=== PATIENT | male | born 1965 | race Caucasian/White ===

== ENCOUNTER 2016-04-07 19:24 | Emergency (ER) | payer OTHER ==
[~2016-04-07] VITALS: Ht 175.3 cm; Wt 140.0 kg
[~2016-04-07 19:24] MED LIST: AMLO5TAB2 PO; BENZ2TAB PO; DEPA500T3 PO; FIBE625T3 PO; GEMF600T PO; IBUP800T23 PO; LISI40TA PO; METF1000 PO; NAPR500 PO; NEUR600T PO; ROBA500T PO; SERO400T PO; ZOLO50TA PO
[2016-04-07 19:29] VITALS: BP 144/90; PULSE 98; RESP 17; TEMP 98.4; O2SAT 97
[2016-04-07] MEDS ORDERED: SODIUM CHLORIDE 0.9% FLUSH 5 ML FLUSH IVF PRN (20:30)
[2016-04-07] MEDS ORDERED: CALC1TAB69 PO (20:36)
--- NOTE | 2016-04-07 20:36 | PD ---
HPI Chief Complaint: Diabetic Time Seen by Provider: 20:23 Travel History International Travel<30 days: No Contact w/Intl Traveler<30days: No Traveled to known affect area: No History of Present Illness HPI The patient is a 50-year-old male with a history of [id number] diabetes who noted a high blood sugar today. He is not also noted polyuria/ polydipsia. He does have some nausea with diarrhea but denies any vomiting. He denies any fever. He has had a cough productive of brown sputum for the last 6 months. He does smoke one half pack a day and is trying to quit. He took his usual dose of metformin at 7 PM which is 1 g. He does feel dehydrated. PFSH Past Medical History Bipolar Disorder: Yes Anxiety: Yes Depression: Yes Cardiovascular Problems: Yes (HTN ) Diabetes: Yes (Type 2 ) Patient Takes Glucophage: Yes Diminished Hearing: No Hypertension: Yes Musculoskeletal: Yes (CHRONIC BACK PAIN) Psychiatric: Yes Tetanus Vaccination: > 5 Years Influenza Vaccination: No ?: Not Past Surgical History Body Medical Devices: PINS AND PLATES IN RIGHT ARM Eye Surgery: Yes (BLIND IN RIGHT EYE) Social History Alcohol Use: Yes (occ) Tobacco Use: Yes ( 1/2 PPD,pt is trying to quit) Substance Use: Yes (marijuana) Allergies-Medications (Allergen,Severity, Reaction): Coded Allergies: No Known Allergies (Verified , 04/07/16) Reported Meds & Prescriptions Reported Meds & Active Scripts Active Naprosyn (Naproxen) 500 Mg Tab 500 Mg PO Q12HR PRN Metformin (Metformin HCl) 1,000 Mg Tab 1,000 Mg PO BIDPC With meals Reported Calcium Polycarbophil 625 Mg Tab 625 Mg PO DAILY Gemfibrozil 600 Mg Tab 600 Mg PO BIDAC Take 30 minutes prior to breakfast and dinner. Benztropine (Benztropine Mesylate) 2 Mg Tab 2 Mg PO HS Amlodipine (Amlodipine Besylate) 5 Mg Tab 5 Mg PO DAILY Lisinopril 40 Mg Tab 40 Mg PO DAILY Zoloft (Sertraline HCl) 50 Mg Tab 50 Mg PO DAILY Depakote ER (Divalproex Sodium) 500 Mg Urvashi 1,000 Mg PO HS Neurontin (Gabapentin) 600 Mg Tab 600 Mg PO TID Seroquel (Quetiapine Fumarate) 400 Mg Tab 800 Mg PO HS Review of Systems Except as stated in HPI: all other systems reviewed are Neg Physical Exam Narrative GENERAL: The patient is alert, obese, oriented 3, moderately dehydrated appearing in no apparent distress. There is no ketotic smell to his breath. His vital signs show blood pressure 144/90 but are otherwise normal. SKIN: Warm and dry. HEAD: Atraumatic. Normocephalic. EYES: Pupils equal and round. No scleral icterus. No injection or drainage. ENT: No nasal bleeding or discharge. Mucous membranes pink and moist. NECK: Trachea midline. No JVD. CARDIOVASCULAR: Regular rate and rhythm. No murmur appreciated. RESPIRATORY: No accessory muscle use. Clear to auscultation. Breath sounds equal bilaterally. GASTROINTESTINAL: Abdomen soft, non-tender, nondistended. Hepatic and splenic margins not palpable. No guarding or rebound is present. MUSCULOSKELETAL: No obvious deformities. No clubbing. No cyanosis. No edema. NEUROLOGICAL: Awake and alert. No obvious cranial nerve deficits. Motor grossly within normal limits. Normal speech. PSYCHIATRIC: Appropriate mood and affect; insight and judgment normal. Data Data Last Documented VS Vital Signs Date Time Temp Pulse Resp B/P Pulse Ox O2 Delivery O2 Flow Rate FiO2 04/07/16 20:53 97 Room Air 04/07/16 19:29 98.4 98 17 144/90 Orders Complete Blood Count With Diff (04/07/16 20:23) Comprehensive Metabolic Panel (04/07/16 20:23) Magnesium (Mg) (04/07/16 20:23) Beta Hydroxybutyrate (Acetone) (04/07/16 20:23) Urinalysis - C+S If Indicated (04/07/16 20:23) Chest, Pa & Lat (04/07/16 20:23) Ecg Monitoring (04/07/16 20:23) Iv Access Insert/Monitor (04/07/16 20:23) Oximetry (04/07/16 20:23) NPO (04/07/16 20:23) Sodium Chlor 0.9% 1000 Ml Inj (Ns 1000 M (04/07/16 20:53) Sodium Chloride 0.9% Flush (Ns Flush) (04/07/16 20:30) Insulin Human Regular Inj (Novolin R Inj (04/07/16 20:45) Orphenadrine Inj (Norflex Inj) (04/07/16 22:00) Labs Laboratory Tests Test 04/07/16 04/07/16 20:30 20:50 White Blood Count 13.6 TH/MM3 Red Blood Count 4.92 MIL/MM3 Hemoglobin 13.3 GM/DL Hematocrit 39.1 % Mean Corpuscular Volume 79.6 FL Mean Corpuscular Hemoglobin 27.0 PG Mean Corpuscular Hemoglobin 33.9 % Concent Red Cell Distribution Width 12.8 % Platelet Count 365 TH/MM3 Mean Platelet Volume 9.3 FL Neutrophils (%) (Auto) 67.3 % Lymphocytes (%) (Auto) 23.7 % Monocytes (%) (Auto) 5.6 % Eosinophils (%) (Auto) 3.0 % Basophils (%) (Auto) 0.4 % Neutrophils # (Auto) 9.1 TH/MM3 Lymphocytes # (Auto) 3.2 TH/MM3 Monocytes # (Auto) 0.8 TH/MM3 Eosinophils # (Auto) 0.4 TH/MM3 Basophils # (Auto) 0.1 TH/MM3 CBC Comment DIFF FINAL Differential Comment Sodium Level 130 MEQ/L Potassium Level 4.4 MEQ/L Chloride Level 94 MEQ/L Carbon Dioxide Level 27.4 MEQ/L Anion Gap 9 MEQ/L Blood Urea Nitrogen 16 MG/DL Creatinine 1.00 MG/DL Estimat Glomerular Filtration 79 ML/MIN Rate Random Glucose 448 MG/DL Calcium Level 8.8 MG/DL Magnesium Level 1.8 MG/DL Total Bilirubin 0.2 MG/DL Aspartate Amino Transf 6 U/L (AST/SGOT) Alanine Aminotransferase 15 U/L (ALT/SGPT) Alkaline Phosphatase 101 U/L Total Protein 7.5 GM/DL Albumin 2.9 GM/DL B-Hydroxybutyrate 0.09 MMOL/L Urine Color STRAW Urine Turbidity CLEAR Urine pH 6.0 Urine Specific [place] GREATER THAN 1.035 Urine Protein NEG mg/dL Urine Glucose (UA) 1000 OR GREATER mg/dL Urine Ketones TRACE mg/dL Urine Occult Blood SMALL Urine Nitrite NEG Urine Bilirubin NEG Urine Leukocyte Esterase NEG Urine RBC 0-3 /hpf Urine WBC 0-2 /hpf Urine Squamous Epithelial 0-5 /hpf Cells Urine Bacteria NONE /hpf Microscopic Urinalysis Comment CULT NOT INDICATED MDM Medical Decision Making Medical Screen Exam Complete: Yes Emergency Medical Condition: Yes Medical Record Reviewed: Yes Interpretation(s) The blood sugar is 448. Insulin was given that 2041, 12 units. At 06/04/19 he Accu-Chek was 275. Differential Diagnosis Diabetes mellitus with poor control, hyperglycemic episode, electrolyte disorder , UTI Narrative Course The patient has had a good response to insulin. He does have some leg cramping and arm cramping and will be given Norflex. He needs to follow-up with his primary care physician. He is provided with his lab work that we did here in emergency department. Diagnosis Primary Impression: Hyperglycemia Additional Instructions: Follow-up as soon as possible with your primary care physician. 6 closely with her diet because if you lose weight you will reduce your requirement for diabetic medications. Med/Other Pt SpecificInfo: No Change to Meds Disposition: 01 DISCHARGE HOME Condition: Stable Tommie Coy MD Apr 07, 2016 20:35
[2016-04-07 20:43] LABS: AUTOMATED NEUTROPHIL # 9.1 TH/MM3 (1.8-7.7); BASOPHIL # 0.1 TH/MM3 (0-0.2); BASOPHIL % 0.4 % (0.0-2.0); EOSINOPHIL # 0.4 TH/MM3 (0-0.4); HEMATOCRIT 39.1 % (39.0-51.0); HEMO FLAGS DIFF FINAL; LYMPH % 23.7 % (9.0-44.0); LYMPHOCYTE # 3.2 TH/MM3 (1.0-4.8); MEAN CELL VOLUME 79.6 FL (80.0-100.0); MEAN CORPUSCULAR HGB CONC 33.9 % (32.0-36.0); MONO % 5.6 % (0.0-8.0); NEUT % 67.3 % (16.0-70.0); PLATELET COUNT 365 TH/MM3 (150-450); RED BLOOD COUNT 4.92 MIL/MM3 (4.50-5.90); RED CELL DISTRIBUTION WIDTH 12.8 % (11.6-17.2); WHITE BLOOD COUNT 13.6 TH/MM3 (4.0-11.0)
[2016-04-07] MEDS ORDERED: INSULIN HUMAN REGULAR 1,000 UNITS/10 ML VIAL IVP ONE (20:45)
[2016-04-07 20:50] LABS: CHLORIDE 94 MEQ/L (98-107); POTASSIUM 4.4 MEQ/L (3.5-5.1); SODIUM (NA) 130 MEQ/L (136-145)
[2016-04-07 20:53] VITALS: O2SAT 97
[2016-04-07 20:53] LABS: ANION GAP 9 MEQ/L (5-15); BICARBONATE 27.4 MEQ/L (21.0-32.0)
[2016-04-07 20:53] LABS: BLOOD, URINE SMALL (NEG); KETONE, URINE TRACE mg/dL (NEG); NITRITE,URINE NEG (NEG)
[2016-04-07] MEDS ORDERED: SODIUM CHLOR 0.9% 1000 ML INJ 1,000 ML IV ONE (20:53)
[2016-04-07 21:04] LABS: ALKALINE PHOSPHATASE 101 U/L (45-117); ALT (GPT) 15 U/L (12-78); AST (GOT) 6 U/L (15-37); BLOOD UREA NITROGEN 16 MG/DL (7-18); GLOMERULAR FILTRATION RATE 79 ML/MIN (>89); MAGNESIUM 1.8 MG/DL (1.5-2.5); TOTAL BILIRUBIN ADULT 0.2 MG/DL (0.2-1.0)
[2016-04-07 21:07] LABS: GLUCOSE,URINE 1000 OR GREATER mg/dL (NEG)
[2016-04-07 21:08] LABS: COMMENT (UR) CULT NOT INDICATED; CULTURE IF INDICATED CULT NOT INDICATED; RBC, URINE 0-3 /hpf (0-3); SQUAMOUS EPITHELIAL CELL URINE 0-5 /hpf (0-5); URINE COLOR STRAW (YELLW/STRAW); WBC, URINE 0-2 /hpf (0-5)
[2016-04-07 21:15] VITALS: BP 118/85; PULSE 91; RESP 19
[2016-04-07 21:21] LABS: BETA-HYDROXYBUTYRATE 0.09 MMOL/L (0.00-0.39)
--- NOTE | 2016-04-07 21:26 | RADHPO ---
EXAM DATE/TIME: 04/07/2016 21:00 [facility] COMPARISON: No previous studies available for comparison. INDICATIONS : Shortness of breath. MEDICAL HISTORY : Diabetes mellitus type II. SURGICAL HISTORY : None. ENCOUNTER: Initial ACUITY: 1 day PAIN SCORE: 0/10 LOCATION: Bilateral chest FINDINGS: The heart size is normal. There is some prominence of the left hilar region and some subtle increase d density in the left suprahilar area. The right lung appears clear. A significant effusion is not seen. CONCLUSION: Suspected left suprahilar area of consolidation and some prominence of the left hilum. Casey Cisneros MD on April 07, 2016 at 21:15 Board Certified Radiologist. This report was verified electronically.
[2016-04-07] MEDS ORDERED: ORPHENADRINE INJ 60 MG/2 ML AMP IM ONE (22:00)
[2016-04-07 22:20] VITALS: BP 144/86; PULSE 95; RESP 20; O2SAT 96
[2016-04-07] MEDS ORDERED: LIDOCAINE HCL 1% 50 ML VIAL IM ONE (22:30)
[2016-04-07] MEDS ORDERED: CEPH-460 PO (22:34)
[2016-04-07] MEDS ORDERED: ZITH500T PO (22:34)
[2016-04-07] MEDS ORDERED: AZITHROMYCIN 250 MG TAB PO ONE (22:45)
[2016-04-07 23:02] VITALS: BP 132/78
[2016-04-10] MEDS ORDERED: METF1000 PO (14:52)
[2016-04-10] MEDS ORDERED: LISI40TA PO (14:53)
[2016-04-17] MEDS ORDERED: GLIP5TAB8 PO (14:34)
[2016-04-23] MEDS ORDERED: GLIP5TAB8 PO (14:18)
[2016-04-24] MEDS ORDERED: GLIP10TA6 PO ×2 (11:24→11:25)
[2016-04-30] MEDS ORDERED: GEMF600T PO ×2 (10:30→10:31)
[2016-05-03] MEDS ORDERED: METF1000 PO (14:39)
[2016-05-03] MEDS ORDERED: NAPR500 PO (14:39)
[2016-05-03] MEDS ORDERED: LISI40TA PO (14:39)
[2016-05-08] MEDS ORDERED: AMLO5TAB2 PO ×2 (14:05→14:06)
[2016-05-21] MEDS ORDERED: NAPR500 PO (13:11)
[2016-05-30] MEDS ORDERED: GLIP10TA6 PO (17:06)
[2016-08-16] MEDS ORDERED: AMLO5TAB2 PO (08:08)
[2016-08-23] MEDS ORDERED: CYCL1TAB29 PO (15:47)
== END 2016-04-07 23:10 | disposition home or self-care (01) ==
LOC: PHED 19:24
DX: E11.65 Type 2 diabetes mellitus with hyperglycemia (principal); F41.8 Other specified anxiety disorders; I10 Essential (primary) hypertension; F17.210 Nicotine dependence, cigarettes, uncomplicated; H54.41 Blindness, right eye, normal vision left eye; Z79.4 Long term (current) use of insulin
CPT/HCPCS: 71020; 80053; 81001; 82010; 83735; 85025; 96361; 96372; 96374; 99285; J0696; J1815; J2360; J7030

== ENCOUNTER → 2016-04-13 | Outpatient (CLI) | payer OTHER ==
[~2016-04-13] MED LIST changes: +CALC1TAB69 PO; +CEPH-460 PO; +CYCL1TAB29 PO; +GLIP10TA6 PO; +GLIP5TAB8 PO; +QUET1TAB10 PO; +ZITH500T PO
[2016-04-13 10:38] LABS: AUTOMATED NEUTROPHIL # 7.9 TH/MM3 (1.8-7.7); BASOPHIL # 0.1 TH/MM3 (0-0.2); BASOPHIL % 0.8 % (0.0-2.0); EOSINOPHIL # 0.5 TH/MM3 (0-0.4); EOSINOPHIL % 3.6 % (0.0-4.0); HEMATOCRIT 41.8 % (39.0-51.0); HEMO FLAGS DIFF FINAL; LYMPH % 28.6 % (9.0-44.0); LYMPHOCYTE # 3.8 TH/MM3 (1.0-4.8); MEAN CELL VOLUME 78.7 FL (80.0-100.0); MEAN CORPUSCULAR HEMOGLOBIN 27.5 PG (27.0-34.0); MONO % 7.6 % (0.0-8.0); NEUT % 59.4 % (16.0-70.0); PLATELET COUNT 444 TH/MM3 (150-450); RED BLOOD COUNT 5.31 MIL/MM3 (4.50-5.90); RED CELL DISTRIBUTION WIDTH 14.4 % (11.6-17.2); WHITE BLOOD COUNT 13.4 TH/MM3 (4.0-11.0)
[2016-04-13 11:08] LABS: ANION GAP 7 MEQ/L (5-15); AST (GOT) 11 U/L (15-37); BICARBONATE 27.6 MEQ/L (21.0-32.0); BLOOD UREA NITROGEN 26 MG/DL (7-18); CHLORIDE 96 MEQ/L (98-107); GLOMERULAR FILTRATION RATE 84 ML/MIN (>89); GLUCOSE,FASTING 243 MG/DL (74-99); POTASSIUM 4.3 MEQ/L (3.5-5.1); SODIUM (NA) 131 MEQ/L (136-145)
[2016-04-13 11:11] LABS: ALKALINE PHOSPHATASE 87 U/L (45-117); ALT (GPT) 21 U/L (12-78); HDL CHOLESTEROL 28.4 MG/DL (40.0-60.0); LDL CHOLESTEROL 91 MG/DL (0-99); TOTAL BILIRUBIN ADULT 0.2 MG/DL (0.2-1.0)
[2016-04-13 13:36] LABS: HEMOGLOBIN A1a 1.2 %; HEMOGLOBIN A1b 3.2 %; HEMOGLOBIN Ao 75.6 %; HEMOGLOBIN LA1C 2.9 %; HEMOGLOBIN P3 5.1 %
== END ==
LOC: CLAB 10:06
PROVIDERS: ATTEND Family Medicine
DX: H54.41 Blindness, right eye, normal vision left eye (principal); S20.212A Contusion of left front wall of thorax, initial encounter; M79.672 Pain in left foot; E66.9 Obesity, unspecified; E78.5 Hyperlipidemia, unspecified; X58.XXXA Exposure to other specified factors, initial encounter
CPT/HCPCS: 36415; 80053; 80061; 83036; 85025

== ENCOUNTER 2016-07-14 01:44 | Emergency (ER) | payer OTHER ==
[~2016-07-14] VITALS: Ht 175.3 cm; Wt 139.3 kg
[~2016-07-14 01:44] MED LIST changes: -CEPH-460 PO; -CYCL1TAB29 PO; -FIBE625T3 PO; -GLIP5TAB8 PO; -IBUP800T23 PO; -QUET1TAB10 PO; -ROBA500T PO; -ZITH500T PO
[2016-07-14 01:53] VITALS: BP 125/83; PULSE 104; RESP 12; TEMP 100.3; O2SAT 97
[2016-07-14] MEDS ORDERED: DEPA500T3 PO (02:27)
[2016-07-14 03:00] VITALS: BP 147/82; PULSE 92; RESP 20; O2SAT 96
--- NOTE | 2016-07-14 03:10 | PD ---
HPI Chief Complaint: Syncope/Near-Syncope Time Seen by Provider: 02:57 Travel History International Travel<30 days: No Contact w/Intl Traveler<30days: No Traveled to known affect area: No History of Present Illness HPI The patient is a 50-year-old male that states he has nightly blackouts. He states this is not why he is here. The patient states he is an opiate abuser and has shoulder pain for 5 days and wants to know what it is so he can get a muscle relaxer and go somewhere for it. He denies any trauma. He states the black out spells occur because of the Seroquel. He does have a history of opiate as well as cocaine abuse as well as benzodiazepine abuse in the past. The patient states he has taken 10 mg Flexeril with his current medications and this has worked fine. PFSH Past Medical History Arthritis: Yes Bipolar Disorder: Yes Anxiety: Yes Depression: Yes Cardiovascular Problems: Yes (HTN ) Diabetes: Yes (TYPE 2) Diminished Hearing: No (BILATERAL HEARING AIDES) Hypertension: Yes Musculoskeletal: Yes (CHRONIC BACK PAIN) Psychiatric: Yes Influenza Vaccination: No Past Surgical History Body Medical Devices: PINS AND PLATES IN RIGHT ARM Eye Surgery: Yes (BLIND IN RIGHT EYE, CHILDHOOD TRAUMA) Social History Alcohol Use: Yes (SOCIALLY) Tobacco Use: Yes (1 03/19 PPD) Substance Use: Yes (MARIJUANA) Allergies-Medications (Allergen,Severity, Reaction): Coded Allergies: No Known Allergies (Verified , 07/14/16) Reported Meds & Prescriptions Reported Meds & Active Scripts Active Glipizide 10 Mg Tab 10 Mg PO BIDAC Take 30 minutes before a meal Naprosyn (Naproxen) 500 Mg Tab 500 Mg PO Q12HR PRN Amlodipine (Amlodipine Besylate) 5 Mg Tab 5 Mg PO DAILY Lisinopril 40 Mg Tab 40 Mg PO DAILY Metformin (Metformin HCl) 1,000 Mg Tab 1,000 Mg PO BIDPC With meals Gemfibrozil 600 Mg Tab 600 Mg PO BIDAC Take 30 minutes prior to breakfast and dinner. Reported Depakote ER (Divalproex Sodium) 500 Mg Ruvashi 600 Mg PO HS Zoloft (Sertraline HCl) 50 Mg Tab 50 Mg PO DAILY Neurontin (Gabapentin) 600 Mg Tab 600 Mg PO TID Seroquel (Quetiapine Fumarate) 400 Mg Tab 600 Mg PO HS Review of Systems Except as stated in HPI: all other systems reviewed are Neg Physical Exam Narrative GENERAL: Well-nourished, alert and oriented, slightly obese patient in moderate apparent distress with his left shoulder pain. His vital signs show heart rate of 104 and temperature 100.3 but otherwise normal. SKIN: Focused skin assessment warm/dry. Recent needle tracks are present in the right forearm. None of these are infected. A few are present in the left forearm. HEAD: Normocephalic. EYES: No scleral icterus. No injection or drainage. NECK: Supple, trachea midline. No JVD or lymphadenopathy. CARDIOVASCULAR: Regular rate and rhythm without murmurs, gallops, or rubs. RESPIRATORY: Breath sounds equal bilaterally. No accessory muscle use. GASTROINTESTINAL: Abdomen soft, non-tender, nondistended. MUSCULOSKELETAL: No cyanosis, or edema. BACK: Nontender without obvious deformity. No CVA tenderness. Data Data Last Documented VS Vital Signs Date Time Temp Pulse Resp B/P Pulse Ox O2 Delivery O2 Flow Rate FiO2 07/14/16 02:28 98 20 98 07/14/16 01:53 100.3 125/83 Orders Electrocardiogram (07/14/16 03:00) Ketorolac Inj (Toradol Inj) (07/14/16 03:15) Orphenadrine Inj (Norflex Inj) (07/14/16 03:15) Shoulder, Complete (>2vws) (07/14/16 ) [facility] Medical Decision Making Medical Screen Exam Complete: Yes Emergency Medical Condition: Yes Medical Record Reviewed: Yes Interpretation(s) The EKG shows sinus rhythm with a rate of 88 and is completely normal. The left shoulder shows no fracture or other acute bony abnormality. There is moderate osteoarthritis of the acromioclavicular joint. Also noted are chronic appearing cortical excretion sees seen on the proximal shaft of the left humerus. This could be old trauma, osteochondromas or chronic tug lesions. Differential Diagnosis Tendinitis left shoulder, rotator cuff tear, arthritis left shoulder Narrative Course The patient appears to have our she arthritis of the left shoulder. He should rest the left shoulder, take Motrin 800 mg 3 times daily and is given Flexeril 10 mg 3 times a day for 10 days. Diagnosis Primary Impression: Osteoarthritis of left shoulder Additional Instructions: As we discussed, take the Motrin regularly 3 times daily. Rest is important for this to calm down and this is why you're given a sling. Follow-up with a primary care physician. Med/Other Pt SpecificInfo: Prescription(s) given Scripts Cyclobenzaprine (Flexeril)10 Mg Tab10 Mg PO TID #30 TAB Ref 0 Prov:Tommie Coy MD 07/14/16 Ibuprofen 800 Mg Alg418 Mg PO TID #44 TAB Ref 0 Prov:Tommie Coy MD 07/14/16 Disposition: 01 DISCHARGE HOME Condition: Stable Tommie Coy MD Jul 14, 2016 03:10
[2016-07-14] MEDS ORDERED: KETOROLAC TROMETHAMINE 60 MG/2 ML (IM) VIAL IM ONE (03:15)
[2016-07-14] MEDS ORDERED: ORPHENADRINE INJ 60 MG/2 ML AMP IM ONE (03:15)
--- NOTE | 2016-07-14 03:38 | RADHPO ---
EXAM DATE/TIME: 07/14/2016 03:17 [facility] COMPARISON: No previous studies available for comparison. INDICATIONS : Left shoulder pain with bruising. MEDICAL HISTORY : None. SURGICAL HISTORY : None. ENCOUNTER: Initial ACUITY: 4 - 6 days PAIN SCORE: 6/10 LOCATION: Left upper extremity FINDINGS: Bones of the left shoulder are intact and normally aligned. There is moderate osteoarthritis of the a cromioclavicular joint. Radiographic appearance of the soft tissues within normal limits. Mild, chronic appearing cortical excrescences are seen of the proximal shaft of the left humerus, cou ld be related to old trauma versus osteochondromas or chronic tug lesions. I don't see any suspicious or aggressive features. CONCLUSION: No fracture or other acute bony abnormality. Moderate osteoarthritis of the acromioclavicular joint a nd chronic appearing excrescences of the left humerus. Please see above. Casey Adan MD on July 14, 2016 at 3:34 Board Certified Radiologist. This report was verified electronically.
[2016-07-14] MEDS ORDERED: IBUP800T23 PO (04:13)
[2016-07-14] MEDS ORDERED: CYCL1TAB29 PO (04:13)
[2016-07-14 04:29] VITALS: BP 120/73
--- NOTE | 2016-07-14 19:06 | EKG ---
Date Performed: 07/14/2016 Time Performed: 03:04:56 PTAGE: 50 years EKG: Sinus rhythm Normal ECG PREVIOUS TRACING : 02/27/2015 01.44 Compared to prior tracing no significant change DOCTOR: Matthew Hendrix Interpretating Date/Time 07/14/2016 19:05:14
[2016-08-16] MEDS ORDERED: AMLO5TAB2 PO (08:08)
[2016-08-23] MEDS ORDERED: CYCL1TAB29 PO (15:47)
== END 2016-07-14 04:35 | disposition home or self-care (01) ==
LOC: PHED 01:44
DX: M19.012 Primary osteoarthritis, left shoulder (principal)
CPT/HCPCS: 73030; 93005; 96372; 99284; J1885; J2360

== ENCOUNTER 2016-07-31 15:52 | Emergency (ER) | payer OTHER ==
[~2016-07-31] VITALS: Ht 175.3 cm; Wt 124.3 kg
[~2016-07-31 15:52] MED LIST changes: -BENZ2TAB PO; -CALC1TAB69 PO; +CYCL1TAB29 PO; +IBUP800T23 PO
[2016-07-31 15:58] VITALS: BP 154/110; PULSE 113; RESP 16; TEMP 98.7; O2SAT 99
[2016-07-31 16:08] VITALS: PULSE 102; RESP 18; O2SAT 98
--- NOTE | 2016-07-31 16:11 | PD ---
HPI Chief Complaint: Medication Refill Request Time Seen by Provider: 16:08 Travel History International Travel<30 days: No Contact w/Intl Traveler<30days: No Traveled to known affect area: No History of Present Illness HPI 50-year-old male presents to the emergency department requesting a refill of his psychiatric medications, gabapentin, Depakote, Zoloft, Seroquel. He states that he could not get an appointment with [facility] until the end of next month so he came to the emergency department. Patient is a patient of the community clinic here at [place]. He has not followed up with Dr. Larry at the [facility]. Reports chronic left shoulder pain for 3 months. No fevers or chills. He states he was a prior IV drug user, last use one month ago. Patient denies any injury. He was seen here recently for this requesting Flexeril for his shoulder. The patient denies any suicidal or homicidal ideations. Patient is drinking a coffee at this time. He has no other complaints. History Social History Alcohol Use: Yes (SOCIALLY) Tobacco Use: Yes (1 03/19 PPD) Allergies-Medications (Allergen,Severity, Reaction): Coded Allergies: No Known Allergies (Verified , 07/31/16) Reported Meds & Prescriptions Reported Meds & Active Scripts Active Flexeril (Cyclobenzaprine HCl) 10 Mg Tab 10 Mg PO TID Ibuprofen 800 Mg Tab 800 Mg PO TID Glipizide 10 Mg Tab 10 Mg PO BIDAC Take 30 minutes before a meal Naprosyn (Naproxen) 500 Mg Tab 500 Mg PO Q12HR PRN Amlodipine (Amlodipine Besylate) 5 Mg Tab 5 Mg PO DAILY Lisinopril 40 Mg Tab 40 Mg PO DAILY Metformin (Metformin HCl) 1,000 Mg Tab 1,000 Mg PO BIDPC With meals Gemfibrozil 600 Mg Tab 600 Mg PO BIDAC Take 30 minutes prior to breakfast and dinner. Reported Depakote ER (Divalproex Sodium) 500 Mg Urvashi 600 Mg PO HS Zoloft (Sertraline HCl) 50 Mg Tab 50 Mg PO DAILY Neurontin (Gabapentin) 600 Mg Tab 600 Mg PO TID Seroquel (Quetiapine Fumarate) 400 Mg Tab 600 Mg PO HS Review of Systems Except as stated in HPI: all other systems reviewed are Neg Physical Exam Narrative GENERAL: Well-nourished, well-developed obese male patient, afebrile. SKIN: Focused skin assessment warm/dry. No erythema or warmth over left shoulder. HEAD: Normocephalic. Atraumatic. EYES: No scleral icterus. No injection or drainage. NECK: Supple, trachea midline. No JVD or lymphadenopathy. CARDIOVASCULAR: Regular rate and rhythm without murmurs, gallops, or rubs. Left radial pulse 2+ RESPIRATORY: Breath sounds equal bilaterally. No accessory muscle use. Lungs sounds are clear to auscultation. GASTROINTESTINAL: Abdomen soft, non-tender, nondistended. MUSCULOSKELETAL: No cyanosis, or edema. No tenderness over left shoulder. He has full flexion without pain or stiffness. PSYCHIATRIC: No delusional thought processes. No hallucinations. Data Data Last Documented VS Vital Signs Date Time Temp Pulse Resp B/P Pulse Ox O2 Delivery O2 Flow Rate FiO2 07/31/16 16:08 102 18 98 Room Air 07/31/16 15:58 98.7 154/110 MDM Medical Screen Exam Complete: Yes Emergency Medical Condition: No Differential Diagnosis Medication refill, chronic shoulder pain Narrative Course 50-year-old male presents to the emergency department requesting refills of his psychiatric medications. He denies any medical complaints at this time. He does complain of chronic left shoulder pain. No evidence of infection or injury. The patient is slightly tachycardic on exam, heart rate 102. However, the patient is drinking a coffee and appears slightly anxious. I do believe that this is why his heart rate is slightly elevated. No emergent conditions identified on today's exam. A medical screening exam was performed: At the time of evaluation the presenting medical condition was determined not to be of an emergent nature. The patient was given the option of receiving additional care, but declined. Patient was given options for additional community resources from which to obtain care. The Patient Has Been advised to seek medical attention for their presenting complaint. The patient has been advised to return to the ER at any time if an emergent condition develops. Primary Impression: Encounter for medical screening examination Condition: Shaylee Rae July 31, 2016 16:11
[2016-08-16] MEDS ORDERED: AMLO5TAB2 PO (08:08)
[2016-08-23] MEDS ORDERED: CYCL1TAB29 PO (15:47)
== END 2016-07-31 16:16 | disposition left against medical advice (07) ==
LOC: PHEFT 15:52
DX: G89.29 Other chronic pain (principal); M25.512 Pain in left shoulder; F17.210 Nicotine dependence, cigarettes, uncomplicated; Z79.899 Other long term (current) drug therapy
CPT/HCPCS: 99281

== ENCOUNTER → 2016-08-21 | Outpatient (CLI) | payer OTHER ==
[~2016-08-21] MED LIST changes: +GLIP5TAB8 PO; +QUET1TAB10 PO
[2016-08-21 10:18] LABS: HDL CHOLESTEROL 25.2 MG/DL (40.0-60.0); LDL CHOLESTEROL 90 MG/DL (0-99)
[2016-08-21 17:04] LABS: HEMOGLOBIN A1a 1.2 %; HEMOGLOBIN A1b 2.2 %; HEMOGLOBIN Ao 83.7 %; HEMOGLOBIN LA1C 1.8 %; HEMOGLOBIN P3 3.8 %
== END ==
LOC: CLAB 09:26
PROVIDERS: ATTEND Family Medicine
DX: E11.9 Type 2 diabetes mellitus without complications (principal); E78.5 Hyperlipidemia, unspecified
CPT/HCPCS: 36415; 80061; 83036

== ENCOUNTER 2016-09-04 12:16 | Inpatient (IN) | payer OTHER ==
[2016-09-03 20:00] VITALS: BP_SYST 101; BP_SYST 82; BP_DIAS 51; BP_DIAS 58; PULSE 109; RESP 23; TEMP 98.1; O2SAT 95
[2016-09-04] VITALS (13 sets, daily range): BP systolic 79–101; BP diastolic 50–58; PULSE 109–140; RESP 16–23; TEMP 98.1–100.1; O2SAT 58–100
[~2016-09-04] VITALS: Ht 177.8 cm; Wt 140.5 kg
[~2016-09-04 12:16] MED LIST changes: +EPINEPHrine HCL (1:10,000) 1 MG/10 ML SYRINGE IV ONE; -GLIP5TAB8 PO; -IBUP800T23 PO; -QUET1TAB10 PO
[2016-09-04] MEDS ORDERED: PROPOFOL 1000 MG/100 ML INJ 100 ML ONE (12:55)
[2016-09-04] MEDS ORDERED: NOREPINEPHRINE 4 MG/4 ML AMP ONE (12:57)
[2016-09-04] MEDS ORDERED: LIDOCAINE 1%/EPINEPHrine 1:100,000 SOLN 20 ML VIAL ONE (12:57)
[2016-09-04] MEDS ORDERED: SODIUM CHLOR 0.9% 1000 ML INJ 1,000 ML IV SCH (13:12)
[2016-09-04] MEDS ORDERED: SODIUM CHLORIDE 0.9% FLUSH 5 ML FLUSH IV FLUSH PRN (13:15)
[2016-09-04] MEDS ORDERED: SODIUM CHLOR 0.9% 1000 ML INJ 1,000 ML IV ONE ×5 (13:15→22:30)
[2016-09-04] MEDS ORDERED: ETOMIDATE 20 MG/10 ML VIAL IV PUSH ONE (13:30)
[2016-09-04] MEDS ORDERED: TERBUTALINE INJ 1 MG/ML AMP SQ PRN ×2 (13:30→15:00)
[2016-09-04] MEDS ORDERED: KETAMINE HCL 500 MG/5 ML VIAL IV PUSH ONE (13:30)
[2016-09-04] MEDS ORDERED: SUCCINYLCHOLINE CHLORIDE 200 MG/10 ML VIAL IV PUSH ONE (13:30)
[2016-09-04 13:36] LABS: AUTOMATED NEUTROPHIL # 29.3 TH/MM3 (1.8-7.7); BASOPHIL # 0.1 TH/MM3 (0-0.2); BASOPHIL % 0.2 % (0.0-2.0); EOSINOPHIL # 0.2 TH/MM3 (0-0.4); EOSINOPHIL % 0.5 % (0.0-4.0); HEMATOCRIT 40.5 % (39.0-51.0); LYMPHOCYTE # 3.1 TH/MM3 (1.0-4.8); MEAN CELL VOLUME 81.4 FL (80.0-100.0); MEAN CORPUSCULAR HEMOGLOBIN 26.5 PG (27.0-34.0); MEAN CORPUSCULAR HGB CONC 32.5 % (32.0-36.0); MONO % 6.1 % (0.0-8.0); NEUT % 84.2 % (16.0-70.0); PLATELET COUNT 344 TH/MM3 (150-450); RED BLOOD COUNT 4.98 MIL/MM3 (4.50-5.90); RED CELL DISTRIBUTION WIDTH 14.3 % (11.6-17.2); WHITE BLOOD COUNT 34.8 TH/MM3 (4.0-11.0)
[2016-09-04 13:38] LABS: HEMO FLAGS AUTO DIFF
[2016-09-04 13:41] LABS: APTT (PATIENT) 30.3 SEC (24.3-30.1); INTERNATIONAL NORMALIZED RATIO 1.3 RATIO; PROTHROMBIN TIME - PATIENT 14.6 SEC (9.8-11.6)
--- NOTE | 2016-09-04 13:46 | RADRPT ---
EXAM DATE/TIME: 09/04/2016 13:15 [facility] COMPARISON: CHEST PA & LAT, April 07, 2016, 21:00. INDICATIONS : Evaluate ET tube placement. MEDICAL HISTORY : Diabetes mellitus type II. SURGICAL HISTORY : None. ENCOUNTER: Initial ACUITY: 1 day PAIN SCORE: 0/10 LOCATION: Bilateral chest FINDINGS: A single view of the chest demonstrates bibasilar and left upper lobe consolidation. Endotracheal tub e 4 cm above the ed. Heart likely normal in size. The aorta is obscured by overlying consolidatio n. Osseous structures are intact. CONCLUSION: 1. Multilobar consolidation likely pneumonia. 2. Adequate placement of endotracheal tube. Armen Power MD on September 04, 2016 at 13:42 Board Certified Radiologist. This report was verified electronically.
[2016-09-04] MEDS ORDERED: IOHEXOL 350 MG/ML 10 ML VIAL (for RAD DIAG) IV ONE (13:49)
--- NOTE | 2016-09-04 13:49 | PD ---
HPI Chief Complaint: Seizure Time Seen by Provider: 13:12 Travel History International Travel<30 days: No Contact w/Intl Traveler<30days: No Traveled to known affect area: No History of Present Illness HPI 50-year-old man, presents to the emergency department with seizure, altered mental status and hypoxia. Per EMS, patient has a history of seizures, hypertension, diabetes, chronic back pain, bipolar disorder, and was not feeling well today and then had a witnessed generalized seizure. They found patient altered, with an oxygen saturation the 70s. This improved somewhat a nonrebreather. He continued of altered mental status, abnormal breathing, and was brought emergently to the ED. Patient is unable to provide any additional history. History Past Medical History Narrative Medical Reported history of seizures although don't see previously documented Previous charts reflect bipolar disorder, hypertension, diabetes, chronic back pain, Tetanus Vaccination: Unknown Social History Alcohol Use: Yes (SOCIALLY) Tobacco Use: Yes (03/19 PPD) Allergies-Medications (Allergen,Severity, Reaction): Coded Allergies: No Known Allergies (Verified , 08/23/16) Reported Meds & Prescriptions Reported Meds & Active Scripts Active Flexeril (Cyclobenzaprine HCl) 10 Mg Tab 10 Mg PO TID Amlodipine (Amlodipine Besylate) 5 Mg Tab 5 Mg PO DAILY Glipizide 10 Mg Tab 10 Mg PO BIDAC Take 30 minutes before a meal Naprosyn (Naproxen) 500 Mg Tab 500 Mg PO Q12HR PRN Lisinopril 40 Mg Tab 40 Mg PO DAILY Metformin (Metformin HCl) 1,000 Mg Tab 1,000 Mg PO BIDPC With meals Gemfibrozil 600 Mg Tab 600 Mg PO BIDAC Take 30 minutes prior to breakfast and dinner. Reported Depakote ER (Divalproex Sodium) 500 Mg Urvashi 1,000 Mg PO HS Zoloft (Sertraline HCl) 50 Mg Tab 50 Mg PO DAILY Neurontin (Gabapentin) 600 Mg Tab 600 Mg PO TID Seroquel (Quetiapine Fumarate) 400 Mg Tab 600 Mg PO HS Review of Systems ROS Limitations: Clinical Condition Physical Exam Exam Limitations: Clinical Condition Narrative GENERAL: Ill-appearing 50-year-old man, obese, some evidence of upper airway obstruction with moderate respiratory distress, tachypnea, and what appears to be ineffectual breathing. SKIN: Clammy and cool throughout the extremities. HEAD: Atraumatic. Normocephalic. EYES: Right eye is colostomy over and opaque, left pupil is mid range. ENT: No nasal bleeding or discharge. Mucous membranes pink and moist. NECK: Trachea midline. No JVD. CARDIOVASCULAR: Patient appears to be in shock. His clammy and diaphoretic. He has strong femoral pulses but unable to palpate any peripheral pulses. Heart rate rapid, but regular. RESPIRATORY: Rapid, apparently ineffectual shallow breathing with some evidence of airway obstruction and sonorous breathing. GASTROINTESTINAL: Abdomen is obese. No apparent tenderness. No apparent distention. MUSCULOSKELETAL: No obvious deformities. No edema. NEUROLOGICAL: Patient is obtunded, responding purposefully to painful stimuli. PSYCHIATRIC: Appropriate mood and affect; insight and judgment normal. Data Data Last Documented VS Vital Signs Date Time Temp Pulse Resp B/P Pulse Ox O2 Delivery O2 Flow Rate FiO2 09/04/16 13:00 96 100 09/04/16 12:49 Ventilator 09/04/16 12:42 140 20 Orders Propofol 1000 Mg/100 Ml Inj (Diprivan 10 (09/04/16 12:55) Norepinephrine Inj (Levophed Inj) (09/04/16 12:57) Lidocai-Epi 1%-1:100,000 Inj (Xylocaine- (09/04/16 12:57) Electrocardiogram (09/04/16 13:12) Complete Blood Count With Diff (09/04/16 13:12) Comprehensive Metabolic Panel (09/04/16 13:12) Creatine Kinase (Cpk) (09/04/16 13:12) Prothrombin Time / Inr (Pt) (09/04/16 13:12) Act Partial Throm Time (Ptt) (09/04/16 13:12) Troponin I (09/04/16 13:12) Thyroid Stimulating Hormone (09/04/16 13:12) Urinalysis - C+S If Indicated (09/04/16 13:12) Lactic Acid Sepsis Protocol (09/04/16 13:12) Chest, Single Ap (09/04/16 13:12) Ct Brain W/O Iv Contrast(Rout) (09/04/16 13:12) Blood Glucose (09/04/16 13:12) Ecg Monitoring (09/04/16 13:12) Iv Access Insert/Monitor (09/04/16 13:12) Oximetry (09/04/16 13:12) Urinary Catheter Insert/Apply (09/04/16 13:12) Sodium Chloride 0.9% Flush (Ns Flush) (09/04/16 13:15) Sodium Chlor 0.9% 1000 Ml Inj (Ns 1000 M (09/04/16 13:12) Drug Screen, Random Urine (09/04/16 13:12) Alcohol (Ethanol) (09/04/16 13:12) Tylenol (Acetaminophen) (09/04/16 13:12) Salicylates (Aspirin) (09/04/16 13:12) Sodium Chlor 0.9% 1000 Ml Inj (Ns 1000 M (09/04/16 13:15) Cta Thor Abd Aorta W Iv C W3d (09/04/16 ) Norepinephrine-Dextrose Drip (Levophed-D (09/04/16 13:30) Terbutaline Inj (Brethine Inj) (09/04/16 13:30) Lactic Acid Sepsis Protocol (09/04/16 13:27) Etomidate Inj (Amidate Inj) (09/04/16 13:30) Ketamine Inj (Ketalar Inj) (09/04/16 13:30) Succinylcholine Inj (Quelicin Inj) (09/04/16 13:30) Sodium Chlor 0.9% 1000 Ml Inj (Ns 1000 M (09/04/16 13:30) Iohexol 350 Inj (Omnipaque 350 Inj) (09/04/16 13:49) Valproic Acid (Depakene) (09/04/16 13:49) Blood Culture (09/04/16 13:51) Metronidazole 500 Mg Inj (Flagyl 500 Mg (09/04/16 13:51) Piperacil-Tazo 4.5 Gm Premix (Zosyn 4.5 (09/04/16 13:51) Azithromycin Inj (Zithromax Inj) (09/04/16 13:51) CKMB (09/04/16 13:05) CKMB% (09/04/16 13:05) Sodium Chlor 0.9% 1000 Ml Inj (Ns 1000 M (09/04/16 14:30) Sodium Chlor 0.9% 1000 Ml Inj (Ns 1000 M (6/20/17 14:30) Arterial Blood Gas (Abg) (09/04/16 14:12) Admit Order (Ed Use Only) (09/04/16 ) Labs Laboratory Tests Test 09/04/16 09/04/16 13:05 14:12 White Blood Count 34.8 TH/MM3 Red Blood Count 4.98 MIL/MM3 Hemoglobin 13.2 GM/DL Hematocrit 40.5 % Mean Corpuscular Volume 81.4 FL Mean Corpuscular Hemoglobin 26.5 PG Mean Corpuscular Hemoglobin 32.5 % Concent Red Cell Distribution Width 14.3 % Platelet Count 344 TH/MM3 Mean Platelet Volume 9.5 FL Neutrophils (%) (Auto) 84.2 % Lymphocytes (%) (Auto) 9.0 % Monocytes (%) (Auto) 6.1 % Eosinophils (%) (Auto) 0.5 % Basophils (%) (Auto) 0.2 % Neutrophils # (Auto) 29.3 TH/MM3 Lymphocytes # (Auto) 3.1 TH/MM3 Monocytes # (Auto) 2.1 TH/MM3 Eosinophils # (Auto) 0.2 TH/MM3 Basophils # (Auto) 0.1 TH/MM3 CBC Comment AUTO DIFF Differential Total Cells 100 Counted Neutrophils % (Manual) 63 % Band Neutrophils % 16 % Lymphocytes % 15 % Monocytes % 5 % Basophils % 1 % Neutrophils # (Manual) 27.5 TH/MM3 Differential Comment FINAL DIFF MANUAL Platelet Estimate NORMAL Platelet Morphology Comment NORMAL Red Cell Morphology Comment NORMAL Prothrombin Time 14.6 SEC Prothromb Time International 1.3 RATIO Ratio Activated Partial 30.3 SEC Thromboplast Time Sodium Level 131 MEQ/L Potassium Level 4.1 MEQ/L Chloride Level 95 MEQ/L Carbon Dioxide Level 15.8 MEQ/L Anion Gap 20 MEQ/L Blood Urea Nitrogen 25 MG/DL Creatinine 2.17 MG/DL Estimat Glomerular Filtration 32 ML/MIN Rate Random Glucose 231 MG/DL Lactic Acid Level 11.3 mmol/L Calcium Level 9.6 MG/DL Total Bilirubin 0.8 MG/DL Aspartate Amino Transf 271 U/L (AST/SGOT) Alanine Aminotransferase 263 U/L (ALT/SGPT) Alkaline Phosphatase 324 U/L Total Creatine Kinase 427 U/L Creatine Kinase MB 2.9 NG/ML Creatine Kinase MB % 0.7 % Troponin I 0.05 NG/ML Total Protein 6.8 GM/DL Albumin 2.3 GM/DL Thyroid Stimulating Hormone 0.747 uIU/ML 3rd Gen Acetaminophen Level LESS THAN 2.0 MCG/ML Valproic Acid (Depakene) Level 5 MCG/ML Ethyl Alcohol Level LESS THAN 3 MG/DL Blood Gas Puncture Site ART LINE Blood Gas Patient Temperature 98.6 Blood Gas HCO3 13 mmol/L Blood Gas Base Excess -12.8 mmol/L Blood Gas Oxygen Saturation 97 % Arterial Blood pH 7.23 Arterial Blood Partial 33 mmHg Pressure CO2 Arterial Blood Partial 180 mmHG Pressure O2 Arterial Blood Oxygen Content 18.0 Vol % Arterial Blood 0.5 % Carboxyhemoglobin Arterial Blood Methemoglobin 0.7 % Blood Gas Hemoglobin 12.9 G/DL Oxygen Delivery Device VENTILATOR Blood Gas Ventilator Setting 500/18/+5/1.0 Blood Gas Inspired Oxygen 100 % [facility] Medical Decision Making Medical Screen Exam Complete: Yes Emergency Medical Condition: Yes Interpretation(s) LABS: CBC remarkable for white count 35,000 CMP Lactate Troponin TSH Alcohol Acetaminophen ABG: Chest x-ray: Multilobar consolidation, likely pneumonia. Differential Diagnosis Seizure, aspiration, pneumonia, infection, dissection, PE, arrhythmia, heart failure, ACS, other Narrative Course Medical decision making INITIAL: Is a 50-year-old man who presents in shock following a seizure with hypoxia. Patient required immediate emergency stabilization. Patient has a history of IV drug use, last used yesterday, opiates, and had very poor access. I placed an IO in the patient's leg. He was not tolerating his nonrebreather , was lethargic diaphoretic and needed intubation for airway protection. We perform delayed sequence intubation with 100 mg of ketamine followed by application of BiPAP for 5 minutes with improvement followed by succinylcholine and etomidate and intubation. Patient tolerated well. We gave him a couple 100 mics of epinephrine. We placed a central line in the right groin, and I attempted an arterial line in the right groin but was unsuccessful. We then placed an arterial line in the left radius. Labs were sent and patient was sent to CT for emergency imaging of his head for possible bleed, and also for evidence of dissection given his hemodynamic collapse. Critical Care Narrative Aggregate critical care time was 60 minutes. Time to perform other separately billable procedures was not included in the critical care time. My time did not include minutes spent treating any other patients simultaneously or on activities that did not directly contribute to the patient's treatment. The services I provided to this patient were to treat and/or prevent clinically significant deterioration that could result in: , disability, respiratory failure, hemodynamic labs, seizures, further neurologic impairment. I provided critical care services requiring my management, as noted below: Chart data review, documentation time, medication orders and management, vital sign assessments/reviewing monitor data, ordering and reviewing lab tests, ordering and interpreting/reviewing x-rays and diagnostic studies, care of the patient and discussion of the patient with the admitting physicians. Procedures Procedure Narrative IO: Unable to establish IV access. The left tibia was prepped with chlorhexidine. IO was placed by me. Patient tolerated well. Fluid easily. INTUBATION: The patient was put in optimal position for the procedure. Rapid sequence intubation was initiated by me using 20 milligrams of etomidate IV and 100 milligrams of succinylcholine IV. The patient was intubated with a 8.0 cuffed endotracheal tube. Tube placement was confirmed by visualization of the tube and balloon passing through the cords, capnometry and subsequent chest x- ray. Breath sounds were equal and well aerated bilaterally postintubation. No breath sounds over stomach. Patient tolerated procedure well. CENTRAL VENOUS LINE: The site was prepped with Betadine and sterilely draped. It was infiltrated with 1% lidocaine plain. The deep vein was cannulated using normal Seldinger technique. Ultrasound was utilized in real time. A triple lumen central line was placed in the right femoral site and secured with simple interrupted suture. The site was sterilely dressed. The patient tolerated the procedure well. ARTERIAL LINE: The left wrist was prepped with chlorhexidine. 20-gauge Angiocath was introduced under real-time ultrasound guidance into the left radial artery. Patient tolerated well. Good waveform. Sterile dressing was applied. Diagnosis Primary Impression: Acute respiratory failure with hypoxia Additional Impressions: Septic shock Metastatic cancer Eric Aguilar MD Sep 04, 2016 13:49
[2016-09-04] MEDS ORDERED: metroNIDAZOLE 500 MG INJ 100 ML IV STA (13:51)
[2016-09-04] MEDS ORDERED: PIPERACIL-TAZO 4.5 GM PREMIX 100 ML IV STA (13:51)
[2016-09-04] MEDS ORDERED: AZITHROMYCIN INJ 500 MG in SODIUM CHLOR 0.9% 250 ML INJ 250 ML IV STA (13:51)
[2016-09-04 13:53] LABS: ACETAMINOPHEN LESS THAN 2.0 MCG/ML (10.0-30.0)
[2016-09-04 13:54] LABS: ANION GAP 20 MEQ/L (5-15); AST (GOT) 271 U/L (15-37); BICARBONATE 15.8 MEQ/L (21.0-32.0); BLOOD UREA NITROGEN 25 MG/DL (7-18); CHLORIDE 95 MEQ/L (98-107); GLOMERULAR FILTRATION RATE 32 ML/MIN (>89); POTASSIUM 4.1 MEQ/L (3.5-5.1); SODIUM (NA) 131 MEQ/L (136-145)
[2016-09-04 14:03] LABS: ALKALINE PHOSPHATASE 324 U/L (45-117); ALT (GPT) 263 U/L (12-78); CREATINE KINASE 427 U/L (39-308); TOTAL BILIRUBIN ADULT 0.8 MG/DL (0.2-1.0)
[2016-09-04 14:14] LABS: BANDS 16 % (0-6); BASOPHILS 1 % (0-2); NEUTROPHIL # MANUAL DIFF 27.5 TH/MM3 (1.8-7.7); PLATELET ESTIMATE SMEAR NORMAL (NORMAL); PLATELET MORPHOLOGY NORMAL (NORMAL); POLYS (SEG NEUTROPHILS) 63 % (16-70); SCAN/DIFF FINAL DIFF MANUAL; WBC DIFF SAMPLE 100
[2016-09-04 14:16] LABS: CKMB 2.9 NG/ML (0.5-3.6)
[2016-09-04 14:26] LABS: BLOOD GAS BASE EXCESS -12.8 mmol/L (-2-2); BLOOD GAS CARBOXYHEMOGLOBIN 0.5 % (0-4); BLOOD GAS HCO3 13 mmol/L (22-26); BLOOD GAS METHEMOGLOBIN 0.7 % (0-2); BLOOD GAS O2 HGB SATURATION 97 % (90-100); BLOOD GAS PCO2 33 mmHg (38-42); BLOOD GAS PO2 180 mmHG (61-120); BLOOD GAS TOTAL HGB 12.9 G/DL (12.0-16.0); TEMP CORR TO 98.6
[2016-09-04 14:28] LABS: CRITICAL VALUE YES
[2016-09-04 14:29] LABS: DRAW SITE ART LINE; FIO2 100 %; OXYGEN DEVICE VENTILATOR; STAT YES
--- NOTE | 2016-09-04 14:38 | RADRPT ---
EXAM DATE/TIME: 09/04/2016 13:39 [facility] COMPARISON: CT BRAIN W/O CONTRAST, May 03, 2015, 0:16. INDICATIONS : Patient had possible seizure at home. RADIATION DOSE: 68.93 CTDIvol (mGy) MEDICAL HISTORY : Seizures. SURGICAL HISTORY : Non-responsive. ENCOUNTER: Initial ACUITY: 1 day PAIN SCALE: Non-responsive LOCATION: Cranial TECHNIQUE: Multiple contiguous axial images were obtained of the head. Using automated exposure control and adj ustment of the mA and/or kV according to patient size, radiation dose was kept as low as reasonably a chievable to obtain optimal diagnostic quality images. FINDINGS: Two acquisitions were obtained. Both are obscured to some degree by motion artifact. The ventricles and cortical sulci are within normal limits. There is a stable area of encephalomala annabel involving The right posterior frontal lobe. There is a new area of hyperdensity seen in the superior medial l eft parietal lobe measuring 2.3 cm. This hyperdense area may be area of hemorrhage versus I hyperdense mass. Signifi cant surrounding mass effect or edema is not seen. There is some increased density seen at the anterior interior aspect of the frontal lobe. There is a focal area measuring 1.3 cm. It is diffic ult to determine if this represents an actual lesion or streak artifact from the surrounding bony structures. No other possible focal lesions are seen. No areas of acute infarct are seen. There is mild areas of focal mucosal disease at the posterior left splenoid sinus. CONCLUSION: 2.3 cm hyperdense mass seen at the left parietal lobe. This is thought to likely represent a mass. Some degree of hemorrhage can not be excluded given the density. There is also a questionable second smaller area of hyperdensity seen in the anterior inferior midline frontal lobe region. It is recom mended both these areas be further evaluated with a MRI examination with contrast if there are no con traindications. Casey Cisneros MD on September 04, 2016 at 14:05 Board Certified Radiologist. This report was verified electronically.
[2016-09-04] MEDS ORDERED: MISCELLANEOUS NURSING INFORMATION XX SCH (15:00)
[2016-09-04] MEDS ORDERED: SODIUM BICARBONATE 8.4% SOLN 50 MEQ/50 ML VIAL IV PUSH ONE (15:00)
[2016-09-04] MEDS ORDERED: VANCOMYCIN INJ 1,000 MG in SODIUM CHLOR 0.9% 250 ML INJ 250 ML IV ONE ×2 (15:00→17:00)
[2016-09-04] MEDS ORDERED: DEXTROSE 50% IN WATER 50 ML VIAL(D50) IV PRN (15:00)
[2016-09-04] MEDS ORDERED: GLUCAGON 1 MG/ML VIAL OTHER PRN (15:00)
[2016-09-04] MEDS ORDERED: RESP: ALBUTEROL 2.5 MG/IPRATROPIUM 0.5 MG NEB (PRN) INH (15:00)
[2016-09-04] MEDS: SODIUM BICARBONATE 8.4% INJ 150 MEQ in WATER STERILE FOR INJ 850 ML IV SCH ×2 (15:00→20:53)
[2016-09-04] MEDS ORDERED: CHLORHEXIDINE GLUCONATE 2 % 1 PACK (2 CLOTHS) TOP PRN (15:00)
[2016-09-04] MEDS: levETIRAcetam INJ 500 MG in SODIUM CHLORIDE 0.9% INJ 100 ML IV SCH ×2 (15:00→20:52)
[2016-09-04] MEDS ORDERED: Vancomycin Consult Pharmacy 1 EA OTHER SCH (15:00)
[2016-09-04] MEDS: NOREPINEPHRINE-DEXTROSE DRIP 250 ML IV SCH ×2 (15:03→22:55)
[2016-09-04] MEDS: RESP: ALBUTEROL 2.5 MG/IPRATROPIUM 0.5 MG NEB (SCH) INH ×2 (15:16→20:30)
[2016-09-04 15:27] LABS: LACTIC ACID GHOST NOT REPORTABLE
--- NOTE | 2016-09-04 15:50 | ECHRPT ---
Indication: CONCLUSIONS Normal left ventricular size and wall thickness. The left ventricular systolic function is normal wi th an estimated ejection fraction in the range of 70-75%. Left ventricular diastolic function parameters a re normal. BP: / HR: Rhythm: MEASUREMENTS (Male / Female) Normal Values Technical Quality: 2D ECHO LV Diastolic Diameter PLAX 4.0 cm 4.2 - 5.9 / 3.9 - 5.3 cm LV Systolic Diameter PLAX 3.0 cm IVS Diastolic Thickness 1.0 cm 0.6 - 1.0 / 0.6 - 0.9 cm LVPW Diastolic Thickness 1.0 cm 0.6 - 1.0 / 0.6 - 0.9 cm LV Relative Wall Thickness 0.5 LVOT Diameter 2.1 cm M-MODE Aortic Root Diameter MM 3.0 cm LA Systolic Diameter MM 3.6 cm LA Ao Ratio MM 1.2 AV Cusp Separation MM 2.1 cm DOPPLER AV Peak Velocity 133.0 cm/s AV Peak Gradient 7.1 mmHg LVOT Peak Velocity 116.0 cm/s LVOT Peak Gradient 5.4 mmHg AV Area Cont Eq pk 3.0 cm Mitral E Point Velocity 72.6 cm/s Mitral A Point Velocity 79.5 cm/s Mitral E to A Ratio 0.9 TR Peak Velocity 273.0 cm/s TR Peak Gradient 29.8 mmHg PV Peak Velocity 117.0 cm/s PV Peak Gradient 5.5 mmHg FINDINGS LEFT VENTRICLE The left ventricular systolic function is hyperdynamic with an estimated ejection fraction in the ra nge of 70- 75%. Normal left ventricular size and wall thickness. Left ventricular diastolic function parameters are normal. There is mild to moderate tricuspid valve regurgitation. The estimated pulmonary arterial pressure is 40 mmHg. RIGHT VENTRICLE The right ventricular size is normal. The right ventricular systoilc function is normal. LEFT ATRIUM The left atrial size is normal. RIGHT ATRIUM The right atrium is not well visualized. ATRIAL SEPTUM Normal atrial septal thickness without atrial level shunting by limited color doppler interrogation. AORTA The aortic root and proximal ascending aorta are not well visualized. MITRAL VALVE The mitral valve is not well visualized. AORTIC VALVE The aortic valve is not well visualized. TRICUSPID VALVE Structurally normal tricuspid valve. There is mild to moderate tricuspid valve regurgitation. The estimated pulmonary arterial pressure is 40 mmHg. PULMONARY VALVE The pulmonary valve is not well visualized. VESSELS The inferior vena cava is normal in size. PERICARDIUM No pericardial effusion. Carl Street MD (Electronically Signed) Final Date:04 September 2016 15:50
--- NOTE | 2016-09-04 15:54 | RADRPT ---
EXAM DATE/TIME: 09/04/2016 13:44 [facility] COMPARISON: CT BRAIN W/O CONTRAST, September 04, 2016, 13:39. CT THORACIC SPINE W/O CONTRAST, May 03, 2015, 0:21 . INDICATIONS : Patient unresponsive post possible seizure at home. Questionable aortic disection. IV CONTRAST: 95 cc Omnipaque 350 (iohexol) IV RADIATION DOSE: 16.33 CTDIvol (mGy) MEDICAL HISTORY : Seizures. SURGICAL HISTORY : Non-responsive. ENCOUNTER: Initial ACUITY: 1 day PAIN SCALE: Non-responsive LOCATION: chest TECHNIQUE: Volumetric scanning was performed using a multi-row detector CT scanner. The data was post processed with a variety of visualization algorithms including full volume maximum intensity projection, multi -planar sliding thin slab reformation, curved planar reformation, and surface rendering techniques. Using automated exposure control and adjustment of the mA and/or kV according to patient size, radiat ion dose was kept as low as reasonably achievable to obtain optimal diagnostic quality images. FINDINGS: ANGIOGRAPHIC FINDINGS: Thoracic aorta is normal in caliber without evidence for dissection or aneurysm. There is 3 vessel ar ch anatomy. Proximal arch vessels are patent. The central pulmonary arteries are patent. There is mas s effect associated with the proximal left pulmonary artery branches. The central left pulmonary mazin ry branches are however patent. There is mild ectasia of the distal abdominal aorta measuring up to 2.8 cm in diameter. Bowel aorta i s otherwise normal in appearance without evidence for dissection. Single patent left renal artery. 2 right renal arteries which are patent. Celiac and SMA are patent. SE appears occluded at the origin but reconstitutes proximally. Iliac arteries are somewhat small in caliber but are otherwise patent. Visualized portions of the fem oral arteries are patent bilaterally. There is a right femoral vein central line which terminates in the right iliac vein. GENERAL FINDINGS: Patient is intubated with ETT in good position. Examination is markedly abnormal. There is a large le ft hilar mass with extensive mediastinal adenopathy and associated mass effect on left hilar structur es. There is post obstructive patchy airspace disease in the left lower lobe superior segment. There is also airspace consolidation in the lower lobes bilaterally and groundglass opacities diffusely in the upper lobes bilaterally. Examination of the abdominal viscera is limited by arterial phase technique. Heart, liver is grossly unremarkable with multiple hypodense masses scattered in both lobes of the liver. The liver is subseq uently enlarged. Spleen is unremarkable. Ill-defined 1.5 x 1.7 cm mass in the left adrenal gland. Rig ht adrenal gland is normal in appearance. Pancreas and gallbladder are normal in appearance. Bowel ap pears grossly unremarkable. Multiple subcentimeter retroperitoneal lymph nodes are notable for number . There is also mild portacaval adenopathy. There is an anterior mesenteric metastatic implant measur ing 2.6 x 3.6 cm. Examination the pelvis demonstrates a decompressed bladder. Prostate is of vessels are within normal limits. There are small bilateral fat containing inguinal hernias. No definite abnormal lytic or kunal tic bony lesions. Endplate sclerosis and Schmorl's node noted in the lumbar spine. CONCLUSION: 1. Abnormal examination demonstrating large left hilar mass with bulky mediastinal adenopathy and ass ociated post obstructive airspace disease in the superior segment of the left lower lobe. There is al so evidence for bulky metastatic disease to the liver and solitary mesenteric metastasis. 1.5 cm left adrenal mass also suspicious for metastasis. 2. Bilateral lower lobe airspace consolidation may reflect aspiration in this intubated patient. 3. Patchy groundglass opacities in the upper lobes bilaterally consistent light reflex edema and volu me loss. 4. No evidence for aortic dissection, significant aneurysm, or injury. Pepe Miramontes MD on September 04, 2016 at 14:48 Board Certified Radiologist. This report was verified electronically.
[2016-09-04] MEDS: AZITHROMYCIN INJ 500 MG in SODIUM CHLOR 0.9% 250 ML INJ 250 ML IV SCH (16:02)
--- NOTE | 2016-09-04 16:16 | MH ---
cc: COLIN MEADE M.D. DATE OF ADMISSION 09/04/2016 DATE OF 1965 HISTORY OF THE PRESENT ILLNESS The patient is a 50-year-old male with past medical history of hypertension, diabetes mellitus, seizure disorder, chronic back pain, bipolar disorder who presented to the ED with a witnessed generalized seizure. In addition the patient was altered and hypoxic with O2 saturation in the 70s. He initially somewhat improved on a non-rebreather but due to labored breathing or diaphoresis he was subsequently intubated in the ED and placed on full mechanical ventilation. According to the patient's family the patient has been having progressive worsening shortness of breath and he has not been feeling well lately. In addition he reported feeling nauseous and heartburn. On arrival to the ER he was tachycardiac, hypotensive and was subsequently placed on Levophed which is currently at 20 mics. The patient was given 3 liters of crystalloids in the ED. ABG post intubation showed pH of 7.23, CO2 33, pAO2 180, bicarb 13, saturation 97% on PRVC mode with a rate of 18, tidal volume 500, PEEP of 5, 1.0, FIO2 100%. His laboratory data significant for lactic acidemia with a lactic acid level of 11.3, acute kidney injury with a creatinine 2.17 and leukocytosis with bandemia. His WBC is 34.8 with bands of 16. A CT scan of the brain in the ER was obtained which showed a 2.3 cm hyperdense mass at the left parietal lobe and a questionable second small area of hyperdensity seen in the frontal lobe region. He also had a CTA of the aorta which showed significant hilar and mediastinal adenopathy and liver mets. In the ER he was given Zosyn, azithromycin and placed on Diprivan infusion for sedation. A right femoral central line and left radial A-line was placed by the ED physician. PAST MEDICAL HISTORY Significant for: 1. History of seizures. 2. Hypertension. 3. Diabetes. 4. Chronic back pain. 5. Bipolar disorder. PAST SURGICAL HISTORY Previous surgery on the upper extremity as a teenager. SOCIAL HISTORY The patient is an active smoker where he smokes at least a pack a day for 35 years. Occasional drinker. ALLERGIES NO KNOWN DRUG ALLERGIES. FAMILY HISTORY Noncontributory. MEDICATIONS Reported medications: 1. Depakote. 2. Zoloft. 3. Neurontin. 4. Seroquel. REVIEW OF SYSTEMS As per HPI. Rest of the systems limited as the patient is intubated. PHYSICAL EXAMINATION GENERAL: A 50-year-old male intubated for respiratory failure. VITAL SIGNS: Afebrile with a pulse of 118. Currently blood pressure 83/56 on A-line. Saturation 98% vent setting PRVC rate of 18, tidal volume 500, PEEP of 5. ____ 1.0, FIO2 100. HEENT: Atraumatic, normocephalic. Pupils equal, round, reactive to light and accommodation. Extraocular muscles intact. Conjunctiva pink. Nonicteric sclerae. Oral mucosa within normal. NECK: Supple. No JVD, adenopathy or thyromegaly. Trachea midline. Orally intubated. CARDIOVASCULAR: Tachycardiac. Normal S1-S2. No murmurs, rubs or gallops noted. LUNGS: Pulmonary exam bilateral equal air entry. No wheezing. ABDOMEN: Soft, obese, nontender. No distension. Positive bowel sounds. EXTREMITIES: No clubbing, cyanosis or edema. NEUROLOGIC: Intubated and sedated with Diprivan. LABORATORY DATA Sodium of 131, potassium 4.1, chloride 95, CO2 15, BUN 25, creatinine 2.17, glucose 231. Lactic acid 11.3. AST 271, ALT 263, alk phos 324. Total CK 427. TSH 0.74. WBC 34.8, hemoglobin 13.2, hematocrit 40, platelet count 344. INR 1.3. PT 14.6, PTT 30. Valproic acid level 5. Alcohol level less than 3. Urinalysis pending. IMAGING Chest x-ray showed multilobar consolidation likely pneumonia. ET tube above the ed. A CT scan of the brain showed two brain masses in the left parietal lobe and frontal lobe region. CT of aorta, the preliminary reading showed mediastinal / hilar adenopathy, liver mets. IMPRESSION 1. Acute hypoxemic respiratory failure requiring intubation. 2. Septic shock. 3. Likely post obstructive pneumonia. 4. Leukocytosis with bandemia. 5. Status post seizure. 6. Lactic acidemia likely secondary to seizure and septic shock. 7. Acute kidney injury and hyponatremia. 8. Anion gap metabolic acidosis. 9. Elevated liver enzymes. 10. Brain masses rule out mets. 11. Mediastinal / hilar adenopathy need to rule out bronchogenic carcinoma. 12. Liver mets. 13. History of hypertension. 14. Hyperglycemia with underlying history of diabetes mellitus. 15. Obesity. 16. Chronic back pain. 17. History of bipolar disorder. RECOMMENDATIONS 1. Continue with Diprivan infusion for sedation and vent synchrony. Monitor neuro status closely and daily sedation vacation when appropriate. 2. We will place on Keppra 500 mg IV q. 12 and will consult neurology service. 3. We will obtain an EEG study. In addition the patient will likely need an MRI of the brain with contrast once his renal function recovers. We will consult neurology service. 4. Continue vent support and maintain sats above 92%. 5. Bronchodilators in the form of DuoNeb q.6h and we will initiate ICU vent bundle. 6. Continue with Levophed. We will add Abhijeet-Synephrine if needed. Monitor heart rate and blood pressure closely and maintain MAP greater 65 mmHg. Serial lactic acid monitoring. He was given 3 liters of crystalloid in the ED. We will give an additional 1-2 liters bolus of normal saline and place on a bicarb drip. 7. We will obtain 2-D echo to evaluate LV function. 8. Place on stress dose steroids hydrocortisone at 50 mg IV q.6h. 9. Monitor renal function Is and Os and avoid nephrotoxins. Continue with fluid resuscitation and place on bicarb drip as stated above. 10. We will consult pulmonary service as the patient will likely need a bronchoscopy. Case discussed with Dr. Botello. Plan for bronchoscopy once the patient is stable. 11. Keep n.p.o. for now and place on Protonix 40 mg IV daily. 12. Monitor LFTs. Might need a CT-guided biopsy of liver mass to rule out malignancy if the bronchoscopy is nondiagnostic. 13. Continue with broad-spectrum antibiotics. He was given Zosyn and azithromycin in the ED. Will continue with those antibiotics in addition we will add vancomycin. I will consult infectious disease service. We will obtain blood cultures x2 sets, sputum culture with gram stain and we will check strep pneumonia and Legionella urinary antigen. 14. Monitor CBC. Will consult medical oncology for likely stage IV malignancy, unknown primary at this time, likely related to the lung. 15. Place on medium scale sliding scale insulin with Accu-Chek for glycemic control. 16. GI prophylaxis with Protonix 40 mg daily and DVT prophylaxis with SCDs. Will hold off on chemical anticoagulation prophylaxis given likely brain mets and the patient will likely need a biopsy to rule out malignancy. 17. Lines. Right femoral central line and left radial line placed in the ED. 18. The case discussed with the patient's family at the bedside and I updated them on his condition. The patient is critical. Critical care time 40 minutes excluding procedures. MD KVNG Lloyd/MANNY /3:27 PM /3:49 PM
[2016-09-04] MEDS ORDERED: QUET1TAB10 PO (16:38)
[2016-09-04] MEDS ORDERED: GLIP5TAB8 PO (16:38)
[2016-09-04] MEDS ORDERED: VANCOMYCIN INJ 2,000 MG in SODIUM CHLORID 0.9% 500 ML INJ 500 ML IV ONE ×2 (17:00→18:00)
[2016-09-04] MEDS: INSULIN NovoLIN REGULAR SUPPLEMENTAL SCALE SQ SCH ×2 (18:00→20:00)
[2016-09-04] MEDS: HYDROCORTISONE SOD SUCCINATE 100 MG VIAL IV PUSH SCH ×2 (18:25→20:52)
[2016-09-04] MEDS: fentaNYL DRIP 250 ML IV SCH (18:27)
[2016-09-04] MEDS: PANTOPRAZOLE SODIUM 40 MG VIAL IV SCH (19:11)
[2016-09-04] MEDS ORDERED: ENOXAPARIN SODIUM 40 MG/0.4 ML SYRINGE SQ SCH (20:00)
[2016-09-04 20:06] LABS: BLOOD GAS BASE EXCESS -6.1 mmol/L (-2-2); BLOOD GAS CARBOXYHEMOGLOBIN 1.1 % (0-4); BLOOD GAS HCO3 19 mmol/L (22-26); BLOOD GAS METHEMOGLOBIN 1.2 % (0-2); BLOOD GAS O2 HGB SATURATION 94 % (90-100); BLOOD GAS OXYGEN CONTENT 17.6 Vol % (12.0-20.0); BLOOD GAS PCO2 34 mmHg (38-42); BLOOD GAS PO2 96 mmHg (61-120); BLOOD GAS TOTAL HGB 13.2 G/DL (12.0-16.0); CRITICAL VALUE NO; OXYGEN DEVICE VENTILATOR; TEMP CORR TO 98.6
--- NOTE | 2016-09-04 20:06 | MB ---
cc: FARIDA HOWARD MD, ALAA M.D. DATE OF CONSULTATION: 09/04/2016 REASON FOR CONSULTATION: Septic shock, pneumonia. REQUESTING PHYSICIAN Dr. Vanegas HISTORY OF PRESENT ILLNESS This is a 50-year-old white male who was brought to emergency department after having seizures. He has altered mental status. The patient was intubated and is currently on the ventilator. He is on the ventilator on 50% FIO2 and is unresponsive. The patient had a heart rate of 120 in the emergency department and his lactic acid is greater than 11, and his white count is 34.8 with left shift and he has acute renal failure. IMAGING STUDIES Include CT of the abdomen showed normal examination demonstrates enlarged left hilar mass and bulky mediastinal adenopathy associated with post obstructive airspace disease in the left lower lobe and also bulky metastatic disease to the liver and solitary mesenteric metastases, and also left adrenal mass and is also noted to have multilobar consolidation, and CT scan of the head shows a hyperdense mass in the left parietal lobe likely representing metastatic disease also. The patient is afebrile. He is on Levophed because his blood pressure is extremely low. He has large amount of loose watery stools. The other information cannot be obtained at this time. The patient is intubated. Information is available in the medical record from what was reported in the emergency department. PAST MEDICAL HISTORY: 1. Seizure disorder. 2. Hypertension. 3. Diabetes mellitus. 4. Bipolar disorder. 5. Chronic back pain. ALLERGIES NO KNOWN DRUG ALLERGIES. MEDICATIONS 1. Vancomycin. 2. Piperacillin/tazobactam 3. Azithromycin. 4. Levetiracetam. 5. Protonix. 6. Insulin sliding scale. 7. Levophed 8. Solu-Cortef. SOCIAL HISTORY: Unable to obtain. REVIEW OF SYSTEMS: Unable to obtain. FAMILY HISTORY Unable to obtain. PHYSICAL EXAMINATION: The patient is a moderately obese male who is on the ventilator and is unresponsive. VITAL SIGNS: Temperature 98.1, blood pressure 92/54, respirations 16, heart rate 120. HEENT: Unable to fully assess, and the patient cannot cooperate. The patient is intubated. He is on 60% FIO2. NECK: Supple. No adenopathy. LUNGS: Decreased breath sounds at the bases. HEART: Regular S1-S2. ABDOMEN: Obese, soft. RECTAL: Not performed. EXTREMITIES: No clubbing, cyanosis or edema. SKIN: No rash. NEUROLOGIC: Unable to assess. The patient is sedated. PSYCH: Unable to assess. LABORATORY DATA: WBC 34.8, platelet count 344, 84% neutrophils, 16% bands. Creatinine 2.17, BUN 25, estimated GFR 32, AST 271, ALT 263, alk phos 324. Sodium 131. IMPRESSION 1. Septic shock, unclear etiology. 2. Multilobar pneumonia, possibly secondary to aspiration. 3. 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 4. Respiratory failure. 5. Altered mental status. 6. Seizure, probably secondary to metastatic disease. RECOMMENDATIONS: 1. Continue vancomycin. 2. Continue Piperacillin/tazobactam 3. Continue azithromycin. 4. Monitor blood cultures. 5. Obtain sputum culture. 6. Monitor urinary Legionella and pneumococcal antigen. Given the significant metastatic disease in this patient, his outlook is very poor. The patient is also to be evaluated by pulmonology and neurology as well. Thank you for this consultation. I will monitor the patient's progress along with you and will make further recommendations on followup. Farida Howard MD FD/MOHINDER /6:14 PM /7:33 PM
[2016-09-04 20:07] LABS: DRAW SITE ART LINE; FIO2 60 %; STAT NO; VENT SETTINGS PRVC/AC
[2016-09-04 20:44] LABS: BICARBONATE 20.2 MEQ/L (21.0-32.0)
--- NOTE | 2016-09-04 20:51 | MB ---
cc: BO BOTELLO DATE OF CONSULTATION 09/04/2016 REASON FOR CONSULTATION Lung masses and respiratory failure. HISTORY OF THE PRESENT ILLNESS This is a 50-year-old obese male with a history of hypertension and diabetes and seizures, as well as bipolar disorder. He was seen in the emergency room with generalized seizure. The patient apparently was recently hypoxic, hypotensive, had labored breathing and was in a non-rebreather mask. The patient had been intubated for acute respiratory failure and placed on ventilator support and has been sedated. Initial evaluation demonstrated that he is tachycardiac, hypotensive and had to be started on IV saline and subsequently has been on a bicarb drip. The patient's blood gases demonstrated a pH of 7.2, pCO2 of 33, paO2 of 180 and a bicarb of 13. Lactate level was 11.3. The patient had a CTA of the chest which showed hilar and mediastinal adenopathy as well as liver mets, with possibly a lung primary. He has been started on IV Zosyn and IV Zithromax and vancomycin. He is presently on sedation with propofol. CT scan of the head also has been done. PAST HISTORY Include: 1. Hypertension. 2. Diabetes mellitus. 3. Chronic back pain. 4. Bipolar disorder. PAST SURGICAL HISTORY Includes: Surgery on his upper arm. ALLERGIES None. SOCIAL HISTORY Habits, the patient apparently does have a smoking history for over 35 years, a pack per day. Alcohol use unknown/ FAMILY HISTORY Noncontributory REVIEW OF SYSTEMS The patient is on ventilator support. MEDICATIONS Med list also included: 1. Seroquel. 2. Zoloft. 3. Depakote. PHYSICAL EXAMINATION GENERAL: This obese, middle-aged man who is sedated, intubated. VITAL SIGNS: Blood pressure 88/50. Heart rate was 122, respiratory rate 18-22. Temperature 98.7. HEENT: Head normocephalic. Pupils are sluggishly reactive. Throat clear. Nasal mucosa injected. NECK: Supple with no venous distension. No thyromegaly. CHEST: Equal movements with coarse wheezes throughout both lung parker. Occasional crackles at the right base. HEART: The heart sounds are regular S1-S2. No murmur. ABDOMEN: Obese, protuberant without masses. No organomegaly. EXTREMITIES: No edema. Cool extremities with diminished pulses. Reflexes are not elicited. He is sedated. SKIN: Dry and cool. IMPRESSION 1. Septic shock. 2. Acute hypoxemic respiratory failure. 3. COPD. 4. 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 5. Possible brain mets with seizures. 6. History of bipolar disorder. 7. Diabetes mellitus. 8. Hypertension. 9. Hyponatremia. PLAN The patient has been started on antibiotic coverage which we will continue. He will be kept sedated on ventilator support. FIO2 will be gradually reduced to 40%. Pressors have been started and bicarb drip as well. Once his hemodynamics are stabilized, we will consider further workup of the mediastinal masses including a bronchoscopy. Will be add nebulized DuoNeb solution every six hours. CBC, electrolytes and chest x-ray to be done in the a.m. Cultures from blood, trachea and urine are also pending. I will review and discuss the case with you Dr. Vanegas. Thank you for this consultation. oB Botello MD JVD/MANNY /6:25 PM /8:41 PM
[2016-09-04] MEDS: PIPERACIL-TAZO 4.5 GM PREMIX 100 ML IV SCH (20:52)
[2016-09-04 20:56] LABS: LACTIC ACID GHOST NOT REPORTABLE
--- NOTE | 2016-09-04 20:58 | MB ---
cc: RENETTA FRAZIER MD DATE OF CONSULTATION: 09/04/2016 DATE OF : 1965 REASON FOR CONSULTATION: Extensive liver masses concerning for metastatic disease associated with mediastinal lymphadenopathy and brain lesions concerning for metastases. Oncology service was asked to see the patient for what is suspected to be widely metastatic malignancy in a critically ill patient. CHIEF COMPLAINT Could not obtain. This the patient is intubated, sedated. He is on a ventilator. The entirety of the history is obtained from the electronic medical record. HISTORY OF PRESENT ILLNESS Mr. Juares is a 50-year-old man who had a witnessed seizure and was brought into the emergency department. He was intubated for hypoxic respiratory failure shortly after presentation. He does have a history of seizure disorder and had been on Depakote as an outpatient based on the outpatient medications. It is not known if he was adherent to the schedule. After presentation, the patient was stabilized from a respiratory standpoint through intubation. He underwent CT aorta angiogram to evaluate the source of his respiratory failure. The patient was found to have a large left hilar mass with bulky mediastinal lymphadenopathy and associated post obstructive pneumonia. Additionally he was noted to have extensive evidence of metastatic disease to the liver as well as mesenteric metastases. Left side adrenal mass was also noted. Imaging studies of the brain consisting of CT scan of the head earlier today revealed metastatic disease to the brain as evidenced by a 2.3 cm mass in the left parietal lobe. The oncology service has been asked to see him for further workup and management. PAST MEDICAL HISTORY: 1. Hypertension 2. Diabetes 3. Bipolar disorder. 4. Seizure disorder. 5. Obesity. 6. Hypertension. PAST SURGICAL HISTORY Not known. FAMILY HISTORY Not known. SOCIAL HISTORY Not known. ALLERGIES Not known. OUTPATIENT MEDICATIONS 1. Lisinopril 40 mcg once daily. 2. Gemfibrozil 600 mg twice daily. 3. Depakote 000 mg at nighttime 4. Sertraline once daily. 5. Naprosyn 500 mg twice daily as needed 6. Glipizide 7. Metformin 1000 mg before meals. 8. Seroquel 9. Gabapentin 600 milligrams p.o. t.i.d. 10. Amlodipine 5 milligrams p.o. daily. REVIEW OF SYSTEMS Could not obtain. PHYSICAL EXAMINATION: Vital signs: Temperature 98.1 degrees Fahrenheit, heart rate 115 beats per minute, blood pressure 82/50, O2 sats are 100% on 100% FIO2 via ventilator. GENERAL PHYSICAL APPEARANCE: Mr. Juares is a young/middle aged male, he is intubated, nonresponsive. HEENT: Head atraumatic, normocephalic, conjunctive are non-pale. The right eye has opacification of the cornea. Left eye, pupil is constricted, nonreactive. Oral exam: ET tube in place. NECK: No obvious cervical, supraclavicular lymphadenopathy. RESPIRATORY: Ventilator assisted. No added breath sounds, decreased bibasilar breath sounds. CARDIOVASCULAR: Tachycardiac. Regular, S1-S2, no obvious murmurs, rubs, or gallops. ABDOMEN: Distended, protuberant, soft. No palpable organ enlargement. He has a right-sided inguinal femoral vein triple lumen catheter. LOWER EXTREMITIES: Trace pretibial edema. On the left leg he has an interosseous access device in his left schwartz. Also to note he has defecated all over himself, stool is brown and runny. LABORATORY FINDINGS Blood work dated 09/04/2016: WBC count 35,000, hemoglobin 13.2 gm/dl, hematocrit 40.5%, platelet count 344, absolute neutrophil count is 29.3. Chemistries: Sodium 131, potassium 4.1, chloride 95, bicarbonate 15.8, BUN 25, creatinine 2.17, EGFR 32, random glucose 231, lactic acid 11.3. Calcium is 9.6, total bilirubin 0.8, AST 271, ALT 263, alkaline phosphatase 324, albumin 2.3. Toxicology: Tylenol level less than 2, valproic acid less than 5, ethanol less than 3. CT scan of the head dated 09/04/2016: 2.3 cm hypodense mass within the left parietal lobe. This is likely thought to represent metastatic malignancy. CT thorax and abdomen: 09/04/2016. Abnormal examination demonstrating large left hilar mass with bulky mediastinal adenopathy and associated post obstructive air space disease in the superior segment of the left lower lobe. There is also evidence of bulky metastatic disease in the liver and a solitary mesenteric metastases. Bilateral lower lobe air space consolidation. Patchy ground glass opacities in the upper lobes bilaterally. ASSESSMENT Mr. Juares is a critically ill 50-year-old man with a history of seizure disorders, hyperlipidemia, hypertension and what is reported as bipolar disorder. He presented to the hospital after a witnessed seizure. He was intubated for hypoxic respiratory failure shortly after presentation. He was noted to be septic. His lactic acid was greater than 11. He is in renal failure and has elevated liver enzymes as well. Imaging studies of the head, chest and abdomen indicated a 2.3 metastatic lesion within the brain, the thorax revealed a large left hilar mass associated with bulky mediastinal lymphadenopathy and his liver seemed to be almost entirely replaced by metastatic disease. The patient is on multiple pressors for hypotension and is being aggressively resuscitated at this time with multiagent antibiotics as well as IV fluids. The oncology service has been asked to see him for further workup and management of what appears to be diffusely metastatic malignancy associated with multiorgan failure and sepsis. RECOMMENDATIONS From an oncologic standpoint, unfortunately I am able to offer very little to this man at this point. I am not able to even recommend taking him down for a biopsy of a lesion to establish a diagnosis. He is critically-ill and I suspect he may not live beyond the next 48 hours. I would defer any and all oncology workup until such time that he is extubated, off pressors and stabilized clinically. Given the extensive bulky disease in his liver, brain mets, and thoracic disease, I would estimate his likelihood of meaningful recovery to be very limited. I would strongly suggest considering palliative measures at this time given this man's multiorgan failure and critical illness. Unfortunately I am not optimistic he will be able to tolerate systemic therapy. MD ELSA Larsen/MOHINDER /6:17 PM /8:32 PM
[2016-09-04 21:02] LABS: POTASSIUM 3.7 MEQ/L (3.5-5.1)
[2016-09-04] MEDS ORDERED: RESP: ALBUTEROL 2.5 MG/IPRATROPIUM 0.5 MG NEB (SCH) NEB (22:00)
--- NOTE | 2016-09-04 22:33 | PD.PROCEDR ---
Procedure Note Procedure DX: Hypoxemic Respiratory Failure (J96.01) OP: Orotracheal Intubation (70490) Procedure: Patient removed his own endotracheal tube and became immediately hypoxemic. I was in the ICU and bag mask ventilation was started immediately. Patient sats decreased to 55 - 63% range for less than 5 minutes and quickly returned to 98% with ventilation. Versed 10 mg and rocuronium 100 mg ivp. Intubated orally with 8.0 tube. Position confirmed with CO2 detection, breath sounds, sats 100% maintained. CXR ordered, will review. Matias Diamond MD Sep 04, 2016 22:33
[2016-09-04] MEDS: PHENYLEPHRINE INJ 40 MG in DEXTROSE 5% IN WATE 500 ML INJ 496 ML IV SCH ×4 (22:34→23:40)
[2016-09-04] MEDS: PROPOFOL 1000 MG/100 ML IV SCH ×2 (22:35→23:15)
--- NOTE | 2016-09-04 22:55 | RADRPT ---
EXAM DATE/TIME: 09/04/2016 22:27 [facility] COMPARISON: No previous studies available for comparison. INDICATIONS : Post reposition ET tube. MEDICAL HISTORY : Seizures SURGICAL HISTORY : None. ENCOUNTER: Subsequent ACUITY: 1 day PAIN SCORE: Non-responsive. LOCATION: Bilateral chest FINDINGS: Patchy, left perihilar and bilateral basilar predominant air space opacities are again noted without significant change. Heart size stable, within normal limits. No pleural effusion or pneumothorax seen . Endotracheal tube tip is approximately 3.5 cm above the ed. Nasogastric tube is coiled in the sto [facility] [place]. CONCLUSION: Endotracheal tube and nasogastric tube positions as above. Bilateral airspace opacities not significa ntly changed. Casey Adan MD on September 04, 2016 at 22:52 Board Certified Radiologist. This report was verified electronically.
[2016-09-05] VITALS (44 sets, daily range): BP systolic 78–136; BP diastolic 40–77; PULSE 85–122; RESP 14–22; TEMP 99.8–100.5; O2SAT 96–100
[2016-09-05] MEDS: fentaNYL DRIP 250 ML IV SCH ×3 (01:01→20:08)
[2016-09-05] MEDS: PHENYLEPHRINE INJ 40 MG in DEXTROSE 5% IN WATE 500 ML INJ 496 ML IV SCH ×14 (03:24→23:02)
[2016-09-05] MEDS: PIPERACIL-TAZO 4.5 GM PREMIX 100 ML IV SCH ×4 (03:24→20:08)
[2016-09-05] MEDS: PROPOFOL 1000 MG/100 ML IV SCH ×7 (03:24→23:02)
[2016-09-05] MEDS: HYDROCORTISONE SOD SUCCINATE 100 MG VIAL IV PUSH SCH ×4 (03:24→20:09)
[2016-09-05] MEDS: RESP: ALBUTEROL 2.5 MG/IPRATROPIUM 0.5 MG NEB (SCH) INH ×3 (03:33→21:10)
[2016-09-05] MEDS: INSULIN NovoLIN REGULAR SUPPLEMENTAL SCALE SQ SCH ×6 (04:00→20:00)
[2016-09-05] MEDS: CHLORHEXIDINE GLUCONATE 2 % 1 PACK (2 CLOTHS) TOP SCH (04:00)
[2016-09-05 05:11] LABS: BLOOD GAS BASE EXCESS -4.6 mmol/L (-2-2); BLOOD GAS CARBOXYHEMOGLOBIN 0.9 % (0-4); BLOOD GAS HCO3 22 mmol/L (22-26); BLOOD GAS METHEMOGLOBIN 1.3 % (0-2); BLOOD GAS O2 HGB SATURATION 96 % (90-100); BLOOD GAS OXYGEN CONTENT 17.1 Vol % (12.0-20.0); BLOOD GAS PCO2 52 mmHg (38-42); BLOOD GAS PO2 124 mmHg (61-120); BLOOD GAS TOTAL HGB 12.5 G/DL (12.0-16.0); CRITICAL VALUE YES; OXYGEN DEVICE VENTILATOR; TEMP CORR TO 98.6
[2016-09-05 05:12] LABS: DRAW SITE ART LINE; FIO2 50 %; STAT NO; VENT SETTINGS PRVC/AC
[2016-09-05] MEDS: SODIUM BICARBONATE 8.4% INJ 150 MEQ in WATER STERILE FOR INJ 850 ML IV SCH ×2 (05:29→13:07)
[2016-09-05 05:38] LABS: BACTERIA, URINE OCC /hpf; BLOOD, URINE MOD (NEG); COMMENT (UR) CATH-CULTURE IND; CULTURE IF INDICATED CATH CULTURE IND; GLUCOSE,URINE 300 mg/dL (NEG); KETONE, URINE NEG (NEG); MUCUS URINE FEW /lpf (OCC); NITRITE,URINE NEG (NEG); PH, URINE 5.5 (5.0-8.5); RENAL EPITHELIAL CELLS 2 /hpf; URINE COLOR YELLOW (YELLW/STRAW)
[2016-09-05 05:39] LABS: AUTOMATED NEUTROPHIL # 26.2 TH/MM3 (1.8-7.7); BASOPHIL # 0.2 TH/MM3 (0-0.2); BASOPHIL % 0.5 % (0.0-2.0); EOSINOPHIL # 0.2 TH/MM3 (0-0.4); EOSINOPHIL % 0.7 % (0.0-4.0); HEMATOCRIT 37.8 % (39.0-51.0); HEMO FLAGS AUTO DIFF; LYMPH % 5.6 % (9.0-44.0); LYMPHOCYTE # 1.7 TH/MM3 (1.0-4.8); MEAN CELL VOLUME 80.1 FL (80.0-100.0); MEAN CORPUSCULAR HEMOGLOBIN 26.8 PG (27.0-34.0); MEAN CORPUSCULAR HGB CONC 33.5 % (32.0-36.0); MONO % 7.6 % (0.0-8.0); NEUT % 85.6 % (16.0-70.0); PLATELET COUNT 334 TH/MM3 (150-450); RED BLOOD COUNT 4.72 MIL/MM3 (4.50-5.90); RED CELL DISTRIBUTION WIDTH 14.6 % (11.6-17.2); WHITE BLOOD COUNT 30.6 TH/MM3 (4.0-11.0)
[2016-09-05 05:55] LABS: BICARBONATE 23.2 MEQ/L (21.0-32.0); CALCIUM-PROTEIN CORRECTED 7.9 MG/DL (8.5-10.1); TOTAL BILIRUBIN ADULT 0.6 MG/DL (0.2-1.0)
[2016-09-05 05:59] LABS: POTASSIUM 2.9 MEQ/L (3.5-5.1)
--- NOTE | 2016-09-05 06:42 | MB ---
cc: CAROLINA MORGAN M.D. DATE OF CONSULTATION 09/04/2016 REASON FOR CONSULTATION This is a 50-year-old man with a history of seizures today. He subsequently had hypoxemia and was admitted with apparent septic shock, intubated and when I see him, he is on the ventilator. A number of studies have been done and in summary a CT scan of the aorta showed extensive lesions in the abdominal especially liver concerning for metastatic disease, there is healer mass. The CT brain was reviewed and there is a left parietal increased density mass with questionably smaller mass in the frontal region. There is an area of encephalomalacia on the right middle cerebral artery distribution. The patient has a history of depression on Depakote, Zoloft, Neurontin, Seroquel. He has a chronic smoker. On exam, there is extensive corneal opacification on the right apparently due to his injury at a young age. He has a reactive pupil on the left. He is on the ventilator and sedated, but with stimulation, he started opening the eye and actually gripped on request and started flexing the legs/knees also on request. Reflexes diminished, plantar responses equivocal. No gross focal motor findings or lateralizing features. ASSESSMENT Seizure today. He has been on Depakote and unclear if this is for seizures for depression as he is also on antidepressant medications. Apparent metastatic disease involving abdomen with adenopathy and healer mass. Left parietal mass, possibly metastatic deposit as well. His condition also includes septic shock and admitted with a white count of 34.8. I briefly spoke to his history at that time and she describes that he has been ill, sick for the past week or so. There is some kidney dysfunction and abnormal liver enzymes. Valproic acid level was five. We will obtain an MRI brain without contrast whenever the patient is more stable medically. As discussed with nursing staff, request will be placed in orders, but we need to wait for the patient's stability for him to go down to the MRI unit. He was given Keppra and continued the Keppra, possibly increase the dose to 1000 mg twice a day. I will follow the neurological course. Thank you for asking us to assist in his care. MD GEORGI Ojeda/DOMINIQUE /9:45 PM /6:35 AM
--- NOTE | 2016-09-05 07:06 | MG ---
cc: JEFFREY HENRIQUEZ MD Lab No: [id number] Date: 09/04/2016 Age: 50 Sex: M Race: __ DATE OF 1965 INDICATIONS This is a 50-year-old intubated on Diprivan noted to be somewhat diaphoretic apparently following per electronics maintenance technician. DESCRIPTION Sweat sway artifact. 2-3 Hz delta activity with spindles, 10-40 microvolts and theta intrusion. A posterior rhythm incremented up to 5-6 Hz. Good EEG variability reactivity. Single lead EKG showing sinus rhythm, sinus tachycardia. INTERPRETATION Mild to moderate encephalopathy, spindle activity suggestive of pharmacological effect. Clinical correlation. Jeffrey Henriquez MD MG/DJL /6:41 AM /7:02 AM
[2016-09-05] MEDS: CHLORHEXIDINE 0.12% (ORAL KIT) 15 ML CUP MT SCH ×2 (08:34→20:10)
[2016-09-05] MEDS: PANTOPRAZOLE SODIUM 40 MG VIAL IV SCH (08:34)
[2016-09-05] MEDS: levETIRAcetam INJ 500 MG in SODIUM CHLORIDE 0.9% INJ 100 ML IV SCH ×2 (08:34→20:09)
[2016-09-05] MEDS: NOREPINEPHRINE-DEXTROSE DRIP 250 ML IV SCH ×6 (08:36→23:02)
[2016-09-05] MEDS: AZITHROMYCIN INJ 500 MG in SODIUM CHLOR 0.9% 250 ML INJ 250 ML IV SCH ×4 (08:38→15:26)
--- NOTE | 2016-09-05 08:39 | HHI.CCPN ---
Subjective Remarks/Hospital Course The patient is a 50-year-old male with past medical history of hypertension, diabetes mellitus, seizure disorder, chronic back pain, bipolar disorder who presented to the ED with a witnessed generalized seizure. In addition the patient was altered and hypoxic with O2 saturation in the 70s. He initially somewhat improved on a non-rebreather but due to labored breathing or diaphoresis he was subsequently intubated in the ED and placed on full mechanical ventilation. According to the patient's family the patient has been having progressive worsening shortness of breath and he has not been feeling well lately. In addition he reported feeling nauseous and heartburn. On arrival to the ER he was tachycardiac, hypotensive and was subsequently placed on Levophed which is currently at 20 mics. The patient was given 3 liters of crystalloids in the ED. ABG post intubation showed pH of 7.23, CO2 33, pAO2 180 , bicarb 13, saturation 97% on PRVC mode with a rate of 18, tidal volume 500, PEEP of 5, IT: 1.0, FIO2 100%. His laboratory data significant for lactic acidemia with a lactic acid level of 11.3, acute kidney injury with a creatinine 2.17 and leukocytosis with bandemia. His WBC is 34.8 with bands of 16. A CT scan of the brain in the ER was obtained which showed a 2.3 cm hyperdense mass at the left parietal lobe and a questionable second small area of hyperdensity seen in the frontal lobe region. He also had a CTA of the aorta which showed significant hilar and mediastinal adenopathy and liver mets. In the ER he was given Zosyn, azithromycin and placed on Diprivan infusion for sedation. A right femoral central line and left radial A-line was placed by the ED physician. 09/05 Patient was self extubated and was reintubated last night . Sedated with Diprivan , Fentanyl and intubated. On Levophed and now Neosyn. Renal function is worsening with Cr: 2.34 from 2.14 Objective Vital Signs Date Time Temp Pulse Resp B/P Pulse Ox O2 Delivery O2 Flow Rate FiO2 09/05/16 07:29 98 45 09/05/16 06:00 90 09/05/16 04:00 99.8 16 96/57 80/51 09/04/16 16:33 Ventilator Intake and Output 09/04/16 09/04/16 09/05/16 08:00 16:00 00:00 Intake Total 2484 ml Output Total 2225 ml Balance 259 ml Result Diagram: 09/05/16 0513 09/05/16 0513 Other Results Laboratory Tests Test 09/04/16 09/04/16 09/04/16 09/04/16 13:05 14:12 15:00 18:00 Prothrombin Time 14.6 SEC Prothromb Time International 1.3 RATIO Ratio Activated Partial 30.3 SEC Thromboplast Time Sodium Level 131 MEQ/L Potassium Level 4.1 MEQ/L Chloride Level 95 MEQ/L Carbon Dioxide Level 15.8 MEQ/L Anion Gap 20 MEQ/L Blood Urea Nitrogen 25 MG/DL Creatinine 2.17 MG/DL Estimat Glomerular Filtration 32 ML/MIN Rate Random Glucose 231 MG/DL Lactic Acid Level 11.3 mmol/L 5.9 mmol/L Calcium Level 9.6 MG/DL Total Bilirubin 0.8 MG/DL Aspartate Amino Transf 271 U/L (AST/SGOT) Alanine Aminotransferase 263 U/L (ALT/SGPT) Alkaline Phosphatase 324 U/L Total Creatine Kinase 427 U/L Creatine Kinase MB 2.9 NG/ML Creatine Kinase MB % 0.7 % Troponin I 0.05 NG/ML Total Protein 6.8 GM/DL Albumin 2.3 GM/DL Thyroid Stimulating Hormone 0.747 uIU/ML 3rd Gen Acetaminophen Level LESS THAN 2.0 MCG/ML Valproic Acid (Depakene) Level 5 MCG/ML Ethyl Alcohol Level LESS THAN 3 MG/DL White Blood Count 34.8 TH/MM3 Red Blood Count 4.98 MIL/MM3 Hemoglobin 13.2 GM/DL Hematocrit 40.5 % Mean Corpuscular Volume 81.4 FL Mean Corpuscular Hemoglobin 26.5 PG Mean Corpuscular Hemoglobin 32.5 % Concent Red Cell Distribution Width 14.3 % Platelet Count 344 TH/MM3 Mean Platelet Volume 9.5 FL Neutrophils (%) (Auto) 84.2 % Lymphocytes (%) (Auto) 9.0 % Monocytes (%) (Auto) 6.1 % Eosinophils (%) (Auto) 0.5 % Basophils (%) (Auto) 0.2 % Neutrophils # (Auto) 29.3 TH/MM3 Lymphocytes # (Auto) 3.1 TH/MM3 Monocytes # (Auto) 2.1 TH/MM3 Eosinophils # (Auto) 0.2 TH/MM3 Basophils # (Auto) 0.1 TH/MM3 CBC Comment AUTO DIFF Differential Total Cells 100 Counted Neutrophils % (Manual) 63 % Band Neutrophils % 16 % Lymphocytes % 15 % Monocytes % 5 % Basophils % 1 % Neutrophils # (Manual) 27.5 TH/MM3 Differential Comment FINAL DIFF MANUAL Platelet Estimate NORMAL Platelet Morphology Comment NORMAL Red Cell Morphology Comment NORMAL Blood Gas Puncture Site ART LINE Blood Gas Patient Temperature 98.6 Blood Gas HCO3 13 mmol/L Blood Gas Base Excess -12.8 mmol/L Blood Gas Oxygen Saturation 97 % Arterial Blood pH 7.23 Arterial Blood Partial 33 mmHg Pressure CO2 Arterial Blood Partial 180 mmHG Pressure O2 Arterial Blood Oxygen Content 18.0 Vol % Arterial Blood 0.5 % Carboxyhemoglobin Arterial Blood Methemoglobin 0.7 % Blood Gas Hemoglobin 12.9 G/DL Oxygen Delivery Device VENTILATOR Blood Gas Ventilator Setting 500/18/+5/1.0 Blood Gas Inspired Oxygen 100 % Salicylates Level 2.4 MG/DL Nasal Screen MRSA (PCR) MRSA NOT DETECTED Test 09/04/16 09/04/16 09/04/16 09/05/16 19:40 19:57 21:46 05:00 Sodium Level 137 MEQ/L Potassium Level 3.7 MEQ/L Chloride Level 102 MEQ/L Carbon Dioxide Level 20.2 MEQ/L Anion Gap 15 MEQ/L Blood Urea Nitrogen 31 MG/DL Creatinine 2.17 MG/DL Estimat Glomerular Filtration 32 ML/MIN Rate Random Glucose 146 MG/DL Calcium Level 8.2 MG/DL Blood Gas Puncture Site ART LINE ART LINE Blood Gas Patient Temperature 98.6 98.6 Blood Gas HCO3 19 mmol/L 22 mmol/L Blood Gas Base Excess -6.1 mmol/L -4.6 mmol/L Blood Gas Oxygen Saturation 94 % 96 % Arterial Blood pH 7.35 7.24 Arterial Blood Partial 34 mmHg 52 mmHg Pressure CO2 Arterial Blood Partial 96 mmHg 124 mmHg Pressure O2 Arterial Blood Oxygen Content 17.6 Vol % 17.1 Vol % Arterial Blood 1.1 % 0.9 % Carboxyhemoglobin Arterial Blood Methemoglobin 1.2 % 1.3 % Blood Gas Hemoglobin 13.2 G/DL 12.5 G/DL Oxygen Delivery Device VENTILATOR VENTILATOR Blood Gas Ventilator Setting PRVC/AC PRVC/AC Blood Gas Inspired Oxygen 60 % 50 % Lactic Acid Level 5.7 mmol/L Test 09/05/16 09/05/16 09/05/16 05:13 05:30 06:45 White Blood Count 30.6 TH/MM3 Red Blood Count 4.72 MIL/MM3 Hemoglobin 12.7 GM/DL Hematocrit 37.8 % Mean Corpuscular Volume 80.1 FL Mean Corpuscular Hemoglobin 26.8 PG Mean Corpuscular Hemoglobin 33.5 % Concent Red Cell Distribution Width 14.6 % Platelet Count 334 TH/MM3 Mean Platelet Volume 8.9 FL Neutrophils (%) (Auto) 85.6 % Lymphocytes (%) (Auto) 5.6 % Monocytes (%) (Auto) 7.6 % Eosinophils (%) (Auto) 0.7 % Basophils (%) (Auto) 0.5 % Neutrophils # (Auto) 26.2 TH/MM3 Lymphocytes # (Auto) 1.7 TH/MM3 Monocytes # (Auto) 2.3 TH/MM3 Eosinophils # (Auto) 0.2 TH/MM3 Basophils # (Auto) 0.2 TH/MM3 CBC Comment AUTO DIFF Sodium Level 137 MEQ/L Potassium Level 2.9 MEQ/L Chloride Level 97 MEQ/L Carbon Dioxide Level 23.2 MEQ/L Anion Gap 17 MEQ/L Blood Urea Nitrogen 34 MG/DL Creatinine 2.34 MG/DL Estimat Glomerular Filtration 30 ML/MIN Rate Random Glucose 181 MG/DL Calcium Level 7.4 MG/DL Protein Corrected Calcium 7.9 MG/DL Total Bilirubin 0.6 MG/DL Aspartate Amino Transf 453 U/L (AST/SGOT) Alanine Aminotransferase 327 U/L (ALT/SGPT) Alkaline Phosphatase 282 U/L Total Protein 6.2 GM/DL Albumin 2.0 GM/DL Random Vancomycin Level 18.5 COMMENT Urine Color YELLOW Urine Turbidity HAZY Urine pH 5.5 Urine Specific [place] 1.013 Urine Protein 30 mg/dL Urine Glucose (UA) 300 mg/dL Urine Ketones NEG mg/dL Urine Occult Blood MOD Urine Nitrite NEG Urine Bilirubin NEG Urine Urobilinogen LESS THAN 2.0 MG/DL Urine Leukocyte Esterase TRACE Urine WBC 11 /hpf Urine WBC Clumps FEW Urine Renal Epithelial Cells 2 /hpf Urine Amorphous Sediment RARE Urine Bacteria OCC /hpf Urine Mucus FEW /lpf Microscopic Urinalysis Comment CATH-CULTURE IND Lactic Acid Level 4.7 mmol/L Imaging Last Impressions Head CT 09/04/16 1312 Signed Impressions: Service Date/Time: Sunday, September 04, 2016 13:39 - CONCLUSION: 2.3 cm hyperdense mass seen at the left parietal lobe. This is thought to likely represent a mass. Some degree of hemorrhage can not be excluded given the density. There is also a questionable second smaller area of hyperdensity seen in the anterior inferior midline frontal lobe region. It is recommended both these areas be further evaluated with a MRI examination with contrast if there are no contraindications. Casey Cisneros MD Chest X-Ray 09/04/16 1312 Signed Impressions: Service Date/Time: Sunday, September 04, 2016 13:15 - CONCLUSION: 1. Multilobar consolidation likely pneumonia. 2. Adequate placement of endotracheal tube. Armen Power MD Aorta CTA 09/04/16 0000 Signed Impressions: Service Date/Time: Sunday, September 04, 2016 13:44 - CONCLUSION: 1. Abnormal examination demonstrating large left hilar mass with bulky mediastinal adenopathy and associated post obstructive airspace disease in the superior segment of the left lower lobe. There is also evidence for bulky metastatic disease to the liver and solitary mesenteric metastasis. 1.5 cm left adrenal mass also suspicious for metastasis. 2. Bilateral lower lobe airspace consolidation may reflect aspiration in this intubated patient. 3. Patchy groundglass opacities in the upper lobes bilaterally consistent light reflex edema and volume loss. 4. No evidence for aortic dissection, significant aneurysm, or injury. Pepe Miramontes MD Objective Remarks GENERAL: Patient is 50 yo critically ill sedated and intubated, SKIN: Warm and dry. HEAD: Normocephalic. EYES: No scleral icterus. No injection or drainage. NECK: Supple, trachea midline. No JVD or lymphadenopathy. Orally intubated CARDIOVASCULAR: Regular rate and rhythm without murmurs, gallops, or rubs. RESPIRATORY: Breath sounds equal bilaterally. No accessory muscle use. GASTROINTESTINAL: Abdomen soft, non-tender, nondistended. MUSCULOSKELETAL: No cyanosis, or edema. Neuro: Sedated, intubated A/P Assessment and Plan 1. VDRF 2. Septic shock. 3. Likely post obstructive pneumonia. 4. Leukocytosis with bandemia. 5. Status post seizure. 6. Lactic acidemia likely secondary to seizure and septic shock. 7. Acute kidney injury and hyponatremia. 8. Anion gap metabolic acidosis. 9. Elevated liver enzymes. 10. Brain masses rule out mets. 11. Mediastinal / hilar adenopathy need to rule out bronchogenic carcinoma. 12. Liver mets. 13. History of hypertension. 14. Hyperglycemia with underlying history of diabetes mellitus. 15. Obesity. 16. Chronic back pain. 17. History of bipolar disorder. Plan Neuro: On Diprivan and Fentanyl infusion for sedation and vent synchrony. Monitor neuro status closely and daily sedation vacation when appropriate. On Keppra 500 mg IV q. 12 , Neuro is following- Dr. Swift EEG showed mild- mod encephalopathy. Will need MRI brain when stable. Pulm: Continue vent support and maintain sats above 92%. Bronchodilators, ICU vent bundle. Patient is unstable for SBT Pulm is consulted will likely need bronch when stable. Check ABG CV: Continue with pressors ( on Levophed, Abhijeet-Synephrine) Monitor HR and BP and maintain MAP>65 mmHg. Lactic acid trending down 4.7 from 11.3 on arrival. on stress dose steroids hydrocortisone 50 mg IV q.6h. Echo showed EF 70-75% : Monitor renal function Is and Os and avoid nephrotoxins. Renal function is worse today with Cr: 2.34 from 2.14 Consult nephrology, check US kidneys. Continue with SW+3amps bicarb @150ml/hr GI: on Protonix 40 mg IV daily. Start tube feeds- Nepro with goal rate 40ml/hr Monitor LFTs. Check US liver. ID: Continue with abx(Zosyn , Vanco and azithromycin ) Follow up on blood and urine cxs. Check sputum cx, strep pneumonia and Legionella urinary AG Heme: Monitor CBC. Oncology is consulted- likely stage IV lung ca Endo: On medium scale SSI with Accu-Chek for glycemic control. TSH: 0.74 GI prophylaxis with Protonix 40 mg daily and DVT prophylaxis with SCDs. Will hold off on chemical anticoagulation prophylaxis given likely brain mets Lines. Right femoral central line and left radial line placed in the ED. Patient 's prognosis is guarded given multiorgan failure Palliative care consulted to asses with goals of care CCT 30 mins Elisha Vanegas MD Sep 05, 2016 08:39
[2016-09-05 08:49] LABS: BANDS 9 % (0-6); MYELOCYTES 1 % (0-0); NEUTROPHIL # MANUAL DIFF 27.2 TH/MM3 (1.8-7.7); PLATELET ESTIMATE SMEAR NORMAL (NORMAL); PLATELET MORPHOLOGY ENLARGED (NORMAL); POLYS (SEG NEUTROPHILS) 79 % (16-70); WBC DIFF SAMPLE 100
[2016-09-05 08:50] LABS: SCAN/DIFF FINAL DIFF MANUAL
[2016-09-05] MEDS ORDERED: POTASSIUM CHLOR 40 MEQ PREMIX 100 ML IV ONE (09:20)
[2016-09-05] MEDS ORDERED: CALCIUM GLUCONATE INJ 1 GM in SODIUM CHLORIDE 0.9% INJ 100 ML IV ONE (10:00)
--- NOTE | 2016-09-05 10:15 | PD.CONS ---
Consult Service Palliative Care . Consult Requested By Dr. Ackerman . Primary Care Physician Unknown . Reason for Consultation a. To assist with evaluation and management of symptoms including: pain, encephalopathy, dyspnea. b. To assist medical decision maker(s) with: better understanding of current medical conditions; weighing benefits/burdens of medical treatment options; making medical treatment decisions. . HPI History of Present Illness Mr. Juares is a 50 year old male with past medical history of hypertension, diabetes, bipolar disorder, seizure disorder and elevated BMI. Patient presented to [facility] emergency room on 09/04/16 with seizure. altered mental status and hypoxia. Notes indicate he was not feeling well with increased shortness of breath, nausea and heartburn. He suffered a witnesses seizure. Oxygen saturation was in the 70's, improved slightly with NRB mask. Upon arrival to the ER patient was tachycardic, hypotensive requiring Levophed. Patient continued to have labored respirations, diaphoresis and altered mental status patient was intubated and placed on mechanical ventilation. Additional findings include: * WBC 34.8, hemoglobin 13.2, hematocrit 40.5, platelet 344, neutrophil 84.2% * sodium 131, potassium 4.1, chloride 95, carbon dioxide 15.8, BUN 25, creatinine 2.17, GFR 32, glucose 231 * lactic acid 11.3 * total bilirubin 0.8, AST 271, ALT to 63, alkaline phosphatase 324 * total creatine kinase 427, CK MB 2.9, troponin 0.05 * total protein 6.8, albumin 2.3 * TSH 0.747 * PT 14.6, INR 1.3, APTT 30.3 * urinalysis positive for leukocyte esterase, WBC, bacteria and mucus, culture indicated, results pending. * Alcohol level less than 3 * acetaminophen level less than 2.0, salicylates 2.4 * nasal screen negative MRSA * chest x-ray multilobar consolidation likely pneumonia. * aorta CTA abnormal examination demonstrating large left hilar mass with bulky mediastinal adenopathy and associated post obstructive airspace disease in the superior segment of the left lower lobe, bulky metastatic disease to liver and solitary mesenteric metastasis, 1.5 cm left adrenal mass suspicious for metastasis, bilateral lower lobe airspace consolidation may reflect aspiration, patchy ground glass opacity in the upper lobe's bilaterally consistent with edema and volume loss, no evidence of aortic dissection, significant aneurysm or injury. * CT head 2.3 cm hyperdense mass in the left parietal lobe, some degree of hemorrhage cannot be excluded questionable 2nd smaller area of hyperdense the in the anterior inferior midline frontal lobe region. * Echocardiogram- ejection fraction 70 75%, normal left ventricular size and wall thickness, left ventricular diastolic function parameters normal. * EEG mild to moderate encephalopathy, spindle activity suggestive of pharmacological effect. Patient is admitted to ICU with respiratory failure requiring intubation, septic shock, pneumonia, leukocytosis, lactic acidemia likely secondary to seizure and septic shock, acute kidney injury, hyponatremia. Infectious disease , medical oncology, pulmonology and neurology were consulted. Infectious disease, Dr. Ochoa indicate septic shock unclear etiology, pneumonia possibly secondary to aspiration with recommendations to continue antibiotics, monitor cultures; indicates were prognosis given significant metastatic disease. Pulmonology, Dr. Botello was consulted with recommendation to continue current medical care. Neurology, Dr. Swift was consulted with recommendation to obtain MRI brain when medically stable and increased Keppra dosing. Medical oncology, Dr. Ackerman was consulted for evaluation of suspected widely metastatic malignancy. Notes indicate oncology able to offer very little from an oncologic standpoint, does not even recommend taking him down for biopsy of lesion to establish diagnosis given he is critically ill and not likely to live beyond the next 48 hours. He defers any oncologic workup until the patient is extubated and off pressor support. Dr. Ackerman recommends consideration of palliative measures and this man with multiorgan failure and critical illness, not optimistic that he will be able to tolerate systemic treatment. Patient self extubated and was reintubated overnight. Currently sedated with Diprivan and Fentanyl. No Levophed and Neosynephrine. Renal function is worsening with creatinine from 2.14 to 2.34. Palliative care was consulted to assist with further clarification of treatment goals. . Function/Cognitive Trajectory Ongoing decline over the past month or so. Disabled for about 5 years. Decreased appetite, early satiety, weight loss 48 pounds. Decreased activity. Increased sleep. . Review of Systems ROS Limitations: Intubated (on vent), Altered Mental Status Constitutional: COMPLAINS OF: Fatigue, Weight loss (48 pounds), Change in appetite, Pain, Generalized weakness Eyes: COMPLAINS OF: Blurred vision (increased recently), Vision loss (blind right eye) Respiratory: COMPLAINS OF: Cough, Sputum production, Shortness of breath Cardiovascular: COMPLAINS OF: Dyspnea on Exertion, Lower Extremity Edema Gastrointestinal: COMPLAINS OF: Abdominal pain, Nausea, Vomiting, Anorexia, Dyspepsia or heartburn Musculoskeletal: COMPLAINS OF: Joint pain, Stiffness Hematologic/Lymphatics: COMPLAINS OF: Bruising Neurologic: COMPLAINS OF: Headache, Seizures Psychiatric: COMPLAINS OF: Anxiety Past Family Social History Coded Allergies: No Known Allergies (Verified , 08/23/16) Past Medical History Hypertension Diabetes Type II Bipolar disorder Seizure disorder - family reports no history of seizure prior to this incident. Chronic back pain - for 30 years old injury High triglycerides Arthritis Legally blind right eye since age 5 Elevated BMI Tobacco use Past Surgical History Matias in right upper extremity surgery as a teenager Right eye surgery . Reported Medications Reported Meds & Active Scripts Active Flexeril (Cyclobenzaprine HCl) 10 Mg Tab 10 Mg PO TID Amlodipine (Amlodipine Besylate) 5 Mg Tab 5 Mg PO DAILY Glipizide 10 Mg Tab 10 Mg PO BIDAC Take 30 minutes before a meal Naprosyn (Naproxen) 500 Mg Tab 500 Mg PO Q12HR PRN Lisinopril 40 Mg Tab 40 Mg PO DAILY Metformin (Metformin HCl) 1,000 Mg Tab 1,000 Mg PO BIDPC With meals Gemfibrozil 600 Mg Tab 600 Mg PO BIDAC Take 30 minutes prior to breakfast and dinner. Reported Depakote ER (Divalproex Sodium) 500 Mg Urvashi 1,000 Mg PO HS Zoloft (Sertraline HCl) 50 Mg Tab 50 Mg PO DAILY Neurontin (Gabapentin) 600 Mg Tab 600 Mg PO TID Seroquel (Quetiapine Fumarate) 400 Mg Tab 600 Mg PO HS . Current Medications Medications (Trade) Dose Ordered Sig/Mayo Route Start Time Stop Time Status Last Admin IV Flush 2 ml 2 ml UNSCH PRN IV FLUSH 09/04/16 13:15 (Levophed-Dextrose Drip) 250 ml @ 0 mls/hr TITRATE IV 09/04/16 13:30 09/05/16 08:36 (Protonix Inj) 40 mg DAILY IV 09/04/16 15:00 09/05/16 08:34 Miscellaneous Information 1 Q361D XX 09/04/16 15:00 (Chlorhexidine 2% Cloth) 3 pack Taper DAILY@04 TOP 09/05/16 04:00 09/01/17 03:59 09/05/16 04:00 Chlorhexidine Gluconate 3 pack 3 pack UNSCH PRN TOP 09/04/16 15:00 (Keppra Inj/NS Inj) 105 ml @ 420 mls/hr Q12HR IV 09/04/16 15:00 09/05/16 08:34 Hydrocortisone Sodium Succinate 50 mg 50 mg Q6H IV PUSH 09/04/16 16:00 09/05/16 08:34 (Neosynephrine Inj/D5W 500 ml Inj) 500 ml @ 0 mls/hr TITRATE IV 09/04/16 16:00 09/05/16 08:36 Terbutaline Sulfate 1 mg 1 mg UNSCH PRN SQ 09/04/16 15:00 (Sodium Bicarbonate 8.4% Inj/Sterile Water For Inj) 1,000 ml @ 150 mls/hr Q6H40M IV 09/04/16 15:00 09/05/16 05:29 (D50w (Vial) Inj) 50 ml UNSCH PRN IV 09/04/16 15:00 (Glucagon Inj) 1 mg UNSCH PRN OTHER 09/04/16 15:00 Insulin Human Regular 1 1 Q4H SQ 09/04/16 16:00 09/05/16 08:00 Pharmacy Profile Note 0 ml @ 0 mls/hr UNSCH OTHER 09/04/16 15:00 Piperacillin Sod/ Tazobactam Sod 100 ml @ 200 mls/hr Q6H IV 09/04/16 21:00 09/05/16 08:33 Azithromycin 500 mg/Sodium Chloride 250 ml @ 250 mls/hr Q24H IV 09/05/16 15:00 09/04/16 16:02 Fentanyl Citrate 250 ml @ 0 mls/hr TITRATE IV 09/04/16 17:00 09/05/16 08:33 (Diprivan 1000 Mg/100ml Inj) 100 ml @ 0 mls/hr TITRATE IV 09/04/16 22:15 09/05/16 08:33 Chlorhexidine Gluconate 15 ml 15 ml BID@08,20 MT 09/05/16 08:00 09/05/16 08:34 Vancomycin HCl 2000 mg/Sodium Chloride 520 ml @ 250 mls/hr ONCE ONCE IV 09/05/16 12:00 09/05/16 14:04 Potassium Chloride 100 ml @ 25 mls/hr BOLUS ONCE IV 09/05/16 09:20 09/05/16 13:19 (Calcium Gluconate Inj/NS Inj) 110 ml @ 110 mls/hr ONCE ONCE IV 09/05/16 10:00 09/05/16 10:59 . Family History Family history of heart disease and diabetes on the maternal side. Mother with DM. Father in MVA when patient was a teenager. . Substance Use Tobacco: 1 - 1.5 PPD for over 35 years. Alcohol: Social alcohol use. Prescription med abuse: None. Illicits: None. . Psychosocial History Legally . Lives with his mother. Spiritual/Cultural Factors Declines spiritual support. . Living Will: Never completed Health Care Surrogate: Never completed Durable Power of Full Stack Java Developer: Never completed Health Care Surrogate(s): Patient is currently incapacitated, will not likely regained capacity. According to [place] statutes, health care proxy decision-making would fall to the patient's spouse (even if they are legally ). . Documented care wishes: None. Today's verbally stated goals: Patient is currently incapacitated, will not likely regained capacity. . Family/friends goals: Goals remain aggressive at this time, considering Code status. . Ethical and Legal Issues Patient is currently incapacitated, will not likely regained capacity. According to [place] statutes, health care proxy decision-making would fall to the patient's spouse (even if they are legally ). . Physical Exam Vital Signs Date Time Temp Pulse Resp B/P Pulse Ox O2 Delivery O2 Flow Rate FiO2 09/05/16 07:29 98 45 09/05/16 06:00 90 09/05/16 05:10 97 45 09/05/16 04:11 97 50 09/05/16 04:00 99.8 99 16 96/57 98 80/51 09/05/16 04:00 99 09/05/16 04:00 50 09/05/16 02:00 113 09/05/16 00:00 122 09/05/16 00:00 60 09/05/16 00:00 100.5 122 16 93/54 97 96/59 09/04/16 23:39 96 60 09/04/16 22:30 60 09/04/16 22:15 99 60 09/04/16 22:10 58 21 09/04/16 22:00 126 09/04/16 22:00 60 09/04/16 20:25 96 60 09/04/16 20:00 60 09/04/16 20:00 109 09/04/16 20:00 98.1 109 23 101/58 95 82/51 09/04/16 18:00 120 09/04/16 18:00 60 09/04/16 18:00 100.1 114 23 92/51 92 Arterial Line 09/04/16 16:33 115 16 79/55 99 Ventilator 09/04/16 16:22 100 100 09/04/16 15:22 98.1 115 16 82/50 99 Ventilator 09/04/16 15:17 99 100 09/04/16 13:00 96 100 09/04/16 13:00 100 100 09/04/16 13:00 100 100 09/04/16 12:49 Ventilator 09/04/16 12:42 140 20 09/04/16 09/05/16 19:00 07:00 Intake Total 6984 ml Output Total 3675 ml Balance 3309 ml Intake IV Total 6984 ml Output Urine Total 3675 ml Exam CONSTITUTIONAL/GENERAL: This is an adequately nourished patient, sedated on mech vent. TUBES/LINES/DRAINS: ETT, OG, PIV x 2, left wrist a-line, bilateral soft wrist restraints, Roland, podus boots, SCDs. SKIN: No jaundice, rashes, or lesions. Ecchymoses on upper extremities. No wounds seen anteriorly. Diaphoretic. HEAD: Atraumatic. Normocephalic. EYES: Right eye blind. ENT: Unable to assess hearing. Nose without bleeding or purulent drainage. Difficult to visualize throat due to tubes. NECK: Trachea midline. Supple, nontender. CARDIOVASCULAR: RRR. RESPIRATORY/CHEST: Symmetric, unlabored respirations on vent. Diminished breath sounds. GASTROINTESTINAL: Abdomen protuberant. Bowel sounds hypoactive. GENITOURINARY: Without palpable bladder distension. Roland catheter in place. MUSCULOSKELETAL: Extremities cold to touch. LYMPHATICS: No palpable cervical or supraclavicular adenopathy. NEUROLOGICAL: Sedated. PSYCHIATRIC: Sedated. . Diagnostic Tests Laboratory Laboratory Tests Test 09/04/16 09/04/16 09/04/16 09/04/16 13:05 14:12 15:00 18:00 Prothrombin Time 14.6 SEC (9.8-11.6) Prothromb Time International 1.3 RATIO Ratio Activated Partial 30.3 SEC Thromboplast Time (24.3-30.1) Sodium Level 131 MEQ/L (136-145) Potassium Level 4.1 MEQ/L (3.5-5.1) Chloride Level 95 MEQ/L (98-107) Carbon Dioxide Level 15.8 MEQ/L (21.0-32.0) Anion Gap 20 MEQ/L (5-15) Blood Urea Nitrogen 25 MG/DL (7-18) Creatinine 2.17 MG/DL (0.60-1.30) Estimat Glomerular Filtration 32 ML/MIN (>89) Rate Random Glucose 231 MG/DL (74-106) Lactic Acid Level 11.3 mmol/L 5.9 mmol/L (0.4-2.0) (0.4-2.0) Calcium Level 9.6 MG/DL (8.5-10.1) Total Bilirubin 0.8 MG/DL (0.2-1.0) Aspartate Amino Transf 271 U/L (15-37) (AST/SGOT) Alanine Aminotransferase 263 U/L (12-78) (ALT/SGPT) Alkaline Phosphatase 324 U/L (45-117) Total Creatine Kinase 427 U/L (39-308) Creatine Kinase MB 2.9 NG/ML (0.5-3.6) Creatine Kinase MB % 0.7 % (0.0-4.0) Troponin I 0.05 NG/ML (0.02-0.05) Total Protein 6.8 GM/DL (6.4-8.2) Albumin 2.3 GM/DL (3.4-5.0) Thyroid Stimulating Hormone 0.747 uIU/ML 3rd Gen (0.358-3.740) Acetaminophen Level LESS THAN 2.0 MCG/ML (10.0-30.0) Valproic Acid (Depakene) Level 5 MCG/ML (50-100) Ethyl Alcohol Level LESS THAN 3 MG/DL (0-5) White Blood Count 34.8 TH/MM3 (4.0-11.0) Red Blood Count 4.98 MIL/MM3 (4.50-5.90) Hemoglobin 13.2 GM/DL (13.0-17.0) Hematocrit 40.5 % (39.0-51.0) Mean Corpuscular Volume 81.4 FL (80.0-100.0) Mean Corpuscular Hemoglobin 26.5 PG (27.0-34.0) Mean Corpuscular Hemoglobin 32.5 % Concent (32.0-36.0) Red Cell Distribution Width 14.3 % (11.6-17.2) Platelet Count 344 TH/MM3 (150-450) Mean Platelet Volume 9.5 FL (7.0-11.0) Neutrophils (%) (Auto) 84.2 % (16.0-70.0) Lymphocytes (%) (Auto) 9.0 % (9.0-44.0) Monocytes (%) (Auto) 6.1 % (0.0-8.0) Eosinophils (%) (Auto) 0.5 % (0.0-4.0) Basophils (%) (Auto) 0.2 % (0.0-2.0) Neutrophils # (Auto) 29.3 TH/MM3 (1.8-7.7) Lymphocytes # (Auto) 3.1 TH/MM3 (1.0-4.8) Monocytes # (Auto) 2.1 TH/MM3 (0-0.9) Eosinophils # (Auto) 0.2 TH/MM3 (0-0.4) Basophils # (Auto) 0.1 TH/MM3 (0-0.2) CBC Comment AUTO DIFF Differential Total Cells 100 Counted Neutrophils % (Manual) 63 % (16-70) Band Neutrophils % 16 % (0-6) Lymphocytes % 15 % (9-44) Monocytes % 5 % (0-8) Basophils % 1 % (0-2) Neutrophils # (Manual) 27.5 TH/MM3 (1.8-7.7) Differential Comment FINAL DIFF MANUAL Platelet Estimate NORMAL (NORMAL) Platelet Morphology Comment NORMAL (NORMAL) Red Cell Morphology Comment NORMAL (NORMAL) Blood Gas Puncture Site ART LINE Blood Gas Patient Temperature 98.6 Blood Gas HCO3 13 mmol/L (22-26) Blood Gas Base Excess -12.8 mmol/L (-2-2) Blood Gas Oxygen Saturation 97 % (90-100) Arterial Blood pH 7.23 (7.380-7.420) Arterial Blood Partial 33 mmHg (38-42) Pressure CO2 Arterial Blood Partial 180 mmHG Pressure O2 (61-120) Arterial Blood Oxygen Content 18.0 Vol % (12.0-20.0) Arterial Blood 0.5 % (0-4) Carboxyhemoglobin Arterial Blood Methemoglobin 0.7 % (0-2) Blood Gas Hemoglobin 12.9 G/DL (12.0-16.0) Oxygen Delivery Device VENTILATOR Blood Gas Ventilator Setting 500/18/+5/1.0 Blood Gas Inspired Oxygen 100 % Salicylates Level 2.4 MG/DL (2.8-20.0) Nasal Screen MRSA (PCR) MRSA NOT DETECTED (NOT DETECT) Test 09/04/16 09/04/16 09/04/16 09/05/16 19:40 19:57 21:46 05:00 Sodium Level 137 MEQ/L (136-145) Potassium Level 3.7 MEQ/L (3.5-5.1) Chloride Level 102 MEQ/L (98-107) Carbon Dioxide Level 20.2 MEQ/L (21.0-32.0) Anion Gap 15 MEQ/L (5-15) Blood Urea Nitrogen 31 MG/DL (7-18) Creatinine 2.17 MG/DL (0.60-1.30) Estimat Glomerular Filtration 32 ML/MIN (>89) Rate Random Glucose 146 MG/DL (74-106) Calcium Level 8.2 MG/DL (8.5-10.1) Blood Gas Puncture Site ART LINE ART LINE Blood Gas Patient Temperature 98.6 98.6 Blood Gas HCO3 19 mmol/L 22 mmol/L (22-26) (22-26) Blood Gas Base Excess -6.1 mmol/L -4.6 mmol/L (-2-2) (-2-2) Blood Gas Oxygen Saturation 94 % (90-100) 96 % (90-100) Arterial Blood pH 7.35 7.24 (7.380-7.420) (7.380-7.420) Arterial Blood Partial 34 mmHg (38-42) 52 mmHg (38-42) Pressure CO2 Arterial Blood Partial 96 mmHg 124 mmHg Pressure O2 (61-120) (61-120) Arterial Blood Oxygen Content 17.6 Vol % 17.1 Vol % (12.0-20.0) (12.0-20.0) Arterial Blood 1.1 % (0-4) 0.9 % (0-4) Carboxyhemoglobin Arterial Blood Methemoglobin 1.2 % (0-2) 1.3 % (0-2) Blood Gas Hemoglobin 13.2 G/DL 12.5 G/DL (12.0-16.0) (12.0-16.0) Oxygen Delivery Device VENTILATOR VENTILATOR Blood Gas Ventilator Setting PRVC/AC PRVC/AC Blood Gas Inspired Oxygen 60 % 50 % Lactic Acid Level 5.7 mmol/L (0.4-2.0) Test 09/05/16 09/05/16 09/05/16 05:13 05:30 06:45 White Blood Count 30.6 TH/MM3 (4.0-11.0) Red Blood Count 4.72 MIL/MM3 (4.50-5.90) Hemoglobin 12.7 GM/DL (13.0-17.0) Hematocrit 37.8 % (39.0-51.0) Mean Corpuscular Volume 80.1 FL (80.0-100.0) Mean Corpuscular Hemoglobin 26.8 PG (27.0-34.0) Mean Corpuscular Hemoglobin 33.5 % Concent (32.0-36.0) Red Cell Distribution Width 14.6 % (11.6-17.2) Platelet Count 334 TH/MM3 (150-450) Mean Platelet Volume 8.9 FL (7.0-11.0) Neutrophils (%) (Auto) 85.6 % (16.0-70.0) Lymphocytes (%) (Auto) 5.6 % (9.0-44.0) Monocytes (%) (Auto) 7.6 % (0.0-8.0) Eosinophils (%) (Auto) 0.7 % (0.0-4.0) Basophils (%) (Auto) 0.5 % (0.0-2.0) Neutrophils # (Auto) 26.2 TH/MM3 (1.8-7.7) Lymphocytes # (Auto) 1.7 TH/MM3 (1.0-4.8) Monocytes # (Auto) 2.3 TH/MM3 (0-0.9) Eosinophils # (Auto) 0.2 TH/MM3 (0-0.4) Basophils # (Auto) 0.2 TH/MM3 (0-0.2) CBC Comment AUTO DIFF Differential Total Cells 100 Counted Neutrophils % (Manual) 79 % (16-70) Band Neutrophils % 9 % (0-6) Lymphocytes % 8 % (9-44) Monocytes % 3 % (0-8) Neutrophils # (Manual) 27.2 TH/MM3 (1.8-7.7) Myelocytes 1 % (0-0) Differential Comment FINAL DIFF MANUAL Platelet Estimate NORMAL (NORMAL) Platelet Morphology Comment ENLARGED (NORMAL) Sodium Level 137 MEQ/L (136-145) Potassium Level 2.9 MEQ/L (3.5-5.1) Chloride Level 97 MEQ/L (98-107) Carbon Dioxide Level 23.2 MEQ/L (21.0-32.0) Anion Gap 17 MEQ/L (5-15) Blood Urea Nitrogen 34 MG/DL (7-18) Creatinine 2.34 MG/DL (0.60-1.30) Estimat Glomerular Filtration 30 ML/MIN (>89) Rate Random Glucose 181 MG/DL (74-106) Calcium Level 7.4 MG/DL (8.5-10.1) Protein Corrected Calcium 7.9 MG/DL (8.5-10.1) Total Bilirubin 0.6 MG/DL (0.2-1.0) Aspartate Amino Transf 453 U/L (15-37) (AST/SGOT) Alanine Aminotransferase 327 U/L (12-78) (ALT/SGPT) Alkaline Phosphatase 282 U/L (45-117) Total Protein 6.2 GM/DL (6.4-8.2) Albumin 2.0 GM/DL (3.4-5.0) Random Vancomycin Level 18.5 COMMENT Urine Color YELLOW (YELLW/STRAW) Urine Turbidity HAZY (CLEAR) Urine pH 5.5 (5.0-8.5) Urine Specific Fenton 1.013 (1.002-1.035) Urine Protein 30 mg/dL (NEG-TRACE) Urine Glucose (UA) 300 mg/dL (NEG) Urine Ketones NEG mg/dL (NEG) Urine Occult Blood MOD (NEG) Urine Nitrite NEG (NEG) Urine Bilirubin NEG (NEG) Urine Urobilinogen LESS THAN 2.0 MG/DL (LESS THAN 2.0) Urine Leukocyte Esterase TRACE (NEG) Urine WBC 11 /hpf (0-5) Urine WBC Clumps FEW (NONE) Urine Renal Epithelial Cells 2 /hpf (NONE) Urine Amorphous Sediment RARE Urine Bacteria OCC /hpf (NONE) Urine Mucus FEW /lpf (OCC) Microscopic Urinalysis Comment CATH-CULTURE IND Lactic Acid Level 4.7 mmol/L (0.4-2.0) Result Diagram: 09/05/1613 09/05/1613 Microbiology Microbiology Date/Time Procedure Status Source Growth 09/04/16 15:00 Aerobic Blood Culture Received Blood Line Pending 09/04/16 15:00 Anaerobic Blood Culture Received Blood Line Pending 09/04/16 15:15 Aerobic Blood Culture Received Blood Line Pending 09/04/16 15:15 Anaerobic Blood Culture Received Blood Line Pending 09/05/16 05:30 Urine Culture Received Urine Catheterized Urine Pending . Imaging Last Impressions Head CT 09/04/16 1312 Signed Impressions: Service Date/Time: Sunday, September 04, 2016 13:39 - CONCLUSION: 2.3 cm hyperdense mass seen at the left parietal lobe. This is thought to likely represent a mass. Some degree of hemorrhage can not be excluded given the density. There is also a questionable second smaller area of hyperdensity seen in the anterior inferior midline frontal lobe region. It is recommended both these areas be further evaluated with a MRI examination with contrast if there are no contraindications. Casey Cisneros MD Chest X-Ray 09/04/16 1312 Signed Impressions: Service Date/Time: Sunday, September 04, 2016 13:15 - CONCLUSION: 1. Multilobar consolidation likely pneumonia. 2. Adequate placement of endotracheal tube. Armen Power MD Aorta CTA 09/04/16 0000 Signed Impressions: Service Date/Time: Sunday, September 04, 2016 13:44 - CONCLUSION: 1. Abnormal examination demonstrating large left hilar mass with bulky mediastinal adenopathy and associated post obstructive airspace disease in the superior segment of the left lower lobe. There is also evidence for bulky metastatic disease to the liver and solitary mesenteric metastasis. 1.5 cm left adrenal mass also suspicious for metastasis. 2. Bilateral lower lobe airspace consolidation may reflect aspiration in this intubated patient. 3. Patchy groundglass opacities in the upper lobes bilaterally consistent light reflex edema and volume loss. 4. No evidence for aortic dissection, significant aneurysm, or injury. Pepe Miramontes MD . Procedures * 09/05/16 - self extubated and reintubated. * 09/04/16 - Intubated. . Patient/Family Conference Present at Family Conference: Met with and mother in waiting room. Family Conference Time (mins): 70 Family Conference Location: Other Issues Discussed: * Palliative care role, purpose, approach * Additional medical, psychosocial, and spiritual history * Patients general health, functional status, and cognitive changes in the months leading up to the current hospitalization * Patient/family understanding of the current medical problems * Patient/family understanding of prognosis * Patients goals of care as best understood from advance directives and/or conversations and/or values * Current medical treatment options and benefits/burdens of those options * Likely scenarios comparing ongoing aggressive care with a transition to comfort measures only * Questions answered to the best of my ability * Palliative care contact information provided In summary, family seems to have a good understanding of critical illness, possible cancer and multiorgan failure. Family understands we are treating sepsis, awaiting additional test results. They understand patient is not currently stable enough for MRI brain or biopsy. Reviewed overall poor prognosis and all consultants recommendations. Family appreciates palliative care meeting and information provided. [facility] will provide update again . . Assessment and Plan Disease Oriented Problem List: (1) Septic shock (2) Leukocytosis (3) Lactic acidosis (4) Acute respiratory failure with hypoxia (5) Seizure (6) Metastatic cancer (7) Bipolar disorder (8) Chronic back pain (9) Pneumonia (10) Tobacco abuse Symptom Scale: (1) Seizure (2) Shortness of breath (3) Pain (4) Chronic back pain Pertinent Non-Medical Issues Psychosocial: Spiritual: Legal:Patient is currently incapacitated, will not likely regained capacity. According to [place] statutes, health care proxy decision-making would fall to the patient's spouse (even if they are legally ). Ethical issues impacting care: no known concerns at this time. . Important Contacts * Stephanie Juares, spouse: [phone] * Joselito Branham, mother: [phone] or [phone] . Prognosis Mr. Juares is an unfortunate 50-year-old male admitted with seizure, respiratory failure requiring mechanical ventilation and multiorgan failure, found to have what appears to be widespread metastatic disease to liver, lymph nodes and brain. Overall prognosis appears poor for meaningful recovery. Hospice appropriate if goals are comfort oriented. . Code Status: Full Code Plan * Patient is currently incapacitated, will not likely regained capacity. According to [place] statutes, health care proxy decision-making would fall to the patient's spouse (even if they are legally ). * FULL CODE * Palliative care met with and mother. In summary, family seems to have a good understanding of critical illness, possible cancer and multiorgan failure. Family understands we are treating sepsis, awaiting additional test results. They understand patient is not currently stable enough for MRI brain or biopsy. Reviewed overall poor prognosis and all consultants recommendations. Family appreciates palliative care meeting and information provided. [facility] will provide update again 09/06/16. They are considering CODE STATUS. * SYMPTOMS: Pain: secondary to likely malignancy with metastatic disease, intubation, seizure. Currently on fentanyl drip. Dyspnea: on mechanical ventilation, currently sedated with propofol and fentanyl. No new medication recommendations at this time. * Palliative care number provided. * Palliative care will continue to follow throughout hospital course to assist with symptom management and clarification of goals as needed. . Thank you for the opportunity to participate in the care of Mr. Juares. Attestation To help prompt me to consider important information that might be impacting today's encounter and assessment, information from prior notes written by myself or my colleagues may have been "brought forward" into today's note. My signature on this note, however, is an attestation that I personally performed the exam, history, and/or decision-making noted today, and, unless otherwise indicated, the interactions with patient, family, and staff as well as the review of records all occurred today. I also attest that the listed assessment and stated plan reflect my best clinical judgment today based on the combination of historical information, prior notes, and today's exam/ interactions. When time spent is documented, it refers only to time spent today by the signer, or if indicated, combined time spent today by collaborating physician/nurse practitioner. ZEINAB GO Sep 05, 2016 10:15
[2016-09-05 11:07] LABS: BLOOD GAS BASE EXCESS -3.7 mmol/L (-2-2); BLOOD GAS CARBOXYHEMOGLOBIN 0.9 % (0-4); BLOOD GAS HCO3 22 mmol/L (22-26); BLOOD GAS METHEMOGLOBIN 1.4 % (0-2); BLOOD GAS O2 HGB SATURATION 96 % (90-100); BLOOD GAS OXYGEN CONTENT 18.4 Vol % (12.0-20.0); BLOOD GAS PCO2 46 mmHg (38-42); BLOOD GAS PO2 143 mmHg (61-120); BLOOD GAS TOTAL HGB 13.4 G/DL (12.0-16.0); TEMP CORR TO 98.6
[2016-09-05 11:08] LABS: CRITICAL VALUE NO; OXYGEN DEVICE VENT
[2016-09-05 11:09] LABS: DRAW SITE ART LINE; FIO2 45 %; STAT NO; ULNAR PULSE PRESENT; VENT SETTINGS AC/20/550/+10
--- NOTE | 2016-09-05 11:54 | HHI.IDPN ---
Note Infectious Disease Note Patient remains on vent. On 35mcg of Levophed. Also on neosynephrine. BP labile with decrease of Levophed. Low grade fever. Sedated. Unresponsive. Patient's brother notes he has been a heavy smoker and has had cough years. Patient was brought to emergency department after having seizures. He has altered mental status. The patient was intubated and is currently on the ventilator. He is on the ventilator on 50% FIO2 and is unresponsive. PAST MEDICAL HISTORY: 1. Seizure disorder. 2. Hypertension. 3. Diabetes mellitus. 4. Bipolar disorder. 5. Chronic back pain. ALLERGIES NO KNOWN DRUG ALLERGIES. MEDICATIONS 1. Vancomycin. 2. Piperacillin/tazobactam 3. Azithromycin. OBJECTIVE: Vital Signs Date Time Temp Pulse Resp B/P Pulse Ox O2 Delivery O2 Flow Rate FiO2 09/05/16 10:12 98 45 09/05/16 07:29 98 45 09/05/16 06:00 90 09/05/16 05:10 97 45 09/05/16 04:11 97 50 09/05/16 04:00 99.8 99 16 96/57 98 80/51 09/05/16 04:00 99 09/05/16 04:00 50 09/05/16 02:00 113 09/05/16 00:00 122 09/05/16 00:00 60 09/05/16 00:00 100.5 122 16 93/54 97 96/59 09/04/16 23:39 96 60 09/04/16 22:30 60 09/04/16 22:15 99 60 09/04/16 22:10 58 21 09/04/16 22:00 126 09/04/16 22:00 60 09/04/16 20:25 96 60 09/04/16 20:00 60 09/04/16 20:00 109 09/04/16 20:00 98.1 109 23 101/58 95 82/51 09/04/16 18:00 120 09/04/16 18:00 60 09/04/16 18:00 100.1 114 23 92/51 92 Arterial Line 09/04/16 16:33 115 16 79/55 99 Ventilator 09/04/16 16:22 100 100 09/04/16 15:22 98.1 115 16 82/50 99 Ventilator 09/04/16 15:17 99 100 09/04/16 13:00 96 100 09/04/16 13:00 100 100 09/04/16 13:00 100 100 09/04/16 12:49 Ventilator 09/04/16 12:42 140 20 09/04/16 09/04/16 09/05/16 15:00 23:00 07:00 Intake Total 2484 ml 4500 ml Output Total 2225 ml 1450 ml Balance 259 ml 3050 ml Intake IV Total 2484 ml 4500 ml Output Urine Total 2225 ml 1450 ml Laboratory Tests Test 09/04/16 09/05/16 13:05 05:13 White Blood Count 34.8 TH/MM3 30.6 TH/MM3 Red Blood Count 4.98 MIL/MM3 4.72 MIL/MM3 Hemoglobin 13.2 GM/DL 12.7 GM/DL Hematocrit 40.5 % 37.8 % Mean Corpuscular Volume 81.4 FL 80.1 FL Mean Corpuscular Hemoglobin 26.5 PG 26.8 PG Mean Corpuscular Hemoglobin 32.5 % 33.5 % Concent Red Cell Distribution Width 14.3 % 14.6 % Platelet Count 344 TH/MM3 334 TH/MM3 Mean Platelet Volume 9.5 FL 8.9 FL Neutrophils (%) (Auto) 84.2 % 85.6 % Lymphocytes (%) (Auto) 9.0 % 5.6 % Monocytes (%) (Auto) 6.1 % 7.6 % Eosinophils (%) (Auto) 0.5 % 0.7 % Basophils (%) (Auto) 0.2 % 0.5 % Neutrophils # (Auto) 29.3 TH/MM3 26.2 TH/MM3 Lymphocytes # (Auto) 3.1 TH/MM3 1.7 TH/MM3 Monocytes # (Auto) 2.1 TH/MM3 2.3 TH/MM3 Eosinophils # (Auto) 0.2 TH/MM3 0.2 TH/MM3 Basophils # (Auto) 0.1 TH/MM3 0.2 TH/MM3 CBC Comment AUTO DIFF AUTO DIFF Differential Total Cells 100 100 Counted Neutrophils % (Manual) 63 % 79 % Band Neutrophils % 16 % 9 % Lymphocytes % 15 % 8 % Monocytes % 5 % 3 % Basophils % 1 % Neutrophils # (Manual) 27.5 TH/MM3 27.2 TH/MM3 Differential Comment FINAL DIFF FINAL DIFF MANUAL MANUAL Platelet Estimate NORMAL NORMAL Platelet Morphology Comment NORMAL ENLARGED Red Cell Morphology Comment NORMAL Myelocytes 1 % Laboratory Tests Test 09/04/16 09/04/16 09/04/16 09/04/16 13:05 18:00 19:40 21:46 Sodium Level 131 MEQ/L 137 MEQ/L Potassium Level 4.1 MEQ/L 3.7 MEQ/L Chloride Level 95 MEQ/L 102 MEQ/L Carbon Dioxide Level 15.8 MEQ/L 20.2 MEQ/L Anion Gap 20 MEQ/L 15 MEQ/L Blood Urea Nitrogen 25 MG/DL 31 MG/DL Creatinine 2.17 MG/DL 2.17 MG/DL Estimat Glomerular Filtration 32 ML/MIN 32 ML/MIN Rate Random Glucose 231 MG/DL 146 MG/DL Lactic Acid Level 11.3 mmol/L 5.9 mmol/L 5.7 mmol/L Calcium Level 9.6 MG/DL 8.2 MG/DL Total Bilirubin 0.8 MG/DL Aspartate Amino Transf 271 U/L (AST/SGOT) Alanine Aminotransferase 263 U/L (ALT/SGPT) Alkaline Phosphatase 324 U/L Total Creatine Kinase 427 U/L Creatine Kinase MB 2.9 NG/ML Creatine Kinase MB % 0.7 % Troponin I 0.05 NG/ML Total Protein 6.8 GM/DL Albumin 2.3 GM/DL Thyroid Stimulating Hormone 0.747 uIU/ML 3rd Gen Test 09/05/16 09/05/16 05:13 06:45 Sodium Level 137 MEQ/L Potassium Level 2.9 MEQ/L Chloride Level 97 MEQ/L Carbon Dioxide Level 23.2 MEQ/L Anion Gap 17 MEQ/L Blood Urea Nitrogen 34 MG/DL Creatinine 2.34 MG/DL Estimat Glomerular Filtration 30 ML/MIN Rate Random Glucose 181 MG/DL Calcium Level 7.4 MG/DL Protein Corrected Calcium 7.9 MG/DL Total Bilirubin 0.6 MG/DL Aspartate Amino Transf 453 U/L (AST/SGOT) Alanine Aminotransferase 327 U/L (ALT/SGPT) Alkaline Phosphatase 282 U/L Total Protein 6.2 GM/DL Albumin 2.0 GM/DL Lactic Acid Level 4.7 mmol/L Microbiology Date/Time Procedure Status Source Growth 09/04/16 15:00 Aerobic Blood Culture - Preliminary Resulted Blood Line NO GROWTH IN 1 DAY 09/04/16 15:00 Anaerobic Blood Culture - Preliminary Resulted Blood Line NO GROWTH IN 1 DAY 09/04/16 15:15 Aerobic Blood Culture - Preliminary Resulted Blood Line NO GROWTH IN 1 DAY 09/04/16 15:15 Anaerobic Blood Culture - Preliminary Resulted Blood Line NO GROWTH IN 1 DAY 09/05/16 05:30 Urine Culture Received Urine Catheterized Urine Pending IMAGING: Head CT 09/04/16 1312 Signed Impressions: Service Date/Time: Sunday, September 04, 2016 13:39 - CONCLUSION: 2.3 cm hyperdense mass seen at the left parietal lobe. This is thought to likely represent a mass. Some degree of hemorrhage can not be excluded given the density. There is also a questionable second smaller area of hyperdensity seen in the anterior inferior midline frontal lobe region. It is recommended both these areas be further evaluated with a MRI examination with contrast if there are no contraindications. Casey Cisneros MD Chest X-Ray 09/04/16 1312 Signed Impressions: Service Date/Time: Sunday, September 04, 2016 13:15 - CONCLUSION: 1. Multilobar consolidation likely pneumonia. 2. Adequate placement of endotracheal tube. Armen Power MD Aorta CTA 09/04/16 0000 Signed Impressions: Service Date/Time: Sunday, September 04, 2016 13:44 - CONCLUSION: 1. Abnormal examination demonstrating large left hilar mass with bulky mediastinal adenopathy and associated post obstructive airspace disease in the superior segment of the left lower lobe. There is also evidence for bulky metastatic disease to the liver and solitary mesenteric metastasis. 1.5 cm left adrenal mass also suspicious for metastasis. 2. Bilateral lower lobe airspace consolidation may reflect aspiration in this intubated patient. 3. Patchy groundglass opacities in the upper lobes bilaterally consistent light reflex edema and volume loss. 4. No evidence for aortic dissection, significant aneurysm, or injury. Pepe Miramontes MD PHYSICAL EXAMINATION: GENERAL: On the ventilator and is unresponsive. HEENT: Intubated. NECK: Supple. No adenopathy. LUNGS: Decreased breath sounds at the bases. HEART: Regular S1-S2. No murmur. ABDOMEN: Obese, soft. EXTREMITIES: No clubbing, cyanosis or edema. SKIN: No rash. NEUROLOGIC: Unable to assess. PSYCH: Unable to assess. IMPRESSION 1. Septic shock, unclear etiology. 2. Multilobar pneumonia, possibly secondary to aspiration. Probable source. 3. 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 4. Acute Respiratory failure. 5. Altered mental status secondary to sepsis. 6. Seizure RECOMMENDATIONS: 1. Continue vancomycin. 2. Continue Piperacillin/tazobactam 3. Continue azithromycin. 4. Monitor blood cultures. 5. Monitor urine culture. 6. Follow clinical status. Zeke Ochoa MD Sep 05, 2016 11:54
[2016-09-05] MEDS ORDERED: VANCOMYCIN INJ 2,000 MG in SODIUM CHLORID 0.9% 500 ML INJ 500 ML IV ONE (12:00)
--- NOTE | 2016-09-05 12:46 | HHI.PR ---
Subjective Remarks He is Critical sedated and on multiple pressors. Poor output. Objective Vital Signs Date Time Temp Pulse Resp B/P Pulse Ox O2 Delivery O2 Flow Rate FiO2 09/05/16 10:12 98 45 09/05/16 07:29 98 45 09/05/16 06:00 90 09/05/16 05:10 97 45 09/05/16 04:11 97 50 09/05/16 04:00 99.8 99 16 96/57 98 80/51 09/05/16 04:00 99 09/05/16 04:00 50 09/05/16 02:00 113 09/05/16 00:00 122 09/05/16 00:00 60 09/05/16 00:00 100.5 122 16 93/54 97 96/59 09/04/16 23:39 96 60 09/04/16 22:30 60 09/04/16 22:15 99 60 09/04/16 22:10 58 21 09/04/16 22:00 126 09/04/16 22:00 60 09/04/16 20:25 96 60 09/04/16 20:00 60 09/04/16 20:00 109 09/04/16 20:00 98.1 109 23 101/58 95 82/51 09/04/16 18:00 120 09/04/16 18:00 60 09/04/16 18:00 100.1 114 23 92/51 92 Arterial Line 09/04/16 16:33 115 16 79/55 99 Ventilator 09/04/16 16:22 100 100 09/04/16 15:22 98.1 115 16 82/50 99 Ventilator 09/04/16 15:17 99 100 09/04/16 13:00 96 100 09/04/16 13:00 100 100 09/04/16 13:00 100 100 09/04/16 12:49 Ventilator I/O 09/04/16 09/04/16 09/04/16 09/05/16 09/05/16 09/05/16 07:00 15:00 23:00 07:00 15:00 23:00 Intake Total 2484 ml 4500 ml Output Total 2225 ml 1450 ml Balance 259 ml 3050 ml Intake IV Total 2484 ml 4500 ml Output Urine Total 2225 ml 1450 ml Result Diagram: 09/05/16 0513 09/05/16 0513 Objective Remarks GENERAL: This obese, middle-aged man who is sedated, intubated. HEENT: Head normocephalic. Pupils are sluggishly reactive. Throat clear. Nasal mucosa injected. NECK: Supple with no venous distension. No thyromegaly. CHEST: Equal movements with coarse wheezes throughout both lung parker. Occasional crackles at the right base. HEART: The heart sounds are regular S1-S2. No murmur. ABDOMEN: Obese, protuberant without masses. No organomegaly. EXTREMITIES: No edema. Cool extremities with diminished pulses. Reflexes are not elicited. He is sedated. SKIN: Dry and cool. Assessment and Plan Assessment and Plan IMPRESSION 1. Septic shock. 2. Acute hypoxemic respiratory failure. 3. COPD. 4. 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 5. Possible brain mets with seizures. 6. History of bipolar disorder. 7. Diabetes mellitus. 8. Hypertension. 9. Hyponatremia. Plan : 1. Wean FIO2 and PEEP at 10 CM 2. Wean Pressors. 3. Cont antibiotics. 4. Continue nebs qid. 5. CXR BMP ,CBC in am 6. Continue sedation Jamey Botello MD Sep 05, 2016 12:46
--- NOTE | 2016-09-05 13:17 | RADRPT ---
EXAM DATE/TIME: 09/05/2016 09:21 [facility] COMPARISON: CTA THORACIC ABDOMINAL AORTA W 3D RECON, September 04, 2016, 13:44. INDICATIONS : Acute renal failure. Elevated liver function. MEDICAL HISTORY : Hypertension. Diabetic. Bipolar. Seizure disorder. SURGICAL HISTORY : Upper extremity surgery as a teenager. ENCOUNTER: Initial ACUITY: 2 days PAIN SCORE: Nonresponsive. LOCATION: Bilateral upper quadrant MEASUREMENTS: LIVER: 24.7 cm length COMMON DUCT: 4 mm RIGHT KIDNEY: 12.0 x 5.6 x 5.9 cm LEFT KIDNEY: 12.8 x 4.8 x 6.9 cm SPLEEN: 8.9 cm length AORTA: 2.0cm maximal FINDINGS: LIVER: The liver is extremely heterogeneous. The heterogeneity may be from underlying somewhat hypoechoic ma sses. The liver is enlarged. COMMON DUCT: No intraluminal mass or stone visualized. GALLBLADDER: Contains no stones, demonstrates no wall thickening . There is minimal fluid seen around the gallblad loy. PANCREAS: The pancreas is obscured by overlying bowel gas. RIGHT KIDNEY: No hydronephrosis, stone or mass. LEFT KIDNEY: No hydronephrosis or mass. There is a 9 mm echogenic focus in the mid collecting system likely relate d to a nonobstructing stone. SPLEEN: No focal lesion. AORTA: The retroperitoneal structures are obscured by bowel gas. IVC: The retroperitoneal structures are obscured by bowel gas. CONCLUSION: Enlarged heterogeneous liver. The heterogeneity is thought to be secondary to somewhat ill-defined ec hogenic masses throughout the liver. Metastatic disease needs to be suspected. Casey Cisneros MD on September 05, 2016 at 13:02 Board Certified Radiologist. This report was verified electronically.
[2016-09-05] MEDS ORDERED: SODIUM CHLOR 0.9% 1000 ML INJ 1,000 ML IV ONE (15:00)
[2016-09-05] MEDS ORDERED: POTASSIUM CHLOR 20 MEQ PREMIX 100 ML IV STA (16:00)
--- NOTE | 2016-09-05 16:03 | PD.CONS ---
HPI Consult Requested By Reason for Consult Acute renal sufficiency. 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 Presentation creatinine level is elevated to 2.17 with a bicarbonate of 15.8 and an anion gap of 20. Patient also had a CTA of the aorta performed on September 04, 2016 utilizing iodine contrast. Patient currently however maintaining good urine output at time of consultation. Serum creatinine level was 0.9 back in March,. Review of Systems ROS Limitations: Intubated, Unresponsive Past Family Social History Allergies: Coded Allergies: No Known Allergies (Verified , 08/23/16) Past Medical History Bipolar disorder Hypertension Seizure disorder Radiological evidence of left hilar mass with probable metastatic lesions involving brain and liver this admission. Past Surgical History Noncontributory to current complaint. Reported Medications Reported Meds & Active Scripts Active Flexeril (Cyclobenzaprine HCl) 10 Mg Tab 10 Mg PO TID Amlodipine (Amlodipine Besylate) 5 Mg Tab 5 Mg PO DAILY Naprosyn (Naproxen) 500 Mg Tab 500 Mg PO Q12HR PRN Lisinopril 40 Mg Tab 40 Mg PO DAILY Metformin (Metformin HCl) 1,000 Mg Tab 1,000 Mg PO BIDPC With meals Gemfibrozil 600 Mg Tab 600 Mg PO BIDAC Take 30 minutes prior to breakfast and dinner. Reported Glipizide 5 Mg Tab 5 Mg PO BID Take 30 minutes before a meal Quetiapine (Quetiapine Fumarate) 300 Mg Tab 600 Mg PO HS Depakote ER (Divalproex Sodium) 500 Mg Urvashi 1,000 Mg PO HS Zoloft (Sertraline HCl) 50 Mg Tab 50 Mg PO DAILY Neurontin (Gabapentin) 600 Mg Tab 600 Mg PO TID Active Ordered Medications Current Medications Propofol (Diprivan 1000 Mg/100ml Inj) 100 ml @ As Directed STK-MED ONCE .ROUTE ; Start 09/04/16 at 12:55; Stop 09/04/16 at 12:56; Status DC Norepinephrine Bitartrate (Levophed Inj) 4 mg STK-MED ONCE .ROUTE ; Start at 12:57; Stop 09/04/16 at 12:58; Status DC Lidocaine/ Epinephrine (Xylocaine-Epi 1%-1:100,000 Inj) 20 ml STK-MED ONCE .ROUTE ; Start 09/04/16 at 12:57; Stop 09/04/16 at 12:58; Status DC IV Flush 2 ml 2 ml UNSCH PRN IV FLUSH FLUSH AFTER USING IV ACCESS; Start at 13:15 Sodium Chloride 1,000 ml @ 1,000 mls/hr Q1H IV Last administered on 09/04/16 13:12; Start 09/04/16 at 13:12; Stop 09/04/16 at 14:11; Status DC Sodium Chloride 1,000 ml @ 2,000 mls/hr Q30M ONCE IV Last administered on 09/04 13:00; Start 09/04/16 at 13:15; Stop 09/04/16 at 13:44; Status DC Norepinephrine Bitartrate (Levophed-Dextrose Drip) 250 ml @ 0 mls/hr TITRATE IV Last administered on 09/05/16 13:06; Start 09/04/16 at 13:30 Terbutaline Sulfate (Brethine Inj) 1 mg UNSCH PRN SQ For Extravasation; Start 09/04/16 at 13:30; Stop 09/04/16 at 15:09; Status DC Etomidate (Amidate Inj) 20 mg ONCE ONCE IV PUSH Last administered on 12:47; Start 09/04/16 at 13:30; Stop 09/04/16 at 13:31; Status DC Ketamine HCl (Ketalar Inj) 100 mg ONCE ONCE IV PUSH Last administered on 14:00; Start 09/04/16 at 13:30; Stop 09/04/16 at 13:31; Status DC Succinylcholine Chloride 150 mg 150 mg ONCE ONCE IV PUSH Last administered on 09/04/16 12:47; Start 09/04/16 at 13:30; Stop 09/04/16 at 13:31; Status DC Sodium Chloride (NS 1000 ml Inj) 1,000 ml @ 2,000 mls/hr Q30M ONCE IV Last administered on 09/04/16 14:00; Start 09/04/16 at 13:30; Stop 09/04/16 at 13:59 ; Status DC Iohexol 99 ml 99 ml STK-MED ONCE IV Last administered on 09/04/16 13:49; Start 09/04/16 at 13:49; Stop 09/04/16 at 13:50; Status DC Metronidazole 100 ml @ 100 mls/hr ONCE STAT IV Last administered on 13:51; Start 09/04/16 at 13:51; Stop 09/04/16 at 14:50; Status DC Piperacillin Sod/ Tazobactam Sod 100 ml @ 200 mls/hr ONCE STAT IV Last administered on 09/04/16 15:09; Start 09/04/16 at 13:51; Stop 09/04/16 at 14:20 ; Status DC Azithromycin 500 mg/Sodium Chloride 250 ml @ 250 mls/hr ONCE STAT IV Last administered on 09/04/16 13:51; Start 09/04/16 at 13:51; Stop 09/04/16 at 14:50 ; Status DC Sodium Chloride 1,000 ml @ 2,000 mls/hr Q30M ONCE IV Last administered on 09/04 14:30; Start 09/04/16 at 14:30; Stop 09/04/16 at 14:59; Status DC Sodium Chloride (NS 1000 ml Inj) 1,000 ml @ 2,000 mls/hr Q30M ONCE IV ; Start 09/04/16 at 14:30; Stop 09/04/16 at 14:59; Status DC Pantoprazole Sodium (Protonix Inj) 40 mg DAILY IV Last administered on 08:34; Start 09/04/16 at 15:00 Albuterol/ Ipratropium (Duoneb Neb) 1 ampule Q6HR NEB INH Last administered on 09/05/16 15:46; Start 09/04/16 at 16:00 Albuterol/ Ipratropium (Duoneb Neb) 1 ampule Q2HR NEB PRN INH WHEEZING; Start 09/04/16 at 15:00 Miscellaneous Information 1 Q361D XX ; Start 09/04/16 at 15:00 Chlorhexidine Gluconate (Chlorhexidine 2% Cloth) 3 pack Taper DAILY@04 TOP Last administered on 09/05/16 04:00; Start 09/05/16 at 04:00; Stop 09/01/17 at 03:59 Chlorhexidine Gluconate 3 pack 3 pack UNSCH PRN TOP HYGIENIC CARE; Start at 15:00 Levetriacetam/ Sodium Chloride (Keppra Inj/NS Inj) 105 ml @ 420 mls/hr Q12HR IV Last administered on 09/05/16 08:34; Start 09/04/16 at 15:00 Hydrocortisone Sodium Succinate 50 mg 50 mg Q6H IV PUSH Last administered on 15:26; Start 09/04/16 at 16:00 Phenylephrine HCl/ Dextrose (Neosynephrine Inj/D5W 500 ml Inj) 500 ml @ 0 mls/ hr TITRATE IV Last administered on 09/05/16 15:22; Start 09/04/16 at 16:00 Terbutaline Sulfate (Brethine Inj) 1 mg UNSCH PRN SQ For Extravasation; Start 09/04/16 at 15:00 Sodium Bicarbonate 100 meq 100 meq ONCE ONCE IV PUSH Last administered on 09/04 15:00; Start 09/04/16 at 15:00; Stop 09/04/16 at 15:10; Status DC Sodium Bicarbonate/ Sterile Water (Sodium Bicarbonate 8.4% Inj/Sterile Water For Inj) 1,000 ml @ 150 mls/hr Q6H40M IV Last administered on 09/05/16 13:07 ; Start 09/04/16 at 15:00; Stop 09/05/16 at 15:54; Status DC Dextrose (D50w (Vial) Inj) 50 ml UNSCH PRN IV HYPOGLYCEMIA-SEE COMMENTS; Start 09/04/16 at 15:00 Glucagon (Glucagon Inj) 1 mg UNSCH PRN OTHER HYPOGLYCEMIA-SEE COMMENTS; Start 09/04/16 at 15:00 Insulin Human Regular 1 1 Q4H SQ Last administered on 09/05/16 12:00; Start at 16:00 Pharmacy Profile Note 0 ml @ 0 mls/hr UNSCH OTHER ; Start 09/04/16 at 15:00 Vancomycin HCl 1000 mg/Sodium Chloride 250 ml @ 250 mls/hr ONCE ONCE IV ; Start 09/04/16 at 15:00; Stop 09/04/16 at 15:59; Status Cancel Piperacillin Sod/ Tazobactam Sod 100 ml @ 200 mls/hr Q6H IV Last administered on 09/05/16 15:26; Start 09/04/16 at 21:00 Azithromycin 500 mg/Sodium Chloride 250 ml @ 250 mls/hr Q24H IV Last administered on 09/05/16 15:26; Start 09/05/16 at 15:00 Vancomycin HCl 2000 mg/Sodium Chloride 520 ml @ 250 mls/hr ONCE ONCE IV ; Start 09/04/16 at 17:00; Stop 09/04/16 at 17:00; Status DC Vancomycin HCl 1000 mg/Sodium Chloride 250 ml @ 250 mls/hr ONCE ONCE IV ; Start 09/04/16 at 17:00; Stop 09/04/16 at 17:59; Status UNV Fentanyl Citrate (fentaNYL DRIP) 250 ml @ 0 mls/hr TITRATE IV Last administered on 09/05/16 08:33; Start 09/04/16 at 17:00 Fentanyl Citrate 100 mcg 100 mcg STK-MED ONCE .ROUTE ; Start 09/04/16 at 16:48; Stop 09/04/16 at 16:49; Status DC Vancomycin HCl/ Sodium Chloride (Vancomycin Inj/ NS 500 ml Inj) 520 ml @ 250 mls/hr ONCE ONCE IV Last administered on 09/04/16 18:26; Start 09/04/16 at 18 :00; Stop 09/04/16 at 20:04; Status DC Albuterol/ Ipratropium (Duoneb Neb) 1 ampule Q6HR NEB NEB ; Start 09/04/16 at 22:00; Stop 09/04/16 at 22:00; Status DC Enoxaparin Sodium 40 mg 40 mg Q24H SQ Last administered on 09/04/16 20:52; Start 09/04/16 at 20:00; Stop 09/05/16 at 09:11; Status DC Propofol 100 ml @ 0 mls/hr TITRATE IV Last administered on 09/05/16 13:06; Start 09/04/16 at 22:15 Sodium Chloride (NS 1000 ml Inj) 1,000 ml @ 999 mls/hr BOLUS ONCE IV Last administered on 09/04/16 23:40; Start 09/04/16 at 22:30; Stop 09/04/16 at 23:30 ; Status DC Chlorhexidine Gluconate 15 ml 15 ml BID@08,20 MT Last administered on 08:34; Start 09/05/16 at 08:00 Vancomycin HCl 2000 mg/Sodium Chloride 520 ml @ 250 mls/hr ONCE ONCE IV Last administered on 09/05/16 13:10; Start 09/05/16 at 12:00; Stop 09/05/16 at 14:04 ; Status DC Potassium Chloride 100 ml @ 25 mls/hr BOLUS ONCE IV Last administered on 09/05 09:32; Start 09/05/16 at 09:20; Stop 09/05/16 at 13:19; Status DC Calcium Gluconate 1 gm/Sodium Chloride 110 ml @ 110 mls/hr ONCE ONCE IV Last administered on 09/05/16 10:00; Start 09/05/16 at 10:00; Stop 09/05/16 at 10:59 ; Status DC Sodium Chloride 1,000 ml @ 999 mls/hr BOLUS ONCE IV Last administered on 09/05 15:00; Start 09/05/16 at 15:00; Stop 09/05/16 at 16:00; Status DC Sodium Bicarbonate 75 meq/Sodium Chloride 1,075 ml @ 150 mls/hr Q7H10M IV ; Start 09/05/16 at 16:00 Potassium Chloride 100 ml @ 50 mls/hr BOLUS STAT IV ; Start 09/05/16 at 16:00 ; Stop 09/05/16 at 17:59 Potassium Chloride (KCl 20 Meq Premix Inj) 100 ml @ 50 mls/hr BOLUS ONCE IV ; Start 09/05/16 at 20:00; Stop 09/05/16 at 21:59; Status UNV Family History Unobtainable from patient. Social History Significant history of tobacco use preadmission. Physical Exam Vital Signs Vital Signs Date Time Temp Pulse Resp B/P Pulse Ox O2 Delivery O2 Flow Rate FiO2 09/05/16 15:46 100 45 09/05/16 15:30 87 19 112/58 100 116/56 09/05/16 15:15 86 18 103/57 99 101/50 09/05/16 15:00 88 19 112/57 100 113/55 09/05/16 14:45 89 18 114/61 100 118/57 09/05/16 14:30 90 15 119/65 99 136/71 09/05/16 14:15 86 19 118/64 99 128/66 09/05/16 14:00 86 18 125/67 99 132/68 09/05/16 13:45 86 19 129/68 99 09/05/16 13:30 86 19 118/65 99 09/05/16 13:15 85 20 116/63 99 09/05/16 13:00 86 16 113/62 99 09/05/16 12:45 86 17 119/65 99 09/05/16 12:23 89 19 125/58 99 09/05/16 12:00 100.5 87 20 126/74 99 119/68 09/05/16 12:00 45 09/05/16 11:00 88 20 126/72 99 122/72 09/05/16 10:12 98 45 09/05/16 10:00 90 20 114/58 98 114/69 09/05/16 09:00 90 19 118/65 99 111/64 09/05/16 08:00 45 09/05/16 08:00 99.9 92 20 126/63 99 113/67 09/05/16 07:29 98 45 09/05/16 06:00 90 09/05/16 05:10 97 45 09/05/16 04:11 97 50 09/05/16 04:00 99.8 99 16 96/57 98 80/51 09/05/16 04:00 99 09/05/16 04:00 50 09/05/16 02:00 113 09/05/16 00:00 122 09/05/16 00:00 60 09/05/16 00:00 100.5 122 16 93/54 97 96/59 09/04/16 23:39 96 60 09/04/16 22:30 60 09/04/16 22:15 99 60 09/04/16 22:10 58 21 09/04/16 22:00 126 09/04/16 22:00 60 09/04/16 20:25 96 60 09/04/16 20:00 60 09/04/16 20:00 109 09/04/16 20:00 98.1 109 23 101/58 95 82/51 09/04/16 18:00 120 09/04/16 18:00 60 09/04/16 18:00 100.1 114 23 92/51 92 Arterial Line 09/04/16 16:33 115 16 79/55 99 Ventilator 09/04/16 16:22 100 100 Physical Exam GENERAL: Middle-aged male, intubated on a ventilator. SKIN: Warm and dry. HEAD: Normocephalic. EYES: No scleral icterus. No injection or drainage. NECK: Supple, trachea midline. No JVD. CARDIOVASCULAR: Regular rate and rhythm without murmurs, gallops, or rubs. RESPIRATORY: Breath sounds equal bilaterally. No accessory muscle use. GASTROINTESTINAL: Abdomen soft, non-tender, nondistended. MUSCULOSKELETAL: No cyanosis, or edema. BACK: Nontender without obvious deformity. No CVA tenderness. Laboratory Laboratory Tests Test 09/04/16 09/04/16 09/04/16 09/04/16 18:00 19:40 19:57 21:46 Nasal Screen MRSA (PCR) MRSA NOT DETECTED Lactic Acid Level 5.9 5.7 Sodium Level 137 Potassium Level 3.7 Chloride Level 102 Carbon Dioxide Level 20.2 Anion Gap 15 Blood Urea Nitrogen 31 Creatinine 2.17 Estimat Glomerular Filtration 32 Rate Random Glucose 146 Calcium Level 8.2 Blood Gas Puncture Site ART LINE Blood Gas Patient Temperature 98.6 Blood Gas HCO3 19 Blood Gas Base Excess -6.1 Blood Gas Oxygen Saturation 94 Arterial Blood pH 7.35 Arterial Blood Partial 34 Pressure CO2 Arterial Blood Partial 96 Pressure O2 Arterial Blood Oxygen Content 17.6 Arterial Blood 1.1 Carboxyhemoglobin Arterial Blood Methemoglobin 1.2 Blood Gas Hemoglobin 13.2 Oxygen Delivery Device VENTILATOR Blood Gas Ventilator Setting PRVC/AC Blood Gas Inspired Oxygen 60 Test 09/05/16 09/05/16 09/05/16 09/05/16 05:00 05:13 05:30 06:45 Blood Gas Puncture Site ART LINE Blood Gas Patient Temperature 98.6 Blood Gas HCO3 22 Blood Gas Base Excess -4.6 Blood Gas Oxygen Saturation 96 Arterial Blood pH 7.24 Arterial Blood Partial 52 Pressure CO2 Arterial Blood Partial 124 Pressure O2 Arterial Blood Oxygen Content 17.1 Arterial Blood 0.9 Carboxyhemoglobin Arterial Blood Methemoglobin 1.3 Blood Gas Hemoglobin 12.5 Oxygen Delivery Device VENTILATOR Blood Gas Ventilator Setting PRVC/AC Blood Gas Inspired Oxygen 50 White Blood Count 30.6 Red Blood Count 4.72 Hemoglobin 12.7 Hematocrit 37.8 Mean Corpuscular Volume 80.1 Mean Corpuscular Hemoglobin 26.8 Mean Corpuscular Hemoglobin 33.5 Concent Red Cell Distribution Width 14.6 Platelet Count 334 Mean Platelet Volume 8.9 Neutrophils (%) (Auto) 85.6 Lymphocytes (%) (Auto) 5.6 Monocytes (%) (Auto) 7.6 Eosinophils (%) (Auto) 0.7 Basophils (%) (Auto) 0.5 Neutrophils # (Auto) 26.2 Lymphocytes # (Auto) 1.7 Monocytes # (Auto) 2.3 Eosinophils # (Auto) 0.2 Basophils # (Auto) 0.2 CBC Comment AUTO DIFF Differential Total Cells 100 Counted Neutrophils % (Manual) 79 Band Neutrophils % 9 Lymphocytes % 8 Monocytes % 3 Neutrophils # (Manual) 27.2 Myelocytes 1 Differential Comment FINAL DIFF MANUAL Platelet Estimate NORMAL Platelet Morphology Comment ENLARGED Sodium Level 137 Potassium Level 2.9 Chloride Level 97 Carbon Dioxide Level 23.2 Anion Gap 17 Blood Urea Nitrogen 34 Creatinine 2.34 Estimat Glomerular Filtration 30 Rate Random Glucose 181 Calcium Level 7.4 Protein Corrected Calcium 7.9 Total Bilirubin 0.6 Aspartate Amino Transf 453 (AST/SGOT) Alanine Aminotransferase 327 (ALT/SGPT) Alkaline Phosphatase 282 Total Protein 6.2 Albumin 2.0 Random Vancomycin Level 18.5 Urine Color YELLOW Urine Turbidity HAZY Urine pH 5.5 Urine Specific [place] 1.013 Urine Protein 30 Urine Glucose (UA) 300 Urine Ketones NEG Urine Occult Blood MOD Urine Nitrite NEG Urine Bilirubin NEG Urine Urobilinogen LESS THAN 2.0 Urine Leukocyte Esterase TRACE Urine WBC 11 Urine WBC Clumps FEW Urine Renal Epithelial Cells 2 Urine Amorphous Sediment RARE Urine Bacteria OCC Urine Mucus FEW Microscopic Urinalysis Comment CATH-CULTURE IND Lactic Acid Level 4.7 Test 09/05/16 09/05/16 09/05/16 10:45 13:55 15:00 Blood Gas Puncture Site ART LINE Blood Gas Patient Temperature 98.6 Blood Gas HCO3 22 Blood Gas Base Excess -3.7 Blood Gas Oxygen Saturation 96 Arterial Blood pH 7.30 Arterial Blood Partial 46 Pressure CO2 Arterial Blood Partial 143 Pressure O2 Arterial Blood Oxygen Content 18.4 Arterial Blood 0.9 Carboxyhemoglobin Arterial Blood Methemoglobin 1.4 Blood Gas Hemoglobin 13.4 Oxygen Delivery Device VENT Blood Gas Ventilator Setting AC/20/550/+10 Blood Gas Inspired Oxygen 45 Lactic Acid Level 7.2 Potassium Level 2.7 Date/Time Procedure Status Source Growth 09/05/16 13:30 Legionella Antigen Received Urine Catheterized Urine Pending 09/05/16 13:30 Streptococcus pneumoniae Antigen (M Received Urine Catheterized Urine Pending 09/05/16 13:30 Gram Stain Received Sputum Endotracheal Pending 09/05/16 13:30 Sputum Culture Received Sputum Endotracheal Pending 09/05/16 05:30 Urine Culture Received Urine Catheterized Urine Pending 09/04/16 15:15 Aerobic Blood Culture - Preliminary Resulted Blood Line NO GROWTH IN 1 DAY 09/04/16 15:15 Anaerobic Blood Culture - Preliminary Resulted Blood Line NO GROWTH IN 1 DAY Result Diagram: 09/05/16 0513 09/05/16 1500 Imaging Last 48 hours Impressions Abdomen Ultrasound 09/05/16 0000 Signed Impressions: Service Date/Time: Monday, September 05, 2016 09:21 - CONCLUSION: Enlarged heterogeneous liver. The heterogeneity is thought to be secondary to somewhat ill-defined echogenic masses throughout the liver. Metastatic disease needs to be suspected. Casey Cisneros MD Head CT 09/04/16 1312 Signed Impressions: Service Date/Time: Sunday, September 04, 2016 13:39 - CONCLUSION: 2.3 cm hyperdense mass seen at the left parietal lobe. This is thought to likely represent a mass. Some degree of hemorrhage can not be excluded given the density. There is also a questionable second smaller area of hyperdensity seen in the anterior inferior midline frontal lobe region. It is recommended both these areas be further evaluated with a MRI examination with contrast if there are no contraindications. Casey Cisneros MD Chest X-Ray 09/04/16 1312 Signed Impressions: Service Date/Time: Sunday, September 04, 2016 13:15 - CONCLUSION: 1. Multilobar consolidation likely pneumonia. 2. Adequate placement of endotracheal tube. Armen Power MD Chest X-Ray 09/04/16 0000 Signed Impressions: Service Date/Time: Sunday, September 04, 2016 22:27 - CONCLUSION: Endotracheal tube and nasogastric tube positions as above. Bilateral airspace opacities not significantly changed. Casey Adan MD Aorta CTA 09/04/16 0000 Signed Impressions: Service Date/Time: Sunday, September 04, 2016 13:44 - CONCLUSION: 1. Abnormal examination demonstrating large left hilar mass with bulky mediastinal adenopathy and associated post obstructive airspace disease in the superior segment of the left lower lobe. There is also evidence for bulky metastatic disease to the liver and solitary mesenteric metastasis. 1.5 cm left adrenal mass also suspicious for metastasis. 2. Bilateral lower lobe airspace consolidation may reflect aspiration in this intubated patient. 3. Patchy groundglass opacities in the upper lobes bilaterally consistent light reflex edema and volume loss. 4. No evidence for aortic dissection, significant aneurysm, or injury. Pepe Miramontes MD Assessment and Plan Problem List: (1) Acute kidney insufficiency Plan: Most likely secondary to septic shock with relative decrease in the intra -arterial volume and impaired renal perfusion. Hopefully the patient has not developed an establish ATN. In addition the patient did receive iodine contrast agent and this could have resulted in contrast nephrotoxicity also. Recommend continuance of aggressive IV hydration with monitoring of volume status. Urine output appears to be adequate at this time. Medications should be adjusted for the patient's estimated GFR if clinically indicated. Avoid agents with significant potential for nephrotoxicity possible including NSAIDs for analgesia, iodine contrast agents. Gadolinium is contraindicated if the GFR is below 30. (2) Hypokalemia Plan: Potassium supplementation as ordered. Acid base status is improving. Will reduce bicarbonate in the IV at this time as alkalosis if it develops could result in worsening of hypokalemia. (3) Metabolic acidosis Plan: Improving. Secondary to sepsis, renal sufficiency and lactic acidosis. (4) Septic shock Plan: Management per infectious disease and critical care Sang Barrow MD Sep 05, 2016 16:03
[2016-09-05] MEDS: SODIUM BICARBONATE 8.4% INJ 75 MEQ in SODIUM CHLOR 0.45% 1000 ML INJ 1,000 ML IV SCH ×2 (17:31→23:02)
[2016-09-05] MEDS ORDERED: POTASSIUM CHLORIDE INJ 30 MEQ in SODIUM CHLORIDE 0.9% INJ 100 ML IV-CENTRAL SCH (17:45)
[2016-09-05] MEDS ORDERED: POTASSIUM CHLOR 20 MEQ PREMIX 100 ML IV ONE (20:00)
[2016-09-06] VITALS (23 sets, daily range): BP systolic 95–134; BP diastolic 56–72; PULSE 96–108; RESP 20–23; TEMP 99.2–102.7; O2SAT 97–100
[2016-09-06] MEDS ORDERED: POTASSIUM CHLOR 40 MEQ PREMIX 100 ML IV ONE ×2 (00:45→06:45)
[2016-09-06] MEDS: PROPOFOL 1000 MG/100 ML IV SCH ×6 (00:56→21:31)
[2016-09-06 01:19] LABS: AMPHETAMINE, URINE NEG (NEG); BARBITURATES, URINE NEG (NEG); COCAINE, URINE NEG (NEG)
[2016-09-06] MEDS: CHLORHEXIDINE GLUCONATE 2 % 1 PACK (2 CLOTHS) TOP SCH (03:03)
[2016-09-06] MEDS: PHENYLEPHRINE INJ 40 MG in DEXTROSE 5% IN WATE 500 ML INJ 496 ML IV SCH ×2 (03:03)
[2016-09-06] MEDS: PIPERACIL-TAZO 4.5 GM PREMIX 100 ML IV SCH ×4 (03:03→21:33)
[2016-09-06] MEDS: HYDROCORTISONE SOD SUCCINATE 100 MG VIAL IV PUSH SCH ×4 (03:03→21:33)
[2016-09-06] MEDS: NOREPINEPHRINE-DEXTROSE DRIP 250 ML IV SCH ×3 (03:03→21:31)
[2016-09-06] MEDS: RESP: ALBUTEROL 2.5 MG/IPRATROPIUM 0.5 MG NEB (SCH) INH ×4 (03:46→21:03)
[2016-09-06 04:36] LABS: AUTOMATED NEUTROPHIL # 23.6 TH/MM3 (1.8-7.7); BASOPHIL # 0.1 TH/MM3 (0-0.2); BASOPHIL % 0.4 % (0.0-2.0); EOSINOPHIL # 0.2 TH/MM3 (0-0.4); EOSINOPHIL % 0.8 % (0.0-4.0); HEMATOCRIT 35.3 % (39.0-51.0); LYMPH % 5.7 % (9.0-44.0); LYMPHOCYTE # 1.6 TH/MM3 (1.0-4.8); MEAN CELL VOLUME 79.2 FL (80.0-100.0); MEAN CORPUSCULAR HEMOGLOBIN 26.9 PG (27.0-34.0); MEAN CORPUSCULAR HGB CONC 33.9 % (32.0-36.0); MONO % 8.1 % (0.0-8.0); PLATELET COUNT 276 TH/MM3 (150-450); RED BLOOD COUNT 4.46 MIL/MM3 (4.50-5.90); RED CELL DISTRIBUTION WIDTH 14.3 % (11.6-17.2); WHITE BLOOD COUNT 27.8 TH/MM3 (4.0-11.0)
[2016-09-06 04:44] LABS: HEMO FLAGS AUTO DIFF
[2016-09-06] MEDS: ACETAMINOPHEN 325 MG TAB PO PRN (04:58)
[2016-09-06] MEDS: INSULIN NovoLIN REGULAR SUPPLEMENTAL SCALE SQ SCH ×6 (05:01→20:00)
[2016-09-06 05:03] LABS: ALKALINE PHOSPHATASE 278 U/L (45-117); ALT (GPT) 440 U/L (12-78); ANION GAP 13 MEQ/L (5-15); AST (GOT) 655 U/L (15-37); BLOOD UREA NITROGEN 24 MG/DL (7-18); CHLORIDE 100 MEQ/L (98-107); GLOMERULAR FILTRATION RATE 40 ML/MIN (>89); SODIUM (NA) 140 MEQ/L (136-145); TOTAL BILIRUBIN ADULT 0.6 MG/DL (0.2-1.0)
[2016-09-06 05:05] LABS: POTASSIUM 2.5 MEQ/L (3.5-5.1)
[2016-09-06] MEDS: SODIUM BICARBONATE 8.4% INJ 75 MEQ in SODIUM CHLOR 0.45% 1000 ML INJ 1,000 ML IV SCH (06:17)
[2016-09-06 07:14] LABS: BANDS 10 % (0-6); EOSINOPHILS 1 % (0-4); NEUTROPHIL # MANUAL DIFF 24.7 TH/MM3 (1.8-7.7); PLATELET ESTIMATE SMEAR NORMAL (NORMAL); PLATELET MORPHOLOGY CLUMPED (NORMAL); POLYS (SEG NEUTROPHILS) 79 % (16-70); SCAN/DIFF FINAL DIFF MANUAL; WBC DIFF SAMPLE 100
[2016-09-06] MEDS ORDERED: POTASSIUM CHLORIDE 25 MEQ EFFERVESCENT TAB PO PRN (08:30)
[2016-09-06] MEDS ORDERED: POTASSIUM PHOSPHATE MONOBASIC 500 MG TAB PO/TUBE PRN (08:30)
[2016-09-06] MEDS ORDERED: POTASSIUM CHLOR 40 MEQ PREMIX 100 ML IV PRN (08:30)
[2016-09-06] MEDS ORDERED: MAGNESIUM SULFATE INJ 2 GM in SODIUM CHLORIDE 0.9% INJ 96 ML IV PRN (08:30)
[2016-09-06] MEDS ORDERED: SODIUM PHOSPHATE INJ 30 MMOL in SODIUM CHLOR 0.9% 250 ML INJ 240 ML IV PRN (08:30)
[2016-09-06] MEDS ORDERED: MAGNESIUM OXIDE 400 MG TAB PO PRN (08:30)
[2016-09-06] MEDS ORDERED: POTASSIUM PHOSPHATE INJ 30 MMOL in SODIUM CHLOR 0.9% 250 ML INJ 250 ML IV PRN (08:30)
[2016-09-06] MEDS ORDERED: MAGNESIUM SULFATE INJ 4 GM in SODIUM CHLORIDE 0.9% INJ 92 ML IV PRN (08:30)
[2016-09-06] MEDS ORDERED: POTASSIUM CHLOR 20 MEQ PREMIX 100 ML IV PRN ×2 (08:30)
--- NOTE | 2016-09-06 08:34 | HHI.CCPN ---
Subjective Remarks/Hospital Course The patient is a 50-year-old male with past medical history of hypertension, diabetes mellitus, seizure disorder, chronic back pain, bipolar disorder who presented to the ED with a witnessed generalized seizure. In addition the patient was altered and hypoxic with O2 saturation in the 70s. He initially somewhat improved on a non-rebreather but due to labored breathing or diaphoresis he was subsequently intubated in the ED and placed on full mechanical ventilation. According to the patient's family the patient has been having progressive worsening shortness of breath and he has not been feeling well lately. In addition he reported feeling nauseous and heartburn. On arrival to the ER he was tachycardiac, hypotensive and was subsequently placed on Levophed which is currently at 20 mics. The patient was given 3 liters of crystalloids in the ED. ABG post intubation showed pH of 7.23, CO2 33, pAO2 180 , bicarb 13, saturation 97% on PRVC mode with a rate of 18, tidal volume 500, PEEP of 5, IT: 1.0, FIO2 100%. His laboratory data significant for lactic acidemia with a lactic acid level of 11.3, acute kidney injury with a creatinine 2.17 and leukocytosis with bandemia. His WBC is 34.8 with bands of 16. A CT scan of the brain in the ER was obtained which showed a 2.3 cm hyperdense mass at the left parietal lobe and a questionable second small area of hyperdensity seen in the frontal lobe region. He also had a CTA of the aorta which showed significant hilar and mediastinal adenopathy and liver mets. In the ER he was given Zosyn, azithromycin and placed on Diprivan infusion for sedation. A right femoral central line and left radial A-line was placed by the ED physician. 09/05 Patient was self extubated and was reintubated last night . Sedated with Diprivan , Fentanyl and intubated. On Levophed and now Neosyn. Renal function is worsening with Cr: 2.34 from 2.14 09/06 Patient remains sedated with Diprivan and Fentanyl and intubated. On Levophed 13 mics and Neosyn 160 mics. Spiked fever with T:102.1 Renal function is improving with Cr:1.81 from 2.34. Objective Vital Signs Date Time Temp Pulse Resp B/P Pulse Ox O2 Delivery O2 Flow Rate FiO2 09/06/16 07:43 99 40 09/06/16 06:00 101 09/06/16 04:00 102.1 20 128/71 134/64 09/04/16 16:33 Ventilator Intake and Output 09/05/16 09/05/16 09/06/16 08:00 16:00 00:00 Intake Total 4500 ml 5750 ml 9195 ml Output Total 1450 ml 2900 ml 5000 ml Balance 3050 ml 2850 ml 4195 ml Result Diagram: 09/06/16 0420 09/06/16 0420 Other Results Laboratory Tests Test 09/05/16 09/05/16 09/05/16 09/05/16 10:34 10:45 13:55 15:00 Hepatitis A IgM Antibody NEGATIVE Hepatitis B Surface Antigen NEGATIVE Hepatitis B Core IgM Antibody NEGATIVE Hepatitis C Antibody REACTIVE Blood Gas Puncture Site ART LINE Blood Gas Patient Temperature 98.6 Blood Gas HCO3 22 mmol/L Blood Gas Base Excess -3.7 mmol/L Blood Gas Oxygen Saturation 96 % Arterial Blood pH 7.30 Arterial Blood Partial 46 mmHg Pressure CO2 Arterial Blood Partial 143 mmHg Pressure O2 Arterial Blood Oxygen Content 18.4 Vol % Arterial Blood 0.9 % Carboxyhemoglobin Arterial Blood Methemoglobin 1.4 % Blood Gas Hemoglobin 13.4 G/DL Oxygen Delivery Device VENT Blood Gas Ventilator Setting AC/20/550/+10 Blood Gas Inspired Oxygen 45 % Lactic Acid Level 7.2 mmol/L Potassium Level 2.7 MEQ/L Test 09/06/16 09/06/16 00:00 04:20 Potassium Level 2.7 MEQ/L 2.5 MEQ/L Lactic Acid Level 5.9 mmol/L White Blood Count 27.8 TH/MM3 Red Blood Count 4.46 MIL/MM3 Hemoglobin 12.0 GM/DL Hematocrit 35.3 % Mean Corpuscular Volume 79.2 FL Mean Corpuscular Hemoglobin 26.9 PG Mean Corpuscular Hemoglobin 33.9 % Concent Red Cell Distribution Width 14.3 % Platelet Count 276 TH/MM3 Mean Platelet Volume 8.6 FL Neutrophils (%) (Auto) 85.0 % Lymphocytes (%) (Auto) 5.7 % Monocytes (%) (Auto) 8.1 % Eosinophils (%) (Auto) 0.8 % Basophils (%) (Auto) 0.4 % Neutrophils # (Auto) 23.6 TH/MM3 Lymphocytes # (Auto) 1.6 TH/MM3 Monocytes # (Auto) 2.2 TH/MM3 Eosinophils # (Auto) 0.2 TH/MM3 Basophils # (Auto) 0.1 TH/MM3 CBC Comment AUTO DIFF Differential Total Cells 100 Counted Neutrophils % (Manual) 79 % Band Neutrophils % 10 % Lymphocytes % 5 % Monocytes % 5 % Eosinophils % 1 % Neutrophils # (Manual) 24.7 TH/MM3 Differential Comment FINAL DIFF MANUAL Platelet Estimate NORMAL Platelet Morphology Comment CLUMPED Red Cell Morphology Comment NORMAL Sodium Level 140 MEQ/L Chloride Level 100 MEQ/L Carbon Dioxide Level 27.0 MEQ/L Anion Gap 13 MEQ/L Blood Urea Nitrogen 24 MG/DL Creatinine 1.81 MG/DL Estimat Glomerular Filtration 40 ML/MIN Rate Random Glucose 172 MG/DL Calcium Level 7.9 MG/DL Total Bilirubin 0.6 MG/DL Aspartate Amino Transf 655 U/L (AST/SGOT) Alanine Aminotransferase 440 U/L (ALT/SGPT) Alkaline Phosphatase 278 U/L Total Protein 6.1 GM/DL Albumin 1.9 GM/DL Imaging Last Impressions Abdomen Ultrasound 09/05/16 0000 Signed Impressions: Service Date/Time: Monday, September 05, 2016 09:21 - CONCLUSION: Enlarged heterogeneous liver. The heterogeneity is thought to be secondary to somewhat ill-defined echogenic masses throughout the liver. Metastatic disease needs to be suspected. Casey Cisneros MD Head CT [id number]/04/161311 Signed Impressions: Service Date/Time: Sunday, September 04, 2016 13:39 - CONCLUSION: 2.3 cm hyperdense mass seen at the left parietal lobe. This is thought to likely represent a mass. Some degree of hemorrhage can not be excluded given the density. There is also a questionable second smaller area of hyperdensity seen in the anterior inferior midline frontal lobe region. It is recommended both these areas be further evaluated with a MRI examination with contrast if there are no contraindications. Casey Cisneros MD Chest X-Ray 09/04/161311 Signed Impressions: Service Date/Time: Sunday, September 04, 2016 13:15 - CONCLUSION: 1. Multilobar consolidation likely pneumonia. 2. Adequate placement of endotracheal tube. Armen Power MD Aorta CTA 09/04/16 0000 Signed Impressions: Service Date/Time: Sunday, September 04, 2016 13:44 - CONCLUSION: 1. Abnormal examination demonstrating large left hilar mass with bulky mediastinal adenopathy and associated post obstructive airspace disease in the superior segment of the left lower lobe. There is also evidence for bulky metastatic disease to the liver and solitary mesenteric metastasis. 1.5 cm left adrenal mass also suspicious for metastasis. 2. Bilateral lower lobe airspace consolidation may reflect aspiration in this intubated patient. 3. Patchy groundglass opacities in the upper lobes bilaterally consistent light reflex edema and volume loss. 4. No evidence for aortic dissection, significant aneurysm, or injury. Pepe Miramontes MD Objective Remarks GENERAL: Patient is 50 yo critically ill sedated and intubated, SKIN: Warm and dry. HEAD: Normocephalic. EYES: No scleral icterus. No injection or drainage. NECK: Supple, trachea midline. No JVD or lymphadenopathy. Orally intubated CARDIOVASCULAR: Regular rate and rhythm without murmurs, gallops, or rubs. RESPIRATORY: Breath sounds equal bilaterally. No accessory muscle use. GASTROINTESTINAL: Abdomen soft, non-tender, nondistended. MUSCULOSKELETAL: No cyanosis, or edema. Neuro: Sedated, intubated A/P Assessment and Plan 1. VDRF 2. Septic shock. 3. Likely post obstructive pneumonia. 4. Leukocytosis with bandemia. 5. Status post seizure. 6. Lactic acidemia likely secondary to seizure and septic shock. 7. Acute kidney injury and hyponatremia. 8. Anion gap metabolic acidosis. 9. Elevated liver enzymes. 10. Brain masses rule out mets. 11. Mediastinal / hilar adenopathy need to rule out bronchogenic carcinoma. 12. Liver mets. 13. History of hypertension. 14. Hyperglycemia with underlying history of diabetes mellitus. 15. Obesity. 16. Chronic back pain. 17. History of bipolar disorder. Plan Neuro: On Diprivan and Fentanyl infusion for sedation and vent synchrony. Monitor neuro status closely and daily sedation vacation when appropriate. On Keppra 500 mg IV q. 12 , Neuro is following- Dr. Swift EEG showed mild- mod encephalopathy. Will need MRI brain when stable. Pulm: Continue vent support and maintain sats above 92%. Bronchodilators, ICU vent bundle. Pulm is following will likely need bronch when stable. Check ABG CV: Continue with pressors (Levophed, Abhijeet-Synephrine) Monitor HR and BP and maintain MAP>65 mmHg. Lactic acid trending down. on stress dose steroids hydrocortisone 50 mg IV q.6h. Echo showed EF 70-75% : Monitor renal function Is and Os and avoid nephrotoxins. For K replacement Renal function is improving with Cr: 1.81 from Cr: 2.34, US kidneys: No hydronephrosis, non-obstructing stone on left. On 12NS+75meq bicarb @150ml/hr, Renal is following- Dr. Barrow GI: on Protonix 40 mg IV daily. Start tube feeds- change tube feeds to Glucerna 1.5 with goal rate 45ml/hr Monitor LFTs. US liver: Enlarged heterogeneous liver. The heterogeneity is thought to be secondary to somewhat ill-defined echogenic masses throughout the liver. Metastatic disease is suspected. ID: Continue with abx(Zosyn , Vanco and azithromycin ) ID is following. Follow up on sputum and urine cxs 09/05 strep pneumonia and Legionella urinary AG negative on BC 09/04: NGTD Heme: Monitor CBC. Oncology is following Endo: On medium scale SSI with Accu-Chek for glycemic control. TSH: 0.74 GI prophylaxis with Protonix 40 mg daily and DVT prophylaxis with SCDs. Not on chemical anticoagulation prophylaxis given likely brain mets Lines. Right femoral central line and left radial line placed in the ED. Patient 's prognosis is guarded given multiorgan failure Palliative care is following. Discussed with patient's Stephanie Juares last night and she made patient no code DNR. CCT 30 mins Elisha Vanegas MD Sep 06, 2016 08:34
[2016-09-06 09:04] LABS: BLOOD GAS BASE EXCESS -0.6 mmol/L (-2-2); BLOOD GAS CARBOXYHEMOGLOBIN 1.2 % (0-4); BLOOD GAS HCO3 24 mmol/L (22-26); BLOOD GAS METHEMOGLOBIN 1.4 % (0-2); BLOOD GAS O2 HGB SATURATION 96 % (90-100); BLOOD GAS OXYGEN CONTENT 16.5 Vol % (12.0-20.0); BLOOD GAS PCO2 40 mmHg (38-42); BLOOD GAS PO2 131 mmHg (61-120); BLOOD GAS TOTAL HGB 12.1 G/DL (12.0-16.0); TEMP CORR TO 98.6
[2016-09-06 09:05] LABS: CRITICAL VALUE NO; FIO2 40 %; OXYGEN DEVICE VENTILATOR; VENT SETTINGS AC/RR20/VT550/PEEP10
[2016-09-06 09:06] LABS: DRAW SITE ART LINE; STAT NO; ULNAR PULSE PRESENT
--- NOTE | 2016-09-06 09:24 | RADRPT ---
EXAM DATE/TIME: 09/06/2016 08:28 [facility] COMPARISON: CHEST SINGLE AP, September 04, 2016, 22:27. INDICATIONS : Shortness of breath. MEDICAL HISTORY : Hypertension. Diabetes mellitus type II. Arthritis. SURGICAL HISTORY : None. ENCOUNTER: Subsequent ACUITY: 2 days PAIN SCORE: Non-responsive. LOCATION: Bilateral chest FINDINGS: Portable AP view of the chest demonstrates a normal-sized cardiac silhouette. Endotracheal tube and n asogastric tube remain present. There is mild airspace consolidation in the lower lung zones bilatera lly. However, it has improved. No effusion or pneumothorax is visualized. Bones demonstrate no acute finding. CONCLUSION: Mild airspace consolidation in the lower lung zones bilaterally but overall significantly improved co mpared to the study from 2 days ago. Casey Phelps MD on September 06, 2016 at 9:21 Board Certified Radiologist. This report was verified electronically.
[2016-09-06 09:33] LABS: MAGNESIUM 2.3 MG/DL (1.5-2.5)
[2016-09-06] MEDS: PANTOPRAZOLE SODIUM 40 MG VIAL IV SCH (09:45)
[2016-09-06] MEDS: levETIRAcetam INJ 500 MG in SODIUM CHLORIDE 0.9% INJ 100 ML IV SCH ×2 (10:50→21:35)
[2016-09-06] MEDS: CHLORHEXIDINE 0.12% (ORAL KIT) 15 ML CUP MT SCH ×2 (10:50→21:34)
[2016-09-06] MEDS: POTASSIUM CHLOR 40 MEQ PREMIX 100 ML IV PRN ×2 (11:48→14:25)
[2016-09-06] MEDS: SODIUM CHLOR 0.9% 1000 ML INJ 1,000 ML IV SCH ×2 (11:52→21:34)
--- NOTE | 2016-09-06 13:09 | HHI.IDPN ---
Note Infectious Disease Note Patient remains on vent. On 13mcg of Levophed. Also on neosynephrine. BP labile with decrease of Levophed. Temp of 102. Sedated. Unresponsive. Patient was brought to emergency department after having seizures. He has altered mental status. The patient was intubated and is currently on the ventilator. He is on the ventilator on 50% FIO2 and is unresponsive. PAST MEDICAL HISTORY: 1. Seizure disorder. 2. Hypertension. 3. Diabetes mellitus. 4. Bipolar disorder. 5. Chronic back pain. ALLERGIES NO KNOWN DRUG ALLERGIES. MEDICATIONS 1. Vancomycin. 2. Piperacillin/tazobactam 3. Azithromycin. OBJECTIVE: Vital Signs Date Time Temp Pulse Resp B/P Pulse Ox O2 Delivery O2 Flow Rate FiO2 09/06/16 12:47 40 09/06/16 12:46 108 09/06/16 12:45 99.2 107 20 95/61 97 95/56 09/06/16 11:15 BiPAP/CPAP 40 09/06/16 11:15 99 40 09/06/16 10:00 107 09/06/16 08:49 97 09/06/16 08:42 40 09/06/16 08:40 101.2 104 20 110/65 100 116/63 09/06/16 07:43 99 40 09/06/16 06:00 101 09/06/16 04:00 96 09/06/16 04:00 45 09/06/16 04:00 102.1 96 20 128/71 99 134/64 09/06/16 03:46 100 40 09/06/16 02:00 98 09/06/16 01:19 99 40 09/06/16 01:09 100 45 09/06/16 00:00 99 09/06/16 00:00 45 09/06/16 00:00 102.7 99 20 115/63 99 123/60 09/05/16 23:14 99 40 09/05/16 22:34 100 40 09/05/16 22:00 93 09/05/16 20:00 92 09/05/16 20:00 45 09/05/16 20:00 100.1 85 20 112/64 100 114/57 09/05/16 19:44 100 45 09/05/16 18:45 87 18 107/58 100 108/55 09/05/16 18:30 87 19 115/64 100 123/61 09/05/16 18:15 94 14 114/65 96 112/58 09/05/16 18:00 88 19 119/65 100 129/64 09/05/16 18:00 45 09/05/16 17:45 94 20 78/47 99 78/40 09/05/16 17:30 91 20 112/59 100 117/59 09/05/16 17:15 93 22 109/60 100 114/56 09/05/16 17:00 93 20 111/60 100 117/57 09/05/16 16:45 94 17 112/60 100 125/59 09/05/16 16:30 91 19 94/54 98 128/77 09/05/16 16:15 88 20 118/60 100 130/59 09/05/16 16:00 100.5 86 20 118/59 100 128/57 09/05/16 16:00 45 09/05/16 15:46 100 45 09/05/16 15:30 87 19 112/58 100 116/56 09/05/16 15:15 86 18 103/57 99 101/50 09/05/16 15:00 88 19 112/57 100 113/55 09/05/16 14:45 89 18 114/61 100 118/57 09/05/16 14:30 90 15 119/65 99 136/71 09/05/16 14:15 86 19 118/64 99 128/66 09/05/16 14:00 86 18 125/67 99 132/68 09/05/16 14:00 45 09/05/16 13:45 86 19 129/68 99 09/05/16 13:30 86 19 118/65 99 09/05/16 13:15 85 20 116/63 99 09/05/16 09/05/16 09/06/16 15:00 23:00 07:00 Intake Total 5750 ml 9195 ml 3768 ml Output Total 2900 ml 5000 ml 2250 ml Balance 2850 ml 4195 ml 1518 ml Intake IV Total 5750 ml 9052 ml 3507 ml Tube Feeding 143 ml 261 ml Output Urine Total 2900 ml 5000 ml 2250 ml # Bowel Movements 3 2 Laboratory Tests Test 09/04/16 09/05/16 09/06/16 13:05 05:13 04:20 White Blood Count 34.8 TH/MM3 30.6 TH/MM3 27.8 TH/MM3 Red Blood Count 4.98 MIL/MM3 4.72 MIL/MM3 4.46 MIL/MM3 Hemoglobin 13.2 GM/DL 12.7 GM/DL 12.0 GM/DL Hematocrit 40.5 % 37.8 % 35.3 % Mean Corpuscular Volume 81.4 FL 80.1 FL 79.2 FL Mean Corpuscular Hemoglobin 26.5 PG 26.8 PG 26.9 PG Mean Corpuscular Hemoglobin 32.5 % 33.5 % 33.9 % Concent Red Cell Distribution Width 14.3 % 14.6 % 14.3 % Platelet Count 344 TH/MM3 334 TH/MM3 276 TH/MM3 Mean Platelet Volume 9.5 FL 8.9 FL 8.6 FL Neutrophils (%) (Auto) 84.2 % 85.6 % 85.0 % Lymphocytes (%) (Auto) 9.0 % 5.6 % 5.7 % Monocytes (%) (Auto) 6.1 % 7.6 % 8.1 % Eosinophils (%) (Auto) 0.5 % 0.7 % 0.8 % Basophils (%) (Auto) 0.2 % 0.5 % 0.4 % Neutrophils # (Auto) 29.3 TH/MM3 26.2 TH/MM3 23.6 TH/MM3 Lymphocytes # (Auto) 3.1 TH/MM3 1.7 TH/MM3 1.6 TH/MM3 Monocytes # (Auto) 2.1 TH/MM3 2.3 TH/MM3 2.2 TH/MM3 Eosinophils # (Auto) 0.2 TH/MM3 0.2 TH/MM3 0.2 TH/MM3 Basophils # (Auto) 0.1 TH/MM3 0.2 TH/MM3 0.1 TH/MM3 CBC Comment AUTO DIFF AUTO DIFF AUTO DIFF Differential Total Cells 100 100 100 Counted Neutrophils % (Manual) 63 % 79 % 79 % Band Neutrophils % 16 % 9 % 10 % Lymphocytes % 15 % 8 % 5 % Monocytes % 5 % 3 % 5 % Basophils % 1 % Neutrophils # (Manual) 27.5 TH/MM3 27.2 TH/MM3 24.7 TH/MM3 Differential Comment FINAL DIFF FINAL DIFF FINAL DIFF MANUAL MANUAL MANUAL Platelet Estimate NORMAL NORMAL NORMAL Platelet Morphology Comment NORMAL ENLARGED CLUMPED Red Cell Morphology Comment NORMAL NORMAL Myelocytes 1 % Eosinophils % 1 % Laboratory Tests Test 09/04/16 09/04/16 09/04/16 09/04/16 13:05 18:00 19:40 21:46 Sodium Level 131 MEQ/L 137 MEQ/L Potassium Level 4.1 MEQ/L 3.7 MEQ/L Chloride Level 95 MEQ/L 102 MEQ/L Carbon Dioxide Level 15.8 MEQ/L 20.2 MEQ/L Anion Gap 20 MEQ/L 15 MEQ/L Blood Urea Nitrogen 25 MG/DL 31 MG/DL Creatinine 2.17 MG/DL 2.17 MG/DL Estimat Glomerular Filtration 32 ML/MIN 32 ML/MIN Rate Random Glucose 231 MG/DL 146 MG/DL Lactic Acid Level 11.3 mmol/L 5.9 mmol/L 5.7 mmol/L Calcium Level 9.6 MG/DL 8.2 MG/DL Total Bilirubin 0.8 MG/DL Aspartate Amino Transf 271 U/L (AST/SGOT) Alanine Aminotransferase 263 U/L (ALT/SGPT) Alkaline Phosphatase 324 U/L Total Creatine Kinase 427 U/L Creatine Kinase MB 2.9 NG/ML Creatine Kinase MB % 0.7 % Troponin I 0.05 NG/ML Total Protein 6.8 GM/DL Albumin 2.3 GM/DL Thyroid Stimulating Hormone 0.747 uIU/ML 3rd Gen Test 09/05/16 09/05/16 09/05/16 09/05/16 05:13 06:45 13:55 15:00 Sodium Level 137 MEQ/L Potassium Level 2.9 MEQ/L 2.7 MEQ/L Chloride Level 97 MEQ/L Carbon Dioxide Level 23.2 MEQ/L Anion Gap 17 MEQ/L Blood Urea Nitrogen 34 MG/DL Creatinine 2.34 MG/DL Estimat Glomerular Filtration 30 ML/MIN Rate Random Glucose 181 MG/DL Calcium Level 7.4 MG/DL Protein Corrected Calcium 7.9 MG/DL Total Bilirubin 0.6 MG/DL Aspartate Amino Transf 453 U/L (AST/SGOT) Alanine Aminotransferase 327 U/L (ALT/SGPT) Alkaline Phosphatase 282 U/L Total Protein 6.2 GM/DL Albumin 2.0 GM/DL Lactic Acid Level 4.7 mmol/L 7.2 mmol/L Test 09/06/16 09/06/16 09/06/16 00:00 04:20 10:12 Potassium Level 2.7 MEQ/L 2.5 MEQ/L 2.5 MEQ/L Lactic Acid Level 5.9 mmol/L 6.3 mmol/L Sodium Level 140 MEQ/L Chloride Level 100 MEQ/L Carbon Dioxide Level 27.0 MEQ/L Anion Gap 13 MEQ/L Blood Urea Nitrogen 24 MG/DL Creatinine 1.81 MG/DL Estimat Glomerular Filtration 40 ML/MIN Rate Random Glucose 172 MG/DL Calcium Level 7.9 MG/DL Phosphorus Level 2.2 MG/DL Magnesium Level 2.3 MG/DL Total Bilirubin 0.6 MG/DL Aspartate Amino Transf 655 U/L (AST/SGOT) Alanine Aminotransferase 440 U/L (ALT/SGPT) Alkaline Phosphatase 278 U/L Total Protein 6.1 GM/DL Albumin 1.9 GM/DL Microbiology Date/Time Procedure Status Source Growth 09/04/16 15:00 Aerobic Blood Culture - Preliminary Resulted Blood Line NO GROWTH IN 2 DAYS 09/04/16 15:00 Anaerobic Blood Culture - Preliminary Resulted Blood Line NO GROWTH IN 2 DAYS 09/04/16 15:15 Aerobic Blood Culture - Preliminary Resulted Blood Line NO GROWTH IN 2 DAYS 09/04/16 15:15 Anaerobic Blood Culture - Preliminary Resulted Blood Line NO GROWTH IN 2 DAYS 09/05/16 05:30 Urine Culture - Preliminary Resulted Urine Catheterized Urine NO GROWTH IN 24 HOURS. 09/05/16 13:30 Gram Stain - Final Resulted Sputum Endotracheal 09/05/16 13:30 Sputum Culture - Preliminary Resulted Gram Positive Cocci 09/05/16 13:30 Legionella Antigen - Final Complete Urine Catheterized Urine PRESUMPTIVE NEGATIVE FOR LEGIONELLA P... 09/05/16 13:30 Streptococcus pneumoniae Antigen (M - Final Complete Urine Catheterized Urine PRESUMPTIVE NEGATIVE FOR STREPTOCOCCU... 09/06/16 11:41 Aerobic Blood Culture Received Blood Peripheral Pending 09/06/16 11:41 Anaerobic Blood Culture Received Blood Peripheral Pending 09/06/16 11:50 Aerobic Blood Culture Received Blood Peripheral Pending 09/06/16 11:50 Anaerobic Blood Culture Received Blood Peripheral Pending IMAGING: Chest X-Ray 09/06/16 0000 Signed Impressions: Service Date/Time: August 08:28 - CONCLUSION: Mild airspace consolidation in the lower lung zones bilaterally but overall significantly improved compared to the study from 2 days ago. Casey Phelps MD Abdomen Ultrasound 09/05/16 0000 Signed Impressions: Service Date/Time: Monday, September 05, 2016 09:21 - CONCLUSION: Enlarged heterogeneous liver. The heterogeneity is thought to be secondary to somewhat ill-defined echogenic masses throughout the liver. Metastatic disease needs to be suspected. Casey Cisneros MD Head CT 09/04/162 Signed Impressions: Service Date/Time: Sunday, September 04, 2016 13:39 - CONCLUSION: 2.3 cm hyperdense mass seen at the left parietal lobe. This is thought to likely represent a mass. Some degree of hemorrhage can not be excluded given the density. There is also a questionable second smaller area of hyperdensity seen in the anterior inferior midline frontal lobe region. It is recommended both these areas be further evaluated with a MRI examination with contrast if there are no contraindications. Casey Cisneros MD Chest X-Ray 09/04/161311 Signed Impressions: Service Date/Time: Sunday, September 04, 2016 13:15 - CONCLUSION: 1. Multilobar consolidation likely pneumonia. 2. Adequate placement of endotracheal tube. Armen Power MD Head CT 09/04/161311 Signed Impressions: Service Date/Time: Sunday, September 04, 2016 13:39 - CONCLUSION: 2.3 cm hyperdense mass seen at the left parietal lobe. This is thought to likely represent a mass. Some degree of hemorrhage can not be excluded given the density. There is also a questionable second smaller area of hyperdensity seen in the anterior inferior midline frontal lobe region. It is recommended both these areas be further evaluated with a MRI examination with contrast if there are no contraindications. Casey Cisneros MD Chest X-Ray 09/04/161311 Signed Impressions: Service Date/Time: Sunday, September 04, 2016 13:15 - CONCLUSION: 1. Multilobar consolidation likely pneumonia. 2. Adequate placement of endotracheal tube. Armen Power MD Aorta CTA 09/04/16 0000 Signed Impressions: Service Date/Time: Sunday, September 04, 2016 13:44 - CONCLUSION: 1. Abnormal examination demonstrating large left hilar mass with bulky mediastinal adenopathy and associated post obstructive airspace disease in the superior segment of the left lower lobe. There is also evidence for bulky metastatic disease to the liver and solitary mesenteric metastasis. 1.5 cm left adrenal mass also suspicious for metastasis. 2. Bilateral lower lobe airspace consolidation may reflect aspiration in this intubated patient. 3. Patchy groundglass opacities in the upper lobes bilaterally consistent light reflex edema and volume loss. 4. No evidence for aortic dissection, significant aneurysm, or injury. Pepe Miramontes MD PHYSICAL EXAMINATION: GENERAL: Unresponsive. HEENT: Intubated. NECK: Supple. No adenopathy. LUNGS: Bilateral rhonchi. HEART: Regular S1-S2. No murmur. No rubs, No gallops. ABDOMEN: Obese, soft. EXTREMITIES: No clubbing, cyanosis or edema. SKIN: No rash. NEUROLOGIC: Unable to assess. PSYCH: Unable to assess. IMPRESSION 1. Septic shock, unclear etiology. 2. Multilobar pneumonia, possibly secondary to aspiration. Probable source. Sputum culture has gram positive cocci. CXR improved. 3. 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 4. Acute Respiratory failure. 5. Altered mental status secondary to sepsis. 6. Seizure. 7. Leukocytosis - WBC still elevated. Still very critically ill. RECOMMENDATIONS: 1. Continue vancomycin. 2. Continue Piperacillin/tazobactam 3. Continue azithromycin. 4. Monitor blood cultures. 5. Monitor sputum culture. 6. Follow clinical status. Zeke Ochoa MD Sep 06, 2016 13:09
--- NOTE | 2016-09-06 14:02 | HHI.HCPN ---
Reason for visit a. To assist with evaluation and management of symptoms including: pain, encephalopathy, dyspnea. b. To assist medical decision maker(s) with: better understanding of current medical conditions; weighing benefits/burdens of medical treatment options; making medical treatment decisions. . Subjective/Interval History Patient seen and examined in ICU. No family at bedside. Discussed with nursing staff. It appears since my conversation with the patient's family on that the family has elected alternate code status: intubation only. Patient remains remains sedated in ICU on mechanical ventilation. Nurse indicates when sedation was lessened today the patient began thrashing in the bed and required sedation to be restarted. Febrile, Tmax 102.1. Tachycardic. Remains on Levophed. WBC 27.8, hemoglobin 12, hematocrit 35.3, platelet count 276. Continues to require potassium bolus, potassium 2.5. Creatinine slightly improved 1.81. Lactic acid 6.3. AST increased to 655, ALT 440, alkaline phosphatase 278. Sputum culture preliminarily gram-positive cocci, repeat blood culture pending. Chest x-ray mild airspace consolidation left lower lung zones bilaterally overalls improved. . Family/friend interactions Patrica Cox LCSW spoke with patient's , family does not have any questions and follow up from our lengthy family meeting on 09/05/16. Family requests follow-up meeting on 09/07/16 for medical update. . Advance Directives Living Will: Never completed Health Care Surrogate: Never completed Durable Power of Global Logistics Manager: Never completed Advance Directive Specifics Health Care Surrogate(s): Patient is currently incapacitated, will not likely regained capacity. According to [place] statutes, health care proxy decision-making would fall to the patient's spouse (even if they are legally ). . Documented care wishes: None. Significant change in goals: Alternate Code: Intubation Only. Continue aggressive care short of alternate code for now. . Objective Vital Signs Date Time Temp Pulse Resp B/P Pulse Ox O2 Delivery O2 Flow Rate FiO2 09/06/16 12:47 40 09/06/16 12:46 108 09/06/16 12:45 99.2 107 20 95/61 97 95/56 09/06/16 11:15 BiPAP/CPAP 40 09/06/16 11:15 99 40 09/06/16 10:00 107 09/06/16 08:49 97 09/06/16 08:42 40 09/06/16 08:40 101.2 104 20 110/65 100 116/63 09/06/16 07:43 99 40 09/06/16 06:00 101 09/06/16 04:00 96 09/06/16 04:00 45 09/06/16 04:00 102.1 96 20 128/71 99 134/64 09/06/16 03:46 100 40 09/06/16 02:00 98 09/06/16 01:19 99 40 09/06/16 01:09 100 45 09/06/16 00:00 99 09/06/16 00:00 45 09/06/16 00:00 102.7 99 20 115/63 99 123/60 09/05/16 23:14 99 40 09/05/16 22:34 100 40 09/05/16 22:00 93 09/05/16 20:00 92 09/05/16 20:00 45 09/05/16 20:00 100.1 85 20 112/64 100 114/57 09/05/16 19:44 100 45 09/05/16 18:45 87 18 107/58 100 108/55 09/05/16 18:30 87 19 115/64 100 123/61 09/05/16 18:15 94 14 114/65 96 112/58 09/05/16 18:00 88 19 119/65 100 129/64 09/05/16 18:00 45 09/05/16 17:45 94 20 78/47 99 78/40 09/05/16 17:30 91 20 112/59 100 117/59 09/05/16 17:15 93 22 109/60 100 114/56 09/05/16 17:00 93 20 111/60 100 117/57 09/05/16 16:45 94 17 112/60 100 125/59 09/05/16 16:30 91 19 94/54 98 128/77 09/05/16 16:15 88 20 118/60 100 130/59 09/05/16 16:00 100.5 86 20 118/59 100 128/57 09/05/16 16:00 45 09/05/16 15:46 100 45 09/05/16 15:30 87 19 112/58 100 116/56 09/05/16 15:15 86 18 103/57 99 101/50 09/05/16 15:00 88 19 112/57 100 113/55 09/05/16 14:45 89 18 114/61 100 118/57 09/05/16 14:30 90 15 119/65 99 136/71 09/05/16 14:15 86 19 118/64 99 128/66 09/05/16 14:00 86 18 125/67 99 132/68 09/05/16 14:00 45 Intake & Output 09/06/16 09/06/16 07:00 19:00 Intake Total 7213 ml Output Total 4350 ml 2500 ml Balance 2863 ml -2500 ml Intake IV Total 6809 ml Tube Feeding 404 ml Output Urine Total 4350 ml 2500 ml # Bowel Movements 2 Physical Exam CONSTITUTIONAL/GENERAL: This is an adequately nourished patient, [facility]. TUBES/LINES/DRAINS: ETT, OG, PIV x 2, left wrist a-line, bilateral soft wrist restraints, Roland, podus boots, SCDs. SKIN: No jaundice, rashes, or lesions. Ecchymoses on upper extremities. No wounds seen anteriorly. Diaphoretic. EYES: Right eye blind. ENT: Unable to assess hearing. Nose without bleeding or purulent drainage. Difficult to visualize throat due to tubes. CARDIOVASCULAR: RRR. RESPIRATORY/CHEST: Symmetric, unlabored respirations on vent. Diminished breath sounds. GASTROINTESTINAL: Abdomen protuberant. Bowel sounds hypoactive. GENITOURINARY: Without palpable bladder distension. Roland catheter in place. MUSCULOSKELETAL: Extremities cold to touch. NEUROLOGICAL: Sedated. PSYCHIATRIC: Sedated. . Diagnostic Tests Laboratory Laboratory Tests Test 09/04/16 09/04/16 09/04/16 09/04/16 05:30 13:05 14:12 15:00 Urine Opiates Screen NEG (NEG) Urine Barbiturates Screen NEG (NEG) Urine Amphetamines Screen NEG (NEG) Urine Benzodiazepines Screen POS (NEG) Urine Cocaine Screen NEG (NEG) Urine Cannabinoids Screen NEG (NEG) Prothrombin Time 14.6 SEC (9.8-11.6) Prothromb Time International 1.3 RATIO Ratio Activated Partial 30.3 SEC Thromboplast Time (24.3-30.1) Sodium Level 131 MEQ/L (136-145) Potassium Level 4.1 MEQ/L (3.5-5.1) Chloride Level 95 MEQ/L (98-107) Carbon Dioxide Level 15.8 MEQ/L (21.0-32.0) Anion Gap 20 MEQ/L (5-15) Blood Urea Nitrogen 25 MG/DL (7-18) Creatinine 2.17 MG/DL (0.60-1.30) Estimat Glomerular Filtration 32 ML/MIN (>89) Rate Random Glucose 231 MG/DL (74-106) Lactic Acid Level 11.3 mmol/L (0.4-2.0) Calcium Level 9.6 MG/DL (8.5-10.1) Total Bilirubin 0.8 MG/DL (0.2-1.0) Aspartate Amino Transf 271 U/L (15-37) (AST/SGOT) Alanine Aminotransferase 263 U/L (12-78) (ALT/SGPT) Alkaline Phosphatase 324 U/L (45-117) Total Creatine Kinase 427 U/L (39-308) Creatine Kinase MB 2.9 NG/ML (0.5-3.6) Creatine Kinase MB % 0.7 % (0.0-4.0) Troponin I 0.05 NG/ML (0.02-0.05) Total Protein 6.8 GM/DL (6.4-8.2) Albumin 2.3 GM/DL (3.4-5.0) Thyroid Stimulating Hormone 0.747 uIU/ML 3rd Gen (0.358-3.740) Acetaminophen Level LESS THAN 2.0 MCG/ML (10.0-30.0) Valproic Acid (Depakene) Level 5 MCG/ML (50-100) Ethyl Alcohol Level LESS THAN 3 MG/DL (0-5) White Blood Count 34.8 TH/MM3 (4.0-11.0) Red Blood Count 4.98 MIL/MM3 (4.50-5.90) Hemoglobin 13.2 GM/DL (13.0-17.0) Hematocrit 40.5 % (39.0-51.0) Mean Corpuscular Volume 81.4 FL (80.0-100.0) Mean Corpuscular Hemoglobin 26.5 PG (27.0-34.0) Mean Corpuscular Hemoglobin 32.5 % Concent (32.0-36.0) Red Cell Distribution Width 14.3 % (11.6-17.2) Platelet Count 344 TH/MM3 (150-450) Mean Platelet Volume 9.5 FL (7.0-11.0) Neutrophils (%) (Auto) 84.2 % (16.0-70.0) Lymphocytes (%) (Auto) 9.0 % (9.0-44.0) Monocytes (%) (Auto) 6.1 % (0.0-8.0) Eosinophils (%) (Auto) 0.5 % (0.0-4.0) Basophils (%) (Auto) 0.2 % (0.0-2.0) Neutrophils # (Auto) 29.3 TH/MM3 (1.8-7.7) Lymphocytes # (Auto) 3.1 TH/MM3 (1.0-4.8) Monocytes # (Auto) 2.1 TH/MM3 (0-0.9) Eosinophils # (Auto) 0.2 TH/MM3 (0-0.4) Basophils # (Auto) 0.1 TH/MM3 (0-0.2) CBC Comment AUTO DIFF Differential Total Cells 100 Counted Neutrophils % (Manual) 63 % (16-70) Band Neutrophils % 16 % (0-6) Lymphocytes % 15 % (9-44) Monocytes % 5 % (0-8) Basophils % 1 % (0-2) Neutrophils # (Manual) 27.5 TH/MM3 (1.8-7.7) Differential Comment FINAL DIFF MANUAL Platelet Estimate NORMAL (NORMAL) Platelet Morphology Comment NORMAL (NORMAL) Red Cell Morphology Comment NORMAL (NORMAL) Blood Gas Puncture Site ART LINE Blood Gas Patient Temperature 98.6 Blood Gas HCO3 13 mmol/L (22-26) Blood Gas Base Excess -12.8 mmol/L (-2-2) Blood Gas Oxygen Saturation 97 % (90-100) Arterial Blood pH 7.23 (7.380-7.420) Arterial Blood Partial 33 mmHg (38-42) Pressure CO2 Arterial Blood Partial 180 mmHG Pressure O2 (61-120) Arterial Blood Oxygen Content 18.0 Vol % (12.0-20.0) Arterial Blood 0.5 % (0-4) Carboxyhemoglobin Arterial Blood Methemoglobin 0.7 % (0-2) Blood Gas Hemoglobin 12.9 G/DL (12.0-16.0) Oxygen Delivery Device VENTILATOR Blood Gas Ventilator Setting 500/18/+5/1.0 Blood Gas Inspired Oxygen 100 % Salicylates Level 2.4 MG/DL (2.8-20.0) Test 09/04/16 09/04/16 09/04/16 09/04/16 18:00 19:40 19:57 21:46 Nasal Screen MRSA (PCR) MRSA NOT DETECTED (NOT DETECT) Lactic Acid Level 5.9 mmol/L 5.7 mmol/L (0.4-2.0) (0.4-2.0) Sodium Level 137 MEQ/L (136-145) Potassium Level 3.7 MEQ/L (3.5-5.1) Chloride Level 102 MEQ/L (98-107) Carbon Dioxide Level 20.2 MEQ/L (21.0-32.0) Anion Gap 15 MEQ/L (5-15) Blood Urea Nitrogen 31 MG/DL (7-18) Creatinine 2.17 MG/DL (0.60-1.30) Estimat Glomerular Filtration 32 ML/MIN (>89) Rate Random Glucose 146 MG/DL (74-106) Calcium Level 8.2 MG/DL (8.5-10.1) Blood Gas Puncture Site ART LINE Blood Gas Patient Temperature 98.6 Blood Gas HCO3 19 mmol/L (22-26) Blood Gas Base Excess -6.1 mmol/L (-2-2) Blood Gas Oxygen Saturation 94 % (90-100) Arterial Blood pH 7.35 (7.380-7.420) Arterial Blood Partial 34 mmHg (38-42) Pressure CO2 Arterial Blood Partial 96 mmHg Pressure O2 (61-120) Arterial Blood Oxygen Content 17.6 Vol % (12.0-20.0) Arterial Blood 1.1 % (0-4) Carboxyhemoglobin Arterial Blood Methemoglobin 1.2 % (0-2) Blood Gas Hemoglobin 13.2 G/DL (12.0-16.0) Oxygen Delivery Device VENTILATOR Blood Gas Ventilator Setting PRVC/AC Blood Gas Inspired Oxygen 60 % Test 09/05/16 09/05/16 09/05/16 09/05/16 05:00 05:13 05:30 06:45 Blood Gas Puncture Site ART LINE Blood Gas Patient Temperature 98.6 Blood Gas HCO3 22 mmol/L (22-26) Blood Gas Base Excess -4.6 mmol/L (-2-2) Blood Gas Oxygen Saturation 96 % (90-100) Arterial Blood pH 7.24 (7.380-7.420) Arterial Blood Partial 52 mmHg (38-42) Pressure CO2 Arterial Blood Partial 124 mmHg Pressure O2 (61-120) Arterial Blood Oxygen Content 17.1 Vol % (12.0-20.0) Arterial Blood 0.9 % (0-4) Carboxyhemoglobin Arterial Blood Methemoglobin 1.3 % (0-2) Blood Gas Hemoglobin 12.5 G/DL (12.0-16.0) Oxygen Delivery Device VENTILATOR Blood Gas Ventilator Setting PRVC/AC Blood Gas Inspired Oxygen 50 % White Blood Count 30.6 TH/MM3 (4.0-11.0) Red Blood Count 4.72 MIL/MM3 (4.50-5.90) Hemoglobin 12.7 GM/DL (13.0-17.0) Hematocrit 37.8 % (39.0-51.0) Mean Corpuscular Volume 80.1 FL (80.0-100.0) Mean Corpuscular Hemoglobin 26.8 PG (27.0-34.0) Mean Corpuscular Hemoglobin 33.5 % Concent (32.0-36.0) Red Cell Distribution Width 14.6 % (11.6-17.2) Platelet Count 334 TH/MM3 (150-450) Mean Platelet Volume 8.9 FL (7.0-11.0) Neutrophils (%) (Auto) 85.6 % (16.0-70.0) Lymphocytes (%) (Auto) 5.6 % (9.0-44.0) Monocytes (%) (Auto) 7.6 % (0.0-8.0) Eosinophils (%) (Auto) 0.7 % (0.0-4.0) Basophils (%) (Auto) 0.5 % (0.0-2.0) Neutrophils # (Auto) 26.2 TH/MM3 (1.8-7.7) Lymphocytes # (Auto) 1.7 TH/MM3 (1.0-4.8) Monocytes # (Auto) 2.3 TH/MM3 (0-0.9) Eosinophils # (Auto) 0.2 TH/MM3 (0-0.4) Basophils # (Auto) 0.2 TH/MM3 (0-0.2) CBC Comment AUTO DIFF Differential Total Cells 100 Counted Neutrophils % (Manual) 79 % (16-70) Band Neutrophils % 9 % (0-6) Lymphocytes % 8 % (9-44) Monocytes % 3 % (0-8) Neutrophils # (Manual) 27.2 TH/MM3 (1.8-7.7) Myelocytes 1 % (0-0) Differential Comment FINAL DIFF MANUAL Platelet Estimate NORMAL (NORMAL) Platelet Morphology Comment ENLARGED (NORMAL) Sodium Level 137 MEQ/L (136-145) Potassium Level 2.9 MEQ/L (3.5-5.1) Chloride Level 97 MEQ/L (98-107) Carbon Dioxide Level 23.2 MEQ/L (21.0-32.0) Anion Gap 17 MEQ/L (5-15) Blood Urea Nitrogen 34 MG/DL (7-18) Creatinine 2.34 MG/DL (0.60-1.30) Estimat Glomerular Filtration 30 ML/MIN (>89) Rate Random Glucose 181 MG/DL (74-106) Calcium Level 7.4 MG/DL (8.5-10.1) Protein Corrected Calcium 7.9 MG/DL (8.5-10.1) Total Bilirubin 0.6 MG/DL (0.2-1.0) Aspartate Amino Transf 453 U/L (15-37) (AST/SGOT) Alanine Aminotransferase 327 U/L (12-78) (ALT/SGPT) Alkaline Phosphatase 282 U/L (45-117) Total Protein 6.2 GM/DL (6.4-8.2) Albumin 2.0 GM/DL (3.4-5.0) Random Vancomycin Level 18.5 COMMENT Urine Color YELLOW (YELLW/STRAW) Urine Turbidity HAZY (CLEAR) Urine pH 5.5 (5.0-8.5) Urine Specific [place] 1.013 (1.002-1.035) Urine Protein 30 mg/dL (NEG-TRACE) Urine Glucose (UA) 300 mg/dL (NEG) Urine Ketones NEG mg/dL (NEG) Urine Occult Blood MOD (NEG) Urine Nitrite NEG (NEG) Urine Bilirubin NEG (NEG) Urine Urobilinogen LESS THAN 2.0 MG/DL (LESS THAN 2.0) Urine Leukocyte Esterase TRACE (NEG) Urine WBC 11 /hpf (0-5) Urine WBC Clumps FEW (NONE) Urine Renal Epithelial Cells 2 /hpf (NONE) Urine Amorphous Sediment RARE Urine Bacteria OCC /hpf (NONE) Urine Mucus FEW /lpf (OCC) Microscopic Urinalysis Comment CATH-CULTURE IND Lactic Acid Level 4.7 mmol/L (0.4-2.0) Test 09/05/16 09/05/16 09/05/16 09/05/16 10:34 10:45 13:55 15:00 Hepatitis A IgM Antibody NEGATIVE (NEGATIVE) Hepatitis B Surface Antigen NEGATIVE (NEGATIVE) Hepatitis B Core IgM Antibody NEGATIVE (NEGATIVE) Hepatitis C Antibody REACTIVE (NEGATIVE) Blood Gas Puncture Site ART LINE Blood Gas Patient Temperature 98.6 Blood Gas HCO3 22 mmol/L (22-26) Blood Gas Base Excess -3.7 mmol/L (-2-2) Blood Gas Oxygen Saturation 96 % (90-100) Arterial Blood pH 7.30 (7.380-7.420) Arterial Blood Partial 46 mmHg (38-42) Pressure CO2 Arterial Blood Partial 143 mmHg Pressure O2 (61-120) Arterial Blood Oxygen Content 18.4 Vol % (12.0-20.0) Arterial Blood 0.9 % (0-4) Carboxyhemoglobin Arterial Blood Methemoglobin 1.4 % (0-2) Blood Gas Hemoglobin 13.4 G/DL (12.0-16.0) Oxygen Delivery Device VENT Blood Gas Ventilator Setting AC/20/550/+10 Blood Gas Inspired Oxygen 45 % Lactic Acid Level 7.2 mmol/L (0.4-2.0) Potassium Level 2.7 MEQ/L (3.5-5.1) Test 09/06/16 09/06/16 09/06/16 09/06/16 00:00 04:20 08:51 10:12 Potassium Level 2.7 MEQ/L 2.5 MEQ/L 2.5 MEQ/L (3.5-5.1) (3.5-5.1) (3.5-5.1) Lactic Acid Level 5.9 mmol/L 6.3 mmol/L (0.4-2.0) (0.4-2.0) White Blood Count 27.8 TH/MM3 (4.0-11.0) Red Blood Count 4.46 MIL/MM3 (4.50-5.90) Hemoglobin 12.0 GM/DL (13.0-17.0) Hematocrit 35.3 % (39.0-51.0) Mean Corpuscular Volume 79.2 FL (80.0-100.0) Mean Corpuscular Hemoglobin 26.9 PG (27.0-34.0) Mean Corpuscular Hemoglobin 33.9 % Concent (32.0-36.0) Red Cell Distribution Width 14.3 % (11.6-17.2) Platelet Count 276 TH/MM3 (150-450) Mean Platelet Volume 8.6 FL (7.0-11.0) Neutrophils (%) (Auto) 85.0 % (16.0-70.0) Lymphocytes (%) (Auto) 5.7 % (9.0-44.0) Monocytes (%) (Auto) 8.1 % (0.0-8.0) Eosinophils (%) (Auto) 0.8 % (0.0-4.0) Basophils (%) (Auto) 0.4 % (0.0-2.0) Neutrophils # (Auto) 23.6 TH/MM3 (1.8-7.7) Lymphocytes # (Auto) 1.6 TH/MM3 (1.0-4.8) Monocytes # (Auto) 2.2 TH/MM3 (0-0.9) Eosinophils # (Auto) 0.2 TH/MM3 (0-0.4) Basophils # (Auto) 0.1 TH/MM3 (0-0.2) CBC Comment AUTO DIFF Differential Total Cells 100 Counted Neutrophils % (Manual) 79 % (16-70) Band Neutrophils % 10 % (0-6) Lymphocytes % 5 % (9-44) Monocytes % 5 % (0-8) Eosinophils % 1 % (0-4) Neutrophils # (Manual) 24.7 TH/MM3 (1.8-7.7) Differential Comment FINAL DIFF MANUAL Platelet Estimate NORMAL (NORMAL) Platelet Morphology Comment CLUMPED (NORMAL) Red Cell Morphology Comment NORMAL (NORMAL) Sodium Level 140 MEQ/L (136-145) Chloride Level 100 MEQ/L (98-107) Carbon Dioxide Level 27.0 MEQ/L (21.0-32.0) Anion Gap 13 MEQ/L (5-15) Blood Urea Nitrogen 24 MG/DL (7-18) Creatinine 1.81 MG/DL (0.60-1.30) Estimat Glomerular Filtration 40 ML/MIN (>89) Rate Random Glucose 172 MG/DL (74-106) Calcium Level 7.9 MG/DL (8.5-10.1) Phosphorus Level 2.2 MG/DL (2.5-4.9) Magnesium Level 2.3 MG/DL (1.5-2.5) Total Bilirubin 0.6 MG/DL (0.2-1.0) Aspartate Amino Transf 655 U/L (15-37) (AST/SGOT) Alanine Aminotransferase 440 U/L (12-78) (ALT/SGPT) Alkaline Phosphatase 278 U/L (45-117) Total Protein 6.1 GM/DL (6.4-8.2) Albumin 1.9 GM/DL (3.4-5.0) Blood Gas Puncture Site ART LINE Blood Gas Patient Temperature 98.6 Blood Gas HCO3 24 mmol/L (22-26) Blood Gas Base Excess -0.6 mmol/L (-2-2) Blood Gas Oxygen Saturation 96 % (90-100) Arterial Blood pH 7.39 (7.380-7.420) Arterial Blood Partial 40 mmHg (38-42) Pressure CO2 Arterial Blood Partial 131 mmHg Pressure O2 (61-120) Arterial Blood Oxygen Content 16.5 Vol % (12.0-20.0) Arterial Blood 1.2 % (0-4) Carboxyhemoglobin Arterial Blood Methemoglobin 1.4 % (0-2) Blood Gas Hemoglobin 12.1 G/DL (12.0-16.0) Oxygen Delivery Device VENTILATOR Blood Gas Ventilator Setting AC/RR20/VT550/PEEP10 Blood Gas Inspired Oxygen 40 % Result Diagram: 09/06/16 0420 09/06/16 1012 Microbiology Microbiology Date/Time Procedure Status Source Growth 09/04/16 15:00 Aerobic Blood Culture - Preliminary Resulted Blood Line NO GROWTH IN 2 DAYS 09/04/16 15:00 Anaerobic Blood Culture - Preliminary Resulted Blood Line NO GROWTH IN 2 DAYS 09/04/16 15:15 Aerobic Blood Culture - Preliminary Resulted Blood Line NO GROWTH IN 2 DAYS 09/04/16 15:15 Anaerobic Blood Culture - Preliminary Resulted Blood Line NO GROWTH IN 2 DAYS 09/05/16 05:30 Urine Culture - Preliminary Resulted Urine Catheterized Urine NO GROWTH IN 24 HOURS. 09/05/16 13:30 Gram Stain - Final Resulted Sputum Endotracheal 09/05/16 13:30 Sputum Culture - Preliminary Resulted Gram Positive Cocci 09/05/16 13:30 Legionella Antigen - Final Complete Urine Catheterized Urine PRESUMPTIVE NEGATIVE FOR LEGIONELLA P... 09/05/16 13:30 Streptococcus pneumoniae Antigen (M - Final Complete Urine Catheterized Urine PRESUMPTIVE NEGATIVE FOR STREPTOCOCCU... 09/06/16 11:41 Aerobic Blood Culture Received Blood Peripheral Pending 09/06/16 11:41 Anaerobic Blood Culture Received Blood Peripheral Pending 09/06/16 11:50 Aerobic Blood Culture Received Blood Peripheral Pending 09/06/16 11:50 Anaerobic Blood Culture Received Blood Peripheral Pending Imaging Last Impressions Chest X-Ray 09/06/16 0000 Signed Impressions: Service Date/Time: August 08:28 - CONCLUSION: Mild airspace consolidation in the lower lung zones bilaterally but overall significantly improved compared to the study from 2 days ago. Casey Phelps MD Abdomen Ultrasound 09/05/16 0000 Signed Impressions: Service Date/Time: Monday, September 05, 2016 09:21 - CONCLUSION: Enlarged heterogeneous liver. The heterogeneity is thought to be secondary to somewhat ill-defined echogenic masses throughout the liver. Metastatic disease needs to be suspected. Casey Cisneros MD Head CT 09/04/16 1312 Signed Impressions: Service Date/Time: Sunday, September 04, 2016 13:39 - CONCLUSION: 2.3 cm hyperdense mass seen at the left parietal lobe. This is thought to likely represent a mass. Some degree of hemorrhage can not be excluded given the density. There is also a questionable second smaller area of hyperdensity seen in the anterior inferior midline frontal lobe region. It is recommended both these areas be further evaluated with a MRI examination with contrast if there are no contraindications. Casey Cisneros MD Aorta CTA 09/04/16 0000 Signed Impressions: Service Date/Time: Sunday, September 04, 2016 13:44 - CONCLUSION: 1. Abnormal examination demonstrating large left hilar mass with bulky mediastinal adenopathy and associated post obstructive airspace disease in the superior segment of the left lower lobe. There is also evidence for bulky metastatic disease to the liver and solitary mesenteric metastasis. 1.5 cm left adrenal mass also suspicious for metastasis. 2. Bilateral lower lobe airspace consolidation may reflect aspiration in this intubated patient. 3. Patchy groundglass opacities in the upper lobes bilaterally consistent light reflex edema and volume loss. 4. No evidence for aortic dissection, significant aneurysm, or injury. Pepe Miramontes MD . Procedures * 09/05/16 - self extubated and reintubated. * 09/04/16 - Intubated. . Assessment and Plan Disease Oriented Problem List: (1) Septic shock (2) Leukocytosis (3) Lactic acidosis (4) Acute respiratory failure with hypoxia (5) Seizure (6) Metastatic cancer (7) Bipolar disorder (8) Chronic back pain (9) Pneumonia (10) Tobacco abuse Symptom Scale: (1) Seizure 0-10 Scale: Unable to quantify (2) Shortness of breath 0-10 Scale: Unable to quantify Comment: on mech vent. (3) Pain 0-10 Scale: Unable to quantify (4) Chronic back pain 0-10 Scale: Unable to quantify Pertinent Non-Medical Issues Psychosocial: Spiritual: Legal:Patient is currently incapacitated, will not likely regained capacity. According to [place] statutes, health care proxy decision-making would fall to the patient's spouse (even if they are legally ). Ethical issues impacting care: no known concerns at this time. . Important Contacts * Stephanie Juares, spouse: [phone] * Joselito Branham, mother: [phone] or [phone] . Prognosis Mr. Juares is an unfortunate 50-year-old male admitted with seizure, respiratory failure requiring mechanical ventilation and multiorgan failure, found to have what appears to be widespread metastatic disease to liver, lymph nodes and brain. Overall prognosis appears poor for meaningful recovery. Hospice appropriate if goals are comfort oriented. . Code Status: Alternative Code (Intubation Only) Plan * Patient is currently incapacitated, will not likely regained capacity. According to [place] statutes, health care proxy decision-making would fall to the patient's spouse (even if they are legally ). * CODE status: Intubation only * Patrica Cox LCSW spoke with patient's , family does not have any questions and follow up from our lengthy family meeting on 09/05/16. Family requests follow-up meeting on 09/07/16 for medical update. * SYMPTOMS: Pain: secondary to likely malignancy with metastatic disease, intubation, seizure. Currently on fentanyl drip. Dyspnea: on mechanical ventilation, currently sedated with propofol and fentanyl. No new medication recommendations at this time. * Palliative care will continue to follow throughout hospital course to assist with symptom management and clarification of goals as needed. . Attestation To help prompt me to consider important information that might be impacting today's encounter and assessment, information from prior notes written by myself or my colleagues may have been "brought forward" into today's note. My signature on this note, however, is an attestation that I personally performed the exam, history, and/or decision-making noted today, and, unless otherwise indicated, the interactions with patient, family, and staff as well as the review of records all occurred today. I also attest that the listed assessment and stated plan reflect my best clinical judgment today based on the combination of historical information, prior notes, and today's exam/ interactions. When time spent is documented, it refers only to time spent today by the signer, or if indicated, combined time spent today by collaborating physician/nurse practitioner. ZEINAB GO Sep 06, 2016 14:01
[2016-09-06] MEDS: POTASSIUM PHOSPHATE MONOBASIC 500 MG TAB PO PRN (15:33)
--- NOTE | 2016-09-06 17:54 | HHI.NPPN ---
Subjective History of Present Illness This patient is a 50-year-old male with a history of hypertension, diabetes mellitus, seizure disorder, bipolar disorder and apparently tobacco use now presenting with septic shock and an apparent postobstructive pneumonia with radiological evidence of probable metastatic disease involving liver, brain with evidence of a left hilar mass. Presentation creatinine level is elevated to 2.17 with a bicarbonate of 15.8 and an anion gap of 20. Patient also had a CTA of the aorta performed on September 04, 2016 utilizing iodine contrast. Patient currently maintaining good urine output at time of consultation. Serum creatinine level was 0.9 back in March,. Interval History Patient still intubated. Urine output appears to be quite good and suggestive of polyuria overnight. Review of Systems General General Remarks Unable to obtain because of patient's condition. Objective Data Data 09/05/16 09/06/16 19:00 07:00 Intake Total 32462 ml 7213 ml Output Total 5800 ml 4350 ml Balance 5700 ml 2863 [place] 96182 ml 6809 ml Tube Feeding 404 ml Output Urine Total 5800 ml 4350 ml # Bowel Movements 3 2 Vital Signs Date Time Temp Pulse Resp B/P Pulse Ox O2 Delivery O2 Flow Rate FiO2 09/06/16 16:14 98 40 09/06/16 16:02 40 09/06/16 16:00 108 09/06/16 16:00 99.2 108 23 102/67 97 97/60 09/06/16 14:09 97 40 09/06/16 14:00 102 09/06/16 12:47 40 09/06/16 12:46 108 09/06/16 12:45 99.2 107 20 95/61 97 95/56 09/06/16 11:15 BiPAP/CPAP 40 09/06/16 11:15 99 40 09/06/16 10:00 107 09/06/16 08:49 97 09/06/16 08:42 40 09/06/16 08:40 101.2 104 20 110/65 100 116/63 09/06/16 07:43 99 40 09/06/16 06:00 101 09/06/16 04:00 96 09/06/16 04:00 45 09/06/16 04:00 102.1 96 20 128/71 99 134/64 09/06/16 03:46 100 40 09/06/16 02:00 98 09/06/16 01:19 99 40 09/06/16 01:09 100 45 09/06/16 00:00 99 09/06/16 00:00 45 09/06/16 00:00 102.7 99 20 115/63 99 123/60 09/05/16 23:14 99 40 09/05/16 22:34 100 40 09/05/16 22:00 93 09/05/16 20:00 92 09/05/16 20:00 45 09/05/16 20:00 100.1 85 20 112/64 100 114/57 09/05/16 19:44 100 45 09/05/16 18:45 87 18 107/58 100 108/55 09/05/16 18:30 87 19 115/64 100 123/61 09/05/16 18:15 94 14 114/65 96 112/58 09/05/16 18:00 88 19 119/65 100 129/64 09/05/16 18:00 45 -: 09/06/16 0420 09/06/16 1012 Microbiology 09/06/16 Aerobic Blood Culture, Received Pending 09/06/16 Anaerobic Blood Culture, Received Pending 09/06/16 Aerobic Blood Culture, Received Pending 09/06/16 Anaerobic Blood Culture, Received Pending Physical Exam General Appearance: No Acute Distress, Comfortable Eyes Eye Exam: Sclera White Pulmonary Resp Exam: No Distress, Rhonchi Cardiology CV Exam: Regular, Normal Sinus Rhythm Gastrointestinal/Abdomen GI Exam: Soft, Non-Tender Integumentary Skin Exam: Clear, Warm, Dry Neurologic Neuro Exam: Sedated Assessment/Plan Problem List: (1) Acute kidney insufficiency Plan: Most likely secondary to septic shock with relative decrease in the intra -arterial volume and impaired renal perfusion. 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 Continue IV hydration. Recommend continuance of aggressive IV hydration with monitoring of volume status. Urine output appears to be adequate at this time. Medications should be adjusted for the patient's estimated GFR if clinically indicated. Avoid agents with significant potential for nephrotoxicity possible including NSAIDs for analgesia, iodine contrast agents. Gadolinium is contraindicated if the GFR is below 30. (2) Hypokalemia Plan: Multifactorial in origin. Contributory factors include probable pre-existing potassium deficit on presentation which was masked by his metabolic acidosis. Correction of acidosis subsequently resulted in intracellular shift of potassium. Also suspect increased potassium losses secondary to his polyuria. These potassium losses should improve as polyuria subsequently subsides. Recommend continued potassium repletion. Agree with discontinuance of IV bicarbonate at this time in view of improved acid-base status also. (3) Metabolic acidosis Plan: Improving. Secondary to sepsis, renal sufficiency and lactic acidosis. (4) Septic shock Plan: Management per infectious disease and critical care Sang Barrow MD Sep 06, 2016 17:54
--- NOTE | 2016-09-06 18:53 | HHI.PR ---
Subjective Remarks Remains sedated and on pressors. Better today. No fever. On 40 % FIo2 Objective Vital Signs Date Time Temp Pulse Resp B/P Pulse Ox O2 Delivery O2 Flow Rate FiO2 09/06/16 18:00 101 09/06/16 16:14 98 40 09/06/16 16:02 40 09/06/16 16:00 108 09/06/16 16:00 99.2 108 23 102/67 97 97/60 09/06/16 14:09 97 40 09/06/16 14:00 102 09/06/16 12:47 40 09/06/16 12:46 108 09/06/16 12:45 99.2 107 20 95/61 97 95/56 09/06/16 11:15 BiPAP/CPAP 40 09/06/16 11:15 99 40 09/06/16 10:00 107 09/06/16 08:49 97 09/06/16 08:42 40 09/06/16 08:40 101.2 104 20 110/65 100 116/63 09/06/16 07:43 99 40 09/06/16 06:00 101 09/06/16 04:00 96 09/06/16 04:00 45 09/06/16 04:00 102.1 96 20 128/71 99 134/64 09/06/16 03:46 100 40 09/06/16 02:00 98 09/06/16 01:19 99 40 09/06/16 01:09 100 45 09/06/16 00:00 99 09/06/16 00:00 45 09/06/16 00:00 102.7 99 20 115/63 99 123/60 09/05/16 23:14 99 40 09/05/16 22:34 100 40 09/05/16 22:00 93 09/05/16 20:00 92 09/05/16 20:00 45 09/05/16 20:00 100.1 85 20 112/64 100 114/57 09/05/16 19:44 100 45 I/O 09/05/16 09/05/16 09/05/16 09/06/16 09/06/16 09/06/16 07:00 15:00 23:00 07:00 15:00 23:00 Intake Total 4500 ml 5750 ml 9195 ml 3768 ml 2811 ml Output Total 1450 ml 2900 ml 5000 ml 2250 ml 3580 ml Balance 3050 ml 2850 ml 4195 ml 1518 ml -769 ml Intake IV Total 4500 ml 5750 ml 9052 ml 3507 ml 2495 ml Tube Feeding 143 ml 261 ml 316 ml Output Urine Total 1450 ml 2900 ml 5000 ml 2250 ml 3400 ml Stool Total 180 ml # Bowel Movements 3 2 1 Result Diagram: 09/06/16 0420 09/06/16 1800 Objective Remarks GENERAL: This obese, middle-aged man who is sedated, intubated. HEENT: Head normocephalic. Pupils are sluggishly reactive. Throat clear. Nasal mucosa injected. NECK: Supple with no venous distension. No thyromegaly. CHEST: Equal movements with occ wheezes throughout both lung parker. Occasional crackles at the left base. HEART: The heart sounds are regular S1-S2. No murmur. ABDOMEN: Obese, protuberant without masses. No organomegaly. EXTREMITIES: No edema. Cool extremities with diminished pulses. Reflexes are not elicited. He is sedated. SKIN: Dry and cool. Assessment and Plan Assessment and Plan IMPRESSION 1. Septic shock. 2. Acute hypoxemic respiratory failure. 3. COPD. 4. 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 5. Possible brain mets with seizures. 6. History of bipolar disorder. 7. Diabetes mellitus. 8. Hypertension. 9. Hyponatremia. Plan : 1. Wean FIO2 and PEEP at 10 CM 2. Wean Pressors. 3. Cont antibiotics. 4. Continue nebs qid. 5. BMP ,CBC in am 6. Reduce sedation 7. Bronchoscopy when clinically stable Jamey Botello MD Sep 06, 2016 18:53
[2016-09-06] MEDS ORDERED: ALTEPLASE RECOMBINANT 2 MG VIAL INTRACATH SCH (22:45)
[2016-09-07] VITALS (25 sets, daily range): BP systolic 95–136; BP diastolic 60–96; PULSE 115–143; RESP 19–32; TEMP 98.9–103; O2SAT 94–99
[2016-09-07] MEDS: PROPOFOL 1000 MG/100 ML IV SCH ×8 (00:36→23:09)
[2016-09-07] MEDS: SODIUM CHLOR 0.9% 1000 ML INJ 1,000 ML IV SCH (03:45)
[2016-09-07] MEDS: RESP: ALBUTEROL 2.5 MG/IPRATROPIUM 0.5 MG NEB (SCH) INH ×4 (03:53→22:00)
[2016-09-07] MEDS: INSULIN NovoLIN REGULAR SUPPLEMENTAL SCALE SQ SCH ×5 (04:00→20:35)
[2016-09-07] MEDS: CHLORHEXIDINE GLUCONATE 2 % 1 PACK (2 CLOTHS) TOP SCH (04:00)
[2016-09-07] MEDS: PIPERACIL-TAZO 4.5 GM PREMIX 100 ML IV SCH ×4 (05:44→20:30)
[2016-09-07] MEDS: HYDROCORTISONE SOD SUCCINATE 100 MG VIAL IV PUSH SCH ×2 (05:45→17:35)
[2016-09-07 06:58] LABS: AUTOMATED NEUTROPHIL # 19.6 TH/MM3 (1.8-7.7); BASOPHIL # 0.1 TH/MM3 (0-0.2); BASOPHIL % 0.3 % (0.0-2.0); EOSINOPHIL # 0.3 TH/MM3 (0-0.4); EOSINOPHIL % 1.1 % (0.0-4.0); HEMATOCRIT 35.1 % (39.0-51.0); HEMO FLAGS DIFF FINAL; LYMPH % 10.9 % (9.0-44.0); LYMPHOCYTE # 2.7 TH/MM3 (1.0-4.8); MEAN CELL VOLUME 79.6 FL (80.0-100.0); MEAN CORPUSCULAR HEMOGLOBIN 27.1 PG (27.0-34.0); MEAN CORPUSCULAR HGB CONC 34.1 % (32.0-36.0); MONO % 7.7 % (0.0-8.0); PLATELET COUNT 241 TH/MM3 (150-450); RED BLOOD COUNT 4.41 MIL/MM3 (4.50-5.90); RED CELL DISTRIBUTION WIDTH 14.4 % (11.6-17.2); WHITE BLOOD COUNT 24.5 TH/MM3 (4.0-11.0)
[2016-09-07 07:20] LABS: ALKALINE PHOSPHATASE 308 U/L (45-117); ALT (GPT) 394 U/L (12-78); ANION GAP 10 MEQ/L (5-15); AST (GOT) 478 U/L (15-37); BICARBONATE 28.5 MEQ/L (21.0-32.0); BLOOD UREA NITROGEN 21 MG/DL (7-18); CHLORIDE 112 MEQ/L (98-107); GLOMERULAR FILTRATION RATE 70 ML/MIN (>89); MAGNESIUM 2.6 MG/DL (1.5-2.5); SODIUM (NA) 150 MEQ/L (136-145); TOTAL BILIRUBIN ADULT 0.7 MG/DL (0.2-1.0)
[2016-09-07 07:22] LABS: POTASSIUM 2.9 MEQ/L (3.5-5.1)
[2016-09-07] MEDS: CHLORHEXIDINE 0.12% (ORAL KIT) 15 ML CUP MT SCH ×2 (07:24→20:31)
[2016-09-07] MEDS: levETIRAcetam INJ 500 MG in SODIUM CHLORIDE 0.9% INJ 100 ML IV SCH ×2 (07:25→20:31)
[2016-09-07] MEDS: PANTOPRAZOLE SODIUM 40 MG VIAL IV SCH (07:25)
[2016-09-07] MEDS: POTASSIUM CHLOR 40 MEQ PREMIX 100 ML IV PRN ×2 (07:26→09:36)
[2016-09-07] MEDS: POTASSIUM PHOSPHATE MONOBASIC 500 MG TAB PO PRN ×3 (07:29→14:43)
--- NOTE | 2016-09-07 08:48 | HHI.PR ---
Review/Management Daily Summary 09/07 sedated/diprivan on keppra, no seizures reported discussed with RN multiorgan failure, presumed widespread metastatic disease no code status will follow peripherally, please call prn Subjective Subjective Comments No acute neuro events reported Active Medications Current Medications Medications (Trade) Dose Ordered Sig/Mayo Route Start Time Stop Time Status Last Admin IV Flush 2 ml 2 ml UNSCH PRN IV FLUSH 09/04/16 13:15 (Levophed-Dextrose Drip) 250 ml @ 0 mls/hr TITRATE IV 09/04/16 13:30 09/06/16 21:31 (Protonix Inj) 40 mg DAILY IV 09/04/16 15:00 09/07/16 07:25 Miscellaneous Information 1 Q361D XX 09/04/16 15:00 (Chlorhexidine 2% Cloth) 3 pack Taper DAILY@04 TOP 09/05/16 04:00 09/01/17 03:59 09/07/16 04:00 Chlorhexidine Gluconate 3 pack 3 pack UNSCH PRN TOP 09/04/16 15:00 (Keppra Inj/NS Inj) 105 ml @ 420 mls/hr Q12HR IV 09/04/16 15:00 09/07/16 07:25 Hydrocortisone Sodium Succinate 50 mg 50 mg Q6H IV PUSH 09/04/16 16:00 09/07/16 05:45 (Neosynephrine Inj/D5W 500 ml Inj) 500 ml @ 0 mls/hr TITRATE IV 09/04/16 16:00 09/05/16 19:00 (Brethine Inj) 1 mg UNSCH PRN SQ 09/04/16 15:00 (D50w (Vial) Inj) 50 ml UNSCH PRN IV 09/04/16 15:00 (Glucagon Inj) 1 mg UNSCH PRN OTHER 09/04/16 15:00 Insulin Human Regular 1 1 Q4H SQ 09/04/16 16:00 09/07/16 00:00 Pharmacy Profile Note 0 ml @ 0 mls/hr UNSCH OTHER 09/04/16 15:00 Piperacillin Sod/ Tazobactam Sod 100 ml @ 200 mls/hr Q6H IV 09/04/16 21:00 09/07/16 07:25 Azithromycin 500 mg/Sodium Chloride 250 ml @ 250 mls/hr Q24H IV 09/05/16 15:00 09/05/16 15:26 Fentanyl Citrate 250 ml @ 0 mls/hr TITRATE IV 09/04/16 17:00 09/05/16 20:08 (Diprivan 1000 Mg/100ml Inj) 100 ml @ 0 mls/hr TITRATE IV 09/04/16 22:15 09/07/16 07:24 (Peridex 0.12% Liq) 15 ml BID@08,20 MT 09/05/16 08:00 09/07/16 07:24 Acetaminophen 650 mg 650 mg Q6H PRN PO 09/06/16 04:30 09/06/16 04:58 Potassium Chloride 100 ml @ 50 mls/hr Q2H PRN IV 09/06/16 08:30 09/07/16 07:26 (KCl 20 Meq Premix Inj) 100 ml @ 50 mls/hr Q2H PRN IV 09/06/16 08:30 Potassium Bicarb/ Potassium Chloride 50 meq 50 meq UNSCH PRN PO 09/06/16 08:30 Potassium Chloride 100 ml @ 25 mls/hr UNSCH PRN IV 09/06/16 08:30 Potassium Chloride 100 ml @ 50 mls/hr Q2H PRN IV 09/06/16 08:30 (Magnesium Sulfate Inj/NS Inj) 100 ml @ 50 mls/hr UNSCH PRN IV 09/06/16 08:30 Magnesium Oxide 800 mg 800 mg UNSCH PRN PO 09/06/16 08:30 (Magnesium Sulfate Inj/NS Inj) 100 ml @ 50 mls/hr UNSCH PRN IV 09/06/16 08:30 Potassium Phosphate 2000 mg 2,000 mg Q4H PRN PO 09/06/16 08:30 09/07/16 07:29 (Sodium Phosphate Inj/NS 250 ml Inj) 250 ml @ 42 mls/hr UNSCH PRN IV 09/06/16 08:30 Potassium Phosphate 2000 mg 2,000 mg UNSCH PRN PO/TUBE 09/06/16 08:30 Potassium Phosphate 30 mmol/ Sodium Chloride 260 ml @ 42 mls/hr UNSCH PRN IV 09/06/16 08:30 (NS 1000 ml Inj) 1,000 ml @ 125 mls/hr Q8H IV 09/06/16 11:45 6/23/17 03:45 Allergies Allergies Coded Allergies No Known Allergies (Verified08/23/16) Exam I&O / VS 09/06/16 09/06/16 09/07/16 15:00 23:00 07:00 Intake Total 2811 ml 1539 ml 1714 ml Output Total 3580 ml 2050 ml 1450 ml Balance -769 ml -511 ml 264 ml Intake IV Total 2495 ml 967 ml 1405 ml Tube Feeding 316 ml 572 ml 309 ml Output Urine Total 3400 ml 1750 ml 1150 ml Stool Total 180 ml 300 ml 300 ml # Bowel Movements 1 Vital Signs Date Time Temp Pulse Resp B/P Pulse Ox O2 Delivery O2 Flow Rate FiO2 09/07/16 08:16 94 Nasal Cannula 3.50 09/07/16 08:00 130 09/07/16 07:41 97 35 09/07/16 06:00 132 09/07/16 04:10 99 40 09/07/16 04:00 35 09/07/16 04:00 99.8 121 22 105/65 99 102/71 09/07/16 04:00 121 09/07/16 02:00 118 09/07/16 01:09 99 40 09/07/16 00:00 40 09/07/16 00:00 98.9 115 19 108/63 99 96/69 09/07/16 00:00 115 09/06/16 23:05 98 40 09/06/16 22:00 105 09/06/16 20:57 100 40 09/06/16 20:00 40 09/06/16 20:00 97 09/06/16 20:00 99.9 97 21 118/72 99 112/67 09/06/16 18:00 101 09/06/16 16:14 98 40 09/06/16 16:02 40 09/06/16 16:00 108 09/06/16 16:00 99.2 108 23 102/67 97 97/60 09/06/16 14:09 97 40 09/06/16 14:00 102 09/06/16 12:47 40 09/06/16 12:46 108 09/06/16 12:45 99.2 107 20 95/61 97 95/56 09/06/16 11:15 BiPAP/CPAP 40 09/06/16 11:15 99 40 09/06/16 10:00 107 09/06/16 08:49 97 Objective Micro and Labs Laboratory Tests Test 09/06/16 09/06/16 09/06/16 09/07/16 08:51 10:12 18:00 05:45 Blood Gas Puncture Site ART LINE Blood Gas Patient Temperature 98.6 Blood Gas HCO3 24 Blood Gas Base Excess -0.6 Blood Gas Oxygen Saturation 96 Arterial Blood pH 7.39 Arterial Blood Partial 40 Pressure CO2 Arterial Blood Partial 131 Pressure O2 Arterial Blood Oxygen Content 16.5 Arterial Blood 1.2 Carboxyhemoglobin Arterial Blood Methemoglobin 1.4 Blood Gas Hemoglobin 12.1 Oxygen Delivery Device VENTILATOR Blood Gas Ventilator Setting AC/RR20/VT550/PEEP10 Blood Gas Inspired Oxygen 40 Potassium Level 2.5 3.0 2.9 Lactic Acid Level 6.3 White Blood Count 24.5 Red Blood Count 4.41 Hemoglobin 11.9 Hematocrit 35.1 Mean Corpuscular Volume 79.6 Mean Corpuscular Hemoglobin 27.1 Mean Corpuscular Hemoglobin 34.1 Concent Red Cell Distribution Width 14.4 Platelet Count 241 Mean Platelet Volume 9.0 Neutrophils (%) (Auto) 80.0 Lymphocytes (%) (Auto) 10.9 Monocytes (%) (Auto) 7.7 Eosinophils (%) (Auto) 1.1 Basophils (%) (Auto) 0.3 Neutrophils # (Auto) 19.6 Lymphocytes # (Auto) 2.7 Monocytes # (Auto) 1.9 Eosinophils # (Auto) 0.3 Basophils # (Auto) 0.1 CBC Comment DIFF FINAL Differential Comment Sodium Level 150 Chloride Level 112 Carbon Dioxide Level 28.5 Anion Gap 10 Blood Urea Nitrogen 21 Creatinine 1.11 Estimat Glomerular Filtration 70 Rate Random Glucose 123 Calcium Level 8.1 Phosphorus Level 0.8 Magnesium Level 2.6 Total Bilirubin 0.7 Aspartate Amino Transf 478 (AST/SGOT) Alanine Aminotransferase 394 (ALT/SGPT) Alkaline Phosphatase 308 Total Protein 5.9 Albumin 1.8 Random Vancomycin Level 6.1 Date/Time Procedure Status Source Growth 09/06/16 11:50 Aerobic Blood Culture Received Blood Peripheral Pending 09/06/16 11:50 Anaerobic Blood Culture Received Blood Peripheral Pending 09/05/16 13:30 Legionella Antigen - Final Complete Urine Catheterized Urine PRESUMPTIVE NEGATIVE FOR LEGIONELLA P... 09/05/16 13:30 Streptococcus pneumoniae Antigen (M - Final Complete Urine Catheterized Urine PRESUMPTIVE NEGATIVE FOR STREPTOCOCCU... 09/05/16 13:30 Gram Stain - Final Resulted Sputum Endotracheal 09/05/16 13:30 Sputum Culture - Preliminary Resulted Gram Positive Cocci 09/05/16 05:30 Urine Culture - Final Complete Urine Catheterized Urine NO GROWTH IN 48 HOURS. 09/04/16 15:15 Aerobic Blood Culture - Preliminary Resulted Blood Line NO GROWTH IN 2 DAYS 09/04/16 15:15 Anaerobic Blood Culture - Preliminary Resulted Blood Line NO GROWTH IN 2 DAYS Kiana Swift MD Sep 07, 2016 08:48
--- NOTE | 2016-09-07 09:18 | HHI.CCPN ---
Subjective Remarks/Hospital Course The patient is a 50-year-old male with past medical history of hypertension, diabetes mellitus, seizure disorder, chronic back pain, bipolar disorder who presented to the ED with a witnessed generalized seizure. In addition the patient was altered and hypoxic with O2 saturation in the 70s. He initially somewhat improved on a non-rebreather but due to labored breathing or diaphoresis he was subsequently intubated in the ED and placed on full mechanical ventilation. According to the patient's family the patient has been having progressive worsening shortness of breath and he has not been feeling well lately. In addition he reported feeling nauseous and heartburn. On arrival to the ER he was tachycardiac, hypotensive and was subsequently placed on Levophed which is currently at 20 mics. The patient was given 3 liters of crystalloids in the ED. ABG post intubation showed pH of 7.23, CO2 33, pAO2 180 , bicarb 13, saturation 97% on PRVC mode with a rate of 18, tidal volume 500, PEEP of 5, IT: 1.0, FIO2 100%. His laboratory data significant for lactic acidemia with a lactic acid level of 11.3, acute kidney injury with a creatinine 2.17 and leukocytosis with bandemia. His WBC is 34.8 with bands of 16. A CT scan of the brain in the ER was obtained which showed a 2.3 cm hyperdense mass at the left parietal lobe and a questionable second small area of hyperdensity seen in the frontal lobe region. He also had a CTA of the aorta which showed significant hilar and mediastinal adenopathy and liver mets. In the ER he was given Zosyn, azithromycin and placed on Diprivan infusion for sedation. A right femoral central line and left radial A-line was placed by the ED physician. 09/05 Patient was self extubated and was reintubated last night . Sedated with Diprivan , Fentanyl and intubated. On Levophed and now Neosyn. Renal function is worsening with Cr: 2.34 from 2.14 09/06 Patient remains sedated with Diprivan and Fentanyl and intubated. On Levophed 13 mics and Neosyn 160 mics. Spiked fever with T:102.1 Renal function is improving with Cr:1.81 from 2.34. 09/07 No events overnight. Remains sedated with Diprivan and intubated. Off all pressors renal function is improving with Cr: 1.11 from 1.81 T:99.8 Objective Vital Signs Date Time Temp Pulse Resp B/P Pulse Ox O2 Delivery O2 Flow Rate FiO2 09/07/16 08:16 94 Nasal Cannula 3.50 09/07/16 08:00 99.7 130 24 113/64 95/60 09/07/16 08:00 35 Intake and Output 09/06/16 09/06/16 09/07/16 08:00 16:00 00:00 Intake Total 3768 ml 2811 ml 1539 ml Output Total 2250 ml 3580 ml 2050 ml Balance 1518 ml -769 ml -511 ml Result Diagram: 09/07/16 0545 09/07/16 0545 Other Results Laboratory Tests Test 09/06/16 09/06/16 09/07/16 10:12 18:00 05:45 Potassium Level 2.5 MEQ/L 3.0 MEQ/L 2.9 MEQ/L Lactic Acid Level 6.3 mmol/L White Blood Count 24.5 TH/MM3 Red Blood Count 4.41 MIL/MM3 Hemoglobin 11.9 GM/DL Hematocrit 35.1 % Mean Corpuscular Volume 79.6 FL Mean Corpuscular Hemoglobin 27.1 PG Mean Corpuscular Hemoglobin 34.1 % Concent Red Cell Distribution Width 14.4 % Platelet Count 241 TH/MM3 Mean Platelet Volume 9.0 FL Neutrophils (%) (Auto) 80.0 % Lymphocytes (%) (Auto) 10.9 % Monocytes (%) (Auto) 7.7 % Eosinophils (%) (Auto) 1.1 % Basophils (%) (Auto) 0.3 % Neutrophils # (Auto) 19.6 TH/MM3 Lymphocytes # (Auto) 2.7 TH/MM3 Monocytes # (Auto) 1.9 TH/MM3 Eosinophils # (Auto) 0.3 TH/MM3 Basophils # (Auto) 0.1 TH/MM3 CBC Comment DIFF FINAL Differential Comment Sodium Level 150 MEQ/L Chloride Level 112 MEQ/L Carbon Dioxide Level 28.5 MEQ/L Anion Gap 10 MEQ/L Blood Urea Nitrogen 21 MG/DL Creatinine 1.11 MG/DL Estimat Glomerular Filtration 70 ML/MIN Rate Random Glucose 123 MG/DL Calcium Level 8.1 MG/DL Phosphorus Level 0.8 MG/DL Magnesium Level 2.6 MG/DL Total Bilirubin 0.7 MG/DL Aspartate Amino Transf 478 U/L (AST/SGOT) Alanine Aminotransferase 394 U/L (ALT/SGPT) Alkaline Phosphatase 308 U/L Total Protein 5.9 GM/DL Albumin 1.8 GM/DL Random Vancomycin Level 6.1 COMMENT Imaging Last Impressions Chest X-Ray 09/06/16 0000 Signed Impressions: Service Date/Time: August 08:28 - CONCLUSION: Mild airspace consolidation in the lower lung zones bilaterally but overall significantly improved compared to the study from 2 days ago. Casey Phelps MD Abdomen Ultrasound 09/05/16 0000 Signed Impressions: Service Date/Time: Monday, September 05, 2016 09:21 - CONCLUSION: Enlarged heterogeneous liver. The heterogeneity is thought to be secondary to somewhat ill-defined echogenic masses throughout the liver. Metastatic disease needs to be suspected. Casey Cisneros MD Head CT 09/04/16 1312 Signed Impressions: Service Date/Time: Sunday, September 04, 2016 13:39 - CONCLUSION: 2.3 cm hyperdense mass seen at the left parietal lobe. This is thought to likely represent a mass. Some degree of hemorrhage can not be excluded given the density. There is also a questionable second smaller area of hyperdensity seen in the anterior inferior midline frontal lobe region. It is recommended both these areas be further evaluated with a MRI examination with contrast if there are no contraindications. Casey Cisneros MD Aorta CTA 09/04/16 0000 Signed Impressions: Service Date/Time: Sunday, September 04, 2016 13:44 - CONCLUSION: 1. Abnormal examination demonstrating large left hilar mass with bulky mediastinal adenopathy and associated post obstructive airspace disease in the superior segment of the left lower lobe. There is also evidence for bulky metastatic disease to the liver and solitary mesenteric metastasis. 1.5 cm left adrenal mass also suspicious for metastasis. 2. Bilateral lower lobe airspace consolidation may reflect aspiration in this intubated patient. 3. Patchy groundglass opacities in the upper lobes bilaterally consistent light reflex edema and volume loss. 4. No evidence for aortic dissection, significant aneurysm, or injury. Pepe Miramontes MD Objective Remarks GENERAL: Patient is 50 yo remains sedated and intubated, SKIN: Warm and dry. HEAD: Normocephalic. EYES: No scleral icterus. No injection or drainage. NECK: Supple, trachea midline. No JVD or lymphadenopathy. Orally intubated CARDIOVASCULAR:Tachycardic without murmurs, gallops, or rubs. RESPIRATORY: Breath sounds equal bilaterally. No accessory muscle use. GASTROINTESTINAL: Abdomen soft, non-tender, nondistended. MUSCULOSKELETAL: No cyanosis, or edema. Neuro: Sedated, intubated A/P Assessment and Plan 1. VDRF 2. s/p Septic shock. 3. Likely post obstructive pneumonia. 4. Leukocytosis with bandemia. 5. Status post seizure. 6. Lactic acidemia likely secondary to seizure and septic shock. 7. Acute kidney injury and hyponatremia. 8. Anion gap metabolic acidosis. 9. Elevated liver enzymes. 10. Brain masses rule out mets. 11. Mediastinal / hilar adenopathy need to rule out bronchogenic carcinoma. 12. Liver mets. 13. History of hypertension. 14. Hyperglycemia with underlying history of diabetes mellitus. 15. Obesity. 16. Chronic back pain. 17. History of bipolar disorder. Plan Neuro: On Diprivan infusion for sedation and vent synchrony. Monitor neuro status closely and daily sedation vacation On Keppra 500 mg IV q. 12 , Neuro is following- Dr. Swift EEG showed mild- mod encephalopathy. Will need MRI brain when stable. Pulm: Continue vent support and maintain sats above 92%. Bronchodilators, ICU vent bundle. Pulm is following Dr. Botello, will likely need bronch CV: Off pressors, place on Lopressor 12.5mg BID for rate control. Monitor HR and BP and maintain MAP>65 mmHg. Lactic acid trending down. Decrease hydrocortisone 50 mg IV q.12. Echo showed EF 70-75% : Monitor renal function Is and Os and avoid nephrotoxins. For K, Phos replacement today Renal function is improving with Cr:1.11 today from 1.81 US kidneys: No hydronephrosis, non-obstructing stone on left. Renal is following- Dr. Barrow, change IVF D5W@75ml.hr, place on Free water 250ml Q8, monitor sodium level. GI: on Protonix 40 mg IV daily. On Glucerna 1.5 @45ml/hr Monitor LFTs(trending down) US liver: Enlarged heterogeneous liver. The heterogeneity is thought to be secondary to somewhat ill-defined echogenic masses throughout the liver. Metastatic disease is suspected. ID: Continue with abx(Zosyn , Vanco and azithromycin ) ID is following. Sputum cx: 09/05: GPC strep pneumonia and Legionella urinary AG negative on BC 09/04: NGTD Heme: Monitor CBC. Oncology is following Endo: On medium scale SSI with Accu-Chek for glycemic control. TSH: 0.74 GI prophylaxis with Protonix 40 mg daily and DVT prophylaxis with SCDs. Not on chemical anticoagulation prophylaxis given likely brain mets Lines. Right femoral central line and left radial line placed in the ED. Palliative care is following. CCT 30 mins Elisha Vanegas MD Sep 07, 2016 09:18
[2016-09-07] MEDS: DEXTROSE 5% IN WATE 1000ML INJ 1,000 ML IV SCH (09:35)
--- NOTE | 2016-09-07 09:47 | HHI.NPPN ---
Subjective History of Present Illness This patient is a 50-year-old male with a history of hypertension, diabetes mellitus, seizure disorder, bipolar disorder and apparently tobacco use now presenting with septic shock and an apparent postobstructive pneumonia with radiological evidence of probable metastatic disease involving liver, brain with evidence of a left hilar mass. Presentation creatinine level is elevated to 2.17 with a bicarbonate of 15.8 and an anion gap of 20. Patient also had a CTA of the aorta performed on September 04, 2016 utilizing iodine contrast. Patient currently maintaining good urine output at time of consultation. Serum creatinine level was 0.9 back in March,. Interval History Remains intubated Off pressors UOP very good (Suellen Landry) Review of Systems General General Remarks Unable to obtain because of patient's condition. (Suellen Landry) Objective Data Data 09/06/16 09/07/16 19:00 07:00 Intake Total 2811 ml 3253 ml Output Total 3580 ml 3500 ml Balance -769 ml -247 ml Intake IV Total 2495 ml 2372 ml Tube Feeding 316 ml 881 ml Output Urine Total 3400 ml 2900 ml Stool Total 180 ml 600 ml # Bowel Movements 1 Vital Signs Date Time Temp Pulse Resp B/P Pulse Ox O2 Delivery O2 Flow Rate FiO2 09/07/16 08:16 94 Nasal Cannula 3.50 09/07/16 08:00 99.7 130 24 113/64 97 95/60 09/07/16 08:00 35 09/07/16 08:00 130 09/07/16 07:41 97 35 09/07/16 06:00 132 09/07/16 04:10 99 40 09/07/16 04:00 35 09/07/16 04:00 99.8 121 22 105/65 99 102/71 09/07/16 04:00 121 09/07/16 02:00 118 09/07/16 01:09 99 40 09/07/16 00:00 40 09/07/16 00:00 98.9 115 19 108/63 99 96/69 09/07/16 00:00 115 09/06/16 23:05 98 40 09/06/16 22:00 105 09/06/16 20:57 100 40 09/06/16 20:00 40 09/06/16 20:00 97 09/06/16 20:00 99.9 97 21 118/72 99 112/67 09/06/16 18:00 101 09/06/16 16:14 98 40 09/06/16 16:02 40 09/06/16 16:00 108 09/06/16 16:00 99.2 108 23 102/67 97 97/60 09/06/16 14:09 97 40 09/06/16 14:00 102 09/06/16 12:47 40 09/06/16 12:46 108 09/06/16 12:45 99.2 107 20 95/61 97 95/56 09/06/16 11:15 BiPAP/CPAP 40 09/06/16 11:15 99 40 09/06/16 10:00 107 (Suellen Landry) -: 09/07/16 0545 09/07/16 0545 Microbiology 09/06/16 Aerobic Blood Culture, Received Pending 09/06/16 Anaerobic Blood Culture, Received Pending 09/06/16 Aerobic Blood Culture, Received Pending 09/06/16 Anaerobic Blood Culture, Received Pending Medication Review Current Medications Medications (Trade) Dose Ordered Sig/Mayo Route Start Time Stop Time Status Last Admin IV Flush 2 ml 2 ml UNSCH PRN IV FLUSH 09/04/16 13:15 (Levophed-Dextrose Drip) 250 ml @ 0 mls/hr TITRATE IV 09/04/16 13:30 09/06/16 21:31 (Protonix Inj) 40 mg DAILY IV 09/04/16 15:00 09/07/16 07:25 Miscellaneous Information 1 Q361D XX 09/04/16 15:00 (Chlorhexidine 2% Cloth) 3 pack Taper DAILY@04 TOP 09/05/16 04:00 09/01/17 03:59 09/07/16 04:00 Chlorhexidine Gluconate 3 pack 3 pack UNSCH PRN TOP 09/04/16 15:00 Levetriacetam 500 mg/Sodium Chloride 105 ml @ 420 mls/hr Q12HR IV 09/04/16 15:00 09/07/16 07:25 (Neosynephrine Inj/D5W 500 ml Inj) 500 ml @ 0 mls/hr TITRATE IV 09/04/16 16:00 09/05/16 19:00 (Brethine Inj) 1 mg UNSCH PRN SQ 09/04/16 15:00 (D50w (Vial) Inj) 50 ml UNSCH PRN IV 09/04/16 15:00 (Glucagon Inj) 1 mg UNSCH PRN OTHER 09/04/16 15:00 Insulin Human Regular 1 1 Q4H SQ 09/04/16 16:00 09/07/16 00:00 Pharmacy Profile Note 0 ml @ 0 mls/hr UNSCH OTHER 09/04/16 15:00 Piperacillin Sod/ Tazobactam Sod 100 ml @ 200 mls/hr Q6H IV 09/04/16 21:00 09/07/16 07:25 Azithromycin 500 mg/Sodium Chloride 250 ml @ 250 mls/hr Q24H IV 09/05/16 15:00 09/05/16 15:26 Fentanyl Citrate 250 ml @ 0 mls/hr TITRATE IV 09/04/16 17:00 09/05/16 20:08 (Diprivan 1000 Mg/100ml Inj) 100 ml @ 0 mls/hr TITRATE IV 09/04/16 22:15 09/07/16 07:24 (Peridex 0.12% Liq) 15 ml BID@08,20 MT 09/05/16 08:00 09/07/16 07:24 Acetaminophen 650 mg 650 mg Q6H PRN PO 09/06/16 04:30 09/06/16 04:58 Potassium Chloride 100 ml @ 50 mls/hr Q2H PRN IV 09/06/16 08:30 09/07/16 09:36 (KCl 20 Meq Premix Inj) 100 ml @ 50 mls/hr Q2H PRN IV 09/06/16 08:30 Potassium Bicarb/ Potassium Chloride 50 meq 50 meq UNSCH PRN PO 09/06/16 08:30 Potassium Chloride 100 ml @ 25 mls/hr UNSCH PRN IV 09/06/16 08:30 Potassium Chloride 100 ml @ 50 mls/hr Q2H PRN IV 09/06/16 08:30 (Magnesium Sulfate Inj/NS Inj) 100 ml @ 50 mls/hr UNSCH PRN IV 09/06/16 08:30 Magnesium Oxide 800 mg 800 mg UNSCH PRN PO 09/06/16 08:30 (Magnesium Sulfate Inj/NS Inj) 100 ml @ 50 mls/hr UNSCH PRN IV 09/06/16 08:30 Potassium Phosphate 2000 mg 2,000 mg Q4H PRN PO 09/06/16 08:30 09/07/16 07:29 (Sodium Phosphate Inj/NS 250 ml Inj) 250 ml @ 42 mls/hr UNSCH PRN IV 09/06/16 08:30 Potassium Phosphate 2000 mg 2,000 mg UNSCH PRN PO/TUBE 09/06/16 08:30 (Potassium Phosphate Inj/NS 250 ml Inj) 260 ml @ 42 mls/hr UNSCH PRN IV 09/06/16 08:30 (Free Water) 250 ml Q8HR G-TUBE 09/07/16 14:00 Metoprolol Tartrate 12.5 mg 12.5 mg Q12HR PO 09/07/16 10:00 (D5W 1000 ml Inj) 1,000 ml @ 75 mls/hr [id number] IV 09/07/16 09:15 09/07/16 09:35 (SoluCORTEF INJ) 50 mg Q12H IV PUSH 09/07/16 18:00 (Suellen Landry) Physical Exam General Appearance: No Acute Distress, Comfortable (Suellen Landry) Eyes Eye Exam: Sclera White (Suellen Landry) Pulmonary Resp Exam: Clear Bilaterally, Breath Sounds Equal, No Distress (Suellen Landry) Cardiology CV Exam: Regular, Tachycardia (Suellen Landry) Gastrointestinal/Abdomen GI Exam: Soft, Non-Tender (Suellen Landry) Integumentary Skin Exam: Clear, Warm, Dry (Suellen Landry) Extremeties Extremities Exam: No Edema (Suellen Landry) Neurologic Neuro Exam: Sedated (Suellen Landry) Assessment/Plan Problem List: (1) Acute kidney insufficiency Plan: Most likely secondary to septic shock with relative decrease in the intra -arterial volume and impaired renal perfusion. 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 IV hydration changed to D5 given his hypernatremia. Continue IV hydration and monitor renal functions. Medications should be adjusted for the patient's estimated GFR if clinically indicated. Avoid agents with significant potential for nephrotoxicity possible including NSAIDs for analgesia, iodine contrast agents. Gadolinium is contraindicated if the GFR is below 30. (2) Hypokalemia Plan: Multifactorial in origin. Contributory factors include probable pre-existing potassium deficit on presentation which was masked by his metabolic acidosis. Correction of acidosis subsequently resulted in intracellular shift of potassium. Also suspect increased potassium losses secondary to his polyuria. These potassium losses should improve as polyuria subsequently subsides. Recommend continued potassium repletion. (3) Metabolic acidosis Plan: Resolved (4) Septic shock Plan: Management per infectious disease and critical care (Suellen Landry) Plan The exam, history, and the medical decision-making described in the above note were completed with the assistance of the [facility]. I reviewed and agree with the findings presented. (Sang Barrow MD) Suellen Landry Sep 07, 2016 09:47 Sang Barrow MD Sep 07, 2016 17:53
[2016-09-07] MEDS: METOPROLOL TARTRATE 25 MG TAB PO SCH ×2 (09:52→20:31)
[2016-09-07] MEDS ORDERED: HYDROCORTISONE SOD SUCCINATE 100 MG VIAL IV PUSH SCH (10:00)
--- NOTE | 2016-09-07 12:02 | HHI.HCPN ---
Reason for visit a. To assist with evaluation and management of symptoms including: pain, encephalopathy, dyspnea. b. To assist medical decision maker(s) with: better understanding of current medical conditions; weighing benefits/burdens of medical treatment options; making medical treatment decisions. . Subjective/Interval History Patient seen and examined in ICU. No family at bedside. Discussed with nursing staff. Patient remains remains sedated in ICU on mechanical ventilation. Patient off pressors. Tmax 99.9. Tachycardic, BP 95/60. Febrile, Tmax 102.1. Tachycardic. Remains on Levophed. WBC 24.5, hemoglobin 11.9, hematocrit 35.1, platelet count 241. Potassium 2.9. Creatinine decreased to 1.11. Lactic acid 3.0. AST 394, ALT 440, alkaline phosphatase 308. Sputum culture rare growth normal respiratory fredrick. Blood culture no growth 1 day. No new imaging. . Family/friend interactions Awaiting arrival of family to provide medical update. . Advance Directives Living Will: Never completed Health Care Surrogate: Never completed Durable Power of Shingle Grader: Never completed Advance Directive Specifics Health Care Surrogate(s): Patient is currently incapacitated, will not likely regained capacity. According to [place] statutes, health care proxy decision-making would fall to the patient's spouse (even if they are legally ). . Documented care wishes: None. Significant change in goals: Intubation Only, goals remain aggressive at this time short of code status. . Objective Vital Signs Date Time Temp Pulse Resp B/P Pulse Ox O2 Delivery O2 Flow Rate FiO2 09/07/16 11:04 97 35 09/07/16 10:00 133 09/07/16 08:16 94 Nasal Cannula 3.50 09/07/16 08:00 99.7 130 24 113/64 97 95/60 09/07/16 08:00 35 09/07/16 08:00 130 09/07/16 07:41 97 35 09/07/16 06:00 132 09/07/16 04:10 99 40 09/07/16 04:00 35 09/07/16 04:00 99.8 121 22 105/65 99 102/71 09/07/16 04:00 121 09/07/16 02:00 118 09/07/16 01:09 99 40 09/07/16 00:00 40 09/07/16 00:00 98.9 115 19 108/63 99 96/69 09/07/16 00:00 115 09/06/16 23:05 98 40 09/06/16 22:00 105 09/06/16 20:57 100 40 09/06/16 20:00 40 09/06/16 20:00 97 09/06/16 20:00 99.9 97 21 118/72 99 112/67 09/06/16 18:00 101 09/06/16 16:14 98 40 09/06/16 16:02 40 09/06/16 16:00 108 09/06/16 16:00 99.2 108 23 102/67 97 97/60 09/06/16 14:09 97 40 09/06/16 14:00 102 09/06/16 12:47 40 09/06/16 12:46 108 09/06/16 12:45 99.2 107 20 95/61 97 95/56 Intake & Output 09/07/16 09/07/16 07:00 19:00 Intake Total 3253 ml Output Total 3500 ml Balance -247 ml Intake IV Total 2372 ml Tube Feeding 881 ml Output Urine Total 2900 ml Stool Total 600 ml Physical Exam CONSTITUTIONAL/GENERAL: This is an adequately nourished patient, sedated on mech vent. TUBES/LINES/DRAINS: ETT, OG, PIV x 2, left wrist a-line, bilateral soft wrist restraints, Roland, podus boots, SCDs. SKIN: No jaundice, rashes, or lesions. Ecchymoses on upper extremities. No wounds seen anteriorly. Diaphoretic. EYES: Right eye blind. ENT: Unable to assess hearing. Nose without bleeding or purulent drainage. Difficult to visualize throat due to tubes. CARDIOVASCULAR: RRR. RESPIRATORY/CHEST: Symmetric, unlabored respirations on vent. Diminished breath sounds. GASTROINTESTINAL: Abdomen protuberant. Bowel sounds active. GENITOURINARY: Without palpable bladder distension. Roland catheter in place. MUSCULOSKELETAL: Extremities warm. NEUROLOGICAL: Sedated. PSYCHIATRIC: Sedated. . Diagnostic Tests Laboratory Laboratory Tests Test 09/04/16 09/04/16 09/04/16 09/04/16 13:05 14:12 15:00 18:00 Prothrombin Time 14.6 SEC (9.8-11.6) Prothromb Time International 1.3 RATIO Ratio Activated Partial 30.3 SEC Thromboplast Time (24.3-30.1) Sodium Level 131 MEQ/L (136-145) Potassium Level 4.1 MEQ/L (3.5-5.1) Chloride Level 95 MEQ/L (98-107) Carbon Dioxide Level 15.8 MEQ/L (21.0-32.0) Anion Gap 20 MEQ/L (5-15) Blood Urea Nitrogen 25 MG/DL (7-18) Creatinine 2.17 MG/DL (0.60-1.30) Estimat Glomerular Filtration 32 ML/MIN (>89) Rate Random Glucose 231 MG/DL (74-106) Lactic Acid Level 11.3 mmol/L 5.9 mmol/L (0.4-2.0) (0.4-2.0) Calcium Level 9.6 MG/DL (8.5-10.1) Total Bilirubin 0.8 MG/DL (0.2-1.0) Aspartate Amino Transf 271 U/L (15-37) (AST/SGOT) Alanine Aminotransferase 263 U/L (12-78) (ALT/SGPT) Alkaline Phosphatase 324 U/L (45-117) Total Creatine Kinase 427 U/L (39-308) Creatine Kinase MB 2.9 NG/ML (0.5-3.6) Creatine Kinase MB % 0.7 % (0.0-4.0) Troponin I 0.05 NG/ML (0.02-0.05) Total Protein 6.8 GM/DL (6.4-8.2) Albumin 2.3 GM/DL (3.4-5.0) Thyroid Stimulating Hormone 0.747 uIU/ML 3rd Gen (0.358-3.740) Acetaminophen Level LESS THAN 2.0 MCG/ML (10.0-30.0) Valproic Acid (Depakene) Level 5 MCG/ML (50-100) Ethyl Alcohol Level LESS THAN 3 MG/DL (0-5) White Blood Count 34.8 TH/MM3 (4.0-11.0) Red Blood Count 4.98 MIL/MM3 (4.50-5.90) Hemoglobin 13.2 GM/DL (13.0-17.0) Hematocrit 40.5 % (39.0-51.0) Mean Corpuscular Volume 81.4 FL (80.0-100.0) Mean Corpuscular Hemoglobin 26.5 PG (27.0-34.0) Mean Corpuscular Hemoglobin 32.5 % Concent (32.0-36.0) Red Cell Distribution Width 14.3 % (11.6-17.2) Platelet Count 344 TH/MM3 (150-450) Mean Platelet Volume 9.5 FL (7.0-11.0) Neutrophils (%) (Auto) 84.2 % (16.0-70.0) Lymphocytes (%) (Auto) 9.0 % (9.0-44.0) Monocytes (%) (Auto) 6.1 % (0.0-8.0) Eosinophils (%) (Auto) 0.5 % (0.0-4.0) Basophils (%) (Auto) 0.2 % (0.0-2.0) Neutrophils # (Auto) 29.3 TH/MM3 (1.8-7.7) Lymphocytes # (Auto) 3.1 TH/MM3 (1.0-4.8) Monocytes # (Auto) 2.1 TH/MM3 (0-0.9) Eosinophils # (Auto) 0.2 TH/MM3 (0-0.4) Basophils # (Auto) 0.1 TH/MM3 (0-0.2) CBC Comment AUTO DIFF Differential Total Cells 100 Counted Neutrophils % (Manual) 63 % (16-70) Band Neutrophils % 16 % (0-6) Lymphocytes % 15 % (9-44) Monocytes % 5 % (0-8) Basophils % 1 % (0-2) Neutrophils # (Manual) 27.5 TH/MM3 (1.8-7.7) Differential Comment FINAL DIFF MANUAL Platelet Estimate NORMAL (NORMAL) Platelet Morphology Comment NORMAL (NORMAL) Red Cell Morphology Comment NORMAL (NORMAL) Blood Gas Puncture Site ART LINE Blood Gas Patient Temperature 98.6 Blood Gas HCO3 13 mmol/L (22-26) Blood Gas Base Excess -12.8 mmol/L (-2-2) Blood Gas Oxygen Saturation 97 % (90-100) Arterial Blood pH 7.23 (7.380-7.420) Arterial Blood Partial 33 mmHg (38-42) Pressure CO2 Arterial Blood Partial 180 mmHG Pressure O2 (61-120) Arterial Blood Oxygen Content 18.0 Vol % (12.0-20.0) Arterial Blood 0.5 % (0-4) Carboxyhemoglobin Arterial Blood Methemoglobin 0.7 % (0-2) Blood Gas Hemoglobin 12.9 G/DL (12.0-16.0) Oxygen Delivery Device VENTILATOR Blood Gas Ventilator Setting 500/18/+5/1.0 Blood Gas Inspired Oxygen 100 % Salicylates Level 2.4 MG/DL (2.8-20.0) Nasal Screen MRSA (PCR) MRSA NOT DETECTED (NOT DETECT) Test 09/04/16 09/04/16 09/04/16 09/05/16 19:40 19:57 21:46 05:00 Sodium Level 137 MEQ/L (136-145) Potassium Level 3.7 MEQ/L (3.5-5.1) Chloride Level 102 MEQ/L (98-107) Carbon Dioxide Level 20.2 MEQ/L (21.0-32.0) Anion Gap 15 MEQ/L (5-15) Blood Urea Nitrogen 31 MG/DL (7-18) Creatinine 2.17 MG/DL (0.60-1.30) Estimat Glomerular Filtration 32 ML/MIN (>89) Rate Random Glucose 146 MG/DL (74-106) Calcium Level 8.2 MG/DL (8.5-10.1) Blood Gas Puncture Site ART LINE ART LINE Blood Gas Patient Temperature 98.6 98.6 Blood Gas HCO3 19 mmol/L 22 mmol/L (22-26) (22-26) Blood Gas Base Excess -6.1 mmol/L -4.6 mmol/L (-2-2) (-2-2) Blood Gas Oxygen Saturation 94 % (90-100) 96 % (90-100) Arterial Blood pH 7.35 7.24 (7.380-7.420) (7.380-7.420) Arterial Blood Partial 34 mmHg (38-42) 52 mmHg (38-42) Pressure CO2 Arterial Blood Partial 96 mmHg 124 mmHg Pressure O2 (61-120) (61-120) Arterial Blood Oxygen Content 17.6 Vol % 17.1 Vol % (12.0-20.0) (12.0-20.0) Arterial Blood 1.1 % (0-4) 0.9 % (0-4) Carboxyhemoglobin Arterial Blood Methemoglobin 1.2 % (0-2) 1.3 % (0-2) Blood Gas Hemoglobin 13.2 G/DL 12.5 G/DL (12.0-16.0) (12.0-16.0) Oxygen Delivery Device VENTILATOR VENTILATOR Blood Gas Ventilator Setting PRVC/AC PRVC/AC Blood Gas Inspired Oxygen 60 % 50 % Lactic Acid Level 5.7 mmol/L (0.4-2.0) Test 09/05/16 09/05/16 09/05/16 09/05/16 05:13 05:30 06:45 10:34 White Blood Count 30.6 TH/MM3 (4.0-11.0) Red Blood Count 4.72 MIL/MM3 (4.50-5.90) Hemoglobin 12.7 GM/DL (13.0-17.0) Hematocrit 37.8 % (39.0-51.0) Mean Corpuscular Volume 80.1 FL (80.0-100.0) Mean Corpuscular Hemoglobin 26.8 PG (27.0-34.0) Mean Corpuscular Hemoglobin 33.5 % Concent (32.0-36.0) Red Cell Distribution Width 14.6 % (11.6-17.2) Platelet Count 334 TH/MM3 (150-450) Mean Platelet Volume 8.9 FL (7.0-11.0) Neutrophils (%) (Auto) 85.6 % (16.0-70.0) Lymphocytes (%) (Auto) 5.6 % (9.0-44.0) Monocytes (%) (Auto) 7.6 % (0.0-8.0) Eosinophils (%) (Auto) 0.7 % (0.0-4.0) Basophils (%) (Auto) 0.5 % (0.0-2.0) Neutrophils # (Auto) 26.2 TH/MM3 (1.8-7.7) Lymphocytes # (Auto) 1.7 TH/MM3 (1.0-4.8) Monocytes # (Auto) 2.3 TH/MM3 (0-0.9) Eosinophils # (Auto) 0.2 TH/MM3 (0-0.4) Basophils # (Auto) 0.2 TH/MM3 (0-0.2) CBC Comment AUTO DIFF Differential Total Cells 100 Counted Neutrophils % (Manual) 79 % (16-70) Band Neutrophils % 9 % (0-6) Lymphocytes % 8 % (9-44) Monocytes % 3 % (0-8) Neutrophils # (Manual) 27.2 TH/MM3 (1.8-7.7) Myelocytes 1 % (0-0) Differential Comment FINAL DIFF MANUAL Platelet Estimate NORMAL (NORMAL) Platelet Morphology Comment ENLARGED (NORMAL) Sodium Level 137 MEQ/L (136-145) Potassium Level 2.9 MEQ/L (3.5-5.1) Chloride Level 97 MEQ/L (98-107) Carbon Dioxide Level 23.2 MEQ/L (21.0-32.0) Anion Gap 17 MEQ/L (5-15) Blood Urea Nitrogen 34 MG/DL (7-18) Creatinine 2.34 MG/DL (0.60-1.30) Estimat Glomerular Filtration 30 ML/MIN (>89) Rate Random Glucose 181 MG/DL (74-106) Calcium Level 7.4 MG/DL (8.5-10.1) Protein Corrected Calcium 7.9 MG/DL (8.5-10.1) Total Bilirubin 0.6 MG/DL (0.2-1.0) Aspartate Amino Transf 453 U/L (15-37) (AST/SGOT) Alanine Aminotransferase 327 U/L (12-78) (ALT/SGPT) Alkaline Phosphatase 282 U/L (45-117) Total Protein 6.2 GM/DL (6.4-8.2) Albumin 2.0 GM/DL (3.4-5.0) Random Vancomycin Level 18.5 COMMENT Urine Color YELLOW (YELLW/STRAW) Urine Turbidity HAZY (CLEAR) Urine pH 5.5 (5.0-8.5) Urine Specific [place] 1.013 (1.002-1.035) Urine Protein 30 mg/dL (NEG-TRACE) Urine Glucose (UA) 300 mg/dL (NEG) Urine Ketones NEG mg/dL (NEG) Urine Occult Blood MOD (NEG) Urine Nitrite NEG (NEG) Urine Bilirubin NEG (NEG) Urine Urobilinogen LESS THAN 2.0 MG/DL (LESS THAN 2.0) Urine Leukocyte Esterase TRACE (NEG) Urine WBC 11 /hpf (0-5) Urine WBC Clumps FEW (NONE) Urine Renal Epithelial Cells 2 /hpf (NONE) Urine Amorphous Sediment RARE Urine Bacteria OCC /hpf (NONE) Urine Mucus FEW /lpf (OCC) Microscopic Urinalysis Comment CATH-CULTURE IND Lactic Acid Level 4.7 mmol/L (0.4-2.0) Hepatitis A IgM Antibody NEGATIVE (NEGATIVE) Hepatitis B Surface Antigen NEGATIVE (NEGATIVE) Hepatitis B Core IgM Antibody NEGATIVE (NEGATIVE) Hepatitis C Antibody REACTIVE (NEGATIVE) Test 09/05/16 09/05/16 09/05/16 09/06/16 10:45 13:55 15:00 00:00 Blood Gas Puncture Site ART LINE Blood Gas Patient Temperature 98.6 Blood Gas HCO3 22 mmol/L (22-26) Blood Gas Base Excess -3.7 mmol/L (-2-2) Blood Gas Oxygen Saturation 96 % (90-100) Arterial Blood pH 7.30 (7.380-7.420) Arterial Blood Partial 46 mmHg (38-42) Pressure CO2 Arterial Blood Partial 143 mmHg Pressure O2 (61-120) Arterial Blood Oxygen Content 18.4 Vol % (12.0-20.0) Arterial Blood 0.9 % (0-4) Carboxyhemoglobin Arterial Blood Methemoglobin 1.4 % (0-2) Blood Gas Hemoglobin 13.4 G/DL (12.0-16.0) Oxygen Delivery Device VENT Blood Gas Ventilator Setting AC/20/550/+10 Blood Gas Inspired Oxygen 45 % Lactic Acid Level 7.2 mmol/L 5.9 mmol/L (0.4-2.0) (0.4-2.0) Potassium Level 2.7 MEQ/L 2.7 MEQ/L (3.5-5.1) (3.5-5.1) Test 09/06/16 09/06/16 09/06/16 09/06/16 04:20 08:51 10:12 18:00 White Blood Count 27.8 TH/MM3 (4.0-11.0) Red Blood Count 4.46 MIL/MM3 (4.50-5.90) Hemoglobin 12.0 GM/DL (13.0-17.0) Hematocrit 35.3 % (39.0-51.0) Mean Corpuscular Volume 79.2 FL (80.0-100.0) Mean Corpuscular Hemoglobin 26.9 PG (27.0-34.0) Mean Corpuscular Hemoglobin 33.9 % Concent (32.0-36.0) Red Cell Distribution Width 14.3 % (11.6-17.2) Platelet Count 276 TH/MM3 (150-450) Mean Platelet Volume 8.6 FL (7.0-11.0) Neutrophils (%) (Auto) 85.0 % (16.0-70.0) Lymphocytes (%) (Auto) 5.7 % (9.0-44.0) Monocytes (%) (Auto) 8.1 % (0.0-8.0) Eosinophils (%) (Auto) 0.8 % (0.0-4.0) Basophils (%) (Auto) 0.4 % (0.0-2.0) Neutrophils # (Auto) 23.6 TH/MM3 (1.8-7.7) Lymphocytes # (Auto) 1.6 TH/MM3 (1.0-4.8) Monocytes # (Auto) 2.2 TH/MM3 (0-0.9) Eosinophils # (Auto) 0.2 TH/MM3 (0-0.4) Basophils # (Auto) 0.1 TH/MM3 (0-0.2) CBC Comment AUTO DIFF Differential Total Cells 100 Counted Neutrophils % (Manual) 79 % (16-70) Band Neutrophils % 10 % (0-6) Lymphocytes % 5 % (9-44) Monocytes % 5 % (0-8) Eosinophils % 1 % (0-4) Neutrophils # (Manual) 24.7 TH/MM3 (1.8-7.7) Differential Comment FINAL DIFF MANUAL Platelet Estimate NORMAL (NORMAL) Platelet Morphology Comment CLUMPED (NORMAL) Red Cell Morphology Comment NORMAL (NORMAL) Sodium Level 140 MEQ/L (136-145) Potassium Level 2.5 MEQ/L 2.5 MEQ/L 3.0 MEQ/L (3.5-5.1) (3.5-5.1) (3.5-5.1) Chloride Level 100 MEQ/L (98-107) Carbon Dioxide Level 27.0 MEQ/L (21.0-32.0) Anion Gap 13 MEQ/L (5-15) Blood Urea Nitrogen 24 MG/DL (7-18) Creatinine 1.81 MG/DL (0.60-1.30) Estimat Glomerular Filtration 40 ML/MIN (>89) Rate Random Glucose 172 MG/DL (74-106) Calcium Level 7.9 MG/DL (8.5-10.1) Phosphorus Level 2.2 MG/DL (2.5-4.9) Magnesium Level 2.3 MG/DL (1.5-2.5) Total Bilirubin 0.6 MG/DL (0.2-1.0) Aspartate Amino Transf 655 U/L (15-37) (AST/SGOT) Alanine Aminotransferase 440 U/L (12-78) (ALT/SGPT) Alkaline Phosphatase 278 U/L (45-117) Total Protein 6.1 GM/DL (6.4-8.2) Albumin 1.9 GM/DL (3.4-5.0) Blood Gas Puncture Site ART LINE Blood Gas Patient Temperature 98.6 Blood Gas HCO3 24 mmol/L (22-26) Blood Gas Base Excess -0.6 mmol/L (-2-2) Blood Gas Oxygen Saturation 96 % (90-100) Arterial Blood pH 7.39 (7.380-7.420) Arterial Blood Partial 40 mmHg (38-42) Pressure CO2 Arterial Blood Partial 131 mmHg Pressure O2 (61-120) Arterial Blood Oxygen Content 16.5 Vol % (12.0-20.0) Arterial Blood 1.2 % (0-4) Carboxyhemoglobin Arterial Blood Methemoglobin 1.4 % (0-2) Blood Gas Hemoglobin 12.1 G/DL (12.0-16.0) Oxygen Delivery Device VENTILATOR Blood Gas Ventilator Setting AC/RR20/VT550/PEEP10 Blood Gas Inspired Oxygen 40 % Lactic Acid Level 6.3 mmol/L (0.4-2.0) Test 09/07/16 09/07/16 05:45 09:45 White Blood Count 24.5 TH/MM3 (4.0-11.0) Red Blood Count 4.41 MIL/MM3 (4.50-5.90) Hemoglobin 11.9 GM/DL (13.0-17.0) Hematocrit 35.1 % (39.0-51.0) Mean Corpuscular Volume 79.6 FL (80.0-100.0) Mean Corpuscular Hemoglobin 27.1 PG (27.0-34.0) Mean Corpuscular Hemoglobin 34.1 % Concent (32.0-36.0) Red Cell Distribution Width 14.4 % (11.6-17.2) Platelet Count 241 TH/MM3 (150-450) Mean Platelet Volume 9.0 FL (7.0-11.0) Neutrophils (%) (Auto) 80.0 % (16.0-70.0) Lymphocytes (%) (Auto) 10.9 % (9.0-44.0) Monocytes (%) (Auto) 7.7 % (0.0-8.0) Eosinophils (%) (Auto) 1.1 % (0.0-4.0) Basophils (%) (Auto) 0.3 % (0.0-2.0) Neutrophils # (Auto) 19.6 TH/MM3 (1.8-7.7) Lymphocytes # (Auto) 2.7 TH/MM3 (1.0-4.8) Monocytes # (Auto) 1.9 TH/MM3 (0-0.9) Eosinophils # (Auto) 0.3 TH/MM3 (0-0.4) Basophils # (Auto) 0.1 TH/MM3 (0-0.2) CBC Comment DIFF FINAL Differential Comment Sodium Level 150 MEQ/L (136-145) Potassium Level 2.9 MEQ/L (3.5-5.1) Chloride Level 112 MEQ/L (98-107) Carbon Dioxide Level 28.5 MEQ/L (21.0-32.0) Anion Gap 10 MEQ/L (5-15) Blood Urea Nitrogen 21 MG/DL (7-18) Creatinine 1.11 MG/DL (0.60-1.30) Estimat Glomerular Filtration 70 ML/MIN (>89) Rate Random Glucose 123 MG/DL (74-106) Calcium Level 8.1 MG/DL (8.5-10.1) Phosphorus Level 0.8 MG/DL (2.5-4.9) Magnesium Level 2.6 MG/DL (1.5-2.5) Total Bilirubin 0.7 MG/DL (0.2-1.0) Aspartate Amino Transf 478 U/L (15-37) (AST/SGOT) Alanine Aminotransferase 394 U/L (12-78) (ALT/SGPT) Alkaline Phosphatase 308 U/L (45-117) Total Protein 5.9 GM/DL (6.4-8.2) Albumin 1.8 GM/DL (3.4-5.0) Random Vancomycin Level 6.1 COMMENT Lactic Acid Level 3.0 mmol/L (0.4-2.0) Result Diagram: 09/07/16 0545 09/07/16 0545 Microbiology Microbiology Date/Time Procedure Status Source Growth 09/04/16 15:00 Aerobic Blood Culture - Preliminary Resulted Blood Line NO GROWTH IN 3 DAYS 09/04/16 15:00 Anaerobic Blood Culture - Preliminary Resulted Blood Line NO GROWTH IN 3 DAYS 09/04/16 15:15 Aerobic Blood Culture - Preliminary Resulted Blood Line NO GROWTH IN 3 DAYS 09/04/16 15:15 Anaerobic Blood Culture - Preliminary Resulted Blood Line NO GROWTH IN 3 DAYS 09/05/16 05:30 Urine Culture - Final Complete Urine Catheterized Urine NO GROWTH IN 48 HOURS. 09/05/16 13:30 Gram Stain - Final Complete Sputum Endotracheal 09/05/16 13:30 Sputum Culture - Final Complete Sputum Endotracheal RARE GROWTH NORMAL RESPIRATORY FREDRICK 09/05/16 13:30 Legionella Antigen - Final Complete Urine Catheterized Urine PRESUMPTIVE NEGATIVE FOR LEGIONELLA P... 09/05/16 13:30 Streptococcus pneumoniae Antigen (M - Final Complete Urine Catheterized Urine PRESUMPTIVE NEGATIVE FOR STREPTOCOCCU... 09/06/16 11:41 Aerobic Blood Culture - Preliminary Resulted Blood Peripheral NO GROWTH IN 1 DAY 09/06/16 11:41 Anaerobic Blood Culture - Preliminary Resulted Blood Peripheral NO GROWTH IN 1 DAY 09/06/16 11:50 Aerobic Blood Culture - Preliminary Resulted Blood Peripheral NO GROWTH IN 1 DAY 09/06/16 11:50 Anaerobic Blood Culture - Preliminary Resulted Blood Peripheral NO GROWTH IN 1 DAY . Imaging Last Impressions Chest X-Ray 09/06/16 0000 Signed Impressions: Service Date/Time: August 08:28 - CONCLUSION: Mild airspace consolidation in the lower lung zones bilaterally but overall significantly improved compared to the study from 2 days ago. Casey Phelps MD Abdomen Ultrasound 09/05/16 0000 Signed Impressions: Service Date/Time: Monday, September 05, 2016 09:21 - CONCLUSION: Enlarged heterogeneous liver. The heterogeneity is thought to be secondary to somewhat ill-defined echogenic masses throughout the liver. Metastatic disease needs to be suspected. Casey Cisneros MD Head CT 09/04/16 1312 Signed Impressions: Service Date/Time: Sunday, September 04, 2016 13:39 - CONCLUSION: 2.3 cm hyperdense mass seen at the left parietal lobe. This is thought to likely represent a mass. Some degree of hemorrhage can not be excluded given the density. There is also a questionable second smaller area of hyperdensity seen in the anterior inferior midline frontal lobe region. It is recommended both these areas be further evaluated with a MRI examination with contrast if there are no contraindications. Casey Cisneros MD Aorta CTA 09/04/16 0000 Signed Impressions: Service Date/Time: Sunday, September 04, 2016 13:44 - CONCLUSION: 1. Abnormal examination demonstrating large left hilar mass with bulky mediastinal adenopathy and associated post obstructive airspace disease in the superior segment of the left lower lobe. There is also evidence for bulky metastatic disease to the liver and solitary mesenteric metastasis. 1.5 cm left adrenal mass also suspicious for metastasis. 2. Bilateral lower lobe airspace consolidation may reflect aspiration in this intubated patient. 3. Patchy groundglass opacities in the upper lobes bilaterally consistent light reflex edema and volume loss. 4. No evidence for aortic dissection, significant aneurysm, or injury. Pepe Miramontes MD . Procedures * 09/05/16 - self extubated and reintubated. * 09/04/16 - Intubated. . Assessment and Plan Disease Oriented Problem List: (1) Septic shock (2) Leukocytosis (3) Lactic acidosis (4) Acute respiratory failure with hypoxia (5) Seizure (6) Metastatic cancer (7) Bipolar disorder (8) Chronic back pain (9) Pneumonia (10) Tobacco abuse Symptom Scale: (1) Seizure 0-10 Scale: Unable to quantify (2) Shortness of breath 0-10 Scale: Unable to quantify Comment: on mech vent. (3) Pain 0-10 Scale: Unable to quantify (4) Chronic back pain 0-10 Scale: Unable to quantify Pertinent Non-Medical Issues Psychosocial: Spiritual: Legal:Patient is currently incapacitated, will not likely regained capacity. According to [place] statutes, health care proxy decision-making would fall to the patient's spouse (even if they are legally ). Ethical issues impacting care: no known concerns at this time. . Important Contacts * Stephanie Juares, spouse: [phone] * Joselito Branham, mother: [phone] or [phone] . Prognosis Mr. Juares is an unfortunate 50-year-old male admitted with seizure, respiratory failure requiring mechanical ventilation and multiorgan failure, found to have what appears to be widespread metastatic disease to liver, lymph nodes and brain. Overall prognosis appears poor for meaningful recovery. Hospice appropriate if goals are comfort oriented. . Code Status: Alternative Code (Intubation Only) Plan * Patient is currently incapacitated, will not likely regained capacity. According to [place] statutes, health care proxy decision-making would fall to the patient's spouse (even if they are legally ). * CODE status: Intubation only * Family requests meeting 09/10/16 to provide update and reevaluate goals. * SYMPTOMS: Pain: secondary to likely malignancy with metastatic disease, intubation, seizure. Currently on fentanyl drip. Dyspnea: on mechanical ventilation, currently sedated with propofol and fentanyl. No new medication recommendations at this time. * Palliative care will continue to follow throughout hospital course to assist with symptom management and clarification of goals as needed. . Attestation To help prompt me to consider important information that might be impacting today's encounter and assessment, information from prior notes written by myself or my colleagues may have been "brought forward" into today's note. My signature on this note, however, is an attestation that I personally performed the exam, history, and/or decision-making noted today, and, unless otherwise indicated, the interactions with patient, family, and staff as well as the review of records all occurred today. I also attest that the listed assessment and stated plan reflect my best clinical judgment today based on the combination of historical information, prior notes, and today's exam/ interactions. When time spent is documented, it refers only to time spent today by the signer, or if indicated, combined time spent today by collaborating physician/nurse practitioner. . ZEINAB GO Sep 07, 2016 12:02
[2016-09-07] MEDS: VANCOMYCIN INJ 2,000 MG in SODIUM CHLORID 0.9% 500 ML INJ 500 ML IV SCH (12:37)
--- NOTE | 2016-09-07 12:39 | HHI.PR ---
Subjective Remarks Remains sedated and off pressors. Better today. No fever. On 35 % FIo2. On CPAP. Objective Vital Signs Date Time Temp Pulse Resp B/P Pulse Ox O2 Delivery O2 Flow Rate FiO2 09/07/16 11:55 35 09/07/16 11:55 97 35 09/07/16 11:04 97 35 09/07/16 10:00 133 09/07/16 08:16 94 Nasal Cannula 3.50 09/07/16 08:00 99.7 130 24 113/64 97 95/60 09/07/16 08:00 35 09/07/16 08:00 130 09/07/16 07:41 97 35 09/07/16 06:00 132 09/07/16 04:10 99 40 09/07/16 04:00 35 09/07/16 04:00 99.8 121 22 105/65 99 102/71 09/07/16 04:00 121 09/07/16 02:00 118 09/07/16 01:09 99 40 09/07/16 00:00 40 09/07/16 00:00 98.9 115 19 108/63 99 96/69 09/07/16 00:00 115 09/06/16 23:05 98 40 09/06/16 22:00 105 09/06/16 20:57 100 40 09/06/16 20:00 40 09/06/16 20:00 97 09/06/16 20:00 99.9 97 21 118/72 99 112/67 09/06/16 18:00 101 09/06/16 16:14 98 40 09/06/16 16:02 40 09/06/16 16:00 108 09/06/16 16:00 99.2 108 23 102/67 97 97/60 09/06/16 14:09 97 40 09/06/16 14:00 102 09/06/16 12:47 40 09/06/16 12:46 108 09/06/16 12:45 99.2 107 20 95/61 97 95/56 I/O 09/06/16 09/06/16 09/06/16 09/07/16 09/07/16 09/07/16 07:00 15:00 23:00 07:00 15:00 23:00 Intake Total 3768 ml 2811 ml 1539 ml 1714 ml Output Total 2250 ml 3580 ml 2050 ml 1450 ml Balance 1518 ml -769 ml -511 ml 264 ml Intake IV Total 3507 ml 2495 ml 967 ml 1405 ml Tube Feeding 261 ml 316 ml 572 ml 309 ml Output Urine Total 2250 ml 3400 ml 1750 ml 1150 ml Stool Total 180 ml 300 ml 300 ml # Bowel Movements 2 1 Result Diagram: 09/07/16 0545 09/07/1645 Objective Remarks GENERAL: This obese, middle-aged man who is sedated, intubated. HEENT: Head normocephalic. Pupils are sluggishly reactive. Throat clear. NECK: Supple with no venous distension. No thyromegaly. CHEST: Equal movements with occ wheezes throughout both lung parker. Occasional crackles at the left base. HEART: The heart sounds are regular S1-S2. No murmur. ABDOMEN: Obese, protuberant without masses. No organomegaly. EXTREMITIES: No edema.warm extremities with diminished pulses. Reflexes are not elicited. He is sedated. SKIN: Dry and cool. Assessment and Plan Assessment and Plan IMPRESSION 1. Septic shock. 2. Acute hypoxemic respiratory failure. 3. COPD. 4. 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 5. Possible brain mets with seizures. 6. History of bipolar disorder. 7. Diabetes mellitus. 8. Hypertension. 9. Hyponatremia. Plan : 1. Wean FIO2 to 30 % and PEEP at 7 CM 2. Reduce sedation 3. Cont antibiotics. 4. Continue nebs qid. 5. BMP ,CBC in am 6. Tube feeds at 40 CC 7. Bronchoscopy when clinically stable Jamey Botello MD Sep 07, 2016 12:39
[2016-09-07] MEDS: FREE WATER G-TUBE SCH ×2 (14:00→21:22)
--- NOTE | 2016-09-07 14:32 | HHI.IDPN ---
Note Infectious Disease Note Patient on the vent. On CPAP. Off Levophed. Off neosynephrine. Temp lower. Sedated. Tachycardic. Reportedly becomes agitated. Profuse loose stools. Patient was brought to emergency department after having seizures. He has altered mental status. The patient was intubated and is currently on the ventilator. He is on the ventilator on 50% FIO2 and is unresponsive. PAST MEDICAL HISTORY: 1. Seizure disorder. 2. Hypertension. 3. Diabetes mellitus. 4. Bipolar disorder. 5. Chronic back pain. ALLERGIES NO KNOWN DRUG ALLERGIES. MEDICATIONS 1. Vancomycin. 2. Piperacillin/tazobactam 3. Azithromycin. OBJECTIVE: Vital Signs Date Time Temp Pulse Resp B/P Pulse Ox O2 Delivery O2 Flow Rate FiO2 09/07/16 12:00 35 09/07/16 12:00 99.7 125 24 112/77 97 102/65 09/07/16 12:00 125 09/07/16 11:55 35 09/07/16 11:55 97 35 09/07/16 11:04 97 35 09/07/16 10:00 133 09/07/16 08:16 94 Nasal Cannula 3.50 09/07/16 08:00 99.7 130 24 113/64 97 95/60 09/07/16 08:00 35 09/07/16 08:00 130 09/07/16 07:41 97 35 09/07/16 06:00 132 09/07/16 04:10 99 40 09/07/16 04:00 35 09/07/16 04:00 99.8 121 22 105/65 99 102/71 09/07/16 04:00 121 09/07/16 02:00 118 09/07/16 01:09 99 40 09/07/16 00:00 40 09/07/16 00:00 98.9 115 19 108/63 99 96/69 09/07/16 00:00 115 09/06/16 23:05 98 40 09/06/16 22:00 105 09/06/16 20:57 100 40 09/06/16 20:00 40 09/06/16 20:00 97 09/06/16 20:00 99.9 97 21 118/72 99 112/67 09/06/16 18:00 101 09/06/16 16:14 98 40 09/06/16 16:02 40 09/06/16 16:00 108 09/06/16 16:00 99.2 108 23 102/67 97 97/60 09/06/16 09/06/16 09/07/16 15:00 23:00 07:00 Intake Total 2811 ml 1539 ml 1714 ml Output Total 3580 ml 2050 ml 1450 ml Balance -769 ml -511 ml 264 ml Intake IV Total 2495 ml 967 ml 1405 ml Tube Feeding 316 ml 572 ml 309 ml Output Urine Total 3400 ml 1750 ml 1150 ml Stool Total 180 ml 300 ml 300 ml # Bowel Movements 1 Laboratory Tests Test 09/06/16 09/07/16 04:20 05:45 White Blood Count 27.8 TH/MM3 24.5 TH/MM3 Red Blood Count 4.46 MIL/MM3 4.41 MIL/MM3 Hemoglobin 12.0 GM/DL 11.9 GM/DL Hematocrit 35.3 % 35.1 % Mean Corpuscular Volume 79.2 FL 79.6 FL Mean Corpuscular Hemoglobin 26.9 PG 27.1 PG Mean Corpuscular Hemoglobin 33.9 % 34.1 % Concent Red Cell Distribution Width 14.3 % 14.4 % Platelet Count 276 TH/MM3 241 TH/MM3 Mean Platelet Volume 8.6 FL 9.0 FL Neutrophils (%) (Auto) 85.0 % 80.0 % Lymphocytes (%) (Auto) 5.7 % 10.9 % Monocytes (%) (Auto) 8.1 % 7.7 % Eosinophils (%) (Auto) 0.8 % 1.1 % Basophils (%) (Auto) 0.4 % 0.3 % Neutrophils # (Auto) 23.6 TH/MM3 19.6 TH/MM3 Lymphocytes # (Auto) 1.6 TH/MM3 2.7 TH/MM3 Monocytes # (Auto) 2.2 TH/MM3 1.9 TH/MM3 Eosinophils # (Auto) 0.2 TH/MM3 0.3 TH/MM3 Basophils # (Auto) 0.1 TH/MM3 0.1 TH/MM3 CBC Comment AUTO DIFF DIFF FINAL Differential Total Cells 100 Counted Neutrophils % (Manual) 79 % Band Neutrophils % 10 % Lymphocytes % 5 % Monocytes % 5 % Eosinophils % 1 % Neutrophils # (Manual) 24.7 TH/MM3 Differential Comment FINAL DIFF MANUAL Platelet Estimate NORMAL Platelet Morphology Comment CLUMPED Red Cell Morphology Comment NORMAL Laboratory Tests Test 09/05/16 09/06/16 09/06/16 09/06/16 15:00 00:00 04:20 10:12 Potassium Level 2.7 MEQ/L 2.7 MEQ/L 2.5 MEQ/L 2.5 MEQ/L Lactic Acid Level 5.9 mmol/L 6.3 mmol/L Sodium Level 140 MEQ/L Chloride Level 100 MEQ/L Carbon Dioxide Level 27.0 MEQ/L Anion Gap 13 MEQ/L Blood Urea Nitrogen 24 MG/DL Creatinine 1.81 MG/DL Estimat Glomerular Filtration 40 ML/MIN Rate Random Glucose 172 MG/DL Calcium Level 7.9 MG/DL Phosphorus Level 2.2 MG/DL Magnesium Level 2.3 MG/DL Total Bilirubin 0.6 MG/DL Aspartate Amino Transf 655 U/L (AST/SGOT) Alanine Aminotransferase 440 U/L (ALT/SGPT) Alkaline Phosphatase 278 U/L Total Protein 6.1 GM/DL Albumin 1.9 GM/DL Test 09/06/16 09/07/16 09/07/16 18:00 05:45 09:45 Potassium Level 3.0 MEQ/L 2.9 MEQ/L Sodium Level 150 MEQ/L Chloride Level 112 MEQ/L Carbon Dioxide Level 28.5 MEQ/L Anion Gap 10 MEQ/L Blood Urea Nitrogen 21 MG/DL Creatinine 1.11 MG/DL Estimat Glomerular Filtration 70 ML/MIN Rate Random Glucose 123 MG/DL Calcium Level 8.1 MG/DL Phosphorus Level 0.8 MG/DL Magnesium Level 2.6 MG/DL Total Bilirubin 0.7 MG/DL Aspartate Amino Transf 478 U/L (AST/SGOT) Alanine Aminotransferase 394 U/L (ALT/SGPT) Alkaline Phosphatase 308 U/L Total Protein 5.9 GM/DL Albumin 1.8 GM/DL Lactic Acid Level 3.0 mmol/L Microbiology Date/Time Procedure Status Source Growth 09/04/16 15:00 Aerobic Blood Culture - Preliminary Resulted Blood Line NO GROWTH IN 3 DAYS 09/04/16 15:00 Anaerobic Blood Culture - Preliminary Resulted Blood Line NO GROWTH IN 3 DAYS 09/04/16 15:15 Aerobic Blood Culture - Preliminary Resulted Blood Line NO GROWTH IN 3 DAYS 09/04/16 15:15 Anaerobic Blood Culture - Preliminary Resulted Blood Line NO GROWTH IN 3 DAYS 09/05/16 05:30 Urine Culture - Final Complete Urine Catheterized Urine NO GROWTH IN 48 HOURS. 09/05/16 13:30 Gram Stain - Final Complete Sputum Endotracheal 09/05/16 13:30 Sputum Culture - Final Complete Sputum Endotracheal RARE GROWTH NORMAL RESPIRATORY TWAN 09/05/16 13:30 Legionella Antigen - Final Complete Urine Catheterized Urine PRESUMPTIVE NEGATIVE FOR LEGIONELLA P... 09/05/16 13:30 Streptococcus pneumoniae Antigen (M - Final Complete Urine Catheterized Urine PRESUMPTIVE NEGATIVE FOR STREPTOCOCCU... 09/06/16 11:41 Aerobic Blood Culture - Preliminary Resulted Blood Peripheral NO GROWTH IN 1 DAY 09/06/16 11:41 Anaerobic Blood Culture - Preliminary Resulted Blood Peripheral NO GROWTH IN 1 DAY 09/06/16 11:50 Aerobic Blood Culture - Preliminary Resulted Blood Peripheral NO GROWTH IN 1 DAY 09/06/16 11:50 Anaerobic Blood Culture - Preliminary Resulted Blood Peripheral NO GROWTH IN 1 DAY IMAGING: Chest X-Ray 09/06/16 0000 Signed Impressions: Service Date/Time: August 08:28 - CONCLUSION: Mild airspace consolidation in the lower lung zones bilaterally but overall significantly improved compared to the study from 2 days ago. Casey Phelps MD Abdomen Ultrasound 09/05/16 0000 Signed Impressions: Service Date/Time: Monday, September 05, 2016 09:21 - CONCLUSION: Enlarged heterogeneous liver. The heterogeneity is thought to be secondary to somewhat ill-defined echogenic masses throughout the liver. Metastatic disease needs to be suspected. Casey Cisneros MD Head CT 09/04/16 1312 Signed Impressions: Service Date/Time: Sunday, September 04, 2016 13:39 - CONCLUSION: 2.3 cm hyperdense mass seen at the left parietal lobe. This is thought to likely represent a mass. Some degree of hemorrhage can not be excluded given the density. There is also a questionable second smaller area of hyperdensity seen in the anterior inferior midline frontal lobe region. It is recommended both these areas be further evaluated with a MRI examination with contrast if there are no contraindications. Casey Cisneros MD Chest X-Ray 09/04/16 1312 Signed Impressions: Service Date/Time: Sunday, September 04, 2016 13:15 - CONCLUSION: 1. Multilobar consolidation likely pneumonia. 2. Adequate placement of endotracheal tube. Armen Power MD Head CT 09/04/162 Signed Impressions: Service Date/Time: Sunday, September 04, 2016 13:39 - CONCLUSION: 2.3 cm hyperdense mass seen at the left parietal lobe. This is thought to likely represent a mass. Some degree of hemorrhage can not be excluded given the density. There is also a questionable second smaller area of hyperdensity seen in the anterior inferior midline frontal lobe region. It is recommended both these areas be further evaluated with a MRI examination with contrast if there are no contraindications. Casey Cisneros MD Chest X-Ray 09/04/162 Signed Impressions: Service Date/Time: Sunday, September 04, 2016 13:15 - CONCLUSION: 1. Multilobar consolidation likely pneumonia. 2. Adequate placement of endotracheal tube. Armen Power MD Aorta CTA 09/04/16 0000 Signed Impressions: Service Date/Time: Sunday, September 04, 2016 13:44 - CONCLUSION: 1. Abnormal examination demonstrating large left hilar mass with bulky mediastinal adenopathy and associated post obstructive airspace disease in the superior segment of the left lower lobe. There is also evidence for bulky metastatic disease to the liver and solitary mesenteric metastasis. 1.5 cm left adrenal mass also suspicious for metastasis. 2. Bilateral lower lobe airspace consolidation may reflect aspiration in this intubated patient. 3. Patchy groundglass opacities in the upper lobes bilaterally consistent light reflex edema and volume loss. 4. No evidence for aortic dissection, significant aneurysm, or injury. Pepe Miramontes MD PHYSICAL EXAMINATION: GENERAL: Unresponsive. HEENT: Intubated. NECK: Supple. No adenopathy. LUNGS: Bilateral rhonchi. HEART: Regular S1-S2. No murmur. No rubs, No gallops. ABDOMEN: Obese, soft. EXTREMITIES: No clubbing, cyanosis or edema. SKIN: No rash. NEUROLOGIC: Unable to assess. PSYCH: Unable to assess. IMPRESSION 1. Septic shock, unclear etiology. Improved. 2. Multilobar pneumonia, possibly secondary to aspiration. Probable source. 3. 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 4. Acute Respiratory failure. 5. Altered mental status secondary to sepsis. 6. Seizure. 7. Leukocytosis - WBC still elevated. 8. Elevated LFT's RECOMMENDATIONS: 1. Continue vancomycin. 2. Continue Piperacillin/tazobactam 3. Stop azithromycin. 4. Monitor temp. 5. Follow clinical status. Zeke Ochoa MD Sep 07, 2016 14:32
[2016-09-07] MEDS ORDERED: METOPROLOL TARTRATE 5 MG/5 ML VIAL IV PUSH ONE (16:45)
[2016-09-07] MEDS: ACETAMINOPHEN 325 MG TAB PO PRN (20:46)
[2016-09-08] VITALS (23 sets, daily range): BP systolic 83–134; BP diastolic 59–82; PULSE 133–145; RESP 27–30; TEMP 102.5–104; O2SAT 95–98
[2016-09-08] MEDS: DEXTROSE 5% IN WATE 1000ML INJ 1,000 ML IV SCH ×3 (00:12→20:33)
[2016-09-08] MEDS: INSULIN NovoLIN REGULAR SUPPLEMENTAL SCALE SQ SCH ×7 (00:14→23:23)
[2016-09-08] MEDS ORDERED: METOPROLOL TARTRATE 5 MG/5 ML VIAL IV PUSH PRN (01:15)
[2016-09-08] MEDS: METOPROLOL TARTRATE 25 MG TAB PO SCH ×2 (01:30→05:55)
[2016-09-08] MEDS: PROPOFOL 1000 MG/100 ML IV SCH ×4 (01:31→10:12)
[2016-09-08] MEDS: PIPERACIL-TAZO 4.5 GM PREMIX 100 ML IV SCH ×2 (03:33→08:45)
[2016-09-08] MEDS: ACETAMINOPHEN 325 MG TAB PO PRN ×3 (03:34→17:01)
[2016-09-08] MEDS: CHLORHEXIDINE GLUCONATE 2 % 1 PACK (2 CLOTHS) TOP SCH (03:34)
[2016-09-08 04:51] LABS: AUTOMATED NEUTROPHIL # 19.4 TH/MM3 (1.8-7.7); BASOPHIL # 0.2 TH/MM3 (0-0.2); BASOPHIL % 0.7 % (0.0-2.0); EOSINOPHIL # 0.1 TH/MM3 (0-0.4); EOSINOPHIL % 0.4 % (0.0-4.0); HEMATOCRIT 37.6 % (39.0-51.0); LYMPH % 12.3 % (9.0-44.0); LYMPHOCYTE # 3.1 TH/MM3 (1.0-4.8); MEAN CELL VOLUME 81.3 FL (80.0-100.0); MEAN CORPUSCULAR HEMOGLOBIN 27.9 PG (27.0-34.0); MEAN CORPUSCULAR HGB CONC 34.4 % (32.0-36.0); MONO % 10.4 % (0.0-8.0); NEUT % 76.2 % (16.0-70.0); PLATELET COUNT 270 TH/MM3 (150-450); RED BLOOD COUNT 4.63 MIL/MM3 (4.50-5.90); RED CELL DISTRIBUTION WIDTH 14.7 % (11.6-17.2); WHITE BLOOD COUNT 25.5 TH/MM3 (4.0-11.0)
[2016-09-08 04:54] LABS: HEMO FLAGS AUTO DIFF
[2016-09-08 05:15] LABS: ALKALINE PHOSPHATASE 404 U/L (45-117); TOTAL BILIRUBIN ADULT 1.1 MG/DL (0.2-1.0)
[2016-09-08 05:51] LABS: ALT (GPT) 352 U/L (12-78); ANION GAP 14 MEQ/L (5-15); BICARBONATE 23.6 MEQ/L (21.0-32.0); BLOOD UREA NITROGEN 28 MG/DL (7-18); CHLORIDE 113 MEQ/L (98-107); GLOMERULAR FILTRATION RATE 55 ML/MIN (>89); MAGNESIUM 2.7 MG/DL (1.5-2.5); SODIUM (NA) 151 MEQ/L (136-145)
[2016-09-08 05:53] LABS: AST (GOT) 410 U/L (15-37); POTASSIUM 3.4 MEQ/L (3.5-5.1)
[2016-09-08] MEDS: HYDROCORTISONE SOD SUCCINATE 100 MG VIAL IV PUSH SCH ×2 (05:55→17:34)
[2016-09-08] MEDS: FREE WATER G-TUBE SCH ×4 (05:55→23:23)
[2016-09-08] MEDS: POTASSIUM PHOSPHATE MONOBASIC 500 MG TAB PO PRN ×2 (06:17→10:12)
--- NOTE | 2016-09-08 06:21 | RADRPT ---
EXAM DATE/TIME: 09/08/2016 04:50 [facility] COMPARISON: CHEST SINGLE AP, September 06, 2016, 8:28. INDICATIONS : Shortness of breath, possible pulmonary disease. MEDICAL HISTORY : Arthritis. Hypertension Diabetes mellitus type II. SURGICAL HISTORY : None. ENCOUNTER: Subsequent ACUITY: 4 - 6 days PAIN SCORE: Non-responsive. LOCATION: Bilateral chest FINDINGS: A single view of the chest demonstrates minimal bibasilar densities. Prominence of the left hilum. En dotracheal tube unchanged with nasogastric tube tip in stomach. Lucency overlying the right hemidiaph ragm. The cardiomediastinal contours are unremarkable. Osseous structures are intact. CONCLUSION: 1. Lucency overlying the right hemidiaphragm of uncertain etiology. 2. Bibasilar infiltrates. 3. Prominence of left hilum consistent with mass. Armen Power MD on September 08, 2016 at 6:16 Board Certified Radiologist. This report was verified electronically.
--- NOTE | 2016-09-08 07:40 | HHI.CCPN ---
Subjective Remarks/Hospital Course The patient is a 50-year-old male with past medical history of hypertension, diabetes mellitus, seizure disorder, chronic back pain, bipolar disorder who presented to the ED with a witnessed generalized seizure. In addition the patient was altered and hypoxic with O2 saturation in the 70s. He initially somewhat improved on a non-rebreather but due to labored breathing or diaphoresis he was subsequently intubated in the ED and placed on full mechanical ventilation. According to the patient's family the patient has been having progressive worsening shortness of breath and he has not been feeling well lately. In addition he reported feeling nauseous and heartburn. On arrival to the ER he was tachycardiac, hypotensive and was subsequently placed on Levophed which is currently at 20 mics. The patient was given 3 liters of crystalloids in the ED. ABG post intubation showed pH of 7.23, CO2 33, pAO2 180 , bicarb 13, saturation 97% on PRVC mode with a rate of 18, tidal volume 500, PEEP of 5, IT: 1.0, FIO2 100%. His laboratory data significant for lactic acidemia with a lactic acid level of 11.3, acute kidney injury with a creatinine 2.17 and leukocytosis with bandemia. His WBC is 34.8 with bands of 16. A CT scan of the brain in the ER was obtained which showed a 2.3 cm hyperdense mass at the left parietal lobe and a questionable second small area of hyperdensity seen in the frontal lobe region. He also had a CTA of the aorta which showed significant hilar and mediastinal adenopathy and liver mets. In the ER he was given Zosyn, azithromycin and placed on Diprivan infusion for sedation. A right femoral central line and left radial A-line was placed by the ED physician. 09/05 Patient was self extubated and was reintubated last night . Sedated with Diprivan , Fentanyl and intubated. On Levophed and now Neosyn. Renal function is worsening with Cr: 2.34 from 2.14 09/06 Patient remains sedated with Diprivan and Fentanyl and intubated. On Levophed 13 mics and Neosyn 160 mics. Spiked fever with T:102.1 Renal function is improving with Cr:1.81 from 2.34. 09/07 No events overnight. Remains sedated with Diprivan and intubated. Off all pressors renal function is improving with Cr: 1.11 from 1.81. T:99.8 09/08 Patient is sedate with Diprivan and intubated. T:103.0 at 4 am. Given Metoprolol 5mg Iv early this morning for sinus tachycardia. Objective Vital Signs Date Time Temp Pulse Resp B/P Pulse Ox O2 Delivery O2 Flow Rate FiO2 09/08/16 06:00 140 09/08/16 04:12 98 35 09/08/16 04:00 103.0 28 134/82 119/78 09/07/16 08:16 Nasal Cannula 3.50 Intake and Output 09/07/16 09/07/16 09/08/16 08:00 16:00 00:00 Intake Total 1714 ml 2335 ml 1358 ml Output Total 1450 ml 2000 ml 1000 ml Balance 264 ml 335 ml 358 ml Result Diagram: 09/08/16 0340 09/08/16 0340 Other Results Laboratory Tests Test 09/07/16 09/07/16 09/08/16 09:45 14:58 03:40 Lactic Acid Level 3.0 mmol/L Potassium Level 3.5 MEQ/L 3.4 MEQ/L White Blood Count 25.5 TH/MM3 Red Blood Count 4.63 MIL/MM3 Hemoglobin 12.9 GM/DL Hematocrit 37.6 % Mean Corpuscular Volume 81.3 FL Mean Corpuscular Hemoglobin 27.9 PG Mean Corpuscular Hemoglobin 34.4 % Concent Red Cell Distribution Width 14.7 % Platelet Count 270 TH/MM3 Mean Platelet Volume 9.1 FL Neutrophils (%) (Auto) 76.2 % Lymphocytes (%) (Auto) 12.3 % Monocytes (%) (Auto) 10.4 % Eosinophils (%) (Auto) 0.4 % Basophils (%) (Auto) 0.7 % Neutrophils # (Auto) 19.4 TH/MM3 Lymphocytes # (Auto) 3.1 TH/MM3 Monocytes # (Auto) 2.7 TH/MM3 Eosinophils # (Auto) 0.1 TH/MM3 Basophils # (Auto) 0.2 TH/MM3 CBC Comment AUTO DIFF Sodium Level 151 MEQ/L Chloride Level 113 MEQ/L Carbon Dioxide Level 23.6 MEQ/L Anion Gap 14 MEQ/L Blood Urea Nitrogen 28 MG/DL Creatinine 1.38 MG/DL Estimat Glomerular Filtration 55 ML/MIN Rate Random Glucose 177 MG/DL Calcium Level 7.7 MG/DL Phosphorus Level 1.1 MG/DL Magnesium Level 2.7 MG/DL Total Bilirubin 1.1 MG/DL Aspartate Amino Transf 410 U/L (AST/SGOT) Alanine Aminotransferase 352 U/L (ALT/SGPT) Alkaline Phosphatase 404 U/L Total Protein 6.2 GM/DL Albumin 1.8 GM/DL Imaging Last Impressions Chest X-Ray 09/08/16 0600 Signed Impressions: Service Date/Time: Thursday, September 08, 2016 04:50 - CONCLUSION: 1. Lucency overlying the right hemidiaphragm of uncertain etiology. 2. Bibasilar infiltrates. 3. Prominence of left hilum consistent with mass. Armen Power MD Abdomen Ultrasound 09/05/16 0000 Signed Impressions: Service Date/Time: Monday, September 05, 2016 09:21 - CONCLUSION: Enlarged heterogeneous liver. The heterogeneity is thought to be secondary to somewhat ill-defined echogenic masses throughout the liver. Metastatic disease needs to be suspected. Casey Cisneros MD Head CT 09/04/16 1312 Signed Impressions: Service Date/Time: Sunday, September 04, 2016 13:39 - CONCLUSION: 2.3 cm hyperdense mass seen at the left parietal lobe. This is thought to likely represent a mass. Some degree of hemorrhage can not be excluded given the density. There is also a questionable second smaller area of hyperdensity seen in the anterior inferior midline frontal lobe region. It is recommended both these areas be further evaluated with a MRI examination with contrast if there are no contraindications. Casey Cisneros MD Aorta CTA 09/04/16 0000 Signed Impressions: Service Date/Time: Sunday, September 04, 2016 13:44 - CONCLUSION: 1. Abnormal examination demonstrating large left hilar mass with bulky mediastinal adenopathy and associated post obstructive airspace disease in the superior segment of the left lower lobe. There is also evidence for bulky metastatic disease to the liver and solitary mesenteric metastasis. 1.5 cm left adrenal mass also suspicious for metastasis. 2. Bilateral lower lobe airspace consolidation may reflect aspiration in this intubated patient. 3. Patchy groundglass opacities in the upper lobes bilaterally consistent light reflex edema and volume loss. 4. No evidence for aortic dissection, significant aneurysm, or injury. Pepe Miramontes MD Objective Remarks GENERAL: Patient is 50 yo remains sedated and intubated, SKIN: Warm and dry. HEAD: Normocephalic. EYES: No scleral icterus. No injection or drainage. NECK: Supple, trachea midline. No JVD or lymphadenopathy. Orally intubated CARDIOVASCULAR:Tachycardic without murmurs, gallops, or rubs. RESPIRATORY: Breath sounds equal bilaterally. No accessory muscle use. GASTROINTESTINAL: Abdomen soft, non-tender, nondistended. MUSCULOSKELETAL: No cyanosis, or edema. Neuro: Sedated, intubated A/P Assessment and Plan 1. VDRF 2. s/p Septic shock. 3. Likely post obstructive pneumonia. 4. Leukocytosis with bandemia. 5. Status post seizure. 6. Lactic acidemia likely secondary to seizure and septic shock. 7. Acute kidney injury and hyponatremia. 8. Anion gap metabolic acidosis. 9. Elevated liver enzymes. 10. Brain masses rule out mets. 11. Mediastinal / hilar adenopathy need to rule out bronchogenic carcinoma. 12. Liver mets. 13. History of hypertension. 14. Hyperglycemia with underlying history of diabetes mellitus. 15. Obesity. 16. Chronic back pain. 17. History of bipolar disorder. Plan Neuro: On Diprivan infusion for sedation and vent synchrony. Monitor neuro status closely and daily sedation vacation On Keppra 500 mg IV q. 12 , Neuro is following- Dr. Swift EEG showed mild- mod encephalopathy. Will need MRI brain when stable. Pulm: Continue vent support and maintain sats above 92%. Bronchodilators, ICU vent bundle. SBT daily as cecily. Pulm is following Dr. Botello for possible bronch with bx on Saturday by pulkevin CV: Place on Cardizem 60mg QID for rate control. Monitor HR and BP and maintain MAP>65 mmHg. Lactic acid trending down. hydrocortisone 50 mg IV q.12. Echo showed EF 70-75% : Monitor renal function Is and Os and avoid nephrotoxins. For K, Phos replacement today Cr: 1.38 today from 03.28 kidneys: No hydronephrosis, non-obstructing stone on left. Renal is following- Dr. Barrow, IVF D5W@75ml.hr, increase Free water 300ml Q6, monitor sodium level. GI: on Protonix 40 mg IV daily. On Glucerna 1.5 @45ml/hr Monitor LFTs(trending down) US liver: Enlarged heterogeneous liver. The heterogeneity is thought to be secondary to somewhat ill-defined echogenic masses throughout the liver. Metastatic disease is suspected. ID: Continue with abx(Cefepime, Levaquin, Micafungin , Vanco ) ID is following. Monitor for signs of infections ( Fever, WBC) Sputum cx: 09/05: GPC strep pneumonia and Legionella urinary AG negative on BC 09/04: NGTD, check BC x 2 sets today, sputum cx, UA with CX if indicated Heme: Monitor CBC. Oncology is following Endo: On medium scale SSI with Accu-Chek for glycemic control. TSH: 0.74 GI prophylaxis with Protonix 40 mg daily and DVT prophylaxis with SCDs. Not on chemical anticoagulation prophylaxis given likely brain mets Lines. Right femoral central line and left radial line placed in the ED. d/c femoral line. Palliative care is following. CCT 30 mins Elisha Vanegas MD Sep 08, 2016 07:40
[2016-09-08] MEDS ORDERED: DILTIAZEM HCL 60 MG TAB PO SCH ×2 (07:45→14:00)
[2016-09-08] MEDS: RESP: ALBUTEROL 2.5 MG/IPRATROPIUM 0.5 MG NEB (SCH) INH ×3 (08:24→20:52)
[2016-09-08] MEDS: CHLORHEXIDINE 0.12% (ORAL KIT) 15 ML CUP MT SCH ×2 (08:43→20:00)
[2016-09-08 08:45] LABS: BANDS 18 % (0-6); CORRECTED NUCLEATED RBC 4 /100 WBC (0-0); NEUTROPHIL # MANUAL DIFF 20.1 TH/MM3 (1.8-7.7); POLYS (SEG NEUTROPHILS) 61 % (16-70); WBC DIFF SAMPLE 100
[2016-09-08] MEDS: levETIRAcetam INJ 500 MG in SODIUM CHLORIDE 0.9% INJ 100 ML IV SCH ×2 (08:45→20:31)
[2016-09-08 08:47] LABS: SCAN/DIFF FINAL DIFF MANUAL
[2016-09-08] MEDS: PANTOPRAZOLE SODIUM 40 MG VIAL IV SCH (08:48)
[2016-09-08] MEDS: DILTIAZEM HCL 25 MG/5 ML VIAL IV ONE ×2 (11:00→11:08)
[2016-09-08 11:15] LABS: BLOOD, URINE TRACE (NEG); COMMENT (UR) CATH-CULT NOT IND; CULTURE IF INDICATED CATH CULTURE NOT IND; GLUCOSE,URINE 70 mg/dL (NEG); KETONE, URINE NEG (NEG); MUCUS URINE FEW /lpf (OCC); NITRITE,URINE NEG (NEG); URINE COLOR YELLOW (YELLW/STRAW)
--- NOTE | 2016-09-08 11:53 | HHI.NPPN ---
Subjective History of Present Illness This patient is a 50-year-old male with a history of hypertension, diabetes mellitus, seizure disorder, bipolar disorder and apparently tobacco use now presenting with septic shock and an apparent postobstructive pneumonia with radiological evidence of probable metastatic disease involving liver, brain with evidence of a left hilar mass. Presentation creatinine level is elevated to 2.17 with a bicarbonate of 15.8 and an anion gap of 20. Patient also had a CTA of the aorta performed on September 04, 2016 utilizing iodine contrast. Patient currently maintaining good urine output at time of consultation. Serum creatinine level was 0.9 back in March,. Interval History Pt remains intubated (Suellen Landry) Review of Systems General General Remarks Unable to obtain because of patient's condition. (Suellen Landry) Objective Data Data 09/07/16 09/08/16 19:00 07:00 Intake Total 2335 ml 3247 ml Output Total 2000 ml 2200 ml Balance 335 ml 1047 ml Intake IV Total 1720 ml 1903 ml Tube Feeding 365 ml 794 ml Other 250 ml 550 ml Output Urine Total 1500 ml 2200 ml Stool Total 500 ml Vital Signs Date Time Temp Pulse Resp B/P Pulse Ox O2 Delivery O2 Flow Rate FiO2 09/08/16 10:00 103.3 143 30 103/63 96 100/75 09/08/16 10:00 143 09/08/16 09:30 30 09/08/16 08:26 96 35 09/08/16 08:00 35 09/08/16 08:00 104.0 140 29 122/79 95 115/70 09/08/16 08:00 140 09/08/16 06:00 140 09/08/16 04:12 98 35 09/08/16 04:00 103.0 134 28 134/82 97 119/78 09/08/16 04:00 35 09/08/16 04:00 134 09/08/16 02:00 133 09/08/16 01:11 98 35 09/08/16 00:00 134 09/08/16 00:00 35 09/08/16 00:00 102.9 134 28 131/82 97 122/77 09/07/16 22:08 97 35 09/07/16 22:00 121 09/07/16 20:00 143 09/07/16 20:00 103.0 143 30 136/90 98 133/82 09/07/16 20:00 35 09/07/16 19:30 143 09/07/16 19:15 98 35 09/07/16 19:00 135 29 130/77 97 123/74 09/07/16 18:00 127 32 130/78 98 116/74 09/07/16 17:36 94 35 09/07/16 17:00 134 26 123/72 98 102/96 09/07/16 16:00 125 09/07/16 16:00 35 09/07/16 14:39 97 35 09/07/16 14:00 125 09/07/16 12:00 35 09/07/16 12:00 99.7 125 24 112/77 97 102/65 09/07/16 12:00 125 09/07/16 11:55 35 09/07/16 11:55 97 35 (Suellen Landry) -: 09/08/16 0340 09/08/16 0340 Microbiology 09/08/16 Aerobic Blood Culture, Received Pending 09/08/16 Anaerobic Blood Culture, Received Pending 09/08/16 Aerobic Blood Culture, Received Pending 09/08/16 Anaerobic Blood Culture, Received Pending 09/08/16 Gram Stain, Received Pending 09/08/16 Sputum Culture, Received Pending Imaging Last Impressions Chest X-Ray 09/08/16 0600 Signed Impressions: Service Date/Time: Thursday, September 08, 2016 04:50 - CONCLUSION: 1. Lucency overlying the right hemidiaphragm of uncertain etiology. 2. Bibasilar infiltrates. 3. Prominence of left hilum consistent with mass. Armen Power MD Abdomen Ultrasound 09/05/16 0000 Signed Impressions: Service Date/Time: Monday, September 05, 2016 09:21 - CONCLUSION: Enlarged heterogeneous liver. The heterogeneity is thought to be secondary to somewhat ill-defined echogenic masses throughout the liver. Metastatic disease needs to be suspected. Casey Cisneros MD Head CT 09/04/16 1312 Signed Impressions: Service Date/Time: Sunday, September 04, 2016 13:39 - CONCLUSION: 2.3 cm hyperdense mass seen at the left parietal lobe. This is thought to likely represent a mass. Some degree of hemorrhage can not be excluded given the density. There is also a questionable second smaller area of hyperdensity seen in the anterior inferior midline frontal lobe region. It is recommended both these areas be further evaluated with a MRI examination with contrast if there are no contraindications. Casey Cisneros MD Aorta CTA 09/04/16 0000 Signed Impressions: Service Date/Time: Sunday, September 04, 2016 13:44 - CONCLUSION: 1. Abnormal examination demonstrating large left hilar mass with bulky mediastinal adenopathy and associated post obstructive airspace disease in the superior segment of the left lower lobe. There is also evidence for bulky metastatic disease to the liver and solitary mesenteric metastasis. 1.5 cm left adrenal mass also suspicious for metastasis. 2. Bilateral lower lobe airspace consolidation may reflect aspiration in this intubated patient. 3. Patchy groundglass opacities in the upper lobes bilaterally consistent light reflex edema and volume loss. 4. No evidence for aortic dissection, significant aneurysm, or injury. Pepe Miramontes MD Medication Review Current Medications Medications (Trade) Dose Ordered Sig/May[facility] Route Start Time Stop Time Status Last Admin IV Flush 2 ml 2 ml UNSCH PRN IV FLUSH 09/04/16 13:15 (Levophed-Dextrose Drip) 250 ml @ 0 mls/hr TITRATE IV 09/04/16 13:30 09/06/16 21:31 (Protonix Inj) 40 mg DAILY IV 09/04/16 15:00 09/08/16 08:48 Miscellaneous Information 1 [id number] XX 09/04/16 15:00 (Chlorhexidine 2% Cloth) 3 pack Taper DAILY@04 TOP 09/05/16 04:00 09/01/17 03:59 09/08/16 03:34 Chlorhexidine Gluconate 3 pack 3 pack UNSCH PRN TOP 09/04/16 15:00 Levetriacetam 500 mg/Sodium Chloride 105 ml @ 420 mls/hr Q12HR IV 09/04/16 15:00 09/08/16 08:45 (Neosynephrine Inj/D5W 500 ml Inj) 500 ml @ 0 mls/hr TITRATE IV 09/04/16 16:00 09/05/16 19:00 (Brethine Inj) 1 mg UNSCH PRN SQ 09/04/16 15:00 (D50w (Vial) Inj) 50 ml UNSCH PRN IV 09/04/16 15:00 (Glucagon Inj) 1 mg UNSCH PRN OTHER 09/04/16 15:00 Insulin Human Regular 1 1 Q4H SQ 09/04/16 16:00 09/08/16 09:20 Pharmacy Profile Note 0 ml @ 0 mls/hr UNSCH OTHER 09/04/16 15:00 Piperacillin Sod/ Tazobactam Sod 100 ml @ 200 mls/hr Q6H IV 09/04/16 21:00 09/08/16 08:45 Fentanyl Citrate 250 ml @ 0 mls/hr TITRATE IV 09/04/16 17:00 09/05/16 20:08 (Diprivan 1000 Mg/100ml Inj) 100 ml @ 0 mls/hr TITRATE IV 09/04/16 22:15 09/08/16 10:12 (Peridex 0.12% Liq) 15 ml BID@08,20 MT 09/05/16 08:00 09/08/16 08:43 Acetaminophen 650 mg 650 mg Q6H PRN PO 09/06/16 04:30 09/08/16 08:43 Potassium Chloride 100 ml @ 50 mls/hr Q2H PRN IV 09/06/16 08:30 09/07/16 09:36 (KCl 20 Meq Premix Inj) 100 ml @ 50 mls/hr Q2H PRN IV 09/06/16 08:30 Potassium Bicarb/ Potassium Chloride 50 meq 50 meq UNSCH PRN PO 09/06/16 08:30 Potassium Chloride 100 ml @ 25 mls/hr UNSCH PRN IV 09/06/16 08:30 Potassium Chloride 100 ml @ 50 mls/hr Q2H PRN IV 09/06/16 08:30 (Magnesium Sulfate Inj/NS Inj) 100 ml @ 50 mls/hr UNSCH PRN IV 09/06/16 08:30 Magnesium Oxide 800 mg 800 mg UNSCH PRN PO 09/06/16 08:30 (Magnesium Sulfate Inj/NS Inj) 100 ml @ 50 mls/hr UNSCH PRN IV 09/06/16 08:30 Potassium Phosphate 2000 mg 2,000 mg Q4H PRN PO 09/06/16 08:30 09/08/16 10:12 (Sodium Phosphate Inj/NS 250 ml Inj) 250 ml @ 42 mls/hr UNSCH PRN IV 09/06/16 08:30 Potassium Phosphate 2000 mg 2,000 mg UNSCH PRN PO/TUBE 09/06/16 08:30 Potassium Phosphate 30 mmol/ Sodium Chloride 260 ml @ 42 mls/hr UNSCH PRN IV 09/06/16 08:30 (D5W 1000 ml Inj) 1,000 ml @ 75 mls/hr [id number] IV 09/07/16 09:15 09/08/16 00:12 Hydrocortisone Sodium Succinate 50 mg 50 mg Q12H IV PUSH 09/07/16 18:00 09/08/16 05:55 (Vancomycin Inj/ NS 500 ml Inj) 520 ml @ 260 mls/hr Q24H IV 09/07/16 13:00 09/07/16 12:37 Miscellaneous Information SPECIFIC LAB TO BE ANA... ONCE ONCE .XX 09/10/16 12:45 09/10/16 12:46 (Lopressor Inj) 5 mg Q6H PRN IV PUSH 09/08/16 01:15 09/08/16 04:13 (Free Water) 300 ml Q6HR G-TUBE 09/08/16 12:00 (Cardizem) 60 mg Q6HR PO 09/08/16 07:45 09/08/16 08:44 (Suellen Landry) Physical Exam General Appearance: No Acute Distress, Comfortable (Suellen Landry) Eyes Eye Exam: Sclera White (Suellen Landry) Pulmonary Resp Exam: Clear Bilaterally, Breath Sounds Equal, No Distress (Suellen Landry) Cardiology CV Exam: Regular, Tachycardia (Suellen Landry) Gastrointestinal/Abdomen GI Exam: Soft, Non-Tender (Suellen Landry) Integumentary Skin Exam: Clear, Warm, Dry (Suellen Landry) Extremeties Extremities Exam: No Edema (Suellen Landry) Neurologic Neuro Exam: Sedated (Suellen Landry) Assessment/Plan Problem List: (1) Acute kidney insufficiency Plan: Most likely secondary to septic shock with relative decrease in the intra -arterial volume and impaired renal perfusion. 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 Mild hypernatremia still Continue on D5 IVF CC increased free water to 300cc q6h Medications should be adjusted for the patient's estimated GFR if clinically indicated. Avoid agents with significant potential for nephrotoxicity possible including NSAIDs for analgesia, iodine contrast agents. Gadolinium is contraindicated if the GFR is below 30. (2) Hypokalemia Plan: Multifactorial in origin. Contributory factors include probable pre-existing potassium deficit on presentation which was masked by his metabolic acidosis. Correction of acidosis subsequently resulted in intracellular shift of potassium. Also suspect increased potassium losses secondary to his polyuria. These potassium losses should improve as polyuria subsequently subsides. Recommend continued potassium repletion. (3) Metabolic acidosis Plan: Resolved (4) Septic shock Plan: Management per infectious disease and critical care (Suellen Landry) Plan The exam, history, and the medical decision-making described in the above note were completed with the assistance of the PA-C. I reviewed and agree with the findings presented. I attest that I had a [id number] encounter with the patient on the same day, and personally performed and documented my assessment and findings in the medical record. (Sang Barrow MD) Suellen Landry Sep 08, 2016 11:53 Sang Barrow MD Sep 08, 2016 19:51
[2016-09-08] MEDS: fentaNYL DRIP 250 ML IV SCH (11:56)
[2016-09-08] MEDS: VANCOMYCIN INJ 2,000 MG in SODIUM CHLORID 0.9% 500 ML INJ 500 ML IV SCH (12:48)
[2016-09-08] MEDS ORDERED: SODIUM CHLORID 0.9% 500 ML INJ 500 ML IV ONE (13:30)
--- NOTE | 2016-09-08 14:45 | HHI.IDPN ---
Note Infectious Disease Note ID COVERAGE Notes reviewed D/W RN Has been febrile all night and today BP ok, not on pressors but getting fluids Sedated. Tachycardic. Reportedly becomes agitated. Diarrhea Femoral line removed Patient was brought to emergency department after having seizures. He has altered mental status. The patient was intubated and is currently on the ventilator. He is on the ventilator on 50% FIO2 and is unresponsive. PAST MEDICAL HISTORY: 1. Seizure disorder. 2. Hypertension. 3. Diabetes mellitus. 4. Bipolar disorder. 5. Chronic back pain. ALLERGIES NO KNOWN DRUG ALLERGIES. MEDICATIONS 1. Vancomycin. 2. Piperacillin/tazobactam OBJECTIVE: Vital Signs Date Time Temp Pulse Resp B/P Pulse Ox O2 Delivery O2 Flow Rate FiO2 09/08/16 12:04 96 35 09/08/16 12:00 35 09/08/16 12:00 103.3 145 30 111/70 96 91/76 09/08/16 12:00 145 09/08/16 10:00 103.3 143 30 103/63 96 100/75 09/08/16 10:00 143 09/08/16 09:30 30 09/08/16 08:26 96 35 09/08/16 08:00 35 09/08/16 08:00 104.0 140 29 122/79 95 115/70 09/08/16 08:00 140 09/08/16 06:00 140 09/08/16 04:12 98 35 09/08/16 04:00 103.0 134 28 134/82 97 119/78 09/08/16 04:00 35 09/08/16 04:00 134 09/08/16 02:00 133 09/08/16 01:11 98 35 09/08/16 00:00 134 09/08/16 00:00 35 09/08/16 00:00 102.9 134 28 131/82 97 122/77 09/07/16 22:08 97 35 09/07/16 22:00 121 09/07/16 20:00 143 09/07/16 20:00 103.0 143 30 136/90 98 133/82 09/07/16 20:00 35 09/07/16 19:30 143 09/07/16 19:15 98 35 09/07/16 19:00 135 29 130/77 97 123/74 09/07/16 18:00 127 32 130/78 98 116/74 09/07/16 17:36 94 35 09/07/16 17:00 134 26 123/72 98 102/96 09/07/16 16:00 125 09/07/16 16:00 35 Vital Signs Date Time Temp Pulse Resp B/P Pulse Ox O2 Delivery O2 Flow Rate FiO2 09/07/16 12:00 35 09/07/16 12:00 99.7 125 24 112/77 97 102/65 09/07/16 12:00 125 09/07/16 11:55 35 09/07/16 11:55 97 35 09/07/16 11:04 97 35 09/07/16 10:00 133 09/07/16 08:16 94 Nasal Cannula 3.50 09/07/16 08:00 99.7 130 24 113/64 97 95/60 09/07/16 08:00 35 09/07/16 08:00 130 09/07/16 07:41 97 35 09/07/16 06:00 132 09/07/16 04:10 99 40 09/07/16 04:00 35 09/07/16 04:00 99.8 121 22 105/65 99 102/71 09/07/16 04:00 121 09/07/16 02:00 118 09/07/16 01:09 99 40 09/07/16 00:00 40 09/07/16 00:00 98.9 115 19 108/63 99 96/69 09/07/16 00:00 115 09/06/16 23:05 98 40 09/06/16 22:00 105 09/06/16 20:57 100 40 09/06/16 20:00 40 09/06/16 20:00 97 09/06/16 20:00 99.9 97 21 118/72 99 112/67 09/06/16 18:00 101 09/06/16 16:14 98 40 09/06/16 16:02 40 09/06/16 16:00 108 09/06/16 16:00 99.2 108 23 102/67 97 97/60 09/06/16 09/06/16 09/07/16 15:00 23:00 07:00 Intake Total 2811 ml 1539 ml 1714 ml Output Total 3580 ml 2050 ml 1450 ml Balance -769 ml -511 ml 264 ml Intake IV Total 2495 ml 967 ml 1405 ml Tube Feeding 316 ml 572 ml 309 ml Output Urine Total 3400 ml 1750 ml 1150 ml Stool Total 180 ml 300 ml 300 ml # Bowel Movements 1 Laboratory Tests Test 09/07/16 09/08/16 05:45 03:40 White Blood Count 24.5 TH/MM3 25.5 TH/MM3 Red Blood Count 4.41 MIL/MM3 4.63 MIL/MM3 Hemoglobin 11.9 GM/DL 12.9 GM/DL Hematocrit 35.1 % 37.6 % Mean Corpuscular Volume 79.6 FL 81.3 FL Mean Corpuscular Hemoglobin 27.1 PG 27.9 PG Mean Corpuscular Hemoglobin 34.1 % 34.4 % Concent Red Cell Distribution Width 14.4 % 14.7 % Platelet Count 241 TH/MM3 270 TH/MM3 Mean Platelet Volume 9.0 FL 9.1 FL Neutrophils (%) (Auto) 80.0 % 76.2 % Lymphocytes (%) (Auto) 10.9 % 12.3 % Monocytes (%) (Auto) 7.7 % 10.4 % Eosinophils (%) (Auto) 1.1 % 0.4 % Basophils (%) (Auto) 0.3 % 0.7 % Neutrophils # (Auto) 19.6 TH/MM3 19.4 TH/MM3 Lymphocytes # (Auto) 2.7 TH/MM3 3.1 TH/MM3 Monocytes # (Auto) 1.9 TH/MM3 2.7 TH/MM3 Eosinophils # (Auto) 0.3 TH/MM3 0.1 TH/MM3 Basophils # (Auto) 0.1 TH/MM3 0.2 TH/MM3 CBC Comment DIFF FINAL AUTO DIFF Differential Comment FINAL DIFF MANUAL Differential Total Cells 100 Counted Neutrophils % (Manual) 61 % Band Neutrophils % 18 % Lymphocytes % 19 % Monocytes % 2 % Neutrophils # (Manual) 20.1 TH/MM3 Nucleated Red Blood Cells 4 /100 WBC Laboratory Tests Test 09/06/16 09/07/16 09/07/16 09/07/16 18:00 05:45 09:45 14:58 Potassium Level 3.0 MEQ/L 2.9 MEQ/L 3.5 MEQ/L Sodium Level 150 MEQ/L Chloride Level 112 MEQ/L Carbon Dioxide Level 28.5 MEQ/L Anion Gap 10 MEQ/L Blood Urea Nitrogen 21 MG/DL Creatinine 1.11 MG/DL Estimat Glomerular Filtration 70 ML/MIN Rate Random Glucose 123 MG/DL Calcium Level 8.1 MG/DL Phosphorus Level 0.8 MG/DL Magnesium Level 2.6 MG/DL Total Bilirubin 0.7 MG/DL Aspartate Amino Transf 478 U/L (AST/SGOT) Alanine Aminotransferase 394 U/L (ALT/SGPT) Alkaline Phosphatase 308 U/L Total Protein 5.9 GM/DL Albumin 1.8 GM/DL Lactic Acid Level 3.0 mmol/L Test 09/08/16 09/08/16 03:40 09:05 Sodium Level 151 MEQ/L Potassium Level 3.4 MEQ/L Chloride Level 113 MEQ/L Carbon Dioxide Level 23.6 MEQ/L Anion Gap 14 MEQ/L Blood Urea Nitrogen 28 MG/DL Creatinine 1.38 MG/DL Estimat Glomerular Filtration 55 ML/MIN Rate Random Glucose 177 MG/DL Calcium Level 7.7 MG/DL Phosphorus Level 1.1 MG/DL Magnesium Level 2.7 MG/DL Total Bilirubin 1.1 MG/DL Aspartate Amino Transf 410 U/L (AST/SGOT) Alanine Aminotransferase 352 U/L (ALT/SGPT) Alkaline Phosphatase 404 U/L Total Protein 6.2 GM/DL Albumin 1.8 GM/DL Lactic Acid Level 3.1 mmol/L Microbiology Date/Time Procedure Status Source Growth 09/06/16 11:41 Aerobic Blood Culture - Preliminary Resulted Blood Peripheral NO GROWTH IN 2 DAYS 09/06/16 11:41 Anaerobic Blood Culture - Preliminary Resulted Blood Peripheral NO GROWTH IN 2 DAYS 09/06/16 11:50 Aerobic Blood Culture - Preliminary Resulted Blood Peripheral NO GROWTH IN 2 DAYS 09/06/16 11:50 Anaerobic Blood Culture - Preliminary Resulted Blood Peripheral NO GROWTH IN 2 DAYS 09/08/16 08:57 Aerobic Blood Culture Received Blood Peripheral Pending 09/08/16 08:57 Anaerobic Blood Culture Received Blood Peripheral Pending 09/08/16 09:05 Aerobic Blood Culture Received Blood Peripheral Pending 09/08/16 09:05 Anaerobic Blood Culture Received Blood Peripheral Pending 09/08/16 11:00 Gram Stain Received Sputum Endotracheal Pending 09/08/16 11:00 Sputum Culture Received Sputum Endotracheal Pending Laboratory Tests Test 09/06/16 09/07/16 04:20 05:45 White Blood Count 27.8 TH/MM3 24.5 TH/MM3 Red Blood Count 4.46 MIL/MM3 4.41 MIL/MM3 Hemoglobin 12.0 GM/DL 11.9 GM/DL Hematocrit 35.3 % 35.1 % Mean Corpuscular Volume 79.2 FL 79.6 FL Mean Corpuscular Hemoglobin 26.9 PG 27.1 PG Mean Corpuscular Hemoglobin 33.9 % 34.1 % Concent Red Cell Distribution Width 14.3 % 14.4 % Platelet Count 276 TH/MM3 241 TH/MM3 Mean Platelet Volume 8.6 FL 9.0 FL Neutrophils (%) (Auto) 85.0 % 80.0 % Lymphocytes (%) (Auto) 5.7 % 10.9 % Monocytes (%) (Auto) 8.1 % 7.7 % Eosinophils (%) (Auto) 0.8 % 1.1 % Basophils (%) (Auto) 0.4 % 0.3 % Neutrophils # (Auto) 23.6 TH/MM3 19.6 TH/MM3 Lymphocytes # (Auto) 1.6 TH/MM3 2.7 TH/MM3 Monocytes # (Auto) 2.2 TH/MM3 1.9 TH/MM3 Eosinophils # (Auto) 0.2 TH/MM3 0.3 TH/MM3 Basophils # (Auto) 0.1 TH/MM3 0.1 TH/MM3 CBC Comment AUTO DIFF DIFF FINAL Differential Total Cells 100 Counted Neutrophils % (Manual) 79 % Band Neutrophils % 10 % Lymphocytes % 5 % Monocytes % 5 % Eosinophils % 1 % Neutrophils # (Manual) 24.7 TH/MM3 Differential Comment FINAL DIFF MANUAL Platelet Estimate NORMAL Platelet Morphology Comment CLUMPED Red Cell Morphology Comment NORMAL Laboratory Tests Test 09/05/16 09/06/16 09/06/16 09/06/16 15:00 00:00 04:20 10:12 Potassium Level 2.7 MEQ/L 2.7 MEQ/L 2.5 MEQ/L 2.5 MEQ/L Lactic Acid Level 5.9 mmol/L 6.3 mmol/L Sodium Level 140 MEQ/L Chloride Level 100 MEQ/L Carbon Dioxide Level 27.0 MEQ/L Anion Gap 13 MEQ/L Blood Urea Nitrogen 24 MG/DL Creatinine 1.81 MG/DL Estimat Glomerular Filtration 40 ML/MIN Rate Random Glucose 172 MG/DL Calcium Level 7.9 MG/DL Phosphorus Level 2.2 MG/DL Magnesium Level 2.3 MG/DL Total Bilirubin 0.6 MG/DL Aspartate Amino Transf 655 U/L (AST/SGOT) Alanine Aminotransferase 440 U/L (ALT/SGPT) Alkaline Phosphatase 278 U/L Total Protein 6.1 GM/DL Albumin 1.9 GM/DL Test 09/06/16 09/07/16 09/07/16 18:00 05:45 09:45 Potassium Level 3.0 MEQ/L 2.9 MEQ/L Sodium Level 150 MEQ/L Chloride Level 112 MEQ/L Carbon Dioxide Level 28.5 MEQ/L Anion Gap 10 MEQ/L Blood Urea Nitrogen 21 MG/DL Creatinine 1.11 MG/DL Estimat Glomerular Filtration 70 ML/MIN Rate Random Glucose 123 MG/DL Calcium Level 8.1 MG/DL Phosphorus Level 0.8 MG/DL Magnesium Level 2.6 MG/DL Total Bilirubin 0.7 MG/DL Aspartate Amino Transf 478 U/L (AST/SGOT) Alanine Aminotransferase 394 U/L (ALT/SGPT) Alkaline Phosphatase 308 U/L Total Protein 5.9 GM/DL Albumin 1.8 GM/DL Lactic Acid Level 3.0 mmol/L Microbiology Date/Time Procedure Status Source Growth 09/04/16 15:00 Aerobic Blood Culture - Preliminary Resulted Blood Line NO GROWTH IN 3 DAYS 09/04/16 15:00 Anaerobic Blood Culture - Preliminary Resulted Blood Line NO GROWTH IN 3 DAYS 09/04/16 15:15 Aerobic Blood Culture - Preliminary Resulted Blood Line NO GROWTH IN 3 DAYS 09/04/16 15:15 Anaerobic Blood Culture - Preliminary Resulted Blood Line NO GROWTH IN 3 DAYS 09/05/16 05:30 Urine Culture - Final Complete Urine Catheterized Urine NO GROWTH IN 48 HOURS. 09/05/16 13:30 Gram Stain - Final Complete Sputum Endotracheal 09/05/16 13:30 Sputum Culture - Final Complete Sputum Endotracheal RARE GROWTH NORMAL RESPIRATORY TWAN 09/05/16 13:30 Legionella Antigen - Final Complete Urine Catheterized Urine PRESUMPTIVE NEGATIVE FOR LEGIONELLA P... 09/05/16 13:30 Streptococcus pneumoniae Antigen (M - Final Complete Urine Catheterized Urine PRESUMPTIVE NEGATIVE FOR STREPTOCOCCU... 09/06/16 11:41 Aerobic Blood Culture - Preliminary Resulted Blood Peripheral NO GROWTH IN 1 DAY 09/06/16 11:41 Anaerobic Blood Culture - Preliminary Resulted Blood Peripheral NO GROWTH IN 1 DAY 09/06/16 11:50 Aerobic Blood Culture - Preliminary Resulted Blood Peripheral NO GROWTH IN 1 DAY 09/06/16 11:50 Anaerobic Blood Culture - Preliminary Resulted Blood Peripheral NO GROWTH IN 1 DAY IMAGING: Chest X-Ray 09/08/16 0600 Signed Impressions: Service Date/Time: Thursday, September 08, 2016 04:50 - CONCLUSION: 1. Lucency overlying the right hemidiaphragm of uncertain etiology. 2. Bibasilar infiltrates. 3. Prominence of left hilum consistent with mass. Armen Power MD Chest X-Ray 09/06/16 0000 Signed Impressions: Service Date/Time: August 08:28 - CONCLUSION: Mild airspace consolidation in the lower lung zones bilaterally but overall significantly improved compared to the study from 2 days ago. Casey Phelps MD Abdomen Ultrasound 09/05/16 0000 Signed Impressions: Service Date/Time: Monday, September 05, 2016 09:21 - CONCLUSION: Enlarged heterogeneous liver. The heterogeneity is thought to be secondary to somewhat ill-defined echogenic masses throughout the liver. Metastatic disease needs to be suspected. Casey Cisneros MD Head CT 09/04/162 Signed Impressions: Service Date/Time: Sunday, September 04, 2016 13:39 - CONCLUSION: 2.3 cm hyperdense mass seen at the left parietal lobe. This is thought to likely represent a mass. Some degree of hemorrhage can not be excluded given the density. There is also a questionable second smaller area of hyperdensity seen in the anterior inferior midline frontal lobe region. It is recommended both these areas be further evaluated with a MRI examination with contrast if there are no contraindications. Casey Cisneros MD Chest X-Ray 09/04/[id number] Signed Impressions: Service Date/Time: Sunday, September 04, 2016 13:15 - CONCLUSION: 1. Multilobar consolidation likely pneumonia. 2. Adequate placement of endotracheal tube. Armen Power MD Head CT [id number]/04/[id number] Signed Impressions: Service Date/Time: Sunday, September 04, 2016 13:39 - CONCLUSION: 2.3 cm hyperdense mass seen at the left parietal lobe. This is thought to likely represent a mass. Some degree of hemorrhage can not be excluded given the density. There is also a questionable second smaller area of hyperdensity seen in the anterior inferior midline frontal lobe region. It is recommended both these areas be further evaluated with a MRI examination with contrast if there are no contraindications. Casey Cisneros MD Chest X-Ray 09/04/16 1312 Signed Impressions: Service Date/Time: Sunday, September 04, 2016 13:15 - CONCLUSION: 1. Multilobar consolidation likely pneumonia. 2. Adequate placement of endotracheal tube. Armen Power MD Aorta CTA 09/04/16 0000 Signed Impressions: Service Date/Time: Sunday, September 04, 2016 13:44 - CONCLUSION: 1. Abnormal examination demonstrating large left hilar mass with bulky mediastinal adenopathy and associated post obstructive airspace disease in the superior segment of the left lower lobe. There is also evidence for bulky metastatic disease to the liver and solitary mesenteric metastasis. 1.5 cm left adrenal mass also suspicious for metastasis. 2. Bilateral lower lobe airspace consolidation may reflect aspiration in this intubated patient. 3. Patchy groundglass opacities in the upper lobes bilaterally consistent light reflex edema and volume loss. 4. No evidence for aortic dissection, significant aneurysm, or injury. Pepe Miramontes MD PHYSICAL EXAMINATION: GENERAL: Unresponsive. Sedated on the vent HEENT: Intubated. Opaque R cornea, L pupil dilated and reactive NECK: Supple. No adenopathy. LUNGS: Bilateral rhonchi. HEART: Regular S1-S2. No murmur. No rubs, No gallops. ABDOMEN: Obese, soft. (+) BS, no reaction to palpation. Liver enlarged, firm EXTREMITIES: No clubbing, cyanosis or edema. SKIN: No rash. NEUROLOGIC: Unable to assess. PSYCH: Unable to assess. : Roland in place IMPRESSION Sepsis Multilobar pneumonia, possibly secondary to aspiration. Probable source. 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 Acute Respiratory failure. Altered mental status secondary to sepsis. Seizure. Leukocytosis - WBC still elevated. Elevated LFT's Recurrent high fevers, ?new infection RECOMMENDATIONS: Continue vancomycin. Change Piperacillin/tazobactam to cefepime/Levaquin Add Micafungin Follow new C/S Monitor temps Monitor progress D/W Alicia Tello MD Sep 08, 2016 14:45
[2016-09-08] MEDS ORDERED: METOPROLOL TARTRATE 5 MG/5 ML VIAL IV PUSH ONE (15:00)
[2016-09-08] MEDS: MICAFUNGIN INJ 100 MG in SODIUM CHLORIDE 0.9% INJ 100 ML IV SCH (15:17)
[2016-09-08 15:45] LABS: POTASSIUM 3.6 MEQ/L (3.5-5.1)
[2016-09-08] MEDS: LEVOFLOXACIN 750 MG PREMIX INJ 150 ML IV SCH (16:08)
[2016-09-08] MEDS: CEFEPIME INJ 2,000 MG in SODIUM CHLORIDE 0.9% INJ 100 ML IV SCH (16:11)
[2016-09-08] MEDS: METOPROLOL TARTRATE 5 MG/5 ML VIAL IV PUSH SCH (18:00)
[2016-09-08] MEDS: SENNOSIDES SYRUP 8.8 MG/5 ML CUP PO SCH (18:38)
[2016-09-08] MEDS: DOCUSATE SODIUM 100 MG/10 ML UDC PO SCH (20:31)
[2016-09-08] MEDS: LACTULOSE SYRUP 20 GM/30 ML CUP PO SCH (20:31)
[2016-09-09] VITALS (20 sets, daily range): BP systolic 73–108; BP diastolic 54–70; PULSE 126–144; RESP 20–27; TEMP 98.6–102.3; O2SAT 94–100
[2016-09-09] MEDS: CHLORHEXIDINE GLUCONATE 2 % 1 PACK (2 CLOTHS) TOP SCH (03:24)
[2016-09-09] MEDS: CEFEPIME INJ 2,000 MG in SODIUM CHLORIDE 0.9% INJ 100 ML IV SCH ×2 (03:27→15:33)
[2016-09-09] MEDS: ACETAMINOPHEN 325 MG TAB PO PRN (03:28)
[2016-09-09] MEDS: INSULIN NovoLIN REGULAR SUPPLEMENTAL SCALE SQ SCH ×5 (03:30→20:00)
[2016-09-09] MEDS: RESP: ALBUTEROL 2.5 MG/IPRATROPIUM 0.5 MG NEB (SCH) INH ×4 (03:33→22:11)
[2016-09-09] MEDS: FREE WATER G-TUBE SCH ×3 (04:34→17:58)
[2016-09-09] MEDS: HYDROCORTISONE SOD SUCCINATE 100 MG VIAL IV PUSH SCH ×2 (05:18→17:57)
[2016-09-09] MEDS: METOPROLOL TARTRATE 5 MG/5 ML VIAL IV PUSH SCH ×4 (05:18→17:58)
[2016-09-09] MEDS: PANTOPRAZOLE SODIUM 40 MG VIAL IV SCH (07:53)
[2016-09-09] MEDS: SENNOSIDES SYRUP 8.8 MG/5 ML CUP PO SCH (07:53)
[2016-09-09] MEDS: LACTULOSE SYRUP 20 GM/30 ML CUP PO SCH ×2 (07:53→21:07)
[2016-09-09] MEDS: DOCUSATE SODIUM 100 MG/10 ML UDC PO SCH ×2 (07:53→21:07)
[2016-09-09] MEDS: levETIRAcetam INJ 500 MG in SODIUM CHLORIDE 0.9% INJ 100 ML IV SCH ×2 (07:53→21:07)
[2016-09-09] MEDS: CHLORHEXIDINE 0.12% (ORAL KIT) 15 ML CUP MT SCH ×2 (07:54→21:09)
[2016-09-09 08:30] LABS: HEMATOCRIT 39.6 % (39.0-51.0); MEAN CELL VOLUME 82.3 FL (80.0-100.0); MEAN CORPUSCULAR HEMOGLOBIN 28.7 PG (27.0-34.0); MEAN CORPUSCULAR HGB CONC 34.8 % (32.0-36.0); PLATELET COUNT 200 TH/MM3 (150-450); RED BLOOD COUNT 4.81 MIL/MM3 (4.50-5.90); RED CELL DISTRIBUTION WIDTH 15.4 % (11.6-17.2); WHITE BLOOD COUNT 25.3 TH/MM3 (4.0-11.0)
[2016-09-09 08:38] LABS: HEMO FLAGS AUTO DIFF
[2016-09-09 09:46] LABS: CALCIUM-PROTEIN CORRECTED 7.5 MG/DL (8.5-10.1); MAGNESIUM 2.6 MG/DL (1.5-2.5); TOTAL BILIRUBIN ADULT 1.1 MG/DL (0.2-1.0)
[2016-09-09 09:47] LABS: BICARBONATE 18.6 MEQ/L (21.0-32.0); POTASSIUM 3.9 MEQ/L (3.5-5.1)
[2016-09-09 10:05] LABS: BANDS 12 % (0-6); CORRECTED NUCLEATED RBC 1 /100 WBC (0-0); NEUTROPHIL # MANUAL DIFF 21.5 TH/MM3 (1.8-7.7); POLYS (SEG NEUTROPHILS) 73 % (16-70); TOXIC GRANULATION 1+ (NORMAL); TOXIC VACUOLATION PRESENT (NONE SEEN); WBC DIFF SAMPLE 100
[2016-09-09 10:06] LABS: PLATELET ESTIMATE SMEAR NORMAL (NORMAL); PLATELET MORPHOLOGY NORMAL (NORMAL); SCAN/DIFF FINAL DIFF MANUAL
--- NOTE | 2016-09-09 10:55 | HHI.CCPN ---
Subjective Remarks/Hospital Course The patient is a 50-year-old male with past medical history of hypertension, diabetes mellitus, seizure disorder, chronic back pain, bipolar disorder who presented to the ED with a witnessed generalized seizure. In addition the patient was altered and hypoxic with O2 saturation in the 70s. He initially somewhat improved on a non-rebreather but due to labored breathing or diaphoresis he was subsequently intubated in the ED and placed on full mechanical ventilation. According to the patient's family the patient has been having progressive worsening shortness of breath and he has not been feeling well lately. In addition he reported feeling nauseous and heartburn. On arrival to the ER he was tachycardiac, hypotensive and was subsequently placed on Levophed which is currently at 20 mics. The patient was given 3 liters of crystalloids in the ED. ABG post intubation showed pH of 7.23, CO2 33, pAO2 180 , bicarb 13, saturation 97% on PRVC mode with a rate of 18, tidal volume 500, PEEP of 5, IT: 1.0, FIO2 100%. His laboratory data significant for lactic acidemia with a lactic acid level of 11.3, acute kidney injury with a creatinine 2.17 and leukocytosis with bandemia. His WBC is 34.8 with bands of 16. A CT scan of the brain in the ER was obtained which showed a 2.3 cm hyperdense mass at the left parietal lobe and a questionable second small area of hyperdensity seen in the frontal lobe region. He also had a CTA of the aorta which showed significant hilar and mediastinal adenopathy and liver mets. In the ER he was given Zosyn, azithromycin and placed on Diprivan infusion for sedation. A right femoral central line and left radial A-line was placed by the ED physician. 09/05 Patient was self extubated and was reintubated last night . Sedated with Diprivan , Fentanyl and intubated. On Levophed and now Neosyn. Renal function is worsening with Cr: 2.34 from 2.14 09/06 Patient remains sedated with Diprivan and Fentanyl and intubated. On Levophed 13 mics and Neosyn 160 mics. Spiked fever with T:102.1 Renal function is improving with Cr:1.81 from 2.34. 09/07 No events overnight. Remains sedated with Diprivan and intubated. Off all pressors renal function is improving with Cr: 1.11 from 1.81. T:99.8 09/08 Patient is sedate with Diprivan and intubated. T:103.0 at 4 am. Given Metoprolol 5mg Iv early this morning for sinus tachycardia. 09/09 Patient is sedated with Fentanyl and intubated, T: 102.0 Objective Vital Signs Date Time Temp Pulse Resp B/P Pulse Ox O2 Delivery O2 Flow Rate FiO2 09/09/16 08:31 97 35 09/09/16 08:00 137 09/09/16 08:00 102.0 24 95/59 73/61 09/07/16 08:16 Nasal Cannula 3.50 Intake and Output 09/08/16 09/08/16 09/08/16 07:59 15:59 23:59 Intake Total 1889 ml 4988 ml Output Total 1200 ml 2600 ml Balance 689 ml 2388 ml Result Diagram: 09/09/16 0750 09/09/16 0750 Other Results Laboratory Tests Test 09/08/16 09/08/16 09/09/16 11:00 15:00 07:50 Urine Color YELLOW Urine Turbidity CLEAR Urine pH 6.0 Urine Specific [place] 1.017 Urine Protein TRACE mg/dL Urine Glucose (UA) 70 mg/dL Urine Ketones NEG mg/dL Urine Occult Blood TRACE Urine Nitrite NEG Urine Bilirubin NEG Urine Urobilinogen LESS THAN 2.0 MG/DL Urine Leukocyte Esterase NEG Urine RBC 3 /hpf Urine WBC 1 /hpf Urine Mucus FEW /lpf Microscopic Urinalysis Comment CATH-CULT NOT IND Potassium Level 3.6 MEQ/L 3.9 MEQ/L Phosphorus Level 2.1 MG/DL 3.9 MG/DL White Blood Count 25.3 TH/MM3 Red Blood Count 4.81 MIL/MM3 Hemoglobin 13.8 GM/DL Hematocrit 39.6 % Mean Corpuscular Volume 82.3 FL Mean Corpuscular Hemoglobin 28.7 PG Mean Corpuscular Hemoglobin 34.8 % Concent Red Cell Distribution Width 15.4 % Platelet Count 200 TH/MM3 Mean Platelet Volume 9.4 FL Neutrophils (%) (Auto) % Lymphocytes (%) (Auto) % Monocytes (%) (Auto) % Eosinophils (%) (Auto) % Basophils (%) (Auto) % Neutrophils # (Auto) TH/MM3 Lymphocytes # (Auto) TH/MM3 Monocytes # (Auto) TH/MM3 Eosinophils # (Auto) TH/MM3 Basophils # (Auto) TH/MM3 CBC Comment AUTO DIFF Differential Total Cells 100 Counted Neutrophils % (Manual) 73 % Band Neutrophils % 12 % Lymphocytes % 8 % Monocytes % 7 % Neutrophils # (Manual) 21.5 TH/MM3 Nucleated Red Blood Cells 1 /100 WBC Differential Comment FINAL DIFF MANUAL Toxic Granulation 1+ Toxic Vacuolation PRESENT Platelet Estimate NORMAL Platelet Morphology Comment NORMAL Polychromasia 2.0 % Sodium Level 153 MEQ/L Chloride Level 118 MEQ/L Carbon Dioxide Level 18.6 MEQ/L Anion Gap 16 MEQ/L Blood Urea Nitrogen 46 MG/DL Creatinine 1.49 MG/DL Estimat Glomerular Filtration 50 ML/MIN Rate Random Glucose 188 MG/DL Calcium Level 6.6 MG/DL Protein Corrected Calcium 7.5 MG/DL Magnesium Level 2.6 MG/DL Total Bilirubin 1.1 MG/DL Aspartate Amino Transf 635 U/L (AST/SGOT) Alanine Aminotransferase 302 U/L (ALT/SGPT) Alkaline Phosphatase 291 U/L Total Protein 5.2 GM/DL Albumin 1.5 GM/DL Imaging Last Impressions Chest X-Ray 09/08/16 0600 Signed Impressions: Service Date/Time: Thursday, September 08, 2016 04:50 - CONCLUSION: 1. Lucency overlying the right hemidiaphragm of uncertain etiology. 2. Bibasilar infiltrates. 3. Prominence of left hilum consistent with mass. Armen Power MD Abdomen Ultrasound 09/05/16 0000 Signed Impressions: Service Date/Time: Monday, September 05, 2016 09:21 - CONCLUSION: Enlarged heterogeneous liver. The heterogeneity is thought to be secondary to somewhat ill-defined echogenic masses throughout the liver. Metastatic disease needs to be suspected. Casey Cisneros MD Head CT 09/04/16 1312 Signed Impressions: Service Date/Time: Sunday, September 04, 2016 13:39 - CONCLUSION: 2.3 cm hyperdense mass seen at the left parietal lobe. This is thought to likely represent a mass. Some degree of hemorrhage can not be excluded given the density. There is also a questionable second smaller area of hyperdensity seen in the anterior inferior midline frontal lobe region. It is recommended both these areas be further evaluated with a MRI examination with contrast if there are no contraindications. Casey Cisneros MD Aorta CTA 09/04/16 0000 Signed Impressions: Service Date/Time: Sunday, September 04, 2016 13:44 - CONCLUSION: 1. Abnormal examination demonstrating large left hilar mass with bulky mediastinal adenopathy and associated post obstructive airspace disease in the superior segment of the left lower lobe. There is also evidence for bulky metastatic disease to the liver and solitary mesenteric metastasis. 1.5 cm left adrenal mass also suspicious for metastasis. 2. Bilateral lower lobe airspace consolidation may reflect aspiration in this intubated patient. 3. Patchy groundglass opacities in the upper lobes bilaterally consistent light reflex edema and volume loss. 4. No evidence for aortic dissection, significant aneurysm, or injury. Pepe Miramontes MD Objective Remarks GENERAL: Patient is 50 yo remains sedated and intubated, SKIN: Warm and dry. HEAD: Normocephalic. EYES: No scleral icterus. No injection or drainage. NECK: Supple, trachea midline. No JVD or lymphadenopathy. Orally intubated CARDIOVASCULAR:Tachycardic without murmurs, gallops, or rubs. RESPIRATORY: Breath sounds equal bilaterally. No accessory muscle use. GASTROINTESTINAL: Abdomen soft, non-tender, nondistended. MUSCULOSKELETAL: No cyanosis, or edema. Neuro: Sedated, intubated A/P Assessment and Plan 1. VDRF 2. s/p Septic shock. 3. Likely post obstructive pneumonia. 4. Leukocytosis with bandemia. 5. Status post seizure. 6. Lactic acidemia likely secondary to seizure and septic shock. 7. Acute kidney injury and hyponatremia. 8. Anion gap metabolic acidosis. 9. Elevated liver enzymes. 10. Brain masses rule out mets. 11. Mediastinal / hilar adenopathy need to rule out bronchogenic carcinoma. 12. Liver mets. 13. History of hypertension. 14. Hyperglycemia with underlying history of diabetes mellitus. 15. Obesity. 16. Chronic back pain. 17. History of bipolar disorder. Plan Neuro: On Fentanyl infusion for sedation and vent synchrony. Off Diprivan. Monitor neuro status closely and daily sedation vacation On Keppra 500 mg IV q. 12 , Neuro is following- Dr. Swift EEG showed mild- mod encephalopathy. Will need MRI brain when stable. Pulm: Continue vent support and maintain sats above 92%. Bronchodilators, ICU vent bundle. SBT daily as cecily. Pulm is following Dr. Botello for possible bronch with bx tomorrow by pulm CV: On Lopressor 2.5mg IV Q6 Monitor HR and BP and maintain MAP>65 mmHg. Lactic acid trending down. Decrease hydrocortisone 25 mg IV q.12. Echo showed EF 70-75% : Monitor renal function Is and Os and avoid nephrotoxins. Cr: 1.49 today from 1.38 US kidneys: No hydronephrosis, non-obstructing stone on left. Renal is following- Dr. Barrow, IVF D5W@75ml.hr, Free water 300ml Q6, monitor sodium level. Diurese with Bumex 1mg x1 GI: on Protonix 40 mg IV daily. On Glucerna 1.5 @45ml/hr Monitor LFTs US liver: Enlarged heterogeneous liver. The heterogeneity is thought to be secondary to somewhat ill-defined echogenic masses throughout the liver. Metastatic disease is suspected. ID: Continue with abx(Cefepime, Levaquin, Micafungin , Vanco ) ID is following. Monitor for signs of infections ( Fever, WBC) Sputum cx: 09/05:nl fredrick, follow up on sputum cx 09/08 strep pneumonia and Legionella urinary AG negative on Previous cultures NGTD Heme: Monitor CBC. Oncology is following Endo: On medium scale SSI with Accu-Chek for glycemic control. TSH: 0.74 GI prophylaxis with Protonix 40 mg daily and DVT prophylaxis with SCDs. Not on chemical anticoagulation prophylaxis given likely brain mets Lines. Peripheral IV's Palliative care is following. CCT 30 mins Elisha Vanegas MD Sep 09, 2016 10:55
[2016-09-09] MEDS ORDERED: BUMETANIDE INJ 1 MG/4 ML VIAL IV PUSH ONE (11:00)
[2016-09-09] MEDS ORDERED: CALCIUM GLUCONATE INJ 1 GM in SODIUM CHLORIDE 0.9% INJ 100 ML IV ONE (12:00)
[2016-09-09] MEDS: VANCOMYCIN INJ 2,000 MG in SODIUM CHLORID 0.9% 500 ML INJ 500 ML IV SCH (12:42)
[2016-09-09] MEDS: fentaNYL DRIP 250 ML IV SCH (12:58)
--- NOTE | 2016-09-09 13:07 | HHI.IDPN ---
Note Infectious Disease Note ID COVERAGE Notes reviewed Continues to have high fevers BP ok, not on pressors Sedated. Tachycardic. Nothing new on new C/S obtained Patient was brought to emergency department after having seizures. He has altered mental status. The patient was intubated and is currently on the ventilator. He is on the ventilator on 50% FIO2 and is unresponsive. Has been found to have hilar mass, with adenopathy and possible liver mets, ? [employer] mets PAST MEDICAL HISTORY: 1. Seizure disorder. 2. Hypertension. 3. Diabetes mellitus. 4. Bipolar disorder. 5. Chronic back pain. ALLERGIES NO KNOWN DRUG ALLERGIES. MEDICATIONS Vancomycin Cefepime Levaquin Micafungin OBJECTIVE: Vital Signs Date Time Temp Pulse Resp B/P Pulse Ox O2 Delivery O2 Flow Rate FiO2 09/09/16 12:16 97 35 09/09/16 12:00 132 09/09/16 12:00 35 09/09/16 12:00 98.6 132 24 108/54 96 Arterial Line 09/09/16 10:00 137 09/09/16 08:31 97 35 09/09/16 08:00 137 09/09/16 08:00 102.0 137 24 95/59 96 73/61 09/09/16 08:00 35 09/09/16 08:00 102.0 137 24 88/63 95 87/62 09/09/16 08:00 35 09/09/16 06:00 136 09/09/16 04:57 95 35 09/09/16 04:00 137 09/09/16 04:00 101.0 137 24 88/63 95 87/62 09/09/16 04:00 35 09/09/16 02:00 144 09/09/16 01:11 95 35 09/09/16 00:00 35 09/09/16 00:00 102.3 138 27 98/65 97 91/70 09/09/16 00:00 138 09/08/16 22:30 97 35 09/08/16 22:00 144 09/08/16 20:49 97 35 09/08/16 20:00 102.6 143 27 98/70 97 87/68 09/08/16 20:00 35 09/08/16 20:00 141 09/08/16 18:38 30 09/08/16 18:00 141 09/08/16 18:00 102.5 141 30 83/59 96 90/77 09/08/16 16:00 102.8 137 30 98/68 96 98/77 09/08/16 16:00 35 09/08/16 16:00 137 09/08/16 15:45 96 35 09/08/16 15:00 102.6 144 29 101/69 96 97/76 09/08/16 14:00 143 09/08/16 14:00 103.0 143 30 103/66 96 85/72 Vital Signs Date Time Temp Pulse Resp B/P Pulse Ox O2 Delivery O2 Flow Rate FiO2 09/08/16 12:04 96 35 09/08/16 12:00 35 09/08/16 12:00 103.3 145 30 111/70 96 91/76 09/08/16 12:00 145 09/08/16 10:00 103.3 143 30 103/63 96 100/75 09/08/16 10:00 143 09/08/16 09:30 30 09/08/16 08:26 96 35 09/08/16 08:00 35 09/08/16 08:00 104.0 140 29 122/79 95 115/70 09/08/16 08:00 140 09/08/16 06:00 140 09/08/16 04:12 98 35 09/08/16 04:00 103.0 134 28 134/82 97 119/78 09/08/16 04:00 35 09/08/16 04:00 134 09/08/16 02:00 133 09/08/16 01:11 98 35 09/08/16 00:00 134 09/08/16 00:00 35 09/08/16 00:00 102.9 134 28 131/82 97 122/77 09/07/16 22:08 97 35 09/07/16 22:00 121 09/07/16 20:00 143 09/07/16 20:00 103.0 143 30 136/90 98 133/82 09/07/16 20:00 35 09/07/16 19:30 143 09/07/16 19:15 98 35 09/07/16 19:00 135 29 130/77 97 123/74 09/07/16 18:00 127 32 130/78 98 116/74 09/07/16 17:36 94 35 09/07/16 17:00 134 26 123/72 98 102/96 09/07/16 16:00 125 09/07/16 16:00 35 Laboratory Tests Test 09/08/16 09/09/16 03:40 07:50 White Blood Count 25.5 TH/MM3 25.3 TH/MM3 Red Blood Count 4.63 MIL/MM3 4.81 MIL/MM3 Hemoglobin 12.9 GM/DL 13.8 GM/DL Hematocrit 37.6 % 39.6 % Mean Corpuscular Volume 81.3 FL 82.3 FL Mean Corpuscular Hemoglobin 27.9 PG 28.7 PG Mean Corpuscular Hemoglobin 34.4 % 34.8 % Concent Red Cell Distribution Width 14.7 % 15.4 % Platelet Count 270 TH/MM3 200 TH/MM3 Mean Platelet Volume 9.1 FL 9.4 FL Neutrophils (%) (Auto) 76.2 % % Lymphocytes (%) (Auto) 12.3 % % Monocytes (%) (Auto) 10.4 % % Eosinophils (%) (Auto) 0.4 % % Basophils (%) (Auto) 0.7 % % Neutrophils # (Auto) 19.4 TH/MM3 TH/MM3 Lymphocytes # (Auto) 3.1 TH/MM3 TH/MM3 Monocytes # (Auto) 2.7 TH/MM3 TH/MM3 Eosinophils # (Auto) 0.1 TH/MM3 TH/MM3 Basophils # (Auto) 0.2 TH/MM3 TH/MM3 CBC Comment AUTO DIFF AUTO DIFF Differential Total Cells 100 100 Counted Neutrophils % (Manual) 61 % 73 % Band Neutrophils % 18 % 12 % Lymphocytes % 19 % 8 % Monocytes % 2 % 7 % Neutrophils # (Manual) 20.1 TH/MM3 21.5 TH/MM3 Nucleated Red Blood Cells 4 /100 WBC 1 /100 WBC Differential Comment FINAL DIFF FINAL DIFF MANUAL MANUAL Toxic Granulation 1+ Toxic Vacuolation PRESENT Platelet Estimate NORMAL Platelet Morphology Comment NORMAL Polychromasia 2.0 % Laboratory Tests Test 09/07/16 09/08/16 09/08/16 09/08/16 14:58 03:40 09:05 15:00 Potassium Level 3.5 MEQ/L 3.4 MEQ/L 3.6 MEQ/L Sodium Level 151 MEQ/L Chloride Level 113 MEQ/L Carbon Dioxide Level 23.6 MEQ/L Anion Gap 14 MEQ/L Blood Urea Nitrogen 28 MG/DL Creatinine 1.38 MG/DL Estimat Glomerular Filtration 55 ML/MIN Rate Random Glucose 177 MG/DL Calcium Level 7.7 MG/DL Phosphorus Level 1.1 MG/DL 2.1 MG/DL Magnesium Level 2.7 MG/DL Total Bilirubin 1.1 MG/DL Aspartate Amino Transf 410 U/L (AST/SGOT) Alanine Aminotransferase 352 U/L (ALT/SGPT) Alkaline Phosphatase 404 U/L Total Protein 6.2 GM/DL Albumin 1.8 GM/DL Lactic Acid Level 3.1 mmol/L Test 09/09/16 09/09/16 07:50 11:42 Sodium Level 153 MEQ/L Potassium Level 3.9 MEQ/L Chloride Level 118 MEQ/L Carbon Dioxide Level 18.6 MEQ/L Anion Gap 16 MEQ/L Blood Urea Nitrogen 46 MG/DL Creatinine 1.49 MG/DL Estimat Glomerular Filtration 50 ML/MIN Rate Random Glucose 188 MG/DL Calcium Level 6.6 MG/DL Protein Corrected Calcium 7.5 MG/DL Phosphorus Level 3.9 MG/DL Magnesium Level 2.6 MG/DL Total Bilirubin 1.1 MG/DL Aspartate Amino Transf 635 U/L (AST/SGOT) Alanine Aminotransferase 302 U/L (ALT/SGPT) Alkaline Phosphatase 291 U/L Total Protein 5.2 GM/DL Albumin 1.5 GM/DL Ammonia 62 MCMOL/L Microbiology Date/Time Procedure Status Source Growth 09/08/16 08:57 Aerobic Blood Culture - Preliminary Resulted Blood Peripheral NO GROWTH IN 1 DAY 09/08/16 08:57 Anaerobic Blood Culture - Preliminary Resulted Blood Peripheral NO GROWTH IN 1 DAY 09/08/16 09:05 Aerobic Blood Culture - Preliminary Resulted Blood Peripheral NO GROWTH IN 1 DAY 09/08/16 09:05 Anaerobic Blood Culture - Preliminary Resulted Blood Peripheral NO GROWTH IN 1 DAY 09/08/16 11:00 Gram Stain - Final Resulted Sputum Endotracheal 09/08/16 11:00 Sputum Culture - Preliminary Resulted Sputum Endotracheal IMMATURE GROWTH - REINCUBATE IMAGING: Chest X-Ray 09/08/16 0600 Signed Impressions: Service Date/Time: Thursday, September 08, 2016 04:50 - CONCLUSION: 1. Lucency overlying the right hemidiaphragm of uncertain etiology. 2. Bibasilar infiltrates. 3. Prominence of left hilum consistent with mass. Armen Power MD Chest X-Ray 09/06/16 Signed Impressions: Service Date/Time: August 08:28 - CONCLUSION: Mild airspace consolidation in the lower lung zones bilaterally but overall significantly improved compared to the study from 2 days ago. Casey Phelps MD Abdomen Ultrasound 09/05/16 Signed Impressions: Service Date/Time: Monday, September 05, 2016 09:21 - CONCLUSION: Enlarged heterogeneous liver. The heterogeneity is thought to be secondary to somewhat ill-defined echogenic masses throughout the liver. Metastatic disease needs to be suspected. Casey Cisneros MD Head CT 09/04/161311 Signed Impressions: Service Date/Time: Sunday, September 04, 2016 13:39 - CONCLUSION: 2.3 cm hyperdense mass seen at the left parietal lobe. This is thought to likely represent a mass. Some degree of hemorrhage can not be excluded given the density. There is also a questionable second smaller area of hyperdensity seen in the anterior inferior midline frontal lobe region. It is recommended both these areas be further evaluated with a MRI examination with contrast if there are no contraindications. Casey Cisneros MD Chest X-Ray 09/04/161311 Signed Impressions: Service Date/Time: Sunday, September 04, 2016 13:15 - CONCLUSION: 1. Multilobar consolidation likely pneumonia. 2. Adequate placement of endotracheal tube. Armen Power MD Head CT 09/04/161311 Signed Impressions: Service Date/Time: Sunday, September 04, 2016 13:39 - CONCLUSION: 2.3 cm hyperdense mass seen at the left parietal lobe. This is thought to likely represent a mass. Some degree of hemorrhage can not be excluded given the density. There is also a questionable second smaller area of hyperdensity seen in the anterior inferior midline frontal lobe region. It is recommended both these areas be further evaluated with a MRI examination with contrast if there are no contraindications. Casey Cisneros MD Chest X-Ray 09/04/161311 Signed Impressions: Service Date/Time: Sunday, September 04, 2016 13:15 - CONCLUSION: 1. Multilobar consolidation likely pneumonia. 2. Adequate placement of endotracheal tube. Armen Power MD Aorta CTA 09/04/16 Signed Impressions: Service Date/Time: Sunday, September 04, 2016 13:44 - CONCLUSION: 1. Abnormal examination demonstrating large left hilar mass with bulky mediastinal adenopathy and associated post obstructive airspace disease in the superior segment of the left lower lobe. There is also evidence for bulky metastatic disease to the liver and solitary mesenteric metastasis. 1.5 cm left adrenal mass also suspicious for metastasis. 2. Bilateral lower lobe airspace consolidation may reflect aspiration in this intubated patient. 3. Patchy groundglass opacities in the upper lobes bilaterally consistent light reflex edema and volume loss. 4. No evidence for aortic dissection, significant aneurysm, or injury. Pepe Miramontes MD PHYSICAL EXAMINATION: GENERAL: Unresponsive. Sedated on the vent HEENT: Intubated. Opaque R cornea, L pupil dilated and reactive NECK: Supple. No adenopathy. LUNGS: Bilateral rhonchi. HEART: Regular S1-S2. No murmur. No rubs, No gallops. ABDOMEN: Obese, soft. (+) BS, no reaction to palpation. Liver enlarged, firm EXTREMITIES: No clubbing, cyanosis or edema. SKIN: No rash. NEUROLOGIC: Unable to assess. PSYCH: Unable to assess. : Roland in place IMPRESSION Sepsis Multilobar pneumonia, possibly secondary to aspiration. Probable source. 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 Acute Respiratory failure. Altered mental status secondary to sepsis. Seizure. Leukocytosis - WBC still elevated. Elevated LFT's Recurrent high fevers, ?new infection - ?drug fever - ?due to his mass RECOMMENDATIONS: Stop vancomycin. Change Piperacillin/tazobactam to cefepime/Levaquin Continue Micafungin If temps continues and C/S negative, consider stopping B-lactam Abx Deescalate - stop Micafungin if C/S negative tomorrow Follow new C/S Monitor temps Monitor progress Alicia Merrill MD Sep 09, 2016 13:07
[2016-09-09] MEDS: MICAFUNGIN INJ 100 MG in SODIUM CHLORIDE 0.9% INJ 100 ML IV SCH (14:27)
[2016-09-09] MEDS: DEXTROSE 5% IN WATE 1000ML INJ 1,000 ML IV SCH (14:39)
[2016-09-09] MEDS: LEVOFLOXACIN 750 MG PREMIX INJ 150 ML IV SCH (15:34)
[2016-09-09] MEDS ORDERED: LACTULOSE SYRUP 20 GM/30 ML CUP PO SCH (16:15)
--- NOTE | 2016-09-09 16:37 | RADRPT ---
EXAM DATE/TIME: 09/09/2016 16:04 [facility] COMPARISON: CHEST SINGLE AP, September 08, 2016, 4:50. CT BRAIN W/O CONTRAST, September 04, 2016, 13:39. INDICATIONS : Altered mental status. RADIATION DOSE: 42.52 CTDIvol (mGy) MEDICAL HISTORY : Hypertension. Cardiovascular disease Seizures. SURGICAL HISTORY : None. ENCOUNTER: Initial ACUITY: 1 day PAIN SCALE: LOCATION: Cranial TECHNIQUE: Multiple contiguous axial images were obtained of the head. Using automated exposure control and adj ustment of the mA and/or kV according to patient size, radiation dose was kept as low as reasonably a chievable to obtain optimal diagnostic quality images. DICOM format image data is available electro nically for review and comparison. FINDINGS: There is a persistent area of increased density within the left high parietal region which remains in determinate. Again, MRI with contrast would be helpful to determine if this represents a hyperdense mass or area of focal hemorrhage. Focal encephalomalacia is noted within the right parietal region a nd is stable. There is no midline shift. The ventricles are normal in size, shape and position for the patient's age. CONCLUSION: 1. Focal area of increased density within the left high parietal region which is unchanged compared to the previous examination. This remains nonspecific and may either represent a hyperdense mass or possibly an area of focal hemorrhage. MRI of the brain with contrast would be helpful for further ev aluation of this finding. 2. Stable encephalomalacia involving the right parietal region. Kirit Barreto MD on September 09, 2016 at 16:21 Board Certified Radiologist. This report was verified electronically.
--- NOTE | 2016-09-09 17:11 | RADRPT ---
EXAM DATE/TIME: 09/09/2016 16:25 [facility] COMPARISON: CT BRAIN W/O CONTRAST, September 09, 2016, 16:04. INDICATIONS : Altered mental status. MEDICAL HISTORY : Sepsis. Metastatic, brain. Hypertension. SURGICAL HISTORY : Orthopedic. ENCOUNTER: Subsequent ACUITY: 4-6 days PAIN SCORE: 0/10 LOCATION: Cranial TECHNIQUE: Multiplanar, multisequence MRI of the brain was performed without contrast. FINDINGS: There is evidence of an apparent left high parietal extraaxial mass measuring 2.6 x 1.6 cm which demo nstrates some hemorrhage. This is suspicious for metastatic disease. Hemorrhage within meningioma i s much less likely. There is a focus of signal abnormality within the left subcortical white matter in the posteroparietal region which raises the possibility of tiny acute lacunar infarct. Focal area of encephalomalacia within the right frontoparietal region is noted. No midline shift is noted. CONCLUSION: 1. 2.6 x 1.5 cm extraaxial mass within the left high parietal region with some hemorrhagic component s raising the possibility of metastatic disease. 2. Tiny focal signal abnormality within the left posteroparietal subcortical white matter consistent with probable acute lacunar infarct. 3. Stable area of encephalomalacia involving the right frontoparietal region. Kirit Barreto MD on September 09, 2016 at 16:54 Board Certified Radiologist. This report was verified electronically.
[2016-09-09] MEDS ORDERED: SODIUM CHLORID 0.9% 500 ML INJ 500 ML IV ONE (17:45)
[2016-09-09] MEDS ORDERED: ALBUMIN HUMAN 5% 12.5 GM/250 ML BOTTLE IV ONE (17:45)
[2016-09-10] VITALS (18 sets, daily range): BP systolic 91–122; BP diastolic 54–72; PULSE 111–135; RESP 21–24; TEMP 99.3–101; O2SAT 94–99
[2016-09-10] MEDS: DEXTROSE 5% IN WATE 1000ML INJ 1,000 ML IV SCH ×2 (03:55→15:49)
[2016-09-10] MEDS: CHLORHEXIDINE GLUCONATE 2 % 1 PACK (2 CLOTHS) TOP SCH (04:00)
[2016-09-10] MEDS: INSULIN NovoLIN REGULAR SUPPLEMENTAL SCALE SQ SCH ×6 (04:00→20:00)
[2016-09-10] MEDS: RESP: ALBUTEROL 2.5 MG/IPRATROPIUM 0.5 MG NEB (SCH) INH ×4 (04:02→19:38)
[2016-09-10] MEDS: METOPROLOL TARTRATE 5 MG/5 ML VIAL IV PUSH SCH ×4 (05:54→17:06)
[2016-09-10] MEDS: FREE WATER G-TUBE SCH ×4 (06:00→17:06)
[2016-09-10] MEDS: CEFEPIME INJ 2,000 MG in SODIUM CHLORIDE 0.9% INJ 100 ML IV SCH (06:10)
[2016-09-10] MEDS: HYDROCORTISONE SOD SUCCINATE 100 MG VIAL IV PUSH SCH ×2 (06:10→17:07)
--- NOTE | 2016-09-10 07:11 | HHI.CCPN ---
Subjective Remarks/Hospital Course The patient is a 50-year-old male with past medical history of hypertension, diabetes mellitus, seizure disorder, chronic back pain, bipolar disorder who presented to the ED with a witnessed generalized seizure. In addition the patient was altered and hypoxic with O2 saturation in the 70s. He initially somewhat improved on a non-rebreather but due to labored breathing or diaphoresis he was subsequently intubated in the ED and placed on full mechanical ventilation. According to the patient's family the patient has been having progressive worsening shortness of breath and he has not been feeling well lately. In addition he reported feeling nauseous and heartburn. On arrival to the ER he was tachycardiac, hypotensive and was subsequently placed on Levophed which is currently at 20 mics. The patient was given 3 liters of crystalloids in the ED. ABG post intubation showed pH of 7.23, CO2 33, pAO2 180 , bicarb 13, saturation 97% on PRVC mode with a rate of 18, tidal volume 500, PEEP of 5, IT: 1.0, FIO2 100%. His laboratory data significant for lactic acidemia with a lactic acid level of 11.3, acute kidney injury with a creatinine 2.17 and leukocytosis with bandemia. His WBC is 34.8 with bands of 16. A CT scan of the brain in the ER was obtained which showed a 2.3 cm hyperdense mass at the left parietal lobe and a questionable second small area of hyperdensity seen in the frontal lobe region. He also had a CTA of the aorta which showed significant hilar and mediastinal adenopathy and liver mets. In the ER he was given Zosyn, azithromycin and placed on Diprivan infusion for sedation. A right femoral central line and left radial A-line was placed by the ED physician. 09/05 Patient was self extubated and was reintubated last night . Sedated with Diprivan , Fentanyl and intubated. On Levophed and now Neosyn. Renal function is worsening with Cr: 2.34 from 2.14 09/06 Patient remains sedated with Diprivan and Fentanyl and intubated. On Levophed 13 mics and Neosyn 160 mics. Spiked fever with T:102.1 Renal function is improving with Cr:1.81 from 2.34. 09/07 No events overnight. Remains sedated with Diprivan and intubated. Off all pressors renal function is improving with Cr: 1.11 from 1.81. T:99.8 09/08 Patient is sedate with Diprivan and intubated. T:103.0 at 4 am. Given Metoprolol 5mg Iv early this morning for sinus tachycardia. 09/09 Patient is sedated with Fentanyl and intubated, T: 102.0 09/10 Patient is off sedation doesn't follow commands. T:100.4 at 4 am. MRI brain yesterday showed 2.6 x 1.5 cm extraaxial mass within the left high parietal region with some hemorrhagic components ? metastatic disease. probable acute lacunar infarct. Objective Vital Signs Date Time Temp Pulse Resp B/P Pulse Ox O2 Delivery O2 Flow Rate FiO2 09/10/16 06:00 130 09/10/16 04:03 94 35 09/10/16 04:00 100.4 22 91/54 09/07/16 08:16 Nasal Cannula 3.50 Intake and Output 09/09/16 09/09/16 09/10/16 08:00 16:00 00:00 Intake Total 1216 ml 1498 ml 1579 ml Output Total 1100 ml 1000 ml 700 ml Balance 116 ml 498 ml 879 ml Result Diagram: 09/09/16 0750 09/09/16 0750 Other Results Laboratory Tests Test 09/09/16 09/09/16 07:50 11:42 White Blood Count 25.3 TH/MM3 Red Blood Count 4.81 MIL/MM3 Hemoglobin 13.8 GM/DL Hematocrit 39.6 % Mean Corpuscular Volume 82.3 FL Mean Corpuscular Hemoglobin 28.7 PG Mean Corpuscular Hemoglobin 34.8 % Concent Red Cell Distribution Width 15.4 % Platelet Count 200 TH/MM3 Mean Platelet Volume 9.4 FL Neutrophils (%) (Auto) % Lymphocytes (%) (Auto) % Monocytes (%) (Auto) % Eosinophils (%) (Auto) % Basophils (%) (Auto) % Neutrophils # (Auto) TH/MM3 Lymphocytes # (Auto) TH/MM3 Monocytes # (Auto) TH/MM3 Eosinophils # (Auto) TH/MM3 Basophils # (Auto) TH/MM3 CBC Comment AUTO DIFF Differential Total Cells 100 Counted Neutrophils % (Manual) 73 % Band Neutrophils % 12 % Lymphocytes % 8 % Monocytes % 7 % Neutrophils # (Manual) 21.5 TH/MM3 Nucleated Red Blood Cells 1 /100 WBC Differential Comment FINAL DIFF MANUAL Toxic Granulation 1+ Toxic Vacuolation PRESENT Platelet Estimate NORMAL Platelet Morphology Comment NORMAL Polychromasia 2.0 % Sodium Level 153 MEQ/L Potassium Level 3.9 MEQ/L Chloride Level 118 MEQ/L Carbon Dioxide Level 18.6 MEQ/L Anion Gap 16 MEQ/L Blood Urea Nitrogen 46 MG/DL Creatinine 1.49 MG/DL Estimat Glomerular Filtration 50 ML/MIN Rate Random Glucose 188 MG/DL Calcium Level 6.6 MG/DL Protein Corrected Calcium 7.5 MG/DL Phosphorus Level 3.9 MG/DL Magnesium Level 2.6 MG/DL Total Bilirubin 1.1 MG/DL Aspartate Amino Transf 635 U/L (AST/SGOT) Alanine Aminotransferase 302 U/L (ALT/SGPT) Alkaline Phosphatase 291 U/L Total Protein 5.2 GM/DL Albumin 1.5 GM/DL Ammonia 62 MCMOL/L Imaging Last Impressions Head CT 09/09/16 0000 Signed Impressions: Service Date/Time: Friday, September 09, 2016 16:04 - CONCLUSION: 1. Focal area of increased density within the left high parietal region which is unchanged compared to the previous examination. This remains nonspecific and may either represent a hyperdense mass or possibly an area of focal hemorrhage. MRI of the brain with contrast would be helpful for further evaluation of this finding. 2. Stable encephalomalacia involving the right parietal region. Kirit Barreto MD Brain MRI 09/09/16 0000 Signed Impressions: Service Date/Time: Friday, September 09, 2016 16:25 - CONCLUSION: 1. 2.6 x 1.5 cm extraaxial mass within the left high parietal region with some hemorrhagic components raising the possibility of metastatic disease. 2. Tiny focal signal abnormality within the left posteroparietal subcortical white matter consistent with probable acute lacunar infarct. 3. Stable area of encephalomalacia involving the right frontoparietal region. Kirit Barreto MD Chest X-Ray 09/08/16 0600 Signed Impressions: Service Date/Time: Thursday, September 08, 2016 04:50 - CONCLUSION: 1. Lucency overlying the right hemidiaphragm of uncertain etiology. 2. Bibasilar infiltrates. 3. Prominence of left hilum consistent with mass. Armen Power MD Abdomen Ultrasound 09/05/16 0000 Signed Impressions: Service Date/Time: Monday, September 05, 2016 09:21 - CONCLUSION: Enlarged heterogeneous liver. The heterogeneity is thought to be secondary to somewhat ill-defined echogenic masses throughout the liver. Metastatic disease needs to be suspected. Casey Cisneros MD Aorta CTA 09/04/16 0000 Signed Impressions: Service Date/Time: Sunday, September 04, 2016 13:44 - CONCLUSION: 1. Abnormal examination demonstrating large left hilar mass with bulky mediastinal adenopathy and associated post obstructive airspace disease in the superior segment of the left lower lobe. There is also evidence for bulky metastatic disease to the liver and solitary mesenteric metastasis. 1.5 cm left adrenal mass also suspicious for metastasis. 2. Bilateral lower lobe airspace consolidation may reflect aspiration in this intubated patient. 3. Patchy groundglass opacities in the upper lobes bilaterally consistent light reflex edema and volume loss. 4. No evidence for aortic dissection, significant aneurysm, or injury. Pepe Miramontes MD Objective Remarks GENERAL: Patient is 50 yo remains intubated, SKIN: Warm and dry. HEAD: Normocephalic. EYES: No scleral icterus. No injection or drainage. NECK: Supple, trachea midline. No JVD or lymphadenopathy. Orally intubated CARDIOVASCULAR:Tachycardic without murmurs, gallops, or rubs. RESPIRATORY: Breath sounds equal bilaterally. No accessory muscle use. GASTROINTESTINAL: Abdomen soft, non-tender, nondistended. MUSCULOSKELETAL: No cyanosis, or edema. Neuro: intubated, doesn't follow commands A/P Assessment and Plan 1. VDRF 2. s/p Septic shock. 3. Likely post obstructive pneumonia. 4. Leukocytosis with bandemia. 5. Status post seizure. 6. Lactic acidemia likely secondary to seizure and septic shock. 7. Acute kidney injury and hyponatremia. 8. Anion gap metabolic acidosis. 9. Elevated liver enzymes. 10. Brain masses rule out mets. 11. Mediastinal / hilar adenopathy need to rule out bronchogenic carcinoma. 12. Liver mets. 13. History of hypertension. 14. Hyperglycemia with underlying history of diabetes mellitus. 15. Obesity. 16. Chronic back pain. 17. History of bipolar disorder. Plan Neuro: Off sedation. Monitor neuro status closely. On Lactulose 15ml BID, Ammonia level 62 yesterday On Keppra 500 mg IV q. 12 , Neuro is following- Dr. Swift EEG showed mild- mod encephalopathy. MRI brain 09/09: showed 2.6 x 1.5 cm extraaxial mass within the left high parietal region with some hemorrhagic components ? metastatic disease. probable acute lacunar infarct. Pulm: Continue vent support and maintain sats above 92%. Bronchodilators, ICU vent bundle. SBT daily as cecily. Pulm is following Dr. Botello for possible bronch with bx today CV: On Lopressor 2.5mg IV Q6 Monitor HR and BP and maintain MAP>65 mmHg. Lactic acid trending down. hydrocortisone 25 mg IV q.12. Echo showed EF 70-75% : Monitor renal function Is and Os and avoid nephrotoxins. Follow up on BMP US kidneys: No hydronephrosis, non-obstructing stone on left. Renal is following- Dr. Barrow, IVF D5W@75ml.hr, Free water 300ml Q6, monitor sodium level. GI: on Protonix 40 mg IV daily. On Glucerna 1.5 @45ml/hr Monitor LFTs US liver: Enlarged heterogeneous liver. The heterogeneity is thought to be secondary to somewhat ill-defined echogenic masses throughout the liver. Metastatic disease is suspected. ID: Continue with abx(Cefepime, Levaquin, Micafungin) ID is following. Monitor for signs of infections ( Fever, WBC) Sputum cx: 09/05:nl fredrick, follow up on sputum cx 09/08 strep pneumonia and Legionella urinary AG negative on Previous cultures NGTD Heme: Monitor CBC. Oncology is following Endo: On medium scale SSI with Accu-Chek for glycemic control. TSH: 0.74 GI prophylaxis with Protonix 40 mg daily and DVT prophylaxis with SCDs. Not on chemical anticoagulation prophylaxis given likely brain mets Lines. Peripheral IV's Palliative care is following. CCT 30 mins Elisha Vanegas MD Sep 10, 2016 07:11
[2016-09-10] MEDS: CHLORHEXIDINE 0.12% (ORAL KIT) 15 ML CUP MT SCH ×2 (08:13→20:16)
[2016-09-10 08:27] LABS: AUTOMATED NEUTROPHIL # 19.9 TH/MM3 (1.8-7.7); BASOPHIL # 0.1 TH/MM3 (0-0.2); BASOPHIL % 0.3 % (0.0-2.0); EOSINOPHIL # 0.2 TH/MM3 (0-0.4); EOSINOPHIL % 0.9 % (0.0-4.0); HEMATOCRIT 35.9 % (39.0-51.0); HEMO FLAGS DIFF FINAL; LYMPH % 11.3 % (9.0-44.0); LYMPHOCYTE # 2.7 TH/MM3 (1.0-4.8); MEAN CELL VOLUME 82.6 FL (80.0-100.0); MEAN CORPUSCULAR HEMOGLOBIN 26.9 PG (27.0-34.0); MEAN CORPUSCULAR HGB CONC 32.6 % (32.0-36.0); MONO % 4.1 % (0.0-8.0); NEUT % 83.4 % (16.0-70.0); PLATELET COUNT 161 TH/MM3 (150-450); RED BLOOD COUNT 4.34 MIL/MM3 (4.50-5.90); RED CELL DISTRIBUTION WIDTH 15.5 % (11.6-17.2); WHITE BLOOD COUNT 23.9 TH/MM3 (4.0-11.0)
[2016-09-10 08:30] LABS: BICARBONATE 22.3 MEQ/L (21.0-32.0); POTASSIUM 4.3 MEQ/L (3.5-5.1)
[2016-09-10 08:32] LABS: CALCIUM-PROTEIN CORRECTED 8.1 MG/DL (8.5-10.1); TOTAL BILIRUBIN ADULT 1.3 MG/DL (0.2-1.0)
[2016-09-10] MEDS: SENNOSIDES SYRUP 8.8 MG/5 ML CUP PO SCH (08:40)
[2016-09-10] MEDS: LACTULOSE SYRUP 20 GM/30 ML CUP PO SCH ×2 (08:41→20:15)
[2016-09-10] MEDS: levETIRAcetam INJ 500 MG in SODIUM CHLORIDE 0.9% INJ 100 ML IV SCH ×2 (08:41→20:15)
[2016-09-10] MEDS: PANTOPRAZOLE SODIUM 40 MG VIAL IV SCH (08:42)
[2016-09-10] MEDS: DOCUSATE SODIUM 100 MG/10 ML UDC PO SCH ×2 (08:42→20:15)
--- NOTE | 2016-09-10 09:54 | HHI.NPPN ---
Subjective History of Present Illness This patient is a 50-year-old male with a history of hypertension, diabetes mellitus, seizure disorder, bipolar disorder and apparently tobacco use now presenting with septic shock and an apparent postobstructive pneumonia with radiological evidence of probable metastatic disease involving liver, brain with evidence of a left hilar mass. Presentation creatinine level is elevated to 2.17 with a bicarbonate of 15.8 and an anion gap of 20. Patient also had a CTA of the aorta performed on September 04, 2016 utilizing iodine contrast. Patient currently maintaining good urine output at time of consultation. Serum creatinine level was 0.9 back in March 2016. Interval History Pt off sedation yet remains unresponsive (Suellen Landry) Review of Systems General General Remarks Unable to obtain because of patient's condition. (Suellen Landry) Objective Data Data 09/09/16 09/10/16 19:00 07:00 Intake Total 2248 ml 2464 ml Output Total 1000 ml 1450.0 ml Balance 1248 ml 1014.0 ml Intake IV Total 1359 ml 1348 ml Tube Feeding 339 ml 516 ml Albumin 250 ml Other 300 ml 600 ml Output Urine Total 1000 ml 1450 ml Tube Feeding Residual Discard 0 ml Vital Signs Date Time Temp Pulse Resp B/P Pulse Ox O2 Delivery O2 Flow Rate FiO2 09/10/16 08:30 97 35 09/10/16 08:00 35 09/10/16 08:00 99.8 112 21 107/60 97 09/10/16 08:00 122 09/10/16 06:00 130 09/10/16 04:03 94 35 09/10/16 04:00 35 09/10/16 04:00 135 09/10/16 04:00 100.4 132 22 91/54 95 09/10/16 02:00 130 09/10/16 01:27 96 35 09/10/16 00:00 130 09/10/16 00:00 99.6 130 21 99/56 97 09/10/16 00:00 35 09/09/16 22:12 94 35 09/09/16 22:00 127 09/09/16 20:00 100.5 127 22 99/57 95 09/09/16 20:00 100.5 09/09/16 20:00 126 09/09/16 20:00 35 6/25/17 19:25 96 35 09/09/16 18:00 132 09/09/16 17:03 98 100 09/09/16 16:00 132 09/09/16 16:00 100.2 130 20 106/57 100 09/09/16 16:00 35 09/09/16 15:09 94 35 09/09/16 14:00 133 09/09/16 12:16 97 35 09/09/16 12:00 132 09/09/16 12:00 35 09/09/16 12:00 98.6 132 24 108/54 96 Arterial Line 09/09/16 10:00 137 (Suellen Landry) -: 09/10/16 0800 09/10/16 0800 Imaging Last Impressions Head CT 09/09/16 0000 Signed Impressions: Service Date/Time: Friday, September 09, 2016 16:04 - CONCLUSION: 1. Focal area of increased density within the left high parietal region which is unchanged compared to the previous examination. This remains nonspecific and may either represent a hyperdense mass or possibly an area of focal hemorrhage. MRI of the brain with contrast would be helpful for further evaluation of this finding. 2. Stable encephalomalacia involving the right parietal region. Kirit Barreto MD Brain MRI 09/09/16 0000 Signed Impressions: Service Date/Time: Friday, September 09, 2016 16:25 - CONCLUSION: 1. 2.6 x 1.5 cm extraaxial mass within the left high parietal region with some hemorrhagic components raising the possibility of metastatic disease. 2. Tiny focal signal abnormality within the left posteroparietal subcortical white matter consistent with probable acute lacunar infarct. 3. Stable area of encephalomalacia involving the right frontoparietal region. Kirit Barreto MD Chest X-Ray 09/08/16 0600 Signed Impressions: Service Date/Time: Thursday, September 08, 2016 04:50 - CONCLUSION: 1. Lucency overlying the right hemidiaphragm of uncertain etiology. 2. Bibasilar infiltrates. 3. Prominence of left hilum consistent with mass. Armen Power MD Abdomen Ultrasound 09/05/16 0000 Signed Impressions: Service Date/Time: Monday, September 05, 2016 09:21 - CONCLUSION: Enlarged heterogeneous liver. The heterogeneity is thought to be secondary to somewhat ill-defined echogenic masses throughout the liver. Metastatic disease needs to be suspected. Casey Cisneros MD Aorta CTA 09/04/16 0000 Signed Impressions: Service Date/Time: Sunday, September 04, 2016 13:44 - CONCLUSION: 1. Abnormal examination demonstrating large left hilar mass with bulky mediastinal adenopathy and associated post obstructive airspace disease in the superior segment of the left lower lobe. There is also evidence for bulky metastatic disease to the liver and solitary mesenteric metastasis. 1.5 cm left adrenal mass also suspicious for metastasis. 2. Bilateral lower lobe airspace consolidation may reflect aspiration in this intubated patient. 3. Patchy groundglass opacities in the upper lobes bilaterally consistent light reflex edema and volume loss. 4. No evidence for aortic dissection, significant aneurysm, or injury. Pepe Miramontes MD Medication Review Current Medications Medications (Trade) Dose Ordered Sig/Mayo Route Start Time Stop Time Status Last Admin IV Flush 2 ml 2 ml UNSCH PRN IV FLUSH 09/04/16 13:15 (Levophed-Dextrose Drip) 250 ml @ 0 mls/hr TITRATE IV 09/04/16 13:30 09/06/16 21:31 (Protonix Inj) 40 mg DAILY IV 09/04/16 15:00 09/10/16 08:42 Miscellaneous Information 1 Q361D XX 09/04/16 15:00 (Chlorhexidine 2% Cloth) Taper DAILY@04 TOP 09/05/16 04:00 09/01/17 03:59 09/09/16 03:24 Chlorhexidine Gluconate 3 pack 3 pack UNSCH PRN TOP 09/04/16 15:00 Levetriacetam 500 mg/Sodium Chloride 105 ml @ 420 mls/hr Q12HR IV 09/04/16 15:00 09/10/16 08:41 (Neosynephrine Inj/D5W 500 ml Inj) 500 ml @ 0 mls/hr TITRATE IV 09/04/16 16:00 09/05/16 19:00 (Brethine Inj) 1 mg UNSCH PRN SQ 09/04/16 15:00 (D50w (Vial) Inj) 50 ml UNSCH PRN IV 09/04/16 15:00 (Glucagon Inj) 1 mg UNSCH PRN OTHER 09/04/16 15:00 Insulin Human Regular 1 1 Q4H SQ 09/04/16 16:00 09/09/16 20:00 Fentanyl Citrate 250 ml @ 0 mls/hr TITRATE IV 09/04/16 17:00 09/09/16 12:58 (Diprivan 1000 Mg/100ml Inj) 100 ml @ 0 mls/hr TITRATE IV 09/04/16 22:15 09/08/16 10:12 (Peridex 0.12% Liq) 15 ml BID@08,20 MT 09/05/16 08:00 09/10/16 08:13 Acetaminophen 650 mg 650 mg Q6H PRN PO 09/06/16 04:30 09/09/16 03:28 Potassium Chloride 100 ml @ 50 mls/hr Q2H PRN IV 09/06/16 08:30 09/07/16 09:36 (KCl 20 Meq Premix Inj) 100 ml @ 50 mls/hr Q2H PRN IV 09/06/16 08:30 Potassium Bicarb/ Potassium Chloride 50 meq 50 meq UNSCH PRN PO 09/06/16 08:30 Potassium Chloride 100 ml @ 25 mls/hr UNSCH PRN IV 09/06/16 08:30 Potassium Chloride 100 ml @ 50 mls/hr Q2H PRN IV 09/06/16 08:30 (Magnesium Sulfate Inj/NS Inj) 100 ml @ 50 mls/hr UNSCH PRN IV 09/06/16 08:30 Magnesium Oxide 800 mg 800 mg UNSCH PRN PO 09/06/16 08:30 (Magnesium Sulfate Inj/NS Inj) 100 ml @ 50 mls/hr UNSCH PRN IV 09/06/16 08:30 Potassium Phosphate 2000 mg 2,000 mg Q4H PRN PO 09/06/16 08:30 09/08/16 10:12 (Sodium Phosphate Inj/NS 250 ml Inj) 250 ml @ 42 mls/hr UNSCH PRN IV 09/06/16 08:30 Potassium Phosphate 2000 mg 2,000 mg UNSCH PRN PO/TUBE 09/06/16 08:30 Potassium Phosphate 30 mmol/ Sodium Chloride 260 ml @ 42 mls/hr UNSCH PRN IV 09/06/16 08:30 (D5W 1000 ml Inj) 1,000 ml @ 75 mls/hr [id number] IV 09/07/16 09:15 09/10/16 03:55 (Lopressor Inj) 5 mg Q6H PRN IV PUSH 09/08/16 01:15 09/08/16 04:13 Water 300 ml 300 ml Q6HR G-TUBE 09/08/16 12:00 09/10/16 06:00 Micafungin Sodium 100 mg/Sodium Chloride 100 ml @ 100 mls/hr Q24H IV 09/08/16 15:00 09/09/16 14:27 Cefepime HCl 2000 mg/Sodium Chloride 100 ml @ 200 mls/hr Q12H IV 09/08/16 16:00 09/10/16 06:10 (Levaquin 750 Mg Premix Inj) 150 ml @ 100 mls/hr Q24H IV 09/08/16 16:00 09/09/16 15:34 (Lopressor Inj) 2.5 mg Q6H IV PUSH 09/08/16 18:00 09/09/16 11:08 (Senna Liq) 8.8 mg DAILY PO 09/08/16 17:45 09/10/16 08:40 (Colace Liq) 100 mg Q12HR PO 09/08/16 21:00 09/10/16 08:42 (Lactulose Liq) 15 ml BID PO 09/08/16 21:00 09/10/16 08:41 (SoluCORTEF INJ) 25 mg Q12H IV PUSH 09/09/16 18:00 09/10/16 06:10 (Suellen Landry) Physical Exam General Appearance: No Acute Distress, Comfortable (Suellen Landry) Eyes Eye Exam: Sclera White (Suellen Landry) Pulmonary Resp Exam: Clear Bilaterally, Breath Sounds Equal, No Distress (Suellen Landry) Cardiology CV Exam: Regular, Tachycardia (Suellen Landry) Gastrointestinal/Abdomen GI Exam: Soft, Non-Tender (Suellen Landry) Integumentary Skin Exam: Clear, Warm, Dry (Suellen Landry) Extremeties Extremities Exam: Trace Edema (feet and hips) (Suellen Landry) Neurologic Neuro Exam: Unresponsive (Suellen Landry) Assessment/Plan Problem List: (1) Acute kidney insufficiency Plan: Most likely secondary to septic shock with relative decrease in the intra -arterial volume and impaired renal perfusion. Renal functions slightly worsened today. Hypernatremia improving Continue on D5 IVF Continue free water at 300cc q6h Medications should be adjusted for the patient's estimated GFR if clinically indicated. Avoid agents with significant potential for nephrotoxicity possible including NSAIDs for analgesia, iodine contrast agents. Gadolinium is contraindicated if the GFR is below 30. (2) Hypokalemia Plan: Multifactorial in origin. Contributory factors include probable pre-existing potassium deficit on presentation which was masked by his metabolic acidosis. Correction of acidosis subsequently resulted in intracellular shift of potassium. Also suspect increased potassium losses secondary to his polyuria. These potassium losses should improve as polyuria subsequently subsides. Recommend continued potassium repletion. (3) Metabolic acidosis Plan: Resolved (4) Septic shock Plan: Management per infectious disease and critical care (Suellen Landry) Plan The exam, history, and the medical decision-making described in the above note were completed with the assistance of the PA-C. I reviewed and agree with the findings presented. I attest that I had a [id number] encounter with the patient on the same day, and personally performed and documented my assessment and findings in the medical record. (Sang Barrow MD) Suellen Landry Sep 10, 2016 09:54 Sang Barrow MD Sep 11, 2016 12:21
--- NOTE | 2016-09-10 12:42 | HHI.PR ---
Subjective Remarks Awake, and does not follow commands. . Has a Brain lesion with associated Hemorrhage. No fever. On 35 % FIo2. Objective Vital Signs Date Time Temp Pulse Resp B/P Pulse Ox O2 Delivery O2 Flow Rate FiO2 09/10/16 12:00 101.0 128 24 116/66 95 09/10/16 12:00 35 09/10/16 12:00 128 09/10/16 11:01 99 35 09/10/16 10:00 122 09/10/16 08:30 97 35 09/10/16 08:00 35 09/10/16 08:00 99.8 112 21 107/60 97 09/10/16 08:00 122 09/10/16 06:00 130 09/10/16 04:03 94 35 09/10/16 04:00 35 09/10/16 04:00 135 09/10/16 04:00 100.4 132 22 91/54 95 09/10/16 02:00 130 09/10/16 01:27 96 35 09/10/16 00:00 130 09/10/16 00:00 99.6 130 21 99/56 97 09/10/16 00:00 35 09/09/16 22:12 94 35 09/09/16 22:00 127 09/09/16 20:00 100.5 127 22 99/57 95 09/09/16 20:00 100.5 09/09/16 20:00 126 09/09/16 20:00 35 09/09/16 19:25 96 35 09/09/16 18:00 132 09/09/16 17:03 98 100 09/09/16 16:00 132 09/09/16 16:00 100.2 130 20 106/57 100 09/09/16 16:00 35 09/09/16 15:09 94 35 09/09/16 14:00 133 I/O 09/09/16 09/09/16 09/09/16 09/10/16 09/10/16 09/10/16 07:00 15:00 23:00 07:00 15:00 23:00 Intake Total 1216 ml 1498 ml 1579 ml 1635 ml Output Total 1100 ml 1000 ml 700 ml 750 ml 0 ml Balance 116 ml 498 ml 879 ml 885 ml 0 ml Intake IV Total 620 ml 859 ml 1184 ml 664 ml Tube Feeding 296 ml 339 ml 145 ml 371 ml Albumin 250 ml Other 300 ml 300 ml 600 ml Output Urine Total 1100 ml 1000 ml 700 ml 750 ml Tube Feeding Residual Discard 0 ml 0 ml 0 ml Result Diagram: 09/10/1679909/10/16 08 Objective Remarks GENERAL: This obese, middle-aged man who is sedated, intubated. HEENT: Head normocephalic. Pupils are reactive. Throat clear. NECK: Supple with no venous distension. No thyromegaly. CHEST: Equal movements with occ wheezes throughout both lung parker. Occasional crackles at the bases . HEART: The heart sounds are regular S1-S2. No murmur. ABDOMEN: Obese, protuberant without masses. No organomegaly. EXTREMITIES: No edema.warm extremities with diminished pulses. Reflexes are 1 +. He is sedated. SKIN: Dry and warm. Assessment and Plan Assessment and Plan IMPRESSION 1. Septic shock. 2. Acute hypoxemic respiratory failure. 3. COPD. 4. 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 5. Possible brain mets with seizures. 6. History of bipolar disorder. 7. Diabetes mellitus. 8. Hypertension. 9. Hyponatremia. Plan : 1. Wean FIO2 to keep sat >92. 2. Reduce sedation 3. Cont antibiotics. 4. Continue nebs qid. 5. Neuro Evaluation 6. Tube feeds at 40 CC 7. Bronchoscopy when clinically stable 8. Chest X ray in Jamey Botello MD Sep 10, 2016 12:41
[2016-09-10] MEDS ORDERED: PHARMACY ORDERED LAB ONE (12:45)
--- NOTE | 2016-09-10 13:00 | HHI.HCPN ---
Reason for visit a. To assist with evaluation and management of symptoms including: pain, encephalopathy, dyspnea. b. To assist medical decision maker(s) with: better understanding of current medical conditions; weighing benefits/burdens of medical treatment options; making medical treatment decisions. . Subjective/Interval History Patient seen and examined in ICU. No family at bedside. Discussed with nursing staff and Dr. Chery. Patient remains remains in ICU on mechanical ventilation, off sedation since per nurses report. Patient off pressors. Febrile. Tmax 101. Tachycardic. WBC 23.9. Creatinine worsening now 2.14. Total bilirubin 1.3. Cultures negative to date. CT head focal area of increased density within the left high parietal region which is unchanged compared to the previous examination, remains nonspecific and may either represent a hyperdense mass or possibly an area of focal hemorrhage and stable encephalomalacia involving the right parietal region. MRI brain 2.6 x 1.5 cm extraaxial mass within the left high parietal region with some hemorrhagic components raising the possibility of metastatic disease, tiny focal signal abnormality within the left posteroparietal subcortical white matter consistent with probable acute lacunar infarct, stable area of encephalomalacia involving the right frontoparietal region. Discussed with Dr. Chery and Dr. Botello, both feel transition to comfort measures would be medically appropriate given multi-organ failure and no evidence of neurologic improvement off sedation. Overall prognosis is poor for meaningful recovery given trajectory of decline prior to admission, Stage IV cancer and worsening renal and liver function. . Family/friend interactions Met with , mother and sister in waiting room. Also present Patrica Cox LCSW and Norma Anderson NP student. Time spent 45 minutes. Items discussed include: * Patient/family understanding of the current medical problems * Patient/family understanding of prognosis * Patients goals of care as best understood from advance directives and/or conversations and/or values * Current medical treatment options and benefits/burdens of those options * Likely scenarios comparing ongoing aggressive care with a transition to comfort measures only * Questions answered to the best of my ability * Palliative care contact information provided In summary, medical update provided. Family understands overall poor prognosis for meaningful recovery. and mother indicate patient would not want to be artificially prolonged, however they are not yet ready to make a decision regarding transition to comfort focused care or withdrawal of life support. They are appropriately tearful. They would like some time to speak as a family , to see the patient before making additional decisions. Palliative care number previously provided. Family is asking questions regarding transition to comfort focused care withdrawal of life support, life expectancy, etc. . Advance Directives Living Will: Never completed Health Care Surrogate: Never completed Durable Power of Porcelain Waxer: Never completed Advance Directive Specifics Health Care Surrogate(s): Patient is currently incapacitated, will not likely regained capacity. According to [place] statutes, health care proxy decision-making would fall to the patient's spouse (even if they are legally ). . Documented care wishes: None. Significant change in goals: Intubation Only. Family understands poor prognosis, considering transition to comfort, not yet ready to make this decision. . Objective Vital Signs Date Time Temp Pulse Resp B/P Pulse Ox O2 Delivery O2 Flow Rate FiO2 09/10/16 12:00 101.0 128 24 116/66 95 09/10/16 12:00 35 09/10/16 12:00 128 09/10/16 11:01 99 35 09/10/16 10:00 122 09/10/16 08:30 97 35 09/10/16 08:00 35 09/10/16 08:00 99.8 112 21 107/60 97 09/10/16 08:00 122 09/10/16 06:00 130 09/10/16 04:03 94 35 09/10/16 04:00 35 09/10/16 04:00 135 09/10/16 04:00 100.4 132 22 91/54 95 09/10/16 02:00 130 09/10/16 01:27 96 35 09/10/16 00:00 130 09/10/16 00:00 99.6 130 21 99/56 97 09/10/16 00:00 35 09/09/16 22:12 94 35 09/09/16 22:00 127 09/09/16 20:00 100.5 127 22 99/57 95 09/09/16 20:00 100.5 09/09/16 20:00 126 09/09/16 20:00 35 09/09/16 19:25 96 35 09/09/16 18:00 132 09/09/16 17:03 98 100 09/09/16 16:00 132 09/09/16 16:00 100.2 130 20 106/57 100 09/09/16 16:00 35 09/09/16 15:09 94 35 09/09/16 14:00 133 Intake & Output 09/10/16 09/10/16 07:00 19:00 Intake Total 2464 ml Output Total 1450.0 ml 0 ml Balance 1014.0 ml 0 ml Intake IV Total 1348 ml Tube Feeding 516 ml Other 600 ml Output Urine Total 1450 ml Tube Feeding Residual Discard 0 ml 0 ml Physical Exam CONSTITUTIONAL/GENERAL: This is an adequately nourished patient, on mech vent. off sedation. TUBES/LINES/DRAINS: ETT, OG, PIV x 2, left wrist a-line, bilateral soft wrist restraints, Roland, podus boots, SCDs. SKIN: No jaundice, rashes, or lesions. Ecchymoses on upper extremities. No wounds seen anteriorly. Diaphoretic. EYES: Right eye blind. Left pupil 8mm and reactive. ENT: Unable to assess hearing. Nose without bleeding or purulent drainage. Difficult to visualize throat due to tubes. CARDIOVASCULAR: Tachycardic. RESPIRATORY/CHEST: Symmetric, unlabored respirations on vent. Course breath sounds. Diminished breath sounds. GASTROINTESTINAL: Abdomen protuberant. Bowel sounds active. GENITOURINARY: Without palpable bladder distension. Roland catheter in place. MUSCULOSKELETAL: Extremities warm. NEUROLOGICAL: Does not respond to voice or noxious stimuli. No withdrawal to pain. Does not follow commands. No tracking when eyes open. . Diagnostic Tests Laboratory Laboratory Tests Test 09/07/16 09/08/16 09/08/16 09/08/16 14:58 03:40 09:05 11:00 Potassium Level 3.5 MEQ/L 3.4 MEQ/L (3.5-5.1) (3.5-5.1) White Blood Count 25.5 TH/MM3 (4.0-11.0) Red Blood Count 4.63 MIL/MM3 (4.50-5.90) Hemoglobin 12.9 GM/DL (13.0-17.0) Hematocrit 37.6 % (39.0-51.0) Mean Corpuscular Volume 81.3 FL (80.0-100.0) Mean Corpuscular Hemoglobin 27.9 PG (27.0-34.0) Mean Corpuscular Hemoglobin 34.4 % Concent (32.0-36.0) Red Cell Distribution Width 14.7 % (11.6-17.2) Platelet Count 270 TH/MM3 (150-450) Mean Platelet Volume 9.1 FL (7.0-11.0) Neutrophils (%) (Auto) 76.2 % (16.0-70.0) Lymphocytes (%) (Auto) 12.3 % (9.0-44.0) Monocytes (%) (Auto) 10.4 % (0.0-8.0) Eosinophils (%) (Auto) 0.4 % (0.0-4.0) Basophils (%) (Auto) 0.7 % (0.0-2.0) Neutrophils # (Auto) 19.4 TH/MM3 (1.8-7.7) Lymphocytes # (Auto) 3.1 TH/MM3 (1.0-4.8) Monocytes # (Auto) 2.7 TH/MM3 (0-0.9) Eosinophils # (Auto) 0.1 TH/MM3 (0-0.4) Basophils # (Auto) 0.2 TH/MM3 (0-0.2) CBC Comment AUTO DIFF Differential Total Cells 100 Counted Neutrophils % (Manual) 61 % (16-70) Band Neutrophils % 18 % (0-6) Lymphocytes % 19 % (9-44) Monocytes % 2 % (0-8) Neutrophils # (Manual) 20.1 TH/MM3 (1.8-7.7) Nucleated Red Blood Cells 4 /100 WBC (0-0) Differential Comment FINAL DIFF MANUAL Sodium Level 151 MEQ/L (136-145) Chloride Level 113 MEQ/L (98-107) Carbon Dioxide Level 23.6 MEQ/L (21.0-32.0) Anion Gap 14 MEQ/L (5-15) Blood Urea Nitrogen 28 MG/DL (7-18) Creatinine 1.38 MG/DL (0.60-1.30) Estimat Glomerular Filtration 55 ML/MIN (>89) Rate Random Glucose 177 MG/DL (74-106) Calcium Level 7.7 MG/DL (8.5-10.1) Phosphorus Level 1.1 MG/DL (2.5-4.9) Magnesium Level 2.7 MG/DL (1.5-2.5) Total Bilirubin 1.1 MG/DL (0.2-1.0) Aspartate Amino Transf 410 U/L (15-37) (AST/SGOT) Alanine Aminotransferase 352 U/L (12-78) (ALT/SGPT) Alkaline Phosphatase 404 U/L (45-117) Total Protein 6.2 GM/DL (6.4-8.2) Albumin 1.8 GM/DL (3.4-5.0) Lactic Acid Level 3.1 mmol/L (0.4-2.0) Urine Color YELLOW (YELLW/STRAW) Urine Turbidity CLEAR (CLEAR) Urine pH 6.0 (5.0-8.5) Urine Specific Whick 1.017 (1.002-1.035) Urine Protein TRACE mg/dL (NEG-TRACE) Urine Glucose (UA) 70 mg/dL (NEG) Urine Ketones NEG mg/dL (NEG) Urine Occult Blood TRACE (NEG) Urine Nitrite NEG (NEG) Urine Bilirubin NEG (NEG) Urine Urobilinogen LESS THAN 2.0 MG/DL (LESS THAN 2.0) Urine Leukocyte Esterase NEG (NEG) Urine RBC 3 /hpf (0-3) Urine WBC 1 /hpf (0-5) Urine Mucus FEW /lpf (OCC) Microscopic Urinalysis Comment CATH-CULT NOT IND Test 09/08/16 09/09/16 09/09/16 09/10/16 15:00 07:50 11:42 08:00 Potassium Level 3.6 MEQ/L 3.9 MEQ/L 4.3 MEQ/L (3.5-5.1) (3.5-5.1) (3.5-5.1) Phosphorus Level 2.1 MG/DL 3.9 MG/DL (2.5-4.9) (2.5-4.9) White Blood Count 25.3 TH/MM3 23.9 TH/MM3 (4.0-11.0) (4.0-11.0) Red Blood Count 4.81 MIL/MM3 4.34 MIL/MM3 (4.50-5.90) (4.50-5.90) Hemoglobin 13.8 GM/DL 11.7 GM/DL (13.0-17.0) (13.0-17.0) Hematocrit 39.6 % 35.9 % (39.0-51.0) (39.0-51.0) Mean Corpuscular Volume 82.3 FL 82.6 FL (80.0-100.0) (80.0-100.0) Mean Corpuscular Hemoglobin 28.7 PG 26.9 PG (27.0-34.0) (27.0-34.0) Mean Corpuscular Hemoglobin 34.8 % 32.6 % Concent (32.0-36.0) (32.0-36.0) Red Cell Distribution Width 15.4 % 15.5 % (11.6-17.2) (11.6-17.2) Platelet Count 200 TH/MM3 161 TH/MM3 (150-450) (150-450) Mean Platelet Volume 9.4 FL 10.1 FL (7.0-11.0) (7.0-11.0) Neutrophils (%) (Auto) % (16.0-70.0) 83.4 % (16.0-70.0) Lymphocytes (%) (Auto) % (9.0-44.0) 11.3 % (9.0-44.0) Monocytes (%) (Auto) % (0.0-8.0) 4.1 % (0.0-8.0) Eosinophils (%) (Auto) % (0.0-4.0) 0.9 % (0.0-4.0) Basophils (%) (Auto) % (0.0-2.0) 0.3 % (0.0-2.0) Neutrophils # (Auto) TH/MM3 19.9 TH/MM3 (1.8-7.7) (1.8-7.7) Lymphocytes # (Auto) TH/MM3 2.7 TH/MM3 (1.0-4.8) (1.0-4.8) Monocytes # (Auto) TH/MM3 (0-0.9) 1.0 TH/MM3 (0-0.9) Eosinophils # (Auto) TH/MM3 (0-0.4) 0.2 TH/MM3 (0-0.4) Basophils # (Auto) TH/MM3 (0-0.2) 0.1 TH/MM3 (0-0.2) CBC Comment AUTO DIFF DIFF FINAL Differential Total Cells 100 Counted Neutrophils % (Manual) 73 % (16-70) Band Neutrophils % 12 % (0-6) Lymphocytes % 8 % (9-44) Monocytes % 7 % (0-8) Neutrophils # (Manual) 21.5 TH/MM3 (1.8-7.7) Nucleated Red Blood Cells 1 /100 WBC (0-0) Differential Comment FINAL DIFF MANUAL Toxic Granulation 1+ (NORMAL) Toxic Vacuolation PRESENT (NONE SEEN) Platelet Estimate NORMAL (NORMAL) Platelet Morphology Comment NORMAL (NORMAL) Polychromasia 2.0 % (0.0-1.9) Sodium Level 153 MEQ/L 150 MEQ/L (136-145) (136-145) Chloride Level 118 MEQ/L 115 MEQ/L (98-107) (98-107) Carbon Dioxide Level 18.6 MEQ/L 22.3 MEQ/L (21.0-32.0) (21.0-32.0) Anion Gap 16 MEQ/L (5-15) 13 MEQ/L (5-15) Blood Urea Nitrogen 46 MG/DL (7-18) 67 MG/DL (7-18) Creatinine 1.49 MG/DL 2.16 MG/DL (0.60-1.30) (0.60-1.30) Estimat Glomerular Filtration 50 ML/MIN (>89) 33 ML/MIN (>89) Rate Random Glucose 188 MG/DL 181 MG/DL (74-106) (74-106) Calcium Level 6.6 MG/DL 7.3 MG/DL (8.5-10.1) (8.5-10.1) Protein Corrected Calcium 7.5 MG/DL 8.1 MG/DL (8.5-10.1) (8.5-10.1) Magnesium Level 2.6 MG/DL (1.5-2.5) Total Bilirubin 1.1 MG/DL 1.3 MG/DL (0.2-1.0) (0.2-1.0) Aspartate Amino Transf 635 U/L (15-37) 472 U/L (15-37) (AST/SGOT) Alanine Aminotransferase 302 U/L (12-78) 276 U/L (12-78) (ALT/SGPT) Alkaline Phosphatase 291 U/L 264 U/L (45-117) (45-117) Total Protein 5.2 GM/DL 5.7 GM/DL (6.4-8.2) (6.4-8.2) Albumin 1.5 GM/DL 1.8 GM/DL (3.4-5.0) (3.4-5.0) Ammonia 62 MCMOL/L 70 MCMOL/L (11-32) (11-32) Result Diagram: 09/10/16 0800 09/10/16 0800 Microbiology Microbiology Date/Time Procedure Status Source Growth 09/08/16 08:57 Aerobic Blood Culture - Preliminary Resulted Blood Peripheral NO GROWTH IN 2 DAYS 09/08/16 08:57 Anaerobic Blood Culture - Preliminary Resulted Blood Peripheral NO GROWTH IN 2 DAYS 09/08/16 09:05 Aerobic Blood Culture - Preliminary Resulted Blood Peripheral NO GROWTH IN 2 DAYS 09/08/16 09:05 Anaerobic Blood Culture - Preliminary Resulted Blood Peripheral NO GROWTH IN 2 DAYS 09/08/16 11:00 Gram Stain - Final Complete Sputum Endotracheal 09/08/16 11:00 Sputum Culture - Final Complete Sputum Endotracheal MODERATE GROWTH NORMAL RESPIRATORY TWAN Imaging Last Impressions Head CT 09/09/16 0000 Signed Impressions: Service Date/Time: Friday, September 09, 2016 16:04 - CONCLUSION: 1. Focal area of increased density within the left high parietal region which is unchanged compared to the previous examination. This remains nonspecific and may either represent a hyperdense mass or possibly an area of focal hemorrhage. MRI of the brain with contrast would be helpful for further evaluation of this finding. 2. Stable encephalomalacia involving the right parietal region. Kirit Barreto MD Brain MRI 09/09/16 0000 Signed Impressions: Service Date/Time: Friday, September 09, 2016 16:25 - CONCLUSION: 1. 2.6 x 1.5 cm extraaxial mass within the left high parietal region with some hemorrhagic components raising the possibility of metastatic disease. 2. Tiny focal signal abnormality within the left posteroparietal subcortical white matter consistent with probable acute lacunar infarct. 3. Stable area of encephalomalacia involving the right frontoparietal region. Kirit Barreto MD Chest X-Ray 09/08/16 0600 Signed Impressions: Service Date/Time: Thursday, September 08, 2016 04:50 - CONCLUSION: 1. Lucency overlying the right hemidiaphragm of uncertain etiology. 2. Bibasilar infiltrates. 3. Prominence of left hilum consistent with mass. Armen Power MD Abdomen Ultrasound 09/05/16 0000 Signed Impressions: Service Date/Time: Monday, September 05, 2016 09:21 - CONCLUSION: Enlarged heterogeneous liver. The heterogeneity is thought to be secondary to somewhat ill-defined echogenic masses throughout the liver. Metastatic disease needs to be suspected. Casey Cisneros MD Aorta CTA 09/04/16 0000 Signed Impressions: Service Date/Time: Sunday, September 04, 2016 13:44 - CONCLUSION: 1. Abnormal examination demonstrating large left hilar mass with bulky mediastinal adenopathy and associated post obstructive airspace disease in the superior segment of the left lower lobe. There is also evidence for bulky metastatic disease to the liver and solitary mesenteric metastasis. 1.5 cm left adrenal mass also suspicious for metastasis. 2. Bilateral lower lobe airspace consolidation may reflect aspiration in this intubated patient. 3. Patchy groundglass opacities in the upper lobes bilaterally consistent light reflex edema and volume loss. 4. No evidence for aortic dissection, significant aneurysm, or injury. Pepe Miramontes MD Procedures * 09/05/16 - self extubated and reintubated. * 09/04/16 - Intubated. . Assessment and Plan Disease Oriented Problem List: (1) Septic shock (2) Leukocytosis (3) Lactic acidosis (4) Acute respiratory failure with hypoxia (5) Seizure (6) Metastatic cancer (7) Bipolar disorder (8) Chronic back pain (9) Pneumonia (10) Tobacco abuse Symptom Scale: (1) Seizure 0-10 Scale: Unable to quantify (2) Shortness of breath 0-10 Scale: Unable to quantify Comment: on mech vent. (3) Pain 0-10 Scale: Unable to quantify (4) Chronic back pain 0-10 Scale: Unable to quantify Pertinent Non-Medical Issues Psychosocial: legally , was still living intermittently with his alternating with his mother. Spiritual: yazidism is not an important part of the patient's life. Legal:Patient is currently incapacitated, will not likely regained capacity. According to [place] statutes, health care proxy decision-making would fall to the patient's spouse (even if they are legally ). Ethical issues impacting care: no known concerns at this time. . Important Contacts * Stephanie Juares, spouse: [phone] * Joselito Branham, mother: [phone] or [phone] . Prognosis Mr. Juares is an unfortunate 50-year-old male admitted with seizure, respiratory failure requiring mechanical ventilation and multiorgan failure, found to have what appears to be widespread metastatic disease to liver, lymph nodes and brain. Overall prognosis appears poor for meaningful recovery. Hospice appropriate if goals are comfort oriented. . Code Status: Alternative Code (Intubation Only) Plan * Patient is currently incapacitated, will not likely regained capacity. According to [place] statutes, health care proxy decision-making would fall to the patient's spouse (even if they are legally ). * CODE status: Intubation only * Discussed with Dr. Chery, Dr. Ochoa and Dr. Botello, both feel transition to comfort measures would be medically appropriate given multi-organ failure and no evidence of neurologic improvement off sedation. Overall prognosis is poor for meaningful recovery given trajectory of decline prior to admission, Stage IV cancer and worsening renal and liver function. * 09/10/16 met with patient's , mother and sister to provide medical update. They are appropriately tearful. Family is asking questions regarding transition to comfort focused care withdrawal of life support, life expectancy, etc. and mother indicate patient would not want to be artificially prolonged, however they are not yet ready to make a decision regarding transition to comfort focused care or withdrawal of life support. They would like some time to speak as a family, to see the patient before making additional decisions. * SYMPTOMS: Pain: secondary to likely malignancy with metastatic disease, intubation, seizure. Off sedation. Unresponsive. Dyspnea: on mechanical ventilation, off sedation. No new medication recommendations at this time. * Palliative care will continue to follow throughout hospital course to assist with symptom management and clarification of goals as needed. . Time Spent Total Floor Time (mins): 75 Face to Face Time (mins): 60 >50% Counseling/Coord of Care: Yes Attestation To help prompt me to consider important information that might be impacting today's encounter and assessment, information from prior notes written by myself or my colleagues may have been "brought forward" into today's note. My signature on this note, however, is an attestation that I personally performed the exam, history, and/or decision-making noted today, and, unless otherwise indicated, the interactions with patient, family, and staff as well as the review of records all occurred today. I also attest that the listed assessment and stated plan reflect my best clinical judgment today based on the combination of historical information, prior notes, and today's exam/ interactions. When time spent is documented, it refers only to time spent today by the signer, or if indicated, combined time spent today by collaborating physician/nurse practitioner. ZEINAB GO Sep 10, 2016 13:00
[2016-09-10] MEDS: MICAFUNGIN INJ 100 MG in SODIUM CHLORIDE 0.9% INJ 100 ML IV SCH (14:34)
--- NOTE | 2016-09-10 14:53 | HHI.IDPN ---
Note Infectious Disease Note Patient on the vent. Off pressors. Spiking temps. On cooling blanket. temp 102. Sedated. Tachycardic. Patient was brought to emergency department after having seizures. He has altered mental status. The patient was intubated and is currently on the ventilator. He is on the ventilator on 50% FIO2 and is unresponsive. PAST MEDICAL HISTORY: 1. Seizure disorder. 2. Hypertension. 3. Diabetes mellitus. 4. Bipolar disorder. 5. Chronic back pain. ALLERGIES NO KNOWN DRUG ALLERGIES. MEDICATIONS Medications (Trade) Dose Ordered Sig/[facility] Route PRN Reason Start Time Stop Time Status Last Admin Dose Admin IV Flush 2 ml 2 ml UNSCH PRN IV FLUSH FLUSH AFTER USING IV ACCESS 09/04/16 13:15 Norepinephrine Bitartrate (Levophed-Dextrose Drip) 250 ml @ 0 mls/hr TITRATE IV 09/04/16 13:30 09/06/16 21:31 Pantoprazole Sodium (Protonix Inj) 40 mg DAILY IV 09/04/16 15:00 09/10/16 08:42 Miscellaneous Information 1 [id number] XX 09/04/16 15:00 Chlorhexidine Gluconate (Chlorhexidine 2% Cloth) Taper DAILY@04 TOP 09/05/16 04:00 09/01/17 03:59 09/09/16 03:24 Chlorhexidine Gluconate 3 pack 3 pack UNSCH PRN TOP HYGIENIC CARE 09/04/16 15:00 Levetriacetam 500 mg/Sodium Chloride 105 ml @ 420 mls/hr Q12HR IV 09/04/16 15:00 09/10/16 08:41 Phenylephrine HCl/ Dextrose (Neosynephrine Inj/D5W 500 ml Inj) 500 ml @ 0 mls/hr TITRATE IV 09/04/16 16:00 09/05/16 19:00 Terbutaline Sulfate (Brethine Inj) 1 mg UNSCH PRN SQ For Extravasation 09/04/16 15:00 Dextrose (D50w (Vial) Inj) 50 ml UNSCH PRN IV HYPOGLYCEMIA-SEE COMMENTS 09/04/16 15:00 Glucagon (Glucagon Inj) 1 mg UNSCH PRN OTHER HYPOGLYCEMIA-SEE COMMENTS 09/04/16 15:00 Insulin Human Regular 1 1 Q4H SQ 09/04/16 16:00 09/09/16 20:00 Fentanyl Citrate 250 ml @ 0 mls/hr TITRATE IV 09/04/16 17:00 09/09/16 12:58 Propofol (Diprivan 1000 Mg/100ml Inj) 100 ml @ 0 mls/hr TITRATE IV 09/04/16 22:15 09/08/16 10:12 Chlorhexidine Gluconate (Peridex 0.12% Liq) 15 ml BID@08,20 MT 09/05/16 08:00 09/10/16 08:13 Acetaminophen 650 mg 650 mg Q6H PRN PO TEMP OVER 101 09/06/16 04:30 09/09/16 03:28 Potassium Chloride 100 ml @ 50 mls/hr Q2H PRN IV For Potassium 2.8 - 3.2 mEq/L 09/06/16 08:30 09/07/16 09:36 Potassium Chloride (KCl 20 Meq Premix Inj) 100 ml @ 50 mls/hr Q2H PRN IV For Potassium 2.8 - 3.2 mEq/L 09/06/16 08:30 Potassium Bicarb/ Potassium Chloride 50 meq 50 meq UNSCH PRN PO For Potassium 3.3 - 3.5 mEq/L 09/06/16 08:30 Potassium Chloride 100 ml @ 25 mls/hr UNSCH PRN IV For Potassium 3.3 - 3.5 mEq/L 09/06/16 08:30 Potassium Chloride 100 ml @ 50 mls/hr Q2H PRN IV For Potassium 3.3 - 3.5 mEq/L 09/06/16 08:30 Magnesium Sulfate/ Sodium Chloride (Magnesium Sulfate Inj/NS Inj) 100 ml @ 50 mls/hr UNSCH PRN IV For Magnesium 0.9 - 1.1 mg/dL 09/06/16 08:30 Magnesium Oxide 800 mg 800 mg UNSCH PRN PO For Magnesium 1.2 - 1.6 mg/dL 09/06/16 08:30 Magnesium Sulfate/ Sodium Chloride (Magnesium Sulfate Inj/NS Inj) 100 ml @ 50 mls/hr UNSCH PRN IV For Magnesium 1.2 - 1.6 mg/dL 09/06/16 08:30 Potassium Phosphate 2000 mg 2,000 mg Q4H PRN PO For Phosphorus < 2.5 mg/dL 09/06/16 08:30 09/08/16 10:12 Sodium Phosphate/ Sodium Chloride (Sodium Phosphate Inj/NS 250 ml Inj) 250 ml @ 42 mls/hr UNSCH PRN IV For Phosphorus < 2.5 mg/dL 09/06/16 08:30 Potassium Phosphate 2000 mg 2,000 mg UNSCH PRN PO/TUBE SEE LABEL COMMENTS 09/06/16 08:30 Potassium Phosphate 30 mmol/ Sodium Chloride 260 ml @ 42 mls/hr UNSCH PRN IV SEE LABEL COMMENTS 09/06/16 08:30 Dextrose (D5W 1000 ml Inj) 1,000 ml @ 75 mls/hr [id number] IV 09/07/16 09:15 09/10/16 03:55 Metoprolol Tartrate (Lopressor Inj) 5 mg Q6H PRN IV PUSH P > 130 09/08/16 01:15 09/08/16 04:13 Water 300 ml 300 ml Q6HR G-TUBE 09/08/16 12:00 09/10/16 11:41 Micafungin Sodium 100 mg/Sodium Chloride 100 ml @ 100 mls/hr Q24H IV 09/08/16 15:00 09/10/16 14:34 Cefepime HCl 2000 mg/Sodium Chloride 100 ml @ 200 mls/hr Q12H IV 09/08/16 16:00 09/10/16 06:10 Levofloxacin/ Dextrose (Levaquin 750 Mg Premix Inj) 150 ml @ 100 mls/hr Q24H IV 09/08/16 16:00 09/09/16 15:34 Metoprolol Tartrate (Lopressor Inj) 2.5 mg Q6H IV PUSH 09/08/16 18:00 09/09/16 11:08 Sennosides (Senna Liq) 8.8 mg DAILY PO 09/08/16 17:45 09/10/16 08:40 Docusate Sodium (Colace Liq) 100 mg Q12HR PO 09/08/16 21:00 09/10/16 08:42 Lactulose (Lactulose Liq) 15 ml BID PO 09/08/16 21:00 09/10/16 08:41 Hydrocortisone Sodium Succinate (SoluCORTEF INJ) 25 mg Q12H IV PUSH 09/09/16 18:00 09/10/16 06:10 OBJECTIVE: Vital Signs Date Time Temp Pulse Resp B/P Pulse Ox O2 Delivery O2 Flow Rate FiO2 09/10/16 14:00 126 6/26/17 12:00 101.0 128 24 116/66 95 09/10/16 12:00 35 09/10/16 12:00 128 09/10/16 11:01 99 35 09/10/16 10:00 122 09/10/16 08:30 97 35 09/10/16 08:00 35 09/10/16 08:00 99.8 112 21 107/60 97 09/10/16 08:00 122 09/10/16 06:00 130 09/10/16 04:03 94 35 09/10/16 04:00 35 09/10/16 04:00 135 09/10/16 04:00 100.4 132 22 91/54 95 09/10/16 02:00 130 09/10/16 01:27 96 35 09/10/16 00:00 130 09/10/16 00:00 99.6 130 21 99/56 97 09/10/16 00:00 35 09/09/16 22:12 94 35 09/09/16 22:00 127 09/09/16 20:00 100.5 127 22 99/57 95 09/09/16 20:00 100.5 09/09/16 20:00 126 09/09/16 20:00 35 09/09/16 19:25 96 35 09/09/16 18:00 132 09/09/16 17:03 98 100 09/09/16 16:00 132 09/09/16 16:00 100.2 130 20 106/57 100 09/09/16 16:00 35 09/09/16 15:09 94 35 09/09/16 09/09/16 09/10/16 15:00 23:00 07:00 Intake Total 1498 ml 1579 ml 1635 ml Output Total 1000 ml 700 ml 750 ml Balance 498 ml 879 ml 885 ml Intake IV Total 859 ml 1184 ml 664 ml Tube Feeding 339 ml 145 ml 371 ml Albumin 250 ml Other 300 ml 600 ml Output Urine Total 1000 ml 700 ml 750 ml Tube Feeding Residual Discard 0 ml 0 ml Laboratory Tests Test 09/09/16 09/10/16 07:50 08:00 White Blood Count 25.3 TH/MM3 23.9 TH/MM3 Red Blood Count 4.81 MIL/MM3 4.34 MIL/MM3 Hemoglobin 13.8 GM/DL 11.7 GM/DL Hematocrit 39.6 % 35.9 % Mean Corpuscular Volume 82.3 FL 82.6 FL Mean Corpuscular Hemoglobin 28.7 PG 26.9 PG Mean Corpuscular Hemoglobin 34.8 % 32.6 % Concent Red Cell Distribution Width 15.4 % 15.5 % Platelet Count 200 TH/MM3 161 TH/MM3 Mean Platelet Volume 9.4 FL 10.1 FL Neutrophils (%) (Auto) % 83.4 % Lymphocytes (%) (Auto) % 11.3 % Monocytes (%) (Auto) % 4.1 % Eosinophils (%) (Auto) % 0.9 % Basophils (%) (Auto) % 0.3 % Neutrophils # (Auto) TH/MM3 19.9 TH/MM3 Lymphocytes # (Auto) TH/MM3 2.7 TH/MM3 Monocytes # (Auto) TH/MM3 1.0 TH/MM3 Eosinophils # (Auto) TH/MM3 0.2 TH/MM3 Basophils # (Auto) TH/MM3 0.1 TH/MM3 CBC Comment AUTO DIFF DIFF FINAL Differential Total Cells 100 Counted Neutrophils % (Manual) 73 % Band Neutrophils % 12 % Lymphocytes % 8 % Monocytes % 7 % Neutrophils # (Manual) 21.5 TH/MM3 Nucleated Red Blood Cells 1 /100 WBC Differential Comment FINAL DIFF MANUAL Toxic Granulation 1+ Toxic Vacuolation PRESENT Platelet Estimate NORMAL Platelet Morphology Comment NORMAL Polychromasia 2.0 % Laboratory Tests Test 09/08/16 09/09/16 09/09/16 09/10/16 15:00 07:50 11:42 08:00 Potassium Level 3.6 MEQ/L 3.9 MEQ/L 4.3 MEQ/L Phosphorus Level 2.1 MG/DL 3.9 MG/DL Sodium Level 153 MEQ/L 150 MEQ/L Chloride Level 118 MEQ/L 115 MEQ/L Carbon Dioxide Level 18.6 MEQ/L 22.3 MEQ/L Anion Gap 16 MEQ/L 13 MEQ/L Blood Urea Nitrogen 46 MG/DL 67 MG/DL Creatinine 1.49 MG/DL 2.16 MG/DL Estimat Glomerular Filtration 50 ML/MIN 33 ML/MIN Rate Random Glucose 188 MG/DL 181 MG/DL Calcium Level 6.6 MG/DL 7.3 MG/DL Protein Corrected Calcium 7.5 MG/DL 8.1 MG/DL Magnesium Level 2.6 MG/DL Total Bilirubin 1.1 MG/DL 1.3 MG/DL Aspartate Amino Transf 635 U/L 472 U/L (AST/SGOT) Alanine Aminotransferase 302 U/L 276 U/L (ALT/SGPT) Alkaline Phosphatase 291 U/L 264 U/L Total Protein 5.2 GM/DL 5.7 GM/DL Albumin 1.5 GM/DL 1.8 GM/DL Ammonia 62 MCMOL/L 70 MCMOL/L Microbiology Date/Time Procedure Status Source Growth 09/08/16 08:57 Aerobic Blood Culture - Preliminary Resulted Blood Peripheral NO GROWTH IN 2 DAYS 09/08/16 08:57 Anaerobic Blood Culture - Preliminary Resulted Blood Peripheral NO GROWTH IN 2 DAYS 09/08/16 09:05 Aerobic Blood Culture - Preliminary Resulted Blood Peripheral NO GROWTH IN 2 DAYS 09/08/16 09:05 Anaerobic Blood Culture - Preliminary Resulted Blood Peripheral NO GROWTH IN 2 DAYS 09/08/16 11:00 Gram Stain - Final Complete Sputum Endotracheal 09/08/16 11:00 Sputum Culture - Final Complete Sputum Endotracheal MODERATE GROWTH NORMAL RESPIRATORY TWAN IMAGING: Head CT 09/09/16 0000 Signed Impressions: Service Date/Time: Friday, September 09, 2016 16:04 - CONCLUSION: 1. Focal area of increased density within the left high parietal region which is unchanged compared to the previous examination. This remains nonspecific and may either represent a hyperdense mass or possibly an area of focal hemorrhage. MRI of the brain with contrast would be helpful for further evaluation of this finding. 2. Stable encephalomalacia involving the right parietal region. Kirit Barreto MD Brain MRI 09/09/16 0000 Signed Impressions: Service Date/Time: Friday, September 09, 2016 16:25 - CONCLUSION: 1. 2.6 x 1.5 cm extraaxial mass within the left high parietal region with some hemorrhagic components raising the possibility of metastatic disease. 2. Tiny focal signal abnormality within the left posteroparietal subcortical white matter consistent with probable acute lacunar infarct. 3. Stable area of encephalomalacia involving the right frontoparietal region. Kirit Barreto MD Chest X-Ray 09/06/16 0000 Signed Impressions: Service Date/Time: August 08:28 - CONCLUSION: Mild airspace consolidation in the lower lung zones bilaterally but overall significantly improved compared to the study from 2 days ago. Casey Phelps MD Abdomen Ultrasound 09/05/16 0000 Signed Impressions: Service Date/Time: Monday, September 05, 2016 09:21 - CONCLUSION: Enlarged heterogeneous liver. The heterogeneity is thought to be secondary to somewhat ill-defined echogenic masses throughout the liver. Metastatic disease needs to be suspected. Casey Cisneros MD Head CT 09/04/162 Signed Impressions: Service Date/Time: Sunday, September 04, 2016 13:39 - CONCLUSION: 2.3 cm hyperdense mass seen at the left parietal lobe. This is thought to likely represent a mass. Some degree of hemorrhage can not be excluded given the density. There is also a questionable second smaller area of hyperdensity seen in the anterior inferior midline frontal lobe region. It is recommended both these areas be further evaluated with a MRI examination with contrast if there are no contraindications. Casey Cisneros MD Chest X-Ray 09/04/161311 Signed Impressions: Service Date/Time: Sunday, September 04, 2016 13:15 - CONCLUSION: 1. Multilobar consolidation likely pneumonia. 2. Adequate placement of endotracheal tube. Armen Power MD Head CT 09/04/162 Signed Impressions: Service Date/Time: Sunday, September 04, 2016 13:39 - CONCLUSION: 2.3 cm hyperdense mass seen at the left parietal lobe. This is thought to likely represent a mass. Some degree of hemorrhage can not be excluded given the density. There is also a questionable second smaller area of hyperdensity seen in the anterior inferior midline frontal lobe region. It is recommended both these areas be further evaluated with a MRI examination with contrast if there are no contraindications. Casey Cisneros MD Chest X-Ray 09/04/162 Signed Impressions: Service Date/Time: Sunday, September 04, 2016 13:15 - CONCLUSION: 1. Multilobar consolidation likely pneumonia. 2. Adequate placement of endotracheal tube. Armen Power MD Aorta CTA 09/04/16 0000 Signed Impressions: Service Date/Time: Sunday, September 04, 2016 13:44 - CONCLUSION: 1. Abnormal examination demonstrating large left hilar mass with bulky mediastinal adenopathy and associated post obstructive airspace disease in the superior segment of the left lower lobe. There is also evidence for bulky metastatic disease to the liver and solitary mesenteric metastasis. 1.5 cm left adrenal mass also suspicious for metastasis. 2. Bilateral lower lobe airspace consolidation may reflect aspiration in this intubated patient. 3. Patchy groundglass opacities in the upper lobes bilaterally consistent light reflex edema and volume loss. 4. No evidence for aortic dissection, significant aneurysm, or injury. Pepe Miramontes MD PHYSICAL EXAMINATION: GENERAL: Unresponsive. On the vent. HEENT: Intubated. NECK: Supple. No adenopathy. LUNGS: Bilateral rhonchi at the bases. HEART: Regular S1-S2. No murmur. No rubs, No gallops. ABDOMEN: Obese, soft. No tenderness appreciated. EXTREMITIES: No clubbing, cyanosis or edema. SKIN: No rash. NEUROLOGIC: Unable to assess. PSYCH: Unable to assess. IMPRESSION 1. Septic shock, unclear etiology. Now with recurring fever. 2. Multilobar pneumonia, possibly secondary to aspiration. Probable source. 3. 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 4. Acute Respiratory failure. 5. Altered mental status secondary to sepsis. 6. Seizure. 7. Leukocytosis - WBC still elevated. 8. Elevated LFT's 9. FEVER. high spiking. ? etiology. Infection. Possible drug - Romaine lactam. RECOMMENDATIONS: 1. Continue Micafungin. 2. Continue Levaquin. 3. Stop Cefepime. 4. Monitor temp and WBC. 5. Follow clinical status. 6. Follow cultures. Discussed with RN, mom and . Palliative care on board. [place] is poor. . Zeke Ochoa MD Sep 10, 2016 14:53
[2016-09-10] MEDS: LEVOFLOXACIN 750 MG PREMIX INJ 150 ML IV SCH (15:48)
[2016-09-11] VITALS (19 sets, daily range): BP systolic 107–125; BP diastolic 58–72; PULSE 101–125; RESP 21–27; TEMP 97.9–101.3; O2SAT 94–100
[2016-09-11] MEDS: METOPROLOL TARTRATE 5 MG/5 ML VIAL IV PUSH SCH (00:27)
[2016-09-11] MEDS: RESP: ALBUTEROL 2.5 MG/IPRATROPIUM 0.5 MG NEB (SCH) INH ×4 (03:43→20:11)
[2016-09-11] MEDS: CHLORHEXIDINE GLUCONATE 2 % 1 PACK (2 CLOTHS) TOP SCH (04:00)
[2016-09-11] MEDS: INSULIN NovoLIN REGULAR SUPPLEMENTAL SCALE SQ SCH ×7 (04:00→23:20)
[2016-09-11] MEDS: HYDROCORTISONE SOD SUCCINATE 100 MG VIAL IV PUSH SCH ×2 (06:57→17:55)
[2016-09-11] MEDS: DEXTROSE 5% IN WATE 1000ML INJ 1,000 ML IV SCH ×2 (06:58→19:47)
[2016-09-11] MEDS: CHLORHEXIDINE 0.12% (ORAL KIT) 15 ML CUP MT SCH ×2 (07:54→19:47)
[2016-09-11] MEDS: levETIRAcetam INJ 500 MG in SODIUM CHLORIDE 0.9% INJ 100 ML IV SCH ×2 (08:01→19:48)
[2016-09-11] MEDS: SENNOSIDES SYRUP 8.8 MG/5 ML CUP PO SCH (08:01)
[2016-09-11] MEDS: PANTOPRAZOLE SODIUM 40 MG VIAL IV SCH (08:01)
[2016-09-11] MEDS: DOCUSATE SODIUM 100 MG/10 ML UDC PO SCH ×2 (08:02→19:48)
--- NOTE | 2016-09-11 08:03 | HHI.CCPN ---
Subjective Remarks/Hospital Course The patient is a 50-year-old male with past medical history of hypertension, diabetes mellitus, seizure disorder, chronic back pain, bipolar disorder who presented to the ED with a witnessed generalized seizure. In addition the patient was altered and hypoxic with O2 saturation in the 70s. He initially somewhat improved on a non-rebreather but due to labored breathing or diaphoresis he was subsequently intubated in the ED and placed on full mechanical ventilation. According to the patient's family the patient has been having progressive worsening shortness of breath and he has not been feeling well lately. In addition he reported feeling nauseous and heartburn. On arrival to the ER he was tachycardiac, hypotensive and was subsequently placed on Levophed which is currently at 20 mics. The patient was given 3 liters of crystalloids in the ED. ABG post intubation showed pH of 7.23, CO2 33, pAO2 180 , bicarb 13, saturation 97% on PRVC mode with a rate of 18, tidal volume 500, PEEP of 5, IT: 1.0, FIO2 100%. His laboratory data significant for lactic acidemia with a lactic acid level of 11.3, acute kidney injury with a creatinine 2.17 and leukocytosis with bandemia. His WBC is 34.8 with bands of 16. A CT scan of the brain in the ER was obtained which showed a 2.3 cm hyperdense mass at the left parietal lobe and a questionable second small area of hyperdensity seen in the frontal lobe region. He also had a CTA of the aorta which showed significant hilar and mediastinal adenopathy and liver mets. In the ER he was given Zosyn, azithromycin and placed on Diprivan infusion for sedation. A right femoral central line and left radial A-line was placed by the ED physician. 09/05 Patient was self extubated and was reintubated last night . Sedated with Diprivan , Fentanyl and intubated. On Levophed and now Neosyn. Renal function is worsening with Cr: 2.34 from 2.14 09/06 Patient remains sedated with Diprivan and Fentanyl and intubated. On Levophed 13 mics and Neosyn 160 mics. Spiked fever with T:102.1 Renal function is improving with Cr:1.81 from 2.34. 09/07 No events overnight. Remains sedated with Diprivan and intubated. Off all pressors renal function is improving with Cr: 1.11 from 1.81. T:99.8 09/08 Patient is sedate with Diprivan and intubated. T:103.0 at 4 am. Given Metoprolol 5mg Iv early this morning for sinus tachycardia. 09/09 Patient is sedated with Fentanyl and intubated, T: 102.0 09/10 Patient is off sedation doesn't follow commands. T:100.4 at 4 am. MRI brain yesterday showed 2.6 x 1.5 cm extraaxial mass within the left high parietal region with some hemorrhagic components ? metastatic disease. probable acute lacunar infarct. 09/11 Patient remains off sedation does not follow commands. Tolerating tube feeds. T:99.7 Objective Vital Signs Date Time Temp Pulse Resp B/P Pulse Ox O2 Delivery O2 Flow Rate FiO2 09/11/16 06:00 117 09/11/16 04:00 99.7 23 110/65 96 09/11/16 04:00 35 09/07/16 08:16 Nasal Cannula 3.50 Intake and Output 09/10/16 09/10/16 09/11/16 08:00 16:00 00:00 Intake Total 1635 ml 1545 ml 783 ml Output Total 750.0 ml 775 ml 750 ml Balance 885.0 ml 770 ml 33 ml Result Diagram: 09/10/16 0800 09/10/16 08 Other Results Laboratory Tests Test 09/10/16 08:00 White Blood Count 23.9 TH/MM3 Red Blood Count 4.34 MIL/MM3 Hemoglobin 11.7 GM/DL Hematocrit 35.9 % Mean Corpuscular Volume 82.6 FL Mean Corpuscular Hemoglobin 26.9 PG Mean Corpuscular Hemoglobin 32.6 % Concent Red Cell Distribution Width 15.5 % Platelet Count 161 TH/MM3 Mean Platelet Volume 10.1 FL Neutrophils (%) (Auto) 83.4 % Lymphocytes (%) (Auto) 11.3 % Monocytes (%) (Auto) 4.1 % Eosinophils (%) (Auto) 0.9 % Basophils (%) (Auto) 0.3 % Neutrophils # (Auto) 19.9 TH/MM3 Lymphocytes # (Auto) 2.7 TH/MM3 Monocytes # (Auto) 1.0 TH/MM3 Eosinophils # (Auto) 0.2 TH/MM3 Basophils # (Auto) 0.1 TH/MM3 CBC Comment DIFF FINAL Differential Comment Sodium Level 150 MEQ/L Potassium Level 4.3 MEQ/L Chloride Level 115 MEQ/L Carbon Dioxide Level 22.3 MEQ/L Anion Gap 13 MEQ/L Blood Urea Nitrogen 67 MG/DL Creatinine 2.16 MG/DL Estimat Glomerular Filtration 33 ML/MIN Rate Random Glucose 181 MG/DL Calcium Level 7.3 MG/DL Protein Corrected Calcium 8.1 MG/DL Total Bilirubin 1.3 MG/DL Aspartate Amino Transf 472 U/L (AST/SGOT) Alanine Aminotransferase 276 U/L (ALT/SGPT) Alkaline Phosphatase 264 U/L Ammonia 70 MCMOL/L Total Protein 5.7 GM/DL Albumin 1.8 GM/DL Imaging Last Impressions Head CT 09/09/16 0000 Signed Impressions: Service Date/Time: Friday, September 09, 2016 16:04 - CONCLUSION: 1. Focal area of increased density within the left high parietal region which is unchanged compared to the previous examination. This remains nonspecific and may either represent a hyperdense mass or possibly an area of focal hemorrhage. MRI of the brain with contrast would be helpful for further evaluation of this finding. 2. Stable encephalomalacia involving the right parietal region. Kirit Barreto MD Brain MRI 09/09/16 0000 Signed Impressions: Service Date/Time: Friday, September 09, 2016 16:25 - CONCLUSION: 1. 2.6 x 1.5 cm extraaxial mass within the left high parietal region with some hemorrhagic components raising the possibility of metastatic disease. 2. Tiny focal signal abnormality within the left posteroparietal subcortical white matter consistent with probable acute lacunar infarct. 3. Stable area of encephalomalacia involving the right frontoparietal region. Kirit Barreto MD Chest X-Ray 09/08/16 0600 Signed Impressions: Service Date/Time: Thursday, September 08, 2016 04:50 - CONCLUSION: 1. Lucency overlying the right hemidiaphragm of uncertain etiology. 2. Bibasilar infiltrates. 3. Prominence of left hilum consistent with mass. Armen Power MD Abdomen Ultrasound 09/05/16 0000 Signed Impressions: Service Date/Time: Monday, September 05, 2016 09:21 - CONCLUSION: Enlarged heterogeneous liver. The heterogeneity is thought to be secondary to somewhat ill-defined echogenic masses throughout the liver. Metastatic disease needs to be suspected. Casey Cisneros MD Aorta CTA 09/04/16 0000 Signed Impressions: Service Date/Time: Sunday, September 04, 2016 13:44 - CONCLUSION: 1. Abnormal examination demonstrating large left hilar mass with bulky mediastinal adenopathy and associated post obstructive airspace disease in the superior segment of the left lower lobe. There is also evidence for bulky metastatic disease to the liver and solitary mesenteric metastasis. 1.5 cm left adrenal mass also suspicious for metastasis. 2. Bilateral lower lobe airspace consolidation may reflect aspiration in this intubated patient. 3. Patchy groundglass opacities in the upper lobes bilaterally consistent light reflex edema and volume loss. 4. No evidence for aortic dissection, significant aneurysm, or injury. Pepe Miramontes MD Objective Remarks GENERAL: Patient is 50 yo remains intubated, SKIN: Warm and dry. HEAD: Normocephalic. EYES: No scleral icterus. No injection or drainage. NECK: Supple, trachea midline. No JVD or lymphadenopathy. Orally intubated CARDIOVASCULAR:Tachycardic without murmurs, gallops, or rubs. RESPIRATORY: Breath sounds equal bilaterally. No accessory muscle use. GASTROINTESTINAL: Abdomen soft, non-tender, nondistended. MUSCULOSKELETAL: No cyanosis, or edema. Neuro: intubated, doesn't follow commands A/P Assessment and Plan 1. VDRF 2. s/p Septic shock. 3. Likely post obstructive pneumonia. 4. Leukocytosis with bandemia. 5. Status post seizure. 6. Lactic acidemia likely secondary to seizure and septic shock. 7. Acute kidney injury and hyponatremia. 8. Anion gap metabolic acidosis. 9. Elevated liver enzymes. 10. Brain masses rule out mets. 11. Mediastinal / hilar adenopathy need to rule out bronchogenic carcinoma. 12. Liver mets. 13. History of hypertension. 14. Hyperglycemia with underlying history of diabetes mellitus. 15. Obesity. 16. Chronic back pain. 17. History of bipolar disorder. Plan Neuro: Off sedation. Monitor neuro status closely. Increase Lactulose 30 ml BID , Ammonia level 70 yesterday On Keppra 500 mg IV q. 12 , Neuro is following- Dr. Swift EEG showed mild- mod encephalopathy. MRI brain 09/09: showed 2.6 x 1.5 cm extraaxial mass within the left high parietal region with some hemorrhagic components ? metastatic disease. probable acute lacunar infarct. Pulm: Continue vent support and maintain sats above 92%. Bronchodilators, ICU vent bundle. SBT daily as cecily. Pulm is following Dr. Botello CV: Change IV Lopressor to PO Lopressor 25mg [id number] HR and BP and maintain MAP>65 mmHg. Lactic acid trending down. hydrocortisone 25 mg IV q.12. Echo showed EF 70-75% : Monitor renal function Is and Os and avoid nephrotoxins. Follow up on BMP US kidneys: No hydronephrosis, non-obstructing stone on left. Renal is following- Dr. Barrow, IVF D5W@75ml.hr, Free water 300ml Q6, monitor sodium level. GI: on Protonix 40 mg IV daily. On Glucerna 1.5 @45ml/hr Monitor LFTs ( trending down) Hepatitis profile. Hep C ab reactive US liver: Enlarged heterogeneous liver. The heterogeneity is thought to be secondary to somewhat ill-defined echogenic masses throughout the liver. Metastatic disease is suspected. ID: Continue with abx(Levaquin, Micafungin) ID is following. Monitor for signs of infections ( Fever, WBC) Sputum cx: 09/05: nl fredrick, follow up on sputum cx 09/08- normal fredrick strep pneumonia and Legionella urinary AG negative on Previous cultures NGTD Heme: Monitor CBC. Oncology is following Endo: On medium scale SSI with Accu-Chek for glycemic control. TSH: 0.74 GI prophylaxis with Protonix 40 mg daily and DVT prophylaxis with SCDs. Not on chemical anticoagulation prophylaxis given likely brain mets Lines. Peripheral IV's Palliative care is following. Code status: Alternative code Follow up on labs CCT 30 mins Elisha Vanegas MD Sep 11, 2016 08:03
[2016-09-11] MEDS: METOPROLOL TARTRATE 25 MG TAB PO SCH ×2 (09:00→21:01)
[2016-09-11] MEDS: LACTULOSE SYRUP 20 GM/30 ML CUP PO SCH ×2 (09:00→19:48)
[2016-09-11 09:43] LABS: AUTOMATED NEUTROPHIL # 19.6 TH/MM3 (1.8-7.7); BASOPHIL # 0.1 TH/MM3 (0-0.2); BASOPHIL % 0.4 % (0.0-2.0); EOSINOPHIL # 0.1 TH/MM3 (0-0.4); EOSINOPHIL % 0.6 % (0.0-4.0); HEMATOCRIT 36.5 % (39.0-51.0); HEMO FLAGS DIFF FINAL; LYMPHOCYTE # 1.6 TH/MM3 (1.0-4.8); MEAN CELL VOLUME 82.3 FL (80.0-100.0); MEAN CORPUSCULAR HEMOGLOBIN 27.1 PG (27.0-34.0); MEAN CORPUSCULAR HGB CONC 32.9 % (32.0-36.0); MONO % 4.7 % (0.0-8.0); NEUT % 87.3 % (16.0-70.0); PLATELET COUNT 167 TH/MM3 (150-450); RED BLOOD COUNT 4.44 MIL/MM3 (4.50-5.90); WHITE BLOOD COUNT 22.5 TH/MM3 (4.0-11.0)
[2016-09-11 10:06] LABS: ALKALINE PHOSPHATASE 278 U/L (45-117); ALT (GPT) 272 U/L (12-78); ANION GAP 13 MEQ/L (5-15); AST (GOT) 397 U/L (15-37); BICARBONATE 21.8 MEQ/L (21.0-32.0); CHLORIDE 118 MEQ/L (98-107); GLOMERULAR FILTRATION RATE 38 ML/MIN (>89); POTASSIUM 4.2 MEQ/L (3.5-5.1); SODIUM (NA) 153 MEQ/L (136-145); TOTAL BILIRUBIN ADULT 1.6 MG/DL (0.2-1.0)
[2016-09-11 10:08] LABS: BLOOD UREA NITROGEN 69 MG/DL (7-18)
--- NOTE | 2016-09-11 11:35 | HHI.IDPN ---
Note Infectious Disease Note Patient on the vent. No distress. Opens eyes to command. Still having temp spikes. Sedated. Patient was brought to emergency department after having seizures. PAST MEDICAL HISTORY: 1. Seizure disorder. 2. Hypertension. 3. Diabetes mellitus. 4. Bipolar disorder. 5. Chronic back pain. ALLERGIES NO KNOWN DRUG ALLERGIES. Current Medications Medications (Trade) Dose Ordered Sig/[facility] Route PRN Reason Start Time Stop Time Status Last Admin Dose Admin IV Flush 2 ml 2 ml UNSCH PRN IV FLUSH FLUSH AFTER USING IV ACCESS 09/04/16 13:15 Norepinephrine Bitartrate (Levophed-Dextrose Drip) 250 ml @ 0 mls/hr TITRATE IV 09/04/16 13:30 09/06/16 21:31 Pantoprazole Sodium (Protonix Inj) 40 mg DAILY IV 09/04/16 15:00 09/11/16 08:01 Miscellaneous Information 1 [id number] XX 09/04/16 15:00 Chlorhexidine Gluconate (Chlorhexidine 2% Cloth) Taper DAILY@04 TOP 09/05/16 04:00 09/01/17 03:59 09/09/16 03:24 Chlorhexidine Gluconate 3 pack 3 pack UNSCH PRN TOP HYGIENIC CARE 09/04/16 15:00 Levetriacetam 500 mg/Sodium Chloride 105 ml @ 420 mls/hr Q12HR IV 09/04/16 15:00 09/11/16 08:01 Phenylephrine HCl/ Dextrose (Neosynephrine Inj/D5W 500 ml Inj) 500 ml @ 0 mls/hr TITRATE IV 09/04/16 16:00 09/05/16 19:00 Terbutaline Sulfate (Brethine Inj) 1 mg UNSCH PRN SQ For Extravasation 09/04/16 15:00 Dextrose (D50w (Vial) Inj) 50 ml UNSCH PRN IV HYPOGLYCEMIA-SEE COMMENTS 09/04/16 15:00 Glucagon (Glucagon Inj) 1 mg UNSCH PRN OTHER HYPOGLYCEMIA-SEE COMMENTS 09/04/16 15:00 Insulin Human Regular 1 1 Q4H SQ 09/04/16 16:00 09/10/16 20:00 Fentanyl Citrate 250 ml @ 0 mls/hr TITRATE IV 09/04/16 17:00 09/09/16 12:58 Propofol (Diprivan 1000 Mg/100ml Inj) 100 ml @ 0 mls/hr TITRATE IV 09/04/16 22:15 09/08/16 10:12 Chlorhexidine Gluconate (Peridex 0.12% Liq) 15 ml BID@08,20 MT 09/05/16 08:00 09/11/16 07:54 Acetaminophen 650 mg 650 mg Q6H PRN PO TEMP OVER 101 09/06/16 04:30 09/09/16 03:28 Potassium Chloride 100 ml @ 50 mls/hr Q2H PRN IV For Potassium 2.8 - 3.2 mEq/L 09/06/16 08:30 09/07/16 09:36 Potassium Chloride (KCl 20 Meq Premix Inj) 100 ml @ 50 mls/hr Q2H PRN IV For Potassium 2.8 - 3.2 mEq/L 09/06/16 08:30 Potassium Bicarb/ Potassium Chloride 50 meq 50 meq UNSCH PRN PO For Potassium 3.3 - 3.5 mEq/L 09/06/16 08:30 Potassium Chloride 100 ml @ 25 mls/hr UNSCH PRN IV For Potassium 3.3 - 3.5 mEq/L 09/06/16 08:30 Potassium Chloride 100 ml @ 50 mls/hr Q2H PRN IV For Potassium 3.3 - 3.5 mEq/L 09/06/16 08:30 Magnesium Sulfate/ Sodium Chloride (Magnesium Sulfate Inj/NS Inj) 100 ml @ 50 mls/hr UNSCH PRN IV For Magnesium 0.9 - 1.1 mg/dL 09/06/16 08:30 Magnesium Oxide 800 mg 800 mg UNSCH PRN PO For Magnesium 1.2 - 1.6 mg/dL 09/06/16 08:30 Magnesium Sulfate/ Sodium Chloride (Magnesium Sulfate Inj/NS Inj) 100 ml @ 50 mls/hr UNSCH PRN IV For Magnesium 1.2 - 1.6 mg/dL 09/06/16 08:30 Potassium Phosphate 2000 mg 2,000 mg Q4H PRN PO For Phosphorus < 2.5 mg/dL 09/06/16 08:30 09/08/16 10:12 Sodium Phosphate/ Sodium Chloride (Sodium Phosphate Inj/NS 250 ml Inj) 250 ml @ 42 mls/hr UNSCH PRN IV For Phosphorus < 2.5 mg/dL 09/06/16 08:30 Potassium Phosphate 2000 mg 2,000 mg UNSCH PRN PO/TUBE SEE LABEL COMMENTS 09/06/16 08:30 Potassium Phosphate 30 mmol/ Sodium Chloride 260 ml @ 42 mls/hr UNSCH PRN IV SEE LABEL COMMENTS 09/06/16 08:30 Dextrose (D5W 1000 ml Inj) 1,000 ml @ 75 mls/hr [id number] IV 09/07/16 09:15 09/11/16 06:58 Metoprolol Tartrate (Lopressor Inj) 5 mg Q6H PRN IV PUSH P > 130 09/08/16 01:15 09/08/16 04:13 Water 300 ml 300 ml Q6HR G-TUBE 09/08/16 12:00 09/11/16 00:00 Micafungin Sodium 100 mg/Sodium Chloride 100 ml @ 100 mls/hr Q24H IV 09/08/16 15:00 09/10/16 14:34 Levofloxacin/ Dextrose (Levaquin 750 Mg Premix Inj) 150 ml @ 100 mls/hr Q24H IV 09/08/16 16:00 09/10/16 15:48 Sennosides (Senna Liq) 8.8 mg DAILY PO 09/08/16 17:45 09/11/16 08:01 Docusate Sodium (Colace Liq) 100 mg Q12HR PO 09/08/16 21:00 09/11/16 08:02 Hydrocortisone Sodium Succinate (SoluCORTEF INJ) 25 mg Q12H IV PUSH 09/09/16 18:00 09/11/16 06:57 Lactulose (Lactulose Liq) 30 ml BID PO 09/11/16 09:00 Metoprolol Tartrate (Lopressor) 25 mg Q12HR PO 09/11/16 09:00 OBJECTIVE: Vital Signs Date Time Temp Pulse Resp B/P Pulse Ox O2 Delivery O2 Flow Rate FiO2 09/11/16 10:00 122 09/11/16 08:23 98 35 09/11/16 08:00 35 09/11/16 08:00 98.6 110 21 113/58 96 09/11/16 08:00 110 09/11/16 06:00 117 09/11/16 04:00 99.7 117 23 110/65 96 09/11/16 04:00 117 09/11/16 04:00 35 09/11/16 03:43 98 35 09/11/16 02:00 115 09/11/16 01:13 100 35 09/11/16 00:00 97.9 112 23 113/68 98 09/11/16 00:00 35 09/11/16 00:00 112 09/10/16 22:00 111 09/10/16 20:00 35 09/10/16 20:00 119 09/10/16 20:00 99.3 119 23 105/59 99 09/10/16 19:33 96 35 09/10/16 18:00 121 09/10/16 16:00 100.7 116 24 122/72 99 09/10/16 16:00 35 09/10/16 16:00 116 09/10/16 15:55 98 35 09/10/16 14:00 126 09/10/16 12:00 101.0 128 24 116/66 95 09/10/16 12:00 35 09/10/16 12:00 128 09/10/16 09/10/16 09/11/16 15:00 23:00 07:00 Intake Total 1545 ml 783 ml 1592 ml Output Total 775 ml 750 ml 850 ml Balance 770 ml 33 ml 742 ml Intake IV Total 665 ml 588 ml 603 ml Tube Feeding 280 ml 195 ml 389 ml Tube Irrigant 600 ml Other 600 ml Output Urine Total 775 ml 750 ml 850 ml Tube Feeding Residual Discard 0 ml 0 ml Laboratory Tests Test 09/10/16 09/11/16 08:00 09:21 White Blood Count 23.9 TH/MM3 22.5 TH/MM3 Red Blood Count 4.34 MIL/MM3 4.44 MIL/MM3 Hemoglobin 11.7 GM/DL 12.0 GM/DL Hematocrit 35.9 % 36.5 % Mean Corpuscular Volume 82.6 FL 82.3 FL Mean Corpuscular Hemoglobin 26.9 PG 27.1 PG Mean Corpuscular Hemoglobin 32.6 % 32.9 % Concent Red Cell Distribution Width 15.5 % 16.0 % Platelet Count 161 TH/MM3 167 TH/MM3 Mean Platelet Volume 10.1 FL 10.3 FL Neutrophils (%) (Auto) 83.4 % 87.3 % Lymphocytes (%) (Auto) 11.3 % 7.0 % Monocytes (%) (Auto) 4.1 % 4.7 % Eosinophils (%) (Auto) 0.9 % 0.6 % Basophils (%) (Auto) 0.3 % 0.4 % Neutrophils # (Auto) 19.9 TH/MM3 19.6 TH/MM3 Lymphocytes # (Auto) 2.7 TH/MM3 1.6 TH/MM3 Monocytes # (Auto) 1.0 TH/MM3 1.0 TH/MM3 Eosinophils # (Auto) 0.2 TH/MM3 0.1 TH/MM3 Basophils # (Auto) 0.1 TH/MM3 0.1 TH/MM3 CBC Comment DIFF FINAL DIFF FINAL Differential Comment Laboratory Tests Test 09/09/16 09/10/16 09/11/16 11:42 08:00 09:21 Ammonia 62 MCMOL/L 70 MCMOL/L Sodium Level 150 MEQ/L 153 MEQ/L Potassium Level 4.3 MEQ/L 4.2 MEQ/L Chloride Level 115 MEQ/L 118 MEQ/L Carbon Dioxide Level 22.3 MEQ/L 21.8 MEQ/L Anion Gap 13 MEQ/L 13 MEQ/L Blood Urea Nitrogen 67 MG/DL 69 MG/DL Creatinine 2.16 MG/DL 1.90 MG/DL Estimat Glomerular Filtration 33 ML/MIN 38 ML/MIN Rate Random Glucose 181 MG/DL 156 MG/DL Calcium Level 7.3 MG/DL 8.2 MG/DL Protein Corrected Calcium 8.1 MG/DL Total Bilirubin 1.3 MG/DL 1.6 MG/DL Aspartate Amino Transf 472 U/L 397 U/L (AST/SGOT) Alanine Aminotransferase 276 U/L 272 U/L (ALT/SGPT) Alkaline Phosphatase 264 U/L 278 U/L Total Protein 5.7 GM/DL 5.9 GM/DL Albumin 1.8 GM/DL 1.8 GM/DL IMAGING: Head CT 09/09/16 0000 Signed Impressions: Service Date/Time: Friday, September 09, 2016 16:04 - CONCLUSION: 1. Focal area of increased density within the left high parietal region which is unchanged compared to the previous examination. This remains nonspecific and may either represent a hyperdense mass or possibly an area of focal hemorrhage. MRI of the brain with contrast would be helpful for further evaluation of this finding. 2. Stable encephalomalacia involving the right parietal region. Kirit Barreto MD Brain MRI 09/09/16 0000 Signed Impressions: Service Date/Time: Friday, September 09, 2016 16:25 - CONCLUSION: 1. 2.6 x 1.5 cm extraaxial mass within the left high parietal region with some hemorrhagic components raising the possibility of metastatic disease. 2. Tiny focal signal abnormality within the left posteroparietal subcortical white matter consistent with probable acute lacunar infarct. 3. Stable area of encephalomalacia involving the right frontoparietal region. Kirit Barreto MD Chest X-Ray 09/06/16 Signed Impressions: Service Date/Time: August 08:28 - CONCLUSION: Mild airspace consolidation in the lower lung zones bilaterally but overall significantly improved compared to the study from 2 days ago. Casey Phelps MD Abdomen Ultrasound 09/05/16 Signed Impressions: Service Date/Time: Monday, September 05, 2016 09:21 - CONCLUSION: Enlarged heterogeneous liver. The heterogeneity is thought to be secondary to somewhat ill-defined echogenic masses throughout the liver. Metastatic disease needs to be suspected. Casey Cisneros MD Head CT [id number]/04/[id number] Signed Impressions: Service Date/Time: Sunday, September 04, 2016 13:39 - CONCLUSION: 2.3 cm hyperdense mass seen at the left parietal lobe. This is thought to likely represent a mass. Some degree of hemorrhage can not be excluded given the density. There is also a questionable second smaller area of hyperdensity seen in the anterior inferior midline frontal lobe region. It is recommended both these areas be further evaluated with a MRI examination with contrast if there are no contraindications. Casey Cisneros MD Chest X-Ray 09/04/[id number] Signed Impressions: Service Date/Time: Sunday, September 04, 2016 13:15 - CONCLUSION: 1. Multilobar consolidation likely pneumonia. 2. Adequate placement of endotracheal tube. Armen Power MD Head CT [id number]/04/[id number] Signed Impressions: Service Date/Time: Sunday, September 04, 2016 13:39 - CONCLUSION: 2.3 cm hyperdense mass seen at the left parietal lobe. This is thought to likely represent a mass. Some degree of hemorrhage can not be excluded given the density. There is also a questionable second smaller area of hyperdensity seen in the anterior inferior midline frontal lobe region. It is recommended both these areas be further evaluated with a MRI examination with contrast if there are no contraindications. Casey Cisneros MD Chest X-Ray 09/04/16 1312 Signed Impressions: Service Date/Time: Sunday, September 04, 2016 13:15 - CONCLUSION: 1. Multilobar consolidation likely pneumonia. 2. Adequate placement of endotracheal tube. Armen Power MD Aorta CTA 09/04/16 0000 Signed Impressions: Service Date/Time: Sunday, September 04, 2016 13:44 - CONCLUSION: 1. Abnormal examination demonstrating large left hilar mass with bulky mediastinal adenopathy and associated post obstructive airspace disease in the superior segment of the left lower lobe. There is also evidence for bulky metastatic disease to the liver and solitary mesenteric metastasis. 1.5 cm left adrenal mass also suspicious for metastasis. 2. Bilateral lower lobe airspace consolidation may reflect aspiration in this intubated patient. 3. Patchy groundglass opacities in the upper lobes bilaterally consistent light reflex edema and volume loss. 4. No evidence for aortic dissection, significant aneurysm, or injury. Pepe Miramontes MD PHYSICAL EXAMINATION: GENERAL: On the vent. Opens eyes. HEENT: Intubated. NECK: Supple. No adenopathy. LUNGS: Bilateral rhonchi at the bases. HEART: Regular S1-S2. No murmur. No rubs, No gallops. ABDOMEN: Obese, soft. No tenderness appreciated. Decreased bowel sounds. EXTREMITIES: No clubbing, cyanosis or edema. SKIN: No rash. NEUROLOGIC: Unable to assess. PSYCH: Unable to assess. IMPRESSION 1. Septic shock, unclear etiology. Now with recurring fever. Negative cultures. 2. Multilobar pneumonia, possibly secondary to aspiration. Probable source. 3. 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 4. Acute Respiratory failure. 5. Altered mental status secondary to sepsis. 6. Seizure. 7. Leukocytosis - WBC still elevated. 8. Elevated LFT's 9. FEVER. ? etiology. Infection. Possible drug - Bata lactam. RECOMMENDATIONS: 1. Continue Micafungin. 2. Continue Levaquin. 3. Monitor temp and WBC. 4. Follow clinical status. 5. Follow cultures. . Zeke Ochoa MD Sep 11, 2016 11:35
[2016-09-11] MEDS: FREE WATER G-TUBE SCH ×4 (11:44→23:20)
--- NOTE | 2016-09-11 12:23 | HHI.NPPN ---
Subjective History of Present Illness This patient is a 50-year-old male with a history of hypertension, diabetes mellitus, seizure disorder, bipolar disorder and apparently tobacco use now presenting with septic shock and an apparent postobstructive pneumonia with radiological evidence of probable metastatic disease involving liver, brain with evidence of a left hilar mass. Presentation creatinine level is elevated to 2.17 with a bicarbonate of 15.8 and an anion gap of 20. Patient also had a CTA of the aorta performed on September 04, 2016 utilizing iodine contrast. Patient currently maintaining good urine output at time of consultation. Serum creatinine level was 0.9 back in March 2016. Interval History Patient still intubated. Unresponsive. Review of Systems General General Remarks Unable to obtain because of patient's condition. Objective Data Data 09/10/16 09/11/16 19:00 07:00 Intake Total 1545 ml 2375 ml Output Total 775 ml 1600 ml Balance 770 ml 775 ml Intake IV Total 665 ml 1191 ml Tube Feeding 280 ml 584 ml Tube Irrigant 600 ml Other 600 ml Output Urine Total 775 ml 1600 ml Tube Feeding Residual Discard 0 ml 0 ml Vital Signs Date Time Temp Pulse Resp B/P Pulse Ox O2 Delivery O2 Flow Rate FiO2 09/11/16 12:00 101.3 125 27 114/61 96 09/11/16 12:00 35 09/11/16 12:00 125 09/11/16 11:31 94 35 09/11/16 10:00 122 09/11/16 08:23 98 35 09/11/16 08:00 35 09/11/16 08:00 98.6 110 21 113/58 96 09/11/16 08:00 110 09/11/16 06:00 117 09/11/16 04:00 99.7 117 23 110/65 96 09/11/16 04:00 117 09/11/16 04:00 35 09/11/16 03:43 98 35 09/11/16 02:00 115 09/11/16 01:13 100 35 09/11/16 00:00 97.9 112 23 113/68 98 09/11/16 00:00 35 09/11/16 00:00 112 09/10/16 22:00 111 09/10/16 20:00 35 09/10/16 20:00 119 09/10/16 20:00 99.3 119 23 105/59 99 09/10/16 19:33 96 35 09/10/16 18:00 121 09/10/16 16:00 100.7 116 24 122/72 99 09/10/16 16:00 35 09/10/16 16:00 116 09/10/16 15:55 98 35 09/10/16 14:00 126 -: 09/11/16 0921 09/11/16 0921 Physical Exam General Appearance: No Acute Distress, Comfortable Eyes Eye Exam: Sclera White Pulmonary Resp Exam: Clear Bilaterally, Breath Sounds Equal, No Distress Cardiology CV Exam: Regular, Tachycardia Gastrointestinal/Abdomen GI Exam: Soft, Non-Tender Integumentary Skin Exam: Clear, Warm, Dry Extremeties Extremities Exam: Trace Edema (feet and hips) Neurologic Neuro Exam: Unresponsive Assessment/Plan Problem List: (1) Acute kidney insufficiency Plan: Most likely secondary to septic shock with relative decrease in the intra -arterial volume and impaired renal perfusion. Patient's creatinine level improved today however hypernatremia is persisting. Continue on D5 IVF Continue free water at 300cc q6h. From reviewing records patient's prognosis appears to be very poor. Palliative care discussing situation with family. Medications should be adjusted for the patient's estimated GFR if clinically indicated. Avoid agents with significant potential for nephrotoxicity possible including NSAIDs for analgesia, iodine contrast agents. Gadolinium is contraindicated if the GFR is below 30. (2) Hypokalemia Plan: Multifactorial in origin. Contributory factors include probable pre-existing potassium deficit on presentation which was masked by his metabolic acidosis. Correction of acidosis subsequently resulted in intracellular shift of potassium. Also suspect increased potassium losses secondary to his polyuria. These potassium losses should improve as polyuria subsequently subsides. Recommend continued potassium repletion. (3) Metabolic acidosis Plan: Resolved (4) Septic shock Plan: Management per infectious disease and critical care Plan The exam, history, and the medical decision-making described in the above note were completed with the assistance of the [facility]. I reviewed and agree with the findings presented. I attest that I had a [id number] encounter with the patient on the same day, and personally performed and documented my assessment and findings in the medical record. Sang Barrow MD Sep 11, 2016 12:23
[2016-09-11] MEDS: MICAFUNGIN INJ 100 MG in SODIUM CHLORIDE 0.9% INJ 100 ML IV SCH (14:02)
[2016-09-11] MEDS: LEVOFLOXACIN 750 MG PREMIX INJ 150 ML IV SCH (16:29)
--- NOTE | 2016-09-11 16:37 | HHI.HCPN ---
Reason for visit a. To assist with evaluation and management of symptoms including: pain, encephalopathy, dyspnea. b. To assist medical decision maker(s) with: better understanding of current medical conditions; weighing benefits/burdens of medical treatment options; making medical treatment decisions. . Subjective/Interval History Patient seen and examined in ICU. No family at bedside. Discussed with nursing staff and Dr. Chery. Patient remains remains in ICU on mechanical ventilation, off sedation since per nurses report. Patient off pressors. Febrile. Tmax 101. Tachycardic. WBC 22.5. Creatinine worsening now 1.9. Sodium 153. Total bilirubin 1.6. Albumin 1.8. Cultures negative to date. . Family/friend interactions Patrica Cox LCSW called to speak with , she requests family meeting to further clarify goals and possible transition to comfort on 09/12/16 at 2pm. . Advance Directives Living Will: Never completed Health Care Surrogate: Never completed Durable Power of Sludge Filtration Attendant: Never completed Advance Directive Specifics Health Care Surrogate(s): Patient is currently incapacitated, will not likely regained capacity. According to [place] statutes, health care proxy decision-making would fall to the patient's spouse (even if they are legally ). . Documented care wishes: None. Significant change in goals: Intubation only. Patrica Cox LCSW called to speak with , she requests family meeting to further clarify goals and possible transition to comfort on at 2pm. . Objective Vital Signs Date Time Temp Pulse Resp B/P Pulse Ox O2 Delivery O2 Flow Rate FiO2 09/11/16 15:27 98 35 09/11/16 14:00 115 09/11/16 12:00 101.3 125 27 114/61 96 09/11/16 12:00 35 09/11/16 12:00 125 09/11/16 11:31 94 35 09/11/16 10:00 122 09/11/16 08:23 98 35 09/11/16 08:00 35 09/11/16 08:00 98.6 110 21 113/58 96 09/11/16 08:00 110 09/11/16 06:00 117 09/11/16 04:00 99.7 117 23 110/65 96 09/11/16 04:00 117 09/11/16 04:00 35 09/11/16 03:43 98 35 09/11/16 02:00 115 09/11/16 01:13 100 35 09/11/16 00:00 97.9 112 23 113/68 98 09/11/16 00:00 35 09/11/16 00:00 112 09/10/16 22:00 111 09/10/16 20:00 35 09/10/16 20:00 119 09/10/16 20:00 99.3 119 23 105/59 99 09/10/16 19:33 96 35 09/10/16 18:00 121 Intake & Output 09/11/16 09/11/16 07:00 19:00 Intake Total 2375 ml 1525 ml Output Total 1600 ml 850 ml Balance 775 ml 675 ml Intake IV Total 1191 ml 673 ml Tube Feeding 584 ml 252 ml Tube Irrigant 600 ml Other 600 ml Output Urine Total 1600 ml 850 ml Tube Feeding Residual Discard 0 ml 0 ml Physical Exam CONSTITUTIONAL/GENERAL: This is an adequately nourished patient, [facility] off sedation. TUBES/LINES/DRAINS: ETT, OG, PIV x 2, left wrist a-line, bilateral soft wrist restraints, Roland, podus boots, SCDs. SKIN: No jaundice, rashes, or lesions. Ecchymoses on upper extremities. No wounds seen anteriorly. EYES: Right eye blind. Left pupil 6mm and reactive. ENT: Unable to assess hearing. Nose without bleeding or purulent drainage. Difficult to visualize throat due to tubes. CARDIOVASCULAR: Tachycardic. RESPIRATORY/CHEST: labored respirations on vent. Course breath sounds. Diminished breath sounds. GASTROINTESTINAL: Abdomen protuberant. Bowel sounds active. GENITOURINARY: Without palpable bladder distension. Roland catheter in place. MUSCULOSKELETAL: Extremities warm. NEUROLOGICAL: Does not respond to voice or noxious stimuli. No withdrawal to pain. Does not follow commands. No tracking when eyes open. Blinks to threat. . Diagnostic Tests Laboratory Laboratory Tests Test 09/09/16 09/09/16 09/10/16 09/11/16 07:50 11:42 08:00 09:21 White Blood Count 25.3 TH/MM3 23.9 TH/MM3 22.5 TH/MM3 (4.0-11.0) (4.0-11.0) (4.0-11.0) Red Blood Count 4.81 MIL/MM3 4.34 MIL/MM3 4.44 MIL/MM3 (4.50-5.90) (4.50-5.90) (4.50-5.90) Hemoglobin 13.8 GM/DL 11.7 GM/DL 12.0 GM/DL (13.0-17.0) (13.0-17.0) (13.0-17.0) Hematocrit 39.6 % 35.9 % 36.5 % (39.0-51.0) (39.0-51.0) (39.0-51.0) Mean Corpuscular Volume 82.3 FL 82.6 FL 82.3 FL (80.0-100.0) (80.0-100.0) (80.0-100.0) Mean Corpuscular Hemoglobin 28.7 PG 26.9 PG 27.1 PG (27.0-34.0) (27.0-34.0) (27.0-34.0) Mean Corpuscular Hemoglobin 34.8 % 32.6 % 32.9 % Concent (32.0-36.0) (32.0-36.0) (32.0-36.0) Red Cell Distribution Width 15.4 % 15.5 % 16.0 % (11.6-17.2) (11.6-17.2) (11.6-17.2) Platelet Count 200 TH/MM3 161 TH/MM3 167 TH/MM3 (150-450) (150-450) (150-450) Mean Platelet Volume 9.4 FL 10.1 FL 10.3 FL (7.0-11.0) (7.0-11.0) (7.0-11.0) Neutrophils (%) (Auto) % (16.0-70.0) 83.4 % 87.3 % (16.0-70.0) (16.0-70.0) Lymphocytes (%) (Auto) % (9.0-44.0) 11.3 % 7.0 % (9.0-44.0) (9.0-44.0) Monocytes (%) (Auto) % (0.0-8.0) 4.1 % (0.0-8.0) 4.7 % (0.0-8.0) Eosinophils (%) (Auto) % (0.0-4.0) 0.9 % (0.0-4.0) 0.6 % (0.0-4.0) Basophils (%) (Auto) % (0.0-2.0) 0.3 % (0.0-2.0) 0.4 % (0.0-2.0) Neutrophils # (Auto) TH/MM3 19.9 TH/MM3 19.6 TH/MM3 (1.8-7.7) (1.8-7.7) (1.8-7.7) Lymphocytes # (Auto) TH/MM3 2.7 TH/MM3 1.6 TH/MM3 (1.0-4.8) (1.0-4.8) (1.0-4.8) Monocytes # (Auto) TH/MM3 (0-0.9) 1.0 TH/MM3 1.0 TH/MM3 (0-0.9) (0-0.9) Eosinophils # (Auto) TH/MM3 (0-0.4) 0.2 TH/MM3 0.1 TH/MM3 (0-0.4) (0-0.4) Basophils # (Auto) TH/MM3 (0-0.2) 0.1 TH/MM3 0.1 TH/MM3 (0-0.2) (0-0.2) CBC Comment AUTO DIFF DIFF FINAL DIFF FINAL Differential Total Cells 100 Counted Neutrophils % (Manual) 73 % (16-70) Band Neutrophils % 12 % (0-6) Lymphocytes % 8 % (9-44) Monocytes % 7 % (0-8) Neutrophils # (Manual) 21.5 TH/MM3 (1.8-7.7) Nucleated Red Blood Cells 1 /100 WBC (0-0) Differential Comment FINAL DIFF MANUAL Toxic Granulation 1+ (NORMAL) Toxic Vacuolation PRESENT (NONE SEEN) Platelet Estimate NORMAL (NORMAL) Platelet Morphology Comment NORMAL (NORMAL) Polychromasia 2.0 % (0.0-1.9) Sodium Level 153 MEQ/L 150 MEQ/L 153 MEQ/L (136-145) (136-145) (136-145) Potassium Level 3.9 MEQ/L 4.3 MEQ/L 4.2 MEQ/L (3.5-5.1) (3.5-5.1) (3.5-5.1) Chloride Level 118 MEQ/L 115 MEQ/L 118 MEQ/L (98-107) (98-107) (98-107) Carbon Dioxide Level 18.6 MEQ/L 22.3 MEQ/L 21.8 MEQ/L (21.0-32.0) (21.0-32.0) (21.0-32.0) Anion Gap 16 MEQ/L (5-15) 13 MEQ/L (5-15) 13 MEQ/L (5-15) Blood Urea Nitrogen 46 MG/DL (7-18) 67 MG/DL (7-18) 69 MG/DL (7-18) Creatinine 1.49 MG/DL 2.16 MG/DL 1.90 MG/DL (0.60-1.30) (0.60-1.30) (0.60-1.30) Estimat Glomerular Filtration 50 ML/MIN (>89) 33 ML/MIN (>89) 38 ML/MIN (>89) Rate Random Glucose 188 MG/DL 181 MG/DL 156 MG/DL (74-106) (74-106) (74-106) Calcium Level 6.6 MG/DL 7.3 MG/DL 8.2 MG/DL (8.5-10.1) (8.5-10.1) (8.5-10.1) Protein Corrected Calcium 7.5 MG/DL 8.1 MG/DL (8.5-10.1) (8.5-10.1) Phosphorus Level 3.9 MG/DL (2.5-4.9) Magnesium Level 2.6 MG/DL (1.5-2.5) Total Bilirubin 1.1 MG/DL 1.3 MG/DL 1.6 MG/DL (0.2-1.0) (0.2-1.0) (0.2-1.0) Aspartate Amino Transf 635 U/L (15-37) 472 U/L (15-37) 397 U/L (15-37) (AST/SGOT) Alanine Aminotransferase 302 U/L (-) 276 U/L (-78) 272 U/L (12-78) (ALT/SGPT) Alkaline Phosphatase 291 U/L 264 U/L 278 U/L (45-117) (45-117) (45-117) Total Protein 5.2 GM/DL 5.7 GM/DL 5.9 GM/DL (6.4-8.2) (6.4-8.2) (6.4-8.2) Albumin 1.5 GM/DL 1.8 GM/DL 1.8 GM/DL (3.4-5.0) (3.4-5.0) (3.4-5.0) Ammonia 62 MCMOL/L 70 MCMOL/L (11-32) (11-32) Result Diagram: 09/11/1692009/11/16920 Microbiology Microbiology Date/Time Procedure Status Source Growth 09/08/16 11:00 Gram Stain - Final Complete Sputum Endotracheal 09/08/16 11:00 Sputum Culture - Final Complete Sputum Endotracheal MODERATE GROWTH NORMAL RESPIRATORY TWAN 09/08/16 09:05 Aerobic Blood Culture - Preliminary Resulted Blood Peripheral NO GROWTH IN 3 DAYS 09/08/16 09:05 Anaerobic Blood Culture - Preliminary Resulted Blood Peripheral NO GROWTH IN 3 DAYS Imaging Last Impressions Head CT 09/09/16 0000 Signed Impressions: Service Date/Time: Friday, September 09, 2016 16:04 - CONCLUSION: 1. Focal area of increased density within the left high parietal region which is unchanged compared to the previous examination. This remains nonspecific and may either represent a hyperdense mass or possibly an area of focal hemorrhage. MRI of the brain with contrast would be helpful for further evaluation of this finding. 2. Stable encephalomalacia involving the right parietal region. Kirit Barreto MD Brain MRI 09/09/16 0000 Signed Impressions: Service Date/Time: Friday, September 09, 2016 16:25 - CONCLUSION: 1. 2.6 x 1.5 cm extraaxial mass within the left high parietal region with some hemorrhagic components raising the possibility of metastatic disease. 2. Tiny focal signal abnormality within the left posteroparietal subcortical white matter consistent with probable acute lacunar infarct. 3. Stable area of encephalomalacia involving the right frontoparietal region. Kirit Barreto MD Chest X-Ray 09/08/16 0600 Signed Impressions: Service Date/Time: Thursday, September 08, 2016 04:50 - CONCLUSION: 1. Lucency overlying the right hemidiaphragm of uncertain etiology. 2. Bibasilar infiltrates. 3. Prominence of left hilum consistent with mass. Armen Power MD Abdomen Ultrasound 09/05/16 0000 Signed Impressions: Service Date/Time: Monday, September 05, 2016 09:21 - CONCLUSION: Enlarged heterogeneous liver. The heterogeneity is thought to be secondary to somewhat ill-defined echogenic masses throughout the liver. Metastatic disease needs to be suspected. Casey Cisneros MD Aorta CTA 09/04/16 0000 Signed Impressions: Service Date/Time: Sunday, September 04, 2016 13:44 - CONCLUSION: 1. Abnormal examination demonstrating large left hilar mass with bulky mediastinal adenopathy and associated post obstructive airspace disease in the superior segment of the left lower lobe. There is also evidence for bulky metastatic disease to the liver and solitary mesenteric metastasis. 1.5 cm left adrenal mass also suspicious for metastasis. 2. Bilateral lower lobe airspace consolidation may reflect aspiration in this intubated patient. 3. Patchy groundglass opacities in the upper lobes bilaterally consistent light reflex edema and volume loss. 4. No evidence for aortic dissection, significant aneurysm, or injury. Pepe Miramontes MD . Procedures * 09/05/16 - self extubated and reintubated. * 09/04/16 - Intubated. . Assessment and Plan Disease Oriented Problem List: (1) Septic shock (2) Leukocytosis (3) Lactic acidosis (4) Acute respiratory failure with hypoxia (5) Seizure (6) Metastatic cancer (7) Bipolar disorder (8) Chronic back pain (9) Pneumonia (10) Tobacco abuse Symptom Scale: (1) Seizure 0-10 Scale: Unable to quantify (2) Shortness of breath 0-10 Scale: Unable to quantify Comment: on mech vent. (3) Pain 0-10 Scale: Unable to quantify (4) Chronic back pain 0-10 Scale: Unable to quantify Pertinent Non-Medical Issues Psychosocial: legally , was still living intermittently with his alternating with his mother. Spiritual: mosque is not an important part of the patient's life. Legal:Patient is currently incapacitated, will not likely regained capacity. According to [place] statutes, health care proxy decision-making would fall to the patient's spouse (even if they are legally ). Ethical issues impacting care: no known concerns at this time. . Important Contacts * Stephanie Juares, spouse: [phone] * Joselito Branham, mother: [phone] or [phone] . Prognosis Mr. Juares is an unfortunate 50-year-old male admitted with seizure, respiratory failure requiring mechanical ventilation and multiorgan failure, found to have what appears to be widespread metastatic disease to liver, lymph nodes and brain. Overall prognosis appears poor for meaningful recovery. Hospice appropriate if goals are comfort oriented. . Code Status: Alternative Code (Intubation Only) Plan * Patient is currently incapacitated, will not likely regained capacity. According to [place] statutes, health care proxy decision-making would fall to the patient's spouse (even if they are legally ). * CODE status: Intubation only * Discussed with Dr. Chery and nurse. * 09/11/16 Patrica Cox LCSW called to speak with , she requests family meeting to further clarify goals and possible transition to comfort on 09/12/16 at 2pm. * SYMPTOMS: Pain: secondary to likely malignancy with metastatic disease, intubation, seizure. Off sedation. Unresponsive. Dyspnea: on mechanical ventilation, off sedation. No new medication recommendations at this time. * Palliative care will continue to follow throughout hospital course to assist with symptom management and clarification of goals as needed. . Attestation To help prompt me to consider important information that might be impacting today's encounter and assessment, information from prior notes written by myself or my colleagues may have been "brought forward" into today's note. My signature on this note, however, is an attestation that I personally performed the exam, history, and/or decision-making noted today, and, unless otherwise indicated, the interactions with patient, family, and staff as well as the review of records all occurred today. I also attest that the listed assessment and stated plan reflect my best clinical judgment today based on the combination of historical information, prior notes, and today's exam/ interactions. When time spent is documented, it refers only to time spent today by the signer, or if indicated, combined time spent today by collaborating physician/nurse practitioner. ZEINAB GO Sep 11, 2016 16:37
--- NOTE | 2016-09-11 18:50 | HHI.PR ---
Subjective Remarks Sleepy and does not follow commands. Failed CPAP. No fever. On 35 % FIo2. Objective Vital Signs Date Time Temp Pulse Resp B/P Pulse Ox O2 Delivery O2 Flow Rate FiO2 09/11/16 18:00 117 09/11/16 16:00 109 09/11/16 16:00 99.0 109 26 125/72 99 09/11/16 16:00 35 09/11/16 15:27 98 35 09/11/16 14:00 115 09/11/16 12:00 101.3 125 27 114/61 96 09/11/16 12:00 35 09/11/16 12:00 125 09/11/16 11:31 94 35 09/11/16 10:00 122 09/11/16 08:23 98 35 09/11/16 08:00 35 09/11/16 08:00 98.6 110 21 113/58 96 09/11/16 08:00 110 09/11/16 06:00 117 09/11/16 04:00 99.7 117 23 110/65 96 09/11/16 04:00 117 09/11/16 04:00 35 09/11/16 03:43 98 35 09/11/16 02:00 115 09/11/16 01:13 100 35 09/11/16 00:00 97.9 112 23 113/68 98 09/11/16 00:00 35 09/11/16 00:00 112 09/10/16 22:00 111 09/10/16 20:00 35 09/10/16 20:00 119 09/10/16 20:00 99.3 119 23 105/59 99 09/10/16 19:33 96 35 I/O 09/10/16 09/10/16 09/10/16 09/11/16 09/11/16 09/11/16 07:00 15:00 23:00 07:00 15:00 23:00 Intake Total 1635 ml 1545 ml 783 ml 1592 ml 1525 ml Output Total 750 ml 775 ml 750 ml 850 ml 850 ml Balance 885 ml 770 ml 33 ml 742 ml 675 ml Intake IV Total 664 ml 665 ml 588 ml 603 ml 673 ml Tube Feeding 371 ml 280 ml 195 ml 389 ml 252 ml Tube Irrigant 600 ml 600 ml Other 600 ml 600 ml Output Urine Total 750 ml 775 ml 750 ml 850 ml 850 ml Tube Feeding Residual Discard 0 ml 0 ml 0 ml 0 ml Result Diagram: 09/11/1621 09/11/16 0921 Objective Remarks GENERAL: This obese, middle-aged man who is sedated, intubated. HEENT: Head normocephalic. Pupils are reactive. Throat clear. NECK: Supple with no venous distension. No thyromegaly. CHEST: Equal movements with occ wheezes throughout both lung parker. HEART: The heart sounds are regular S1-S2. No murmur. ABDOMEN: Obese, protuberant without masses. No organomegaly. EXTREMITIES: No edema.warm extremities with diminished pulses. Reflexes are 1 +. He is sedated. SKIN: Dry and warm. Assessment and Plan Assessment and Plan IMPRESSION 1. Septic shock. 2. Acute hypoxemic respiratory failure. 3. COPD. 4. 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 5. Possible brain mets with seizures. 6. History of bipolar disorder. 7. Diabetes mellitus. 8. Hypertension. 9. Hyponatremia. Plan : 1. Wean FIO2 to keep sat >92. 2. Reduce sedation 3. Cont antibiotics. 4. Continue nebs qid. 5. Chest X ray in am 6. Tube feeds at 40 CC 7. Bronchoscopy when clinically stable Jamey Botello MD Sep 11, 2016 18:50
[2016-09-12] VITALS (18 sets, daily range): BP systolic 72–114; BP diastolic 42–76; PULSE 88–117; RESP 19–26; TEMP 99.2–102.6; O2SAT 92–100
[2016-09-12] MEDS: RESP: ALBUTEROL 2.5 MG/IPRATROPIUM 0.5 MG NEB (SCH) INH ×2 (03:44→07:25)
[2016-09-12] MEDS: INSULIN NovoLIN REGULAR SUPPLEMENTAL SCALE SQ SCH ×5 (04:00→19:39)
[2016-09-12] MEDS: CHLORHEXIDINE GLUCONATE 2 % 1 PACK (2 CLOTHS) TOP SCH (04:00)
--- NOTE | 2016-09-12 05:39 | RADRPT ---
EXAM DATE/TIME: 09/12/2016 04:30 [facility] COMPARISON: CTA THORACIC ABDOMINAL AORTA W 3D RECON, September 04, 2016, 13:44. CHEST SINGLE AP, September 08, 2016, 4:50. INDICATIONS : Shortness of breath. MEDICAL HISTORY : Hypertension. Cardiovascular disease Seizures. SURGICAL HISTORY : Upper extremity surgery ENCOUNTER: Subsequent ACUITY: 1 week PAIN SCORE: Non-responsive. LOCATION: Bilateral chest FINDINGS: Mild bibasilar opacities and opacity and mass in the left hilar region, similar to prior exam. Endot kacie tube tip well above the ed. Gastric tube traverses the [id number]. CONCLUSION: Stable prominence of left hilum and bibasilar infiltrates. Eyad Zhang MD on September 12, 2016 at 5:36 Board Certified Radiologist. This report was verified electronically.
[2016-09-12 05:44] LABS: AUTOMATED NEUTROPHIL # 18.5 TH/MM3 (1.8-7.7); BASOPHIL # 0.1 TH/MM3 (0-0.2); BASOPHIL % 0.5 % (0.0-2.0); EOSINOPHIL # 0.1 TH/MM3 (0-0.4); EOSINOPHIL % 0.3 % (0.0-4.0); HEMATOCRIT 36.5 % (39.0-51.0); HEMO FLAGS DIFF FINAL; MEAN CELL VOLUME 83.4 FL (80.0-100.0); MEAN CORPUSCULAR HEMOGLOBIN 27.5 PG (27.0-34.0); MEAN CORPUSCULAR HGB CONC 32.9 % (32.0-36.0); MONO % 5.2 % (0.0-8.0); PLATELET COUNT 179 TH/MM3 (150-450); RED BLOOD COUNT 4.38 MIL/MM3 (4.50-5.90); RED CELL DISTRIBUTION WIDTH 15.9 % (11.6-17.2); WHITE BLOOD COUNT 21.8 TH/MM3 (4.0-11.0)
[2016-09-12] MEDS: FREE WATER G-TUBE SCH ×3 (05:49→16:45)
[2016-09-12] MEDS: HYDROCORTISONE SOD SUCCINATE 100 MG VIAL IV PUSH SCH ×2 (05:49→16:45)
[2016-09-12 06:00] LABS: ALT (GPT) 259 U/L (12-78)
[2016-09-12 06:02] LABS: ALKALINE PHOSPHATASE 303 U/L (45-117); TOTAL BILIRUBIN ADULT 2.3 MG/DL (0.2-1.0)
[2016-09-12 06:08] LABS: ANION GAP 15 MEQ/L (5-15); AST (GOT) 415 U/L (15-37); BLOOD UREA NITROGEN 76 MG/DL (7-18); CHLORIDE 115 MEQ/L (98-107); GLOMERULAR FILTRATION RATE 33 ML/MIN (>89); SODIUM (NA) 148 MEQ/L (136-145)
[2016-09-12] MEDS: CHLORHEXIDINE 0.12% (ORAL KIT) 15 ML CUP MT SCH ×2 (08:21→19:39)
[2016-09-12] MEDS: DOCUSATE SODIUM 100 MG/10 ML UDC PO SCH ×2 (09:00→20:16)
[2016-09-12] MEDS: METOPROLOL TARTRATE 25 MG TAB PO SCH ×2 (09:00→20:16)
[2016-09-12] MEDS: SENNOSIDES SYRUP 8.8 MG/5 ML CUP PO SCH (09:00)
[2016-09-12] MEDS: DEXTROSE 5% IN WATE 1000ML INJ 1,000 ML IV SCH ×2 (09:15→22:17)
[2016-09-12] MEDS: PANTOPRAZOLE SODIUM 40 MG VIAL IV SCH (09:47)
[2016-09-12] MEDS: LACTULOSE SYRUP 20 GM/30 ML CUP PO SCH ×2 (09:47→20:16)
[2016-09-12] MEDS: levETIRAcetam INJ 500 MG in SODIUM CHLORIDE 0.9% INJ 100 ML IV SCH ×2 (09:47→20:16)
--- NOTE | 2016-09-12 11:32 | HHI.IDPN ---
Note Infectious Disease Note Patient on the vent. 40% FIO2. No distress. developed hypotension and was started on Neosynephrine. Still having temp spikes. 102. Sedated. No significant secretions. Central line changed today. Patient was brought to emergency department after having seizures. PAST MEDICAL HISTORY: 1. Seizure disorder. 2. Hypertension. 3. Diabetes mellitus. 4. Bipolar disorder. 5. Chronic back pain. ALLERGIES NO KNOWN DRUG ALLERGIES. ANTIBIOTICS: Levaquin. Micafungin. OBJECTIVE: Vital Signs Date Time Temp Pulse Resp B/P Pulse Ox O2 Delivery O2 Flow Rate FiO2 09/12/16 07:26 95 45 09/12/16 06:00 116 09/12/16 04:12 93 45 09/12/16 04:00 114 09/12/16 04:00 45 09/12/16 04:00 101.0 114 26 96/54 93 09/12/16 02:00 117 09/12/16 01:11 93 45 09/12/16 00:00 111 09/12/16 00:00 100.8 111 26 113/76 92 09/12/16 00:00 45 09/11/16 22:08 94 35 09/11/16 22:00 101 09/11/16 20:11 95 35 09/11/16 20:00 35 09/11/16 20:00 112 09/11/16 20:00 99.9 112 27 107/58 95 09/11/16 18:00 117 09/11/16 16:00 109 09/11/16 16:00 99.0 109 26 125/72 99 09/11/16 16:00 35 09/11/16 15:27 98 35 09/11/16 14:00 115 09/11/16 12:00 101.3 125 27 114/61 96 09/11/16 12:00 35 09/11/16 12:00 125 09/11/16 11:31 94 35 09/11/16 09/11/16 09/12/16 15:00 23:00 07:00 Intake Total 1525 ml 1400 ml 1512 ml Output Total 850 ml 1000 ml 700 ml Balance 675 ml 400 ml 812 ml Intake IV Total 673 ml 789 ml 586 ml Tube Feeding 252 ml 311 ml 326 ml Tube Irrigant 600 ml Other 300 ml 600 ml Output Urine Total 850 ml 1000 ml 300 ml Stool Total 400 ml Tube Feeding Residual Discard 0 ml # Bowel Movements 1 Laboratory Tests Test 09/11/16 09/12/16 09:21 05:01 White Blood Count 22.5 TH/MM3 21.8 TH/MM3 Red Blood Count 4.44 MIL/MM3 4.38 MIL/MM3 Hemoglobin 12.0 GM/DL 12.0 GM/DL Hematocrit 36.5 % 36.5 % Mean Corpuscular Volume 82.3 FL 83.4 FL Mean Corpuscular Hemoglobin 27.1 PG 27.5 PG Mean Corpuscular Hemoglobin 32.9 % 32.9 % Concent Red Cell Distribution Width 16.0 % 15.9 % Platelet Count 167 TH/MM3 179 TH/MM3 Mean Platelet Volume 10.3 FL 10.4 FL Neutrophils (%) (Auto) 87.3 % 85.0 % Lymphocytes (%) (Auto) 7.0 % 9.0 % Monocytes (%) (Auto) 4.7 % 5.2 % Eosinophils (%) (Auto) 0.6 % 0.3 % Basophils (%) (Auto) 0.4 % 0.5 % Neutrophils # (Auto) 19.6 TH/MM3 18.5 TH/MM3 Lymphocytes # (Auto) 1.6 TH/MM3 2.0 TH/MM3 Monocytes # (Auto) 1.0 TH/MM3 1.1 TH/MM3 Eosinophils # (Auto) 0.1 TH/MM3 0.1 TH/MM3 Basophils # (Auto) 0.1 TH/MM3 0.1 TH/MM3 CBC Comment DIFF FINAL DIFF FINAL Differential Comment Laboratory Tests Test 09/11/16 09/12/16 09:21 05:01 Sodium Level 153 MEQ/L 148 MEQ/L Potassium Level 4.2 MEQ/L 4.0 MEQ/L Chloride Level 118 MEQ/L 115 MEQ/L Carbon Dioxide Level 21.8 MEQ/L 18.0 MEQ/L Anion Gap 13 MEQ/L 15 MEQ/L Blood Urea Nitrogen 69 MG/DL 76 MG/DL Creatinine 1.90 MG/DL 2.15 MG/DL Estimat Glomerular Filtration 38 ML/MIN 33 ML/MIN Rate Random Glucose 156 MG/DL 144 MG/DL Calcium Level 8.2 MG/DL 8.0 MG/DL Total Bilirubin 1.6 MG/DL 2.3 MG/DL Aspartate Amino Transf 397 U/L 415 U/L (AST/SGOT) Alanine Aminotransferase 272 U/L 259 U/L (ALT/SGPT) Alkaline Phosphatase 278 U/L 303 U/L Total Protein 5.9 GM/DL 5.7 GM/DL Albumin 1.8 GM/DL 1.8 GM/DL IMAGING: Chest X-Ray 09/12/16 0600 Signed Impressions: Service Date/Time: Monday, September 12, 2016 04:30 - CONCLUSION: Stable prominence of left hilum and bibasilar infiltrates. Eyad Zhang MD Head CT 09/09/16 0000 Signed Impressions: Service Date/Time: Friday, September 09, 2016 16:04 - CONCLUSION: 1. Focal area of increased density within the left high parietal region which is unchanged compared to the previous examination. This remains nonspecific and may either represent a hyperdense mass or possibly an area of focal hemorrhage. MRI of the brain with contrast would be helpful for further evaluation of this finding. 2. Stable encephalomalacia involving the right parietal region. Kirit Barreto MD Brain MRI 09/09/16 0000 Signed Impressions: Service Date/Time: Friday, September 09, 2016 16:25 - CONCLUSION: 1. 2.6 x 1.5 cm extraaxial mass within the left high parietal region with some hemorrhagic components raising the possibility of metastatic disease. 2. Tiny focal signal abnormality within the left posteroparietal subcortical white matter consistent with probable acute lacunar infarct. 3. Stable area of encephalomalacia involving the right frontoparietal region. Kirit Barreto MD Chest X-Ray 09/06/16 0000 Signed Impressions: Service Date/Time: August 08:28 - CONCLUSION: Mild airspace consolidation in the lower lung zones bilaterally but overall significantly improved compared to the study from 2 days ago. Casey Phelps MD Abdomen Ultrasound 09/05/16 0000 Signed Impressions: Service Date/Time: Monday, September 05, 2016 09:21 - CONCLUSION: Enlarged heterogeneous liver. The heterogeneity is thought to be secondary to somewhat ill-defined echogenic masses throughout the liver. Metastatic disease needs to be suspected. Casey Cisneros MD Head CT 09/04/16 1312 Signed Impressions: Service Date/Time: Sunday, September 04, 2016 13:39 - CONCLUSION: 2.3 cm hyperdense mass seen at the left parietal lobe. This is thought to likely represent a mass. Some degree of hemorrhage can not be excluded given the density. There is also a questionable second smaller area of hyperdensity seen in the anterior inferior midline frontal lobe region. It is recommended both these areas be further evaluated with a MRI examination with contrast if there are no contraindications. Casey Cisneros MD Chest X-Ray 09/04/16 1312 Signed Impressions: Service Date/Time: Sunday, September 04, 2016 13:15 - CONCLUSION: 1. Multilobar consolidation likely pneumonia. 2. Adequate placement of endotracheal tube. Armen Power MD Head CT 09/04/16 1312 Signed Impressions: Service Date/Time: Sunday, September 04, 2016 13:39 - CONCLUSION: 2.3 cm hyperdense mass seen at the left parietal lobe. This is thought to likely represent a mass. Some degree of hemorrhage can not be excluded given the density. There is also a questionable second smaller area of hyperdensity seen in the anterior inferior midline frontal lobe region. It is recommended both these areas be further evaluated with a MRI examination with contrast if there are no contraindications. Casey Cisneros MD Chest X-Ray 09/04/16 1312 Signed Impressions: Service Date/Time: Sunday, September 04, 2016 13:15 - CONCLUSION: 1. Multilobar consolidation likely pneumonia. 2. Adequate placement of endotracheal tube. Armen Power MD Aorta CTA 09/04/16 0000 Signed Impressions: Service Date/Time: Sunday, September 04, 2016 13:44 - CONCLUSION: 1. Abnormal examination demonstrating large left hilar mass with bulky mediastinal adenopathy and associated post obstructive airspace disease in the superior segment of the left lower lobe. There is also evidence for bulky metastatic disease to the liver and solitary mesenteric metastasis. 1.5 cm left adrenal mass also suspicious for metastasis. 2. Bilateral lower lobe airspace consolidation may reflect aspiration in this intubated patient. 3. Patchy groundglass opacities in the upper lobes bilaterally consistent light reflex edema and volume loss. 4. No evidence for aortic dissection, significant aneurysm, or injury. Pepe Miramontes MD PHYSICAL EXAMINATION: GENERAL: On the vent. HEENT: Intubated. No icterus. NECK: Supple. No adenopathy. LUNGS: Bilateral rhonchi at the bases. HEART: Regular S1-S2. No murmur. No rubs, No gallops. ABDOMEN: Obese, soft. No tenderness appreciated. Decreased bowel sounds. EXTREMITIES: No clubbing, cyanosis or edema. SKIN: No rash. NEUROLOGIC: Unable to assess. PSYCH: Unable to assess. IMPRESSION 1. Septic shock, unclear etiology. Now with recurring fever. Negative cultures. 2. Multilobar pneumonia, possibly secondary to aspiration. Probable source. 3. 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 4. Acute Respiratory failure. 5. Altered mental status secondary to sepsis. 6. Seizure. 7. Leukocytosis - WBC still elevated. 8. Elevated LFT's 9. FEVER. ? etiology. Infection. Possible drug - Bata lactam. Changes at left lung base could be atelectasis. Post central line change. RECOMMENDATIONS: 1. Continue Micafungin. 2. Continue Levaquin. 3. Add Vancomycin. Dose and level ordered. 4. Monitor temp and WBC. 5. Follow clinical status. . Zeke Ochoa MD Sep 12, 2016 11:32
--- NOTE | 2016-09-12 11:44 | PD.PROCEDR ---
Central Line Procedure REASON FOR PROCEDURE Central venous access PROCEDURE PERFORMED Central line placement: L subclavian central line CONSENT Informed consent for procedure was obtained. The risks and benefits of the procedure were discussed to include but limited to bleeding, clot formation, infection, and even . ANESTHESIA Local injection of 1% Lidocaine DESCRIPTION OF THE PROCEDURE The patient was placed in supine, mild Trendelenburg position. The area was exposed and cleansed with ChloraPrep, times two. Large sterile drape was used to cover the patient, with the site exposed, under sterile conditions including cap, face mask, sterile gown, and sterile gloves. On single attempt, the introducer needle was inserted with negative pressure in syringe and venous flash was obtained. The guide wire was then advanced without any restriction and the needle was removed. The dilator was used without any complications. Using Seldinger technique the 20 CM 7F triple lumen catheter was advanced over the guide wire to a depth of 18 centimeters. The guide wire was removed. All ports were aspirated with dark venous blood return and flushed easily with sterile saline. All ports were capped. Antibiotic disc was placed around central line at puncture site. The central line was secured to the skin with two interrupted 2.0 silk sutures. The area was bandaged with sterile see- through central line bandage. COMPLICATIONS: No apparent complications ESTIMATED BLOOD LOSS: Less than 1 cc. Yinka Peña MD Sep 12, 2016 11:44
--- NOTE | 2016-09-12 12:20 | RADRPT ---
EXAM DATE/TIME: 09/12/2016 11:49 [facility] COMPARISON: CHEST SINGLE AP, September 12, 2016, 4:30. INDICATIONS : Central line placement. MEDICAL HISTORY : Hypertension. Cardiovascular disease Seizures. SURGICAL HISTORY : None. ENCOUNTER: Subsequent ACUITY: 1 week PAIN SCORE: Non-responsive. LOCATION: Bilateral chest FINDINGS: Stable ETT and NGT. Interval placement of left subclavian central venous catheter with tip coiled in the subclavian region. Redemonstration of bilateral lower lobe airspace disease. No significant pneum othorax. Cardiomediastinal contours are stable. Remainder of the exam is unchanged. CONCLUSION: 1. Left subclavian central venous catheter tip is coiled in the subclavian region. 2. No pneumothorax. 3. Remainder of the exam is unchanged from earlier today. Pepe Miramontes MD on September 12, 2016 at 12:16 Board Certified Radiologist. This report was verified electronically.
--- NOTE | 2016-09-12 12:25 | HHI.PR ---
Subjective Remarks Vent dependant and does not follow commands.. Septic again. On 50% FIo2. Objective Vital Signs Date Time Temp Pulse Resp B/P Pulse Ox O2 Delivery O2 Flow Rate FiO2 09/12/16 12:04 100 50 09/12/16 10:00 107 09/12/16 08:00 113 09/12/16 07:26 95 45 09/12/16 06:00 116 09/12/16 04:12 93 45 09/12/16 04:00 114 09/12/16 04:00 45 09/12/16 04:00 101.0 114 26 96/54 93 09/12/16 02:00 117 09/12/16 01:11 93 45 09/12/16 00:00 111 09/12/16 00:00 100.8 111 26 113/76 92 09/12/16 00:00 45 09/11/16 22:08 94 35 09/11/16 22:00 101 09/11/16 20:11 95 35 09/11/16 20:00 35 09/11/16 20:00 112 09/11/16 20:00 99.9 112 27 107/58 95 09/11/16 18:00 117 09/11/16 16:00 109 09/11/16 16:00 99.0 109 26 125/72 99 09/11/16 16:00 35 09/11/16 15:27 98 35 09/11/16 14:00 115 I/O 09/11/16 09/11/16 09/11/16 09/12/16 09/12/16 09/12/16 07:00 15:00 23:00 07:00 15:00 23:00 Intake Total 1592 ml 1525 ml 1400 ml 1512 ml Output Total 850 ml 850 ml 1000 ml 700 ml Balance 742 ml 675 ml 400 ml 812 ml Intake IV Total 603 ml 673 ml 789 ml 586 ml Tube Feeding 389 ml 252 ml 311 ml 326 ml Tube Irrigant 600 ml Other 600 ml 300 ml 600 ml Output Urine Total 850 ml 850 ml 1000 ml 300 ml Stool Total 400 ml Tube Feeding Residual Discard 0 ml # Bowel Movements 1 Result Diagram: 09/12/16 0501 09/12/16 0501 Objective Remarks GENERAL: This obese, middle-aged man who is sedated, intubated. HEENT: Head normocephalic. Pupils are reactive. NECK: Supple with no venous distension. No thyromegaly. CHEST: Equal movements with wheezes throughout both lung parker. HEART: The heart sounds are regular S1-S2. No murmur. ABDOMEN: Obese, protuberant without masses. No organomegaly. EXTREMITIES: No edema.warm extremities with diminished pulses. Reflexes are 1 +. He is sedated. SKIN: Dry and warm. Assessment and Plan Assessment and Plan IMPRESSION 1. Septic shock. 2. Acute hypoxemic respiratory failure. 3. COPD. 4. 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 5. Possible brain mets with seizures. 6. History of bipolar disorder. 7. Diabetes mellitus. 8. Hypertension. 9. Hyponatremia. Plan : 1. Wean FIO2 to keep sat >92. 2. Reduce sedation 3. Cont antibiotics.Per Dr Peña 4. Continue nebs qid. 5. CT chest in am 6. Tube feeds at 50 CC 7. Bronchoscopy when clinically stable 8.D/W Jamey Franklin MD Sep 12, 2016 12:25
--- NOTE | 2016-09-12 12:58 | HHI.CCPN ---
Subjective Remarks/Hospital Course The patient is a 50-year-old male with past medical history of hypertension, diabetes mellitus, seizure disorder, chronic back pain, bipolar disorder who presented to the ED with a witnessed generalized seizure. In addition the patient was altered and hypoxic with O2 saturation in the 70s. He initially somewhat improved on a non-rebreather but due to labored breathing or diaphoresis he was subsequently intubated in the ED and placed on full mechanical ventilation. According to the patient's family the patient has been having progressive worsening shortness of breath and he has not been feeling well lately. In addition he reported feeling nauseous and heartburn. On arrival to the ER he was tachycardiac, hypotensive and was subsequently placed on Levophed which is currently at 20 mics. The patient was given 3 liters of crystalloids in the ED. ABG post intubation showed pH of 7.23, CO2 33, pAO2 180 , bicarb 13, saturation 97% on PRVC mode with a rate of 18, tidal volume 500, PEEP of 5, IT: 1.0, FIO2 100%. His laboratory data significant for lactic acidemia with a lactic acid level of 11.3, acute kidney injury with a creatinine 2.17 and leukocytosis with bandemia. His WBC is 34.8 with bands of 16. A CT scan of the brain in the ER was obtained which showed a 2.3 cm hyperdense mass at the left parietal lobe and a questionable second small area of hyperdensity seen in the frontal lobe region. He also had a CTA of the aorta which showed significant hilar and mediastinal adenopathy and liver mets. In the ER he was given Zosyn, azithromycin and placed on Diprivan infusion for sedation. A right femoral central line and left radial A-line was placed by the ED physician. 09/05 Patient was self extubated and was reintubated last night . Sedated with Diprivan , Fentanyl and intubated. On Levophed and now Neosyn. Renal function is worsening with Cr: 2.34 from 2.14 09/06 Patient remains sedated with Diprivan and Fentanyl and intubated. On Levophed 13 mics and Neosyn 160 mics. Spiked fever with T:102.1.Renal function is improving with Cr:1.81 from 2.34. 09/07 No events overnight. Remains sedated with Diprivan and intubated. Off all pressors renal function is improving with Cr: 1.11 from 1.81. T:99.8 09/08 Patient is sedate with Diprivan and intubated. T:103.0 at 4 am. Given Metoprolol 5mg Iv early this morning for sinus tachycardia. 09/09 Patient is sedated with Fentanyl and intubated, T: 102.0 09/10 Patient is off sedation doesn't follow commands. T:100.4 at 4 am. MRI brain yesterday showed 2.6 x 1.5 cm extraaxial mass within the left high parietal region with some hemorrhagic components ? metastatic disease. probable acute lacunar infarct. 09/11 Patient remains off sedation does not follow commands. Tolerating tube feeds. T:99.7 09/12: Developing septic shock, MAXIMUM TEMPERATURE 102.6, map down to 48. Map didn't sufficiently improved with 2 L normal saline bolus and Abhijeet-Synephrine GTT was added. Remains encephalopathic. ID has start of vancomycin to the existing antibiotics, I have added cefepime. Panculture. Discussed with family - They are not certain about bronch and biopsy for tissue diagnosis at this time Objective Vital Signs Date Time Temp Pulse Resp B/P Pulse Ox O2 Delivery O2 Flow Rate FiO2 09/12/16 12:04 100 50 09/12/16 10:00 107 09/12/16 04:00 101.0 26 96/54 Intake and Output 09/11/16 09/11/16 09/12/16 08:00 16:00 00:00 Intake Total 1592 ml 1525 ml 1400 ml Output Total 850.0 ml 850 ml 1000 ml Balance 742.0 ml 675 ml 400 ml Result Diagram: 09/12/16 0501 09/12/16 0501 Imaging Last Impressions Head CT 09/09/16 0000 Signed Impressions: Service Date/Time: Friday, September 09, 2016 16:04 - CONCLUSION: 1. Focal area of increased density within the left high parietal region which is unchanged compared to the previous examination. This remains nonspecific and may either represent a hyperdense mass or possibly an area of focal hemorrhage. MRI of the brain with contrast would be helpful for further evaluation of this finding. 2. Stable encephalomalacia involving the right parietal region. Kirit Barreto MD Brain MRI 09/09/16 0000 Signed Impressions: Service Date/Time: Friday, September 09, 2016 16:25 - CONCLUSION: 1. 2.6 x 1.5 cm extraaxial mass within the left high parietal region with some hemorrhagic components raising the possibility of metastatic disease. 2. Tiny focal signal abnormality within the left posteroparietal subcortical white matter consistent with probable acute lacunar infarct. 3. Stable area of encephalomalacia involving the right frontoparietal region. Kirit Barreto MD Chest X-Ray 09/08/16 0600 Signed Impressions: Service Date/Time: Thursday, September 08, 2016 04:50 - CONCLUSION: 1. Lucency overlying the right hemidiaphragm of uncertain etiology. 2. Bibasilar infiltrates. 3. Prominence of left hilum consistent with mass. Armen Power MD Abdomen Ultrasound 09/05/16 0000 Signed Impressions: Service Date/Time: Monday, September 05, 2016 09:21 - CONCLUSION: Enlarged heterogeneous liver. The heterogeneity is thought to be secondary to somewhat ill-defined echogenic masses throughout the liver. Metastatic disease needs to be suspected. Casey Cisneros MD Aorta CTA 09/04/16 0000 Signed Impressions: Service Date/Time: Sunday, September 04, 2016 13:44 - CONCLUSION: 1. Abnormal examination demonstrating large left hilar mass with bulky mediastinal adenopathy and associated post obstructive airspace disease in the superior segment of the left lower lobe. There is also evidence for bulky metastatic disease to the liver and solitary mesenteric metastasis. 1.5 cm left adrenal mass also suspicious for metastasis. 2. Bilateral lower lobe airspace consolidation may reflect aspiration in this intubated patient. 3. Patchy groundglass opacities in the upper lobes bilaterally consistent light reflex edema and volume loss. 4. No evidence for aortic dissection, significant aneurysm, or injury. Pepe Miramontes MD Objective Remarks GENERAL: Patient is 50 yo remains intubated, now critically ill in septic shock SKIN: Warm and dry. HEAD: Normocephalic. EYES: No scleral icterus. No injection or drainage. NECK: Supple, trachea midline. No JVD or lymphadenopathy. Orally intubated CARDIOVASCULAR:Tachycardic without murmurs, gallops, or rubs. Hypotensive with map in 48, now placed on Abhijeet-Synephrine RESPIRATORY: Breath sounds equal bilaterally. No accessory muscle use. GASTROINTESTINAL: Abdomen soft, non-tender, nondistended. MUSCULOSKELETAL: No cyanosis, or edema. Neuro: intubated, doesn't follow commands. Opens eyes but no tracking. Withdraws extremities to pain 4 Urinary Catheter: Yes Assessment to: Continue A/P Assessment and Plan 1. Acute respiratory failure 2. Worsening Septic shock. 3. Post obstructive pneumonia. 4. Leukocytosis with bandemia. 5. Status post seizure. 6. Lactic acidemia likely secondary to seizure and septic shock. 7. Acute kidney injury and hyponatremia. 8. Anion gap metabolic acidosis. 9. Elevated liver enzymes. 10. Brain masses rule out mets. 11. Mediastinal / hilar adenopathy need to rule out bronchogenic carcinoma. 12. Liver mets. 13. History of hypertension. 14. Hyperglycemia with underlying history of diabetes mellitus. 15. Obesity. 16. Chronic back pain. 17. History of bipolar disorder. Plan Neuro: Off all sedation. No improvement in mental status. Lactulose 30 ml BID, Ammonia level 70 09/10 On Keppra 500 mg IV q. 12 , Neuro is following- Dr. Swift EEG showed mild- mod encephalopathy. Repeat EEG today 09/12 MRI brain 09/09: 2.6 x 1.5 cm extraaxial mass within the left high parietal region with some hemorrhagic components ? metastatic disease. probable acute lacunar infarct. Pulm: Continue vent support and maintain sats above 92%. Bronchodilators, ICU vent bundle. SBT daily as cecily. Pulm is following Dr. Botello Family at this time less inclined to pursue a tissue diagnosis due to overall poor prognosis CV: Hold Lopressor due to septic shock Start Abhijeet-Synephrine to keep map above 65. s/p 2L NS bolus Hydrocortisone 25 mg IV q.12. Echo showed EF 70-75% : Monitor renal function Is and Os and avoid nephrotoxins. Worsening creatinine US kidneys: No hydronephrosis, non-obstructing stone on left. Renal is following- Dr. Barrow. Free water 300ml Q6, monitor sodium level. IV fluids changed to normal saline due to hypotension. Keep Na 145-150 due to brain mets GI: On Protonix 40 mg IV daily. On Glucerna 1.5 @45ml/hr Monitor LFTs ( trending down) Hepatitis profile. Hep C ab reactive US liver: Enlarged heterogeneous liver. Somewhat ill-defined echogenic masses throughout the liver. Metastatic disease is suspected. ID: Continue with abx(Levaquin, Micafungin) ID is following, added vanc. I will also add cefepime Send blood sputum and urine culture today 09/12/16 Sputum cx: 09/05: nl fredrick, follow up on sputum cx 09/08- normal fredrick strep pneumonia and Legionella urinary AG negative on Previous cultures NGTD Heme: Monitor CBC. Oncology is following re probable metastatic lung cancer stage IV Endo: On medium scale SSI with Accu-Chek for glycemic control. TSH: 0.74 GI prophylaxis with Protonix 40 mg daily and DVT prophylaxis with SCDs. Not on chemical anticoagulation prophylaxis given likely brain mets Lines. Peripheral IV's. Place central line today for vasopressor use Palliative care is following. Code status: Alternative code Follow up on labs CCT 40 mins Patient remains acutely critically ill now with septic shock on pressors. Remains in multiorgan failure. Discussed with family overall prognosis remains poor. Family has not decided upon pursuing a tissue diagnosis. Meeting palliative care today Yinka Peña MD Sep 12, 2016 12:57
[2016-09-12] MEDS ORDERED: VANCOMYCIN INJ 1,500 MG in SODIUM CHLORID 0.9% 500 ML INJ 500 ML IV ONE (13:00)
[2016-09-12] MEDS: CEFEPIME INJ 2,000 MG in SODIUM CHLORIDE 0.9% INJ 100 ML IV SCH ×2 (13:34→22:17)
--- NOTE | 2016-09-12 13:37 | HHI.HCPN ---
Received call from , Stephanie. She states after speaking with multiple doctors today they are wishing to "give it one more day". Desires to meet tomorrow, - at 2pm. Appreciative of ongoing updates and support. Palliative care will continue to follow throughout hospitalization. Patrica Cox, AUTOPSY PATHOLOGIST Sep 12, 2016 13:37
[2016-09-12] MEDS: MICAFUNGIN INJ 100 MG in SODIUM CHLORIDE 0.9% INJ 100 ML IV SCH (15:10)
[2016-09-12] MEDS ORDERED: Central Line Short Term Adult 7Fr or larger PRN NS Lock Flush IV FLUSH (15:15)
--- NOTE | 2016-09-12 15:23 | HHI.HCPN ---
Reason for visit a. To assist with evaluation and management of symptoms including: pain, encephalopathy, dyspnea. b. To assist medical decision maker(s) with: better understanding of current medical conditions; weighing benefits/burdens of medical treatment options; making medical treatment decisions. . Subjective/Interval History Patient seen and examined in ICU. No family at bedside. Discussed with nursing staff. Patient remains remains in ICU on mechanical ventilation, FiO2 increased to 50% overnight. Color is dusky today. Remains off sedation since 09/08/16, withdraws slightly to pain right UE. Rotates bilateral LE externally left > right. Increased generalized edema. Febrile, TMax 102.6. Added Vanco and Cefepime to meds. Hypotensive overnight now on Neosynephrine 60mcg. Mottling noted to bilateral feet, right knee and left hand. Feet cool to touch. Opens eyes intermittently, not on command, does not track, left eye deviates externally, left pupil less reactive. WBC 21.8. Creatinine worsening now 2.13. Total bilirubin increased from 1.6 to 2.3. Albumin 1.8. Cultures negative to date. Pancultured, results pending. Chest xray with stable prominence of left hilum and bibasilar infiltrates. . Family/friend interactions Spoke with , Stephanie via phone. She requests palliative care meeting 09/13/16 about 2 or 2:30pm, will meet family in 2nd floor waiting room per their request. indicates she feels ready to proceed with transition to comfort, however patient's mother and family need another day. Agreed to provide update tomorrow. . . Advance Directives Living Will: Never completed Health Care Surrogate: Never completed Durable Power of Train Controller: Never completed Advance Directive Specifics Health Care Surrogate(s): Patient is currently incapacitated, will not likely regained capacity. According to [place] statutes, health care proxy decision-making would fall to the patient's spouse (even if they are legally ). . Documented care wishes: None. Significant change in goals: Alternate Code: Intubation Only. Family meeting arranged 09/13/16 at 2pm. . Objective Vital Signs Date Time Temp Pulse Resp B/P Pulse Ox O2 Delivery O2 Flow Rate FiO2 09/12/16 12:04 100 50 09/12/16 12:00 45 09/12/16 12:00 101.7 97 25 109/66 99 6/28/17 12:00 97 09/12/16 10:00 107 09/12/16 10:00 102.6 09/12/16 08:00 113 09/12/16 08:00 101.9 113 26 72/42 94 09/12/16 08:00 45 09/12/16 07:26 95 45 09/12/16 06:00 116 09/12/16 04:12 93 45 09/12/16 04:00 114 09/12/16 04:00 45 09/12/16 04:00 101.0 114 26 96/54 93 09/12/16 02:00 117 09/12/16 01:11 93 45 09/12/16 00:00 111 09/12/16 00:00 100.8 111 26 113/76 92 09/12/16 00:00 45 09/11/16 22:08 94 35 09/11/16 22:00 101 09/11/16 20:11 95 35 09/11/16 20:00 35 09/11/16 20:00 112 09/11/16 20:00 99.9 112 27 107/58 95 09/11/16 18:00 117 09/11/16 16:00 109 09/11/16 16:00 99.0 109 26 125/72 99 09/11/16 16:00 35 09/11/16 15:27 98 35 Intake & Output 09/12/16 09/12/16 07:00 19:00 Intake Total 2912 ml Output Total 1700 ml Balance 1212 ml Intake IV Total 1375 ml Tube Feeding 637 ml Other 900 ml Output Urine Total 1300 ml Stool Total 400 ml # Bowel Movements 1 Physical Exam CONSTITUTIONAL/GENERAL: This is an adequately nourished patient, on mech vent. off sedation. TUBES/LINES/DRAINS: ETT, OG, PIV x 2, bilateral soft wrist restraints, Roland, podus boots, SCDs. SKIN: Color dusky. Ecchymoses on upper extremities. Mottling bilateral feet, right knee, left hand. EYES: Right eye blind. Left slightly reactive. ENT: Unable to assess hearing. Nose without bleeding or purulent drainage. Difficult to visualize throat due to tubes. CARDIOVASCULAR: Tachycardic. RESPIRATORY/CHEST: labored respirations on vent. Course breath sounds. Diminished breath sounds. GASTROINTESTINAL: Abdomen protuberant. Bowel sounds active. GENITOURINARY: Without palpable bladder distension. Roland catheter in place. MUSCULOSKELETAL: Extremities warm. NEUROLOGICAL: Does not respond to voice or noxious stimuli. No withdrawal to pain. Does not follow commands. No tracking when eyes open. Blinks to threat. . Diagnostic Tests Laboratory Laboratory Tests Test 09/10/16 09/11/16 09/12/16 08:00 09:21 05:01 White Blood Count 23.9 TH/MM3 22.5 TH/MM3 21.8 TH/MM3 (4.0-11.0) (4.0-11.0) (4.0-11.0) Red Blood Count 4.34 MIL/MM3 4.44 MIL/MM3 4.38 MIL/MM3 (4.50-5.90) (4.50-5.90) (4.50-5.90) Hemoglobin 11.7 GM/DL 12.0 GM/DL 12.0 GM/DL (13.0-17.0) (13.0-17.0) (13.0-17.0) Hematocrit 35.9 % 36.5 % 36.5 % (39.0-51.0) (39.0-51.0) (39.0-51.0) Mean Corpuscular Volume 82.6 FL 82.3 FL 83.4 FL (80.0-100.0) (80.0-100.0) (80.0-100.0) Mean Corpuscular Hemoglobin 26.9 PG 27.1 PG 27.5 PG (27.0-34.0) (27.0-34.0) (27.0-34.0) Mean Corpuscular Hemoglobin 32.6 % 32.9 % 32.9 % Concent (32.0-36.0) (32.0-36.0) (32.0-36.0) Red Cell Distribution Width 15.5 % 16.0 % 15.9 % (11.6-17.2) (11.6-17.2) (11.6-17.2) Platelet Count 161 TH/MM3 167 TH/MM3 179 TH/MM3 (150-450) (150-450) (150-450) Mean Platelet Volume 10.1 FL 10.3 FL 10.4 FL (7.0-11.0) (7.0-11.0) (7.0-11.0) Neutrophils (%) (Auto) 83.4 % 87.3 % 85.0 % (16.0-70.0) (16.0-70.0) (16.0-70.0) Lymphocytes (%) (Auto) 11.3 % 7.0 % 9.0 % (9.0-44.0) (9.0-44.0) (9.0-44.0) Monocytes (%) (Auto) 4.1 % (0.0-8.0) 4.7 % (0.0-8.0) 5.2 % (0.0-8.0) Eosinophils (%) (Auto) 0.9 % (0.0-4.0) 0.6 % (0.0-4.0) 0.3 % (0.0-4.0) Basophils (%) (Auto) 0.3 % (0.0-2.0) 0.4 % (0.0-2.0) 0.5 % (0.0-2.0) Neutrophils # (Auto) 19.9 TH/MM3 19.6 TH/MM3 18.5 TH/MM3 (1.8-7.7) (1.8-7.7) (1.8-7.7) Lymphocytes # (Auto) 2.7 TH/MM3 1.6 TH/MM3 2.0 TH/MM3 (1.0-4.8) (1.0-4.8) (1.0-4.8) Monocytes # (Auto) 1.0 TH/MM3 1.0 TH/MM3 1.1 TH/MM3 (0-0.9) (0-0.9) (0-0.9) Eosinophils # (Auto) 0.2 TH/MM3 0.1 TH/MM3 0.1 TH/MM3 (0-0.4) (0-0.4) (0-0.4) Basophils # (Auto) 0.1 TH/MM3 0.1 TH/MM3 0.1 TH/MM3 (0-0.2) (0-0.2) (0-0.2) CBC Comment DIFF FINAL DIFF FINAL DIFF FINAL Differential Comment Sodium Level 150 MEQ/L 153 MEQ/L 148 MEQ/L (136-145) (136-145) (136-145) Potassium Level 4.3 MEQ/L 4.2 MEQ/L 4.0 MEQ/L (3.5-5.1) (3.5-5.1) (3.5-5.1) Chloride Level 115 MEQ/L 118 MEQ/L 115 MEQ/L (98-107) (98-107) (98-107) Carbon Dioxide Level 22.3 MEQ/L 21.8 MEQ/L 18.0 MEQ/L (21.0-32.0) (21.0-32.0) (21.0-32.0) Anion Gap 13 MEQ/L (5-15) 13 MEQ/L (5-15) 15 MEQ/L (5-15) Blood Urea Nitrogen 67 MG/DL (7-18) 69 MG/DL (7-18) 76 MG/DL (7-18) Creatinine 2.16 MG/DL 1.90 MG/DL 2.15 MG/DL (0.60-1.30) (0.60-1.30) (0.60-1.30) Estimat Glomerular Filtration 33 ML/MIN (>89) 38 ML/MIN (>89) 33 ML/MIN (>89) Rate Random Glucose 181 MG/DL 156 MG/DL 144 MG/DL (74-106) (74-106) (74-106) Calcium Level 7.3 MG/DL 8.2 MG/DL 8.0 MG/DL (8.5-10.1) (8.5-10.1) (8.5-10.1) Protein Corrected Calcium 8.1 MG/DL (8.5-10.1) Total Bilirubin 1.3 MG/DL 1.6 MG/DL 2.3 MG/DL (0.2-1.0) (0.2-1.0) (0.2-1.0) Aspartate Amino Transf 472 U/L (15-37) 397 U/L (15-37) 415 U/L (15-37) (AST/SGOT) Alanine Aminotransferase 276 U/L (12-78) 272 U/L (12-78) 259 U/L (12-78) (ALT/SGPT) Alkaline Phosphatase 264 U/L 278 U/L 303 U/L (45-117) (45-117) (45-117) Ammonia 70 MCMOL/L (11-32) Total Protein 5.7 GM/DL 5.9 GM/DL 5.7 GM/DL (6.4-8.2) (6.4-8.2) (6.4-8.2) Albumin 1.8 GM/DL 1.8 GM/DL 1.8 GM/DL (3.4-5.0) (3.4-5.0) (3.4-5.0) Result Diagram: 09/12/16 0501 09/12/16 0501 Microbiology Microbiology Date/Time Procedure Status Source Growth 09/08/16 11:00 Gram Stain - Final Complete Sputum Endotracheal 09/08/16 11:00 Sputum Culture - Final Complete Sputum Endotracheal MODERATE GROWTH NORMAL RESPIRATORY TWAN 09/08/16 09:05 Aerobic Blood Culture - Preliminary Resulted Blood Peripheral NO GROWTH IN 4 DAYS 09/08/16 09:05 Anaerobic Blood Culture - Preliminary Resulted Blood Peripheral NO GROWTH IN 4 DAYS . Imaging Last Impressions Chest X-Ray 09/12/16 0600 Signed Impressions: Service Date/Time: Monday, September 12, 2016 04:30 - CONCLUSION: Stable prominence of left hilum and bibasilar infiltrates. Eyad Zhang MD Head CT 09/09/16 0000 Signed Impressions: Service Date/Time: Friday, September 09, 2016 16:04 - CONCLUSION: 1. Focal area of increased density within the left high parietal region which is unchanged compared to the previous examination. This remains nonspecific and may either represent a hyperdense mass or possibly an area of focal hemorrhage. MRI of the brain with contrast would be helpful for further evaluation of this finding. 2. Stable encephalomalacia involving the right parietal region. Kirit Barreto MD Brain MRI 09/09/16 0000 Signed Impressions: Service Date/Time: Friday, September 09, 2016 16:25 - CONCLUSION: 1. 2.6 x 1.5 cm extraaxial mass within the left high parietal region with some hemorrhagic components raising the possibility of metastatic disease. 2. Tiny focal signal abnormality within the left posteroparietal subcortical white matter consistent with probable acute lacunar infarct. 3. Stable area of encephalomalacia involving the right frontoparietal region. Kirit Barreto MD Abdomen Ultrasound 09/05/16 0000 Signed Impressions: Service Date/Time: Monday, September 05, 2016 09:21 - CONCLUSION: Enlarged heterogeneous liver. The heterogeneity is thought to be secondary to somewhat ill-defined echogenic masses throughout the liver. Metastatic disease needs to be suspected. Casey Cisneros MD Aorta CTA 09/04/16 0000 Signed Impressions: Service Date/Time: Sunday, September 04, 2016 13:44 - CONCLUSION: 1. Abnormal examination demonstrating large left hilar mass with bulky mediastinal adenopathy and associated post obstructive airspace disease in the superior segment of the left lower lobe. There is also evidence for bulky metastatic disease to the liver and solitary mesenteric metastasis. 1.5 cm left adrenal mass also suspicious for metastasis. 2. Bilateral lower lobe airspace consolidation may reflect aspiration in this intubated patient. 3. Patchy groundglass opacities in the upper lobes bilaterally consistent light reflex edema and volume loss. 4. No evidence for aortic dissection, significant aneurysm, or injury. Pepe Miramontes MD . Procedures * 09/05/16 - self extubated and reintubated. * 09/04/16 - Intubated. . Assessment and Plan Disease Oriented Problem List: (1) Septic shock (2) Leukocytosis (3) Lactic acidosis (4) Acute respiratory failure with hypoxia (5) Seizure (6) Metastatic cancer (7) Bipolar disorder (8) Chronic back pain (9) Pneumonia (10) Tobacco abuse Symptom Scale: (1) Seizure 0-10 Scale: Unable to quantify (2) Shortness of breath 0-10 Scale: Unable to quantify Comment: on mech vent. (3) Pain 0-10 Scale: Unable to quantify (4) Chronic back pain 0-10 Scale: Unable to quantify Pertinent Non-Medical Issues Psychosocial: legally , was still living intermittently with his alternating with his mother. Spiritual: holiness is not an important part of the patient's life. Legal:Patient is currently incapacitated, will not likely regained capacity. According to [place] statutes, health care proxy decision-making would fall to the patient's spouse (even if they are legally ). Ethical issues impacting care: no known concerns at this time. . Important Contacts * Stephanie Juares, spouse: [phone] * Joselito Branham, mother: [phone] or [phone] . Prognosis Mr. Juares is an unfortunate 50-year-old male admitted with seizure, respiratory failure requiring mechanical ventilation and multiorgan failure, found to have what appears to be widespread metastatic disease to liver, lymph nodes and brain. Overall prognosis appears poor for meaningful recovery. Hospice appropriate if goals are comfort oriented. . Code Status: Alternative Code (Intubation Only) Plan * Patient is currently incapacitated, will not likely regained capacity. According to [place] statutes, health care proxy decision-making would fall to the patient's spouse (even if they are legally ). * CODE status: Intubation only * Discussed with nurse. * 09/12/16 Spoke with , Stephanie via phone. She requests palliative care meeting 09/13/16 about 2 or 2:30pm, will meet family in 2nd floor waiting room per their request. indicates she feels ready to proceed with transition to comfort, however patient's mother and family need another day. * SYMPTOMS: Pain: secondary to likely malignancy with metastatic disease, intubation, seizure. Off sedation. Unresponsive. Dyspnea: on mechanical ventilation, off sedation. No new medication recommendations at this time. * Palliative care will continue to follow throughout hospital course to assist with symptom management and clarification of goals as needed. . Attestation To help prompt me to consider important information that might be impacting today's encounter and assessment, information from prior notes written by myself or my colleagues may have been "brought forward" into today's note. My signature on this note, however, is an attestation that I personally performed the exam, history, and/or decision-making noted today, and, unless otherwise indicated, the interactions with patient, family, and staff as well as the review of records all occurred today. I also attest that the listed assessment and stated plan reflect my best clinical judgment today based on the combination of historical information, prior notes, and today's exam/ interactions. When time spent is documented, it refers only to time spent today by the signer, or if indicated, combined time spent today by collaborating physician/nurse practitioner. ZEINAB GO Sep 12, 2016 15:22
[2016-09-12] MEDS: LEVOFLOXACIN 750 MG PREMIX INJ 150 ML IV SCH (16:45)
--- NOTE | 2016-09-12 16:58 | HHI.NPPN ---
Subjective History of Present Illness This patient is a 50-year-old male with a history of hypertension, diabetes mellitus, seizure disorder, bipolar disorder and apparently tobacco use now presenting with septic shock and an apparent postobstructive pneumonia with radiological evidence of probable metastatic disease involving liver, brain with evidence of a left hilar mass. Presentation creatinine level is elevated to 2.17 with a bicarbonate of 15.8 and an anion gap of 20. Patient also had a CTA of the aorta performed on September 04, 2016 utilizing iodine contrast. Patient currently maintaining good urine output at time of consultation. Serum creatinine level was 0.9 back in March 2016. Interval History Patient remains unresponsive on ventilatory support. Review of Systems General General Remarks Unable to obtain because of patient's condition. Objective Data Data 09/11/16 09/12/16 19:00 07:00 Intake Total 1525 ml 2912 ml Output Total 850 ml 1700 ml Balance 675 ml 1212 ml Intake IV Total 673 ml 1375 ml Tube Feeding 252 ml 637 ml Tube Irrigant 600 ml Other 900 ml Output Urine Total 850 ml 1300 ml Stool Total 400 ml Tube Feeding Residual Discard 0 ml # Bowel Movements 1 Vital Signs Date Time Temp Pulse Resp B/P Pulse Ox O2 Delivery O2 Flow Rate FiO2 09/12/16 16:00 45 09/12/16 16:00 101 09/12/16 16:00 99.2 101 23 112/60 99 09/12/16 15:13 100 45 09/12/16 14:00 96 09/12/16 12:04 100 50 09/12/16 12:00 45 09/12/16 12:00 101.7 97 25 109/66 99 09/12/16 12:00 97 09/12/16 10:00 107 09/12/16 10:00 102.6 09/12/16 08:00 113 09/12/16 08:00 101.9 113 26 72/42 94 09/12/16 08:00 45 09/12/16 07:26 95 45 09/12/16 06:00 116 09/12/16 04:12 93 45 09/12/16 04:00 114 09/12/16 04:00 45 09/12/16 04:00 101.0 114 26 96/54 93 09/12/16 02:00 117 09/12/16 01:11 93 45 09/12/16 00:00 111 09/12/16 00:00 100.8 111 26 113/76 92 09/12/16 00:00 45 09/11/16 22:08 94 35 09/11/16 22:00 101 09/11/16 20:11 95 35 09/11/16 20:00 35 09/11/16 20:00 112 09/11/16 20:00 99.9 112 27 107/58 95 09/11/16 18:00 117 -: 09/12/16 0501 09/12/16 0501 Microbiology 09/12/16 Aerobic Blood Culture, Received Pending 09/12/16 Anaerobic Blood Culture, Received Pending 09/12/16 Aerobic Blood Culture, Received Pending 09/12/16 Anaerobic Blood Culture, Received Pending Physical Exam General Appearance: No Acute Distress, Comfortable Eyes Eye Exam: Sclera White Pulmonary Resp Exam: Clear Bilaterally, Breath Sounds Equal, No Distress Cardiology CV Exam: Regular, Tachycardia Gastrointestinal/Abdomen GI Exam: Soft, Non-Tender Integumentary Skin Exam: Clear, Warm, Dry Extremeties Extremities Exam: Trace Edema (feet and hips) Neurologic Neuro Exam: Unresponsive Assessment/Plan Problem List: (1) Acute kidney insufficiency Plan: Hypernatremia improved however patient appears to be developing sepsis syndrome and renal function is worsening. Continue to monitor renal function however the patient is a very poor dialysis candidate. From reviewing records patient's prognosis appears to be very poor for any meaningful recovery. Palliative care discussing situation with family. Medications should be adjusted for the patient's estimated GFR if clinically indicated. Avoid agents with significant potential for nephrotoxicity possible including NSAIDs for analgesia, iodine contrast agents. Gadolinium is contraindicated if the GFR is below 30. (2) Hypokalemia Plan: Multifactorial in origin. Contributory factors include probable pre-existing potassium deficit on presentation which was masked by his metabolic acidosis. Correction of acidosis subsequently resulted in intracellular shift of potassium. Also suspect increased potassium losses secondary to his polyuria. These potassium losses should improve as polyuria subsequently subsides. Recommend continued potassium repletion. (3) Metabolic acidosis Plan: Resolved (4) Septic shock Plan: Management per infectious disease and critical care Sang Barrow MD Sep 12, 2016 16:58
[2016-09-12] MEDS: PHENYLEPHRINE INJ 40 MG in DEXTROSE 5% IN WATE 500 ML INJ 496 ML IV SCH ×2 (18:31)
--- NOTE | 2016-09-12 19:25 | MG ---
cc: CAROLINA MORGAN M.D., SINOJ K. MD Lab No: Date: 09/12/16 Age: 50 Sex: M Race: REQUESTING PHYSICIAN Dr. Peña. HISTORY An EEG on this 50-year-old patient, intubated with decreased responsiveness. DESCRIPTION OF RECORD This EEG shows fairly prominent theta rhythms diffusely. There is intermixed beta activity. There is a lack of alpha rhythms. The background seems to be mildly reactive. There are no paroxysmal discharges. Photic stimulation disclosed no significant change. INTERPRETATION Abnormal EEG because of bihemisphere slowing. The findings suggest bilateral structural abnormalities or moderately severe diffuse disturbance of cerebral function. No epileptiform features present. MD GEORGI Ojeda/BJF /6:55 PM /7:22 PM
[2016-09-13] VITALS (31 sets, daily range): BP systolic 100–123; BP diastolic 55–67; PULSE 84–113; RESP 19–27; TEMP 98.5–99.9; O2SAT 52–100
[2016-09-13] MEDS: CHLORHEXIDINE GLUCONATE 2 % 1 PACK (2 CLOTHS) TOP SCH (03:24)
[2016-09-13] MEDS: INSULIN NovoLIN REGULAR SUPPLEMENTAL SCALE SQ SCH ×7 (03:24→23:50)
--- NOTE | 2016-09-13 03:49 | RADRPT ---
EXAM DATE/TIME: 09/13/2016 03:14 [facility] COMPARISON: CHEST SINGLE AP, September 12, 2016, 11:49. INDICATIONS : Shortness of breath, possible pulmonary disease. MEDICAL HISTORY : Hypertension. Diabetes mellitus type II. Cardiovascular disease. Seizures Bipolar SURGICAL HISTORY : None. ENCOUNTER: Subsequent ACUITY: 1 week PAIN SCORE: Non-responsive. LOCATION: Bilateral chest FINDINGS: Endotracheal tube tip well above the ed. Gastric tube traverses the [id number]. Left subclav johan catheter tip projects over the innominate vein near the midline. There are some patchy infiltrat es at the left base, similar in size and has a technique to account technical differences between the 2 exams. The right lung is clear. CONCLUSION: Persistent left lower lung infiltrates. Eyad Zhang MD on September 13, 2016 at 3:47 Board Certified Radiologist. This report was verified electronically.
[2016-09-13 04:41] LABS: AUTOMATED NEUTROPHIL # 18.3 TH/MM3 (1.8-7.7); BASOPHIL # 0.1 TH/MM3 (0-0.2); BASOPHIL % 0.4 % (0.0-2.0); EOSINOPHIL % 0.2 % (0.0-4.0); HEMATOCRIT 32.7 % (39.0-51.0); HEMO FLAGS DIFF FINAL; LYMPH % 6.7 % (9.0-44.0); LYMPHOCYTE # 1.4 TH/MM3 (1.0-4.8); MEAN CELL VOLUME 83.3 FL (80.0-100.0); MEAN CORPUSCULAR HEMOGLOBIN 27.2 PG (27.0-34.0); MEAN CORPUSCULAR HGB CONC 32.6 % (32.0-36.0); MONO % 4.3 % (0.0-8.0); NEUT % 88.4 % (16.0-70.0); PLATELET COUNT 134 TH/MM3 (150-450); RED BLOOD COUNT 3.93 MIL/MM3 (4.50-5.90); RED CELL DISTRIBUTION WIDTH 16.1 % (11.6-17.2); WHITE BLOOD COUNT 20.7 TH/MM3 (4.0-11.0)
[2016-09-13 05:07] LABS: ALKALINE PHOSPHATASE 294 U/L (45-117); ALT (GPT) 256 U/L (12-78); ANION GAP 18 MEQ/L (5-15); AST (GOT) 494 U/L (15-37); BICARBONATE 16.1 MEQ/L (21.0-32.0); BLOOD UREA NITROGEN 96 MG/DL (7-18); CHLORIDE 117 MEQ/L (98-107); GLOMERULAR FILTRATION RATE 24 ML/MIN (>89); MAGNESIUM 2.9 MG/DL (1.5-2.5); POTASSIUM 3.1 MEQ/L (3.5-5.1); SODIUM (NA) 151 MEQ/L (136-145); TOTAL BILIRUBIN ADULT 2.1 MG/DL (0.2-1.0)
[2016-09-13] MEDS: HYDROCORTISONE SOD SUCCINATE 100 MG VIAL IV PUSH SCH ×2 (05:54→18:17)
[2016-09-13] MEDS: FREE WATER G-TUBE SCH ×5 (05:55→23:49)
[2016-09-13] MEDS: CEFEPIME INJ 2,000 MG in SODIUM CHLORIDE 0.9% INJ 100 ML IV SCH ×2 (05:55→14:02)
[2016-09-13] MEDS ORDERED: POTASSIUM CHLOR 40 MEQ PREMIX 100 ML IV ONE (07:00)
[2016-09-13] MEDS: LACTULOSE SYRUP 20 GM/30 ML CUP PO SCH ×2 (07:45→20:40)
[2016-09-13] MEDS: CHLORHEXIDINE 0.12% (ORAL KIT) 15 ML CUP MT SCH ×2 (07:46→20:33)
[2016-09-13] MEDS: levETIRAcetam INJ 500 MG in SODIUM CHLORIDE 0.9% INJ 100 ML IV SCH ×2 (07:46→20:40)
[2016-09-13] MEDS: PANTOPRAZOLE SODIUM 40 MG VIAL IV SCH (07:47)
[2016-09-13] MEDS: SENNOSIDES SYRUP 8.8 MG/5 ML CUP PO SCH (07:47)
[2016-09-13] MEDS: METOPROLOL TARTRATE 25 MG TAB PO SCH (07:47)
[2016-09-13] MEDS: Central Line Short Term Adult 7Fr or larger Daily NS Lock Flush IV FLUSH SCH (07:47)
[2016-09-13] MEDS: DOCUSATE SODIUM 100 MG/10 ML UDC PO SCH ×2 (07:47→20:40)
--- NOTE | 2016-09-13 07:53 | HHI.CCPN ---
Subjective Remarks/Hospital Course The patient is a 50-year-old male with past medical history of hypertension, diabetes mellitus, seizure disorder, chronic back pain, bipolar disorder who presented to the ED with a witnessed generalized seizure. In addition the patient was altered and hypoxic with O2 saturation in the 70s. He initially somewhat improved on a non-rebreather but due to labored breathing or diaphoresis he was subsequently intubated in the ED and placed on full mechanical ventilation. According to the patient's family the patient has been having progressive worsening shortness of breath and he has not been feeling well lately. In addition he reported feeling nauseous and heartburn. On arrival to the ER he was tachycardiac, hypotensive and was subsequently placed on Levophed which is currently at 20 mics. The patient was given 3 liters of crystalloids in the ED. ABG post intubation showed pH of 7.23, CO2 33, pAO2 180 , bicarb 13, saturation 97% on PRVC mode with a rate of 18, tidal volume 500, PEEP of 5, IT: 1.0, FIO2 100%. His laboratory data significant for lactic acidemia with a lactic acid level of 11.3, acute kidney injury with a creatinine 2.17 and leukocytosis with bandemia. His WBC is 34.8 with bands of 16. A CT scan of the brain in the ER was obtained which showed a 2.3 cm hyperdense mass at the left parietal lobe and a questionable second small area of hyperdensity seen in the frontal lobe region. He also had a CTA of the aorta which showed significant hilar and mediastinal adenopathy and liver mets. In the ER he was given Zosyn, azithromycin and placed on Diprivan infusion for sedation. A right femoral central line and left radial A-line was placed by the ED physician. 09/05 Patient was self extubated and was reintubated last night . Sedated with Diprivan , Fentanyl and intubated. On Levophed and now Neosyn. Renal function is worsening with Cr: 2.34 from 2.14 09/06 Patient remains sedated with Diprivan and Fentanyl and intubated. On Levophed 13 mics and Neosyn 160 mics. Spiked fever with T:102.1.Renal function is improving with Cr:1.81 from 2.34. 09/07 No events overnight. Remains sedated with Diprivan and intubated. Off all pressors renal function is improving with Cr: 1.11 from 1.81. T:99.8 09/08 Patient is sedate with Diprivan and intubated. T:103.0 at 4 am. Given Metoprolol 5mg Iv early this morning for sinus tachycardia. 09/09 Patient is sedated with Fentanyl and intubated, T: 102.0 09/10 Patient is off sedation doesn't follow commands. T:100.4 at 4 am. MRI brain yesterday showed 2.6 x 1.5 cm extraaxial mass within the left high parietal region with some hemorrhagic components ? metastatic disease. probable acute lacunar infarct. 09/11 Patient remains off sedation does not follow commands. Tolerating tube feeds. T:99.7 09/12: Developing septic shock, MAXIMUM TEMPERATURE 102.6, map down to 48. Map didn't sufficiently improved with 2 L normal saline bolus and Abhijeet-Synephrine GTT was added. Remains encephalopathic. ID has start of vancomycin to the existing antibiotics, I have added cefepime. Panculture. Discussed with family - They are not certain about bronch and biopsy for tissue diagnosis at this time 09/13: Remains critically ill. Worsening renal function creatinine has increased to 2.83, BUN to 96. Abhijeet-Synephrine to start back. Appears to be tracking. Fever seems to be trending down white count 20.7 today Objective Vital Signs Date Time Temp Pulse Resp B/P Pulse Ox O2 Delivery O2 Flow Rate FiO2 09/13/16 06:00 96 09/13/16 04:43 94 35 09/13/16 04:00 99.3 23 114/58 Intake and Output 09/12/16 09/12/16 09/13/16 08:00 16:00 00:00 Intake Total 1512 ml 2331 ml 1821 ml Output Total 700 ml 2600 ml 600 ml Balance 812 ml -269 ml 1221 ml Result Diagram: 09/13/16 0340 09/13/16 0340 Imaging Last Impressions Head CT 09/09/16 0000 Signed Impressions: Service Date/Time: Friday, September 09, 2016 16:04 - CONCLUSION: 1. Focal area of increased density within the left high parietal region which is unchanged compared to the previous examination. This remains nonspecific and may either represent a hyperdense mass or possibly an area of focal hemorrhage. MRI of the brain with contrast would be helpful for further evaluation of this finding. 2. Stable encephalomalacia involving the right parietal region. Kirit Barreto MD Brain MRI 09/09/16 0000 Signed Impressions: Service Date/Time: Friday, September 09, 2016 16:25 - CONCLUSION: 1. 2.6 x 1.5 cm extraaxial mass within the left high parietal region with some hemorrhagic components raising the possibility of metastatic disease. 2. Tiny focal signal abnormality within the left posteroparietal subcortical white matter consistent with probable acute lacunar infarct. 3. Stable area of encephalomalacia involving the right frontoparietal region. Kirit Barreto MD Chest X-Ray 09/08/16 0600 Signed Impressions: Service Date/Time: Thursday, September 08, 2016 04:50 - CONCLUSION: 1. Lucency overlying the right hemidiaphragm of uncertain etiology. 2. Bibasilar infiltrates. 3. Prominence of left hilum consistent with mass. Armen Power MD Abdomen Ultrasound 09/05/16 0000 Signed Impressions: Service Date/Time: Monday, September 05, 2016 09:21 - CONCLUSION: Enlarged heterogeneous liver. The heterogeneity is thought to be secondary to somewhat ill-defined echogenic masses throughout the liver. Metastatic disease needs to be suspected. Casey Cisneros MD Aorta CTA 09/04/16 0000 Signed Impressions: Service Date/Time: Sunday, September 04, 2016 13:44 - CONCLUSION: 1. Abnormal examination demonstrating large left hilar mass with bulky mediastinal adenopathy and associated post obstructive airspace disease in the superior segment of the left lower lobe. There is also evidence for bulky metastatic disease to the liver and solitary mesenteric metastasis. 1.5 cm left adrenal mass also suspicious for metastasis. 2. Bilateral lower lobe airspace consolidation may reflect aspiration in this intubated patient. 3. Patchy groundglass opacities in the upper lobes bilaterally consistent light reflex edema and volume loss. 4. No evidence for aortic dissection, significant aneurysm, or injury. Pepe Miramontes MD Objective Remarks GENERAL: Patient is 50 yo remains intubated, now critically ill in septic shock SKIN: Warm and dry. HEAD: Normocephalic. EYES: No scleral icterus. No injection or drainage. Right eye has corneal opacity, left pupil briskly reactive ENT/NECK: Supple, trachea midline. No JVD or lymphadenopathy. Orally intubated CARDIOVASCULAR: Tachycardic without murmurs, gallops, or rubs. RESPIRATORY: Breath sounds equal bilaterally. Bilateral wheezes and scattered crackles GASTROINTESTINAL: Abdomen soft, non-tender, nondistended. MUSCULOSKELETAL: No cyanosis, or edema. Neuro: intubated, Opens eyes appears to track. Withdraws extremities to pain 4, weekly on lower extremities. Patient appears to intermittently follows commands per RN, by squeezing hands A/P Assessment and Plan ASSESSMENT Acute respiratory failure Acute metabolic encephalopathy Septic shock. Post obstructive pneumonia. Leukocytosis with bandemia. Status post seizure. Lactic acidemia likely secondary to seizure and septic shock. Acute kidney injury and hypernatremia. Anion gap metabolic acidosis. Elevated liver enzymes. Brain masses rule out mets. Mediastinal / hilar adenopathy need to rule out bronchogenic carcinoma. Liver mets. History of hypertension. Hyperglycemia with underlying history of diabetes mellitus. Obesity. Chronic back pain. History of bipolar disorder. Plan Neuro: Off all sedation. Today show some improvement in metabolic encephalopathy. Patient appears to track intermittently follows commands Lactulose 30 ml BID, Ammonia level 70 09/10 , repeat today On Keppra 500 mg IV q. 12 , Neuro is following- Dr. Swift EEG showed mild- mod encephalopathy. Repeat EEG 09/12 bihemispheric slowing-no seizure activity MRI brain 09/09: 2.6 x 1.5 cm extraaxial mass within the left high parietal region with some hemorrhagic components ? metastatic disease. probable acute lacunar infarct. At this time patient is not a candidate for neurosurgical evaluation Pulm: Continue vent support and maintain sats above 90%. Bronchodilators, ICU vent bundle. SBT daily as cecily. Pulm is following Dr. Botello I have recommend to hold off bronchoscopy and biopsy for tissue diagnosis at this time. If there is significant clinical improvement, will consider this CV: Hold Lopressor due to septic shock Abhijeet-Synephrine to keep map above 65. s/p 2L NS bolus Hydrocortisone 25 mg IV q.12. Echo showed EF 70-75% : Monitor renal function Is and Os and avoid nephrotoxins. Worsening creatinine/ BUN today 96/2.8. Urine output remains adequate US kidneys: No hydronephrosis, non-obstructing stone on left. Renal is following- Dr. Barrow. Free water 300ml Q6, monitor sodium level. IV fluids changed to 1/2 normal saline with 50 bicarb. Keep Na 145-150 due to brain mets GI: On Protonix 40 mg IV daily. On Glucerna 1.5 @45ml/hr Monitor LFTs Hepatitis profile. Hep C ab reactive US liver: Enlarged heterogeneous liver. Somewhat ill-defined echogenic masses throughout the liver. Metastatic disease is suspected. ID: Continue with ABX Levaquin, Micafungin. Added Vanc and cefepime 09/12 due to new fever and worsening septic shock F/U blood sputum and urine culture 09/12/16 Sputum cx: 09/05: nl fredrick, follow up on sputum cx 09/08- normal fredrick strep pneumonia and Legionella urinary AG negative on Previous cultures NGTD Heme: Monitor CBC. Oncology is following re probable metastatic lung cancer stage IV Endo: On medium scale SSI with Accu-Chek for glycemic control. TSH: 0.74 GI prophylaxis with Protonix 40 mg daily and DVT prophylaxis with SCDs. Not on chemical anticoagulation prophylaxis given likely brain mets Lines. Peripheral IV's. L subclavian central line placed 09/12/16 Palliative care is following. Code status: Alternative code CCT 30 mins Patient remains acutely critically ill now with septic shock . Remains in multiorgan failure. Discussed with family overall prognosis remains poor. Family has not decided upon pursuing a tissue diagnosis. There is slight improvement in neuro exam. However he remains critically ill his renal function is deteriorating. I will discuss again with family today and I will not recommend perceiving a tissue diagnosis unless there is significant clinical improvement Yinka Peña MD Sep 13, 2016 07:53
[2016-09-13] MEDS ORDERED: SODIUM BICARBONATE 8.4% INJ 50 MEQ in SODIUM CHLOR 0.45% 1000 ML INJ 1,000 ML IV SCH (08:00)
[2016-09-13] MEDS: RESP: ALBUTEROL 2.5 MG/IPRATROPIUM 0.5 MG NEB (SCH) NEB ×3 (09:22→21:21)
[2016-09-13] MEDS ORDERED: ALTEPLASE RECOMBINANT 2 MG VIAL IV FLUSH ONE (10:00)
--- NOTE | 2016-09-13 11:44 | RADRPT ---
EXAM DATE/TIME: 09/13/2016 10:53 [facility] COMPARISON: CHEST SINGLE AP, September 13, 2016, 3:14. INDICATIONS : Central line repositioning. MEDICAL HISTORY : Hypertension. Cardiovascular disease. Seizures SURGICAL HISTORY : None. ENCOUNTER: Initial ACUITY: 1 week PAIN SCORE: 0/10 LOCATION: Bilateral chest FINDINGS: A left subclavian central line has its tip in the brachiocephalic vein. No pneumothorax is noted. B ibasilar atelectasis is noted. The endotracheal tube has its tip 2 cm above the ed. A nasogastr ic tube is coiled in the stomach. CONCLUSION: 1. Bibasilar atelectasis. 2. Endotracheal tube and nasogastric tube are in good positions. 3. Left subclavian central line has its tip in the brachiocephalic vein. No pneumothorax is noted. Kirit Barreto MD on September 13, 2016 at 11:24 Board Certified Radiologist. This report was verified electronically.
[2016-09-13] MEDS: ACETAMINOPHEN 325 MG TAB PO PRN (11:57)
--- NOTE | 2016-09-13 12:10 | HHI.IDPN ---
Note Infectious Disease Note Patient on the vent. 35% FIO2. Had CPAP for 1 hour today. No distress. Off Neosynephrine, Off pressors. Temp lower. Noted to be tracking per RN. Central line changed 09/12. Patient was brought to emergency department after having seizures. PAST MEDICAL HISTORY: 1. Seizure disorder. 2. Hypertension. 3. Diabetes mellitus. 4. Bipolar disorder. 5. Chronic back pain. ALLERGIES NO KNOWN DRUG ALLERGIES. ANTIBIOTICS: Levaquin. Micafungin. OBJECTIVE: Vital Signs Date Time Temp Pulse Resp B/P Pulse Ox O2 Delivery O2 Flow Rate FiO2 09/13/16 11:06 35 09/13/16 11:06 93 35 09/13/16 09:54 35 09/13/16 08:20 52 35 09/13/16 06:00 96 09/13/16 04:43 94 35 09/13/16 04:00 99.3 92 23 114/58 99 09/13/16 04:00 35 09/13/16 04:00 92 09/13/16 02:00 90 09/13/16 01:00 99 35 09/13/16 00:00 84 09/13/16 00:00 98.9 84 20 123/67 100 09/13/16 00:00 35 09/12/16 23:41 35 09/12/16 22:00 88 09/12/16 20:00 91 09/12/16 20:00 45 09/12/16 20:00 99.7 91 19 114/58 99 09/12/16 18:16 99.8 09/12/16 18:00 113 09/12/16 16:00 45 09/12/16 16:00 101 09/12/16 16:00 99.2 101 23 112/60 99 09/12/16 15:13 100 45 09/12/16 14:00 96 09/12/16 09/12/16 09/13/16 15:00 23:00 07:00 Intake Total 2331 ml 1821 ml 1557 ml Output Total 2600 ml 600 ml 550 ml Balance -269 ml 1221 ml 1007 ml Intake IV Total 1528 ml 1221 ml 665 ml Tube Feeding 203 ml 300 ml 292 ml Other 600 ml 300 ml 600 ml Output Urine Total 200 ml 200 ml 275 ml Stool Total 2400 ml 400 ml 275 ml Laboratory Tests Test 09/12/16 09/13/16 05:01 03:40 White Blood Count 21.8 TH/MM3 20.7 TH/MM3 Red Blood Count 4.38 MIL/MM3 3.93 MIL/MM3 Hemoglobin 12.0 GM/DL 10.7 GM/DL Hematocrit 36.5 % 32.7 % Mean Corpuscular Volume 83.4 FL 83.3 FL Mean Corpuscular Hemoglobin 27.5 PG 27.2 PG Mean Corpuscular Hemoglobin 32.9 % 32.6 % Concent Red Cell Distribution Width 15.9 % 16.1 % Platelet Count 179 TH/MM3 134 TH/MM3 Mean Platelet Volume 10.4 FL 9.6 FL Neutrophils (%) (Auto) 85.0 % 88.4 % Lymphocytes (%) (Auto) 9.0 % 6.7 % Monocytes (%) (Auto) 5.2 % 4.3 % Eosinophils (%) (Auto) 0.3 % 0.2 % Basophils (%) (Auto) 0.5 % 0.4 % Neutrophils # (Auto) 18.5 TH/MM3 18.3 TH/MM3 Lymphocytes # (Auto) 2.0 TH/MM3 1.4 TH/MM3 Monocytes # (Auto) 1.1 TH/MM3 0.9 TH/MM3 Eosinophils # (Auto) 0.1 TH/MM3 0.0 TH/MM3 Basophils # (Auto) 0.1 TH/MM3 0.1 TH/MM3 CBC Comment DIFF FINAL DIFF FINAL Differential Comment Laboratory Tests Test 09/12/16 09/13/16 09/13/16 05:01 03:40 10:45 Sodium Level 148 MEQ/L 151 MEQ/L Potassium Level 4.0 MEQ/L 3.1 MEQ/L Chloride Level 115 MEQ/L 117 MEQ/L Carbon Dioxide Level 18.0 MEQ/L 16.1 MEQ/L Anion Gap 15 MEQ/L 18 MEQ/L Blood Urea Nitrogen 76 MG/DL 96 MG/DL Creatinine 2.15 MG/DL 2.83 MG/DL Estimat Glomerular Filtration 33 ML/MIN 24 ML/MIN Rate Random Glucose 144 MG/DL 135 MG/DL Calcium Level 8.0 MG/DL 8.0 MG/DL Total Bilirubin 2.3 MG/DL 2.1 MG/DL Aspartate Amino Transf 415 U/L 494 U/L (AST/SGOT) Alanine Aminotransferase 259 U/L 256 U/L (ALT/SGPT) Alkaline Phosphatase 303 U/L 294 U/L Total Protein 5.7 GM/DL 5.4 GM/DL Albumin 1.8 GM/DL 1.7 GM/DL Magnesium Level 2.9 MG/DL Ammonia 98 MCMOL/L Microbiology Date/Time Procedure Status Source Growth 09/12/16 06:45 Gram Stain - Final Resulted Sputum Endotracheal 09/12/16 06:45 Sputum Culture - Preliminary Resulted Sputum Endotracheal NO GROWTH IN 24 HOURS. 09/12/16 06:45 Urine Culture - Preliminary Resulted Urine Catheterized Urine RESULTS PENDING 09/12/16 15:05 Aerobic Blood Culture - Preliminary Resulted Blood Peripheral NO GROWTH IN 1 DAY 09/12/16 15:05 Anaerobic Blood Culture - Preliminary Resulted Blood Peripheral NO GROWTH IN 1 DAY 09/12/16 15:07 Aerobic Blood Culture - Preliminary Resulted Blood Peripheral NO GROWTH IN 1 DAY 09/12/16 15:07 Anaerobic Blood Culture - Preliminary Resulted Blood Peripheral NO GROWTH IN 1 DAY IMAGING: Chest X-Ray 09/12/16 0600 Signed Impressions: Service Date/Time: Monday, September 12, 2016 04:30 - CONCLUSION: Stable prominence of left hilum and bibasilar infiltrates. Eyad Zhang MD Head CT 09/09/16 0000 Signed Impressions: Service Date/Time: Friday, September 09, 2016 16:04 - CONCLUSION: 1. Focal area of increased density within the left high parietal region which is unchanged compared to the previous examination. This remains nonspecific and may either represent a hyperdense mass or possibly an area of focal hemorrhage. MRI of the brain with contrast would be helpful for further evaluation of this finding. 2. Stable encephalomalacia involving the right parietal region. Kirit Barreto MD Brain MRI 09/09/16 0000 Signed Impressions: Service Date/Time: Friday, September 09, 2016 16:25 - CONCLUSION: 1. 2.6 x 1.5 cm extraaxial mass within the left high parietal region with some hemorrhagic components raising the possibility of metastatic disease. 2. Tiny focal signal abnormality within the left posteroparietal subcortical white matter consistent with probable acute lacunar infarct. 3. Stable area of encephalomalacia involving the right frontoparietal region. Kirit Barreto MD Chest X-Ray 09/06/16 0000 Signed Impressions: Service Date/Time: August 08:28 - CONCLUSION: Mild airspace consolidation in the lower lung zones bilaterally but overall significantly improved compared to the study from 2 days ago. Casey Phelps MD Abdomen Ultrasound 09/05/16 0000 Signed Impressions: Service Date/Time: Monday, September 05, 2016 09:21 - CONCLUSION: Enlarged heterogeneous liver. The heterogeneity is thought to be secondary to somewhat ill-defined echogenic masses throughout the liver. Metastatic disease needs to be suspected. Casey Cisneros MD Head CT [id number]/04/[id number] Signed Impressions: Service Date/Time: Sunday, September 04, 2016 13:39 - CONCLUSION: 2.3 cm hyperdense mass seen at the left parietal lobe. This is thought to likely represent a mass. Some degree of hemorrhage can not be excluded given the density. There is also a questionable second smaller area of hyperdensity seen in the anterior inferior midline frontal lobe region. It is recommended both these areas be further evaluated with a MRI examination with contrast if there are no contraindications. Casey Cisneros MD Chest X-Ray [id number]/04/[id number] Signed Impressions: Service Date/Time: Sunday, September 04, 2016 13:15 - CONCLUSION: 1. Multilobar consolidation likely pneumonia. 2. Adequate placement of endotracheal tube. Armen Power MD Head CT [id number]/04/[id number] Signed Impressions: Service Date/Time: Sunday, September 04, 2016 13:39 - CONCLUSION: 2.3 cm hyperdense mass seen at the left parietal lobe. This is thought to likely represent a mass. Some degree of hemorrhage can not be excluded given the density. There is also a questionable second smaller area of hyperdensity seen in the anterior inferior midline frontal lobe region. It is recommended both these areas be further evaluated with a MRI examination with contrast if there are no contraindications. Casey Cisneros MD Chest X-Ray 09/04/[id number] Signed Impressions: Service Date/Time: Sunday, September 04, 2016 13:15 - CONCLUSION: 1. Multilobar consolidation likely pneumonia. 2. Adequate placement of endotracheal tube. Armen Power MD Aorta CTA 09/04/16 0000 Signed Impressions: Service Date/Time: Sunday, September 04, 2016 13:44 - CONCLUSION: 1. Abnormal examination demonstrating large left hilar mass with bulky mediastinal adenopathy and associated post obstructive airspace disease in the superior segment of the left lower lobe. There is also evidence for bulky metastatic disease to the liver and solitary mesenteric metastasis. 1.5 cm left adrenal mass also suspicious for metastasis. 2. Bilateral lower lobe airspace consolidation may reflect aspiration in this intubated patient. 3. Patchy groundglass opacities in the upper lobes bilaterally consistent light reflex edema and volume loss. 4. No evidence for aortic dissection, significant aneurysm, or injury. Pepe Miramontes MD PHYSICAL EXAMINATION: GENERAL: On the vent. Opens eyes. HEENT: Intubated. No icterus. NECK: Supple. No adenopathy. LUNGS: Bilateral rhonchi at the bases. HEART: Regular S1-S2. No murmur. No rubs, No gallops. ABDOMEN: Obese, soft. No tenderness appreciated. Marked decreased bowel sounds. EXTREMITIES: No clubbing, cyanosis or edema. SKIN: No rash. NEUROLOGIC: Unable to assess. PSYCH: Unable to assess. IMPRESSION 1. Septic shock, unclear etiology. Now with recurring fever. Negative cultures. 2. Multilobar pneumonia, possibly secondary to aspiration. Probable source. 3. 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 4. Acute Respiratory failure. 5. Altered mental status secondary to sepsis. 6. Seizure. 7. Leukocytosis - WBC still elevated. 8. Elevated LFT's. Still high. 9. FEVER. ? etiology. Infection. Possible drug - Bata lactam. Changes at left lung base could be atelectasis. Post central line change. RECOMMENDATIONS: 1. Continue Micafungin. 2. Continue Levaquin. 3. Back on Cefepime. Monitor temp and LFTs. 4. Monitor temp and WBC. 5. Monitor urine culture. . Zeke Ochoa MD Sep 13, 2016 12:10
--- NOTE | 2016-09-13 14:00 | HHI.HCPN ---
Reason for visit a. To assist with evaluation and management of symptoms including: pain, encephalopathy, dyspnea. b. To assist medical decision maker(s) with: better understanding of current medical conditions; weighing benefits/burdens of medical treatment options; making medical treatment decisions. . Subjective/Interval History Patient seen and examined in ICU. No family at bedside. Patient remains remains in ICU on mechanical ventilation, FiO2 increased to 35% . Remains off sedation since 09/08/16, does not withdraw to pain today. He does not open eyes or follow commands today. he does not blink to threat consistently. Increased generalized edema. Febrile, TMax 101.7. Diaphoretic during my visit. Tachycardic. BP 100's systolic. Off pressors. WBC 20.7. Creatinine worsening now 2.83. Total bilirubin 2.1. Albumin 1.7. Cultures negative to date. Chest xray with persistent lower lung infiltrate. Discussed with nurse, Cherelle and Dr. Peña who reports some neurologic improvement as evidenced by squeezing hands for nurse and some intermittent tracking. Dr. Peña told family they should give him a few more days to see if neurologic function improves. He does not recommend biopsy. If no neurologic improvement over the weekend he would recommend against trach and PEG in this patient with likely terminal cancer. . Family/friend interactions Family left prior to family meeting after speaking with Dr. Peña. . Advance Directives Living Will: Never completed Health Care Surrogate: Never completed Durable Power of Bus Operator: Never completed Advance Directive Specifics Health Care Surrogate(s): Patient is currently incapacitated, will not likely regained capacity. According to [place] statutes, health care proxy decision-making would fall to the patient's spouse (even if they are legally ). . Documented care wishes: None. Significant change in goals: Intubation Only. Objective Vital Signs Date Time Temp Pulse Resp B/P Pulse Ox O2 Delivery O2 Flow Rate FiO2 09/13/16 12:30 113 24 105/56 92 09/13/16 12:00 99.9 112 26 105/59 92 09/13/16 11:30 109 24 105/56 93 09/13/16 11:06 35 09/13/16 11:06 93 35 09/13/16 11:00 97 27 100/55 95 09/13/16 10:30 100 21 104/56 95 09/13/16 10:00 101 19 104/57 94 6/29/17 09:54 35 09/13/16 09:30 102 22 118/60 93 09/13/16 09:00 101 21 119/60 93 09/13/16 08:30 100 21 119/60 95 09/13/16 08:20 52 35 09/13/16 08:00 35 09/13/16 08:00 99.5 97 22 118/60 96 09/13/16 06:00 96 09/13/16 04:43 94 35 09/13/16 04:00 99.3 92 23 114/58 99 09/13/16 04:00 35 09/13/16 04:00 92 09/13/16 02:00 90 09/13/16 01:00 99 35 09/13/16 00:00 84 09/13/16 00:00 98.9 84 20 123/67 100 09/13/16 00:00 35 09/12/16 23:41 35 09/12/16 22:00 88 09/12/16 20:00 91 09/12/16 20:00 45 09/12/16 20:00 99.7 91 19 114/58 99 09/12/16 18:16 99.8 09/12/16 18:00 113 09/12/16 16:00 45 09/12/16 16:00 101 09/12/16 16:00 99.2 101 23 112/60 99 09/12/16 15:13 100 45 09/12/16 14:00 96 Intake & Output 09/13/16 09/13/16 07:00 19:00 Intake Total 3378 ml Output Total 1150 ml Balance 2228 ml Intake IV Total 1886 ml Tube Feeding 592 ml Other 900 ml Output Urine Total 475 ml Stool Total 675 ml Physical Exam CONSTITUTIONAL/GENERAL: This is an adequately nourished patient, on mech vent. off sedation. TUBES/LINES/DRAINS: ETT, OG, PIV x 2, bilateral soft wrist restraints, Roland, podus boots, SCDs. SKIN: Color dusky. Ecchymoses on upper extremities. Mottling bilateral feet, right knee, left hand. EYES: Right eye blind. Left slightly reactive. ENT: Unable to assess hearing. Nose without bleeding or purulent drainage. Difficult to visualize throat due to tubes. CARDIOVASCULAR: Tachycardic. RESPIRATORY/CHEST: labored respirations on vent. Course breath sounds. Diminished breath sounds. GASTROINTESTINAL: Abdomen protuberant. Bowel sounds active. GENITOURINARY: Without palpable bladder distension. Roland catheter in place. MUSCULOSKELETAL: Extremities warm. NEUROLOGICAL: Does not respond to voice or noxious stimuli. No withdrawal to pain. Does not follow commands. No tracking when eyes open. Blinks to threat. . Diagnostic Tests Laboratory Laboratory Tests Test 09/11/16 09/12/16 09/13/16 09/13/16 09:21 05:01 03:40 10:45 White Blood Count 22.5 TH/MM3 21.8 TH/MM3 20.7 TH/MM3 (4.0-11.0) (4.0-11.0) (4.0-11.0) Red Blood Count 4.44 MIL/MM3 4.38 MIL/MM3 3.93 MIL/MM3 (4.50-5.90) (4.50-5.90) (4.50-5.90) Hemoglobin 12.0 GM/DL 12.0 GM/DL 10.7 GM/DL (13.0-17.0) (13.0-17.0) (13.0-17.0) Hematocrit 36.5 % 36.5 % 32.7 % (39.0-51.0) (39.0-51.0) (39.0-51.0) Mean Corpuscular Volume 82.3 FL 83.4 FL 83.3 FL (80.0-100.0) (80.0-100.0) (80.0-100.0) Mean Corpuscular Hemoglobin 27.1 PG 27.5 PG 27.2 PG (27.0-34.0) (27.0-34.0) (27.0-34.0) Mean Corpuscular Hemoglobin 32.9 % 32.9 % 32.6 % Concent (32.0-36.0) (32.0-36.0) (32.0-36.0) Red Cell Distribution Width 16.0 % 15.9 % 16.1 % (11.6-17.2) (11.6-17.2) (11.6-17.2) Platelet Count 167 TH/MM3 179 TH/MM3 134 TH/MM3 (150-450) (150-450) (150-450) Mean Platelet Volume 10.3 FL 10.4 FL 9.6 FL (7.0-11.0) (7.0-11.0) (7.0-11.0) Neutrophils (%) (Auto) 87.3 % 85.0 % 88.4 % (16.0-70.0) (16.0-70.0) (16.0-70.0) Lymphocytes (%) (Auto) 7.0 % 9.0 % 6.7 % (9.0-44.0) (9.0-44.0) (9.0-44.0) Monocytes (%) (Auto) 4.7 % (0.0-8.0) 5.2 % (0.0-8.0) 4.3 % (0.0-8.0) Eosinophils (%) (Auto) 0.6 % (0.0-4.0) 0.3 % (0.0-4.0) 0.2 % (0.0-4.0) Basophils (%) (Auto) 0.4 % (0.0-2.0) 0.5 % (0.0-2.0) 0.4 % (0.0-2.0) Neutrophils # (Auto) 19.6 TH/MM3 18.5 TH/MM3 18.3 TH/MM3 (1.8-7.7) (1.8-7.7) (1.8-7.7) Lymphocytes # (Auto) 1.6 TH/MM3 2.0 TH/MM3 1.4 TH/MM3 (1.0-4.8) (1.0-4.8) (1.0-4.8) Monocytes # (Auto) 1.0 TH/MM3 1.1 TH/MM3 0.9 TH/MM3 (0-0.9) (0-0.9) (0-0.9) Eosinophils # (Auto) 0.1 TH/MM3 0.1 TH/MM3 0.0 TH/MM3 (0-0.4) (0-0.4) (0-0.4) Basophils # (Auto) 0.1 TH/MM3 0.1 TH/MM3 0.1 TH/MM3 (0-0.2) (0-0.2) (0-0.2) CBC Comment DIFF FINAL DIFF FINAL DIFF FINAL Differential Comment Sodium Level 153 MEQ/L 148 MEQ/L 151 MEQ/L (136-145) (136-145) (136-145) Potassium Level 4.2 MEQ/L 4.0 MEQ/L 3.1 MEQ/L (3.5-5.1) (3.5-5.1) (3.5-5.1) Chloride Level 118 MEQ/L 115 MEQ/L 117 MEQ/L (98-107) (98-107) (98-107) Carbon Dioxide Level 21.8 MEQ/L 18.0 MEQ/L 16.1 MEQ/L (21.0-32.0) (21.0-32.0) (21.0-32.0) Anion Gap 13 MEQ/L (5-15) 15 MEQ/L (5-15) 18 MEQ/L (5-15) Blood Urea Nitrogen 69 MG/DL (7-18) 76 MG/DL (7-18) 96 MG/DL (7-18) Creatinine 1.90 MG/DL 2.15 MG/DL 2.83 MG/DL (0.60-1.30) (0.60-1.30) (0.60-1.30) Estimat Glomerular Filtration 38 ML/MIN (>89) 33 ML/MIN (>89) 24 ML/MIN (>89) Rate Random Glucose 156 MG/DL 144 MG/DL 135 MG/DL (74-106) (74-106) (74-106) Calcium Level 8.2 MG/DL 8.0 MG/DL 8.0 MG/DL (8.5-10.1) (8.5-10.1) (8.5-10.1) Total Bilirubin 1.6 MG/DL 2.3 MG/DL 2.1 MG/DL (0.2-1.0) (0.2-1.0) (0.2-1.0) Aspartate Amino Transf 397 U/L (15-37) 415 U/L (15-37) 494 U/L (15-37) (AST/SGOT) Alanine Aminotransferase 272 U/L (12-78) 259 U/L (12-78) 256 U/L (12-78) (ALT/SGPT) Alkaline Phosphatase 278 U/L 303 U/L 294 U/L (45-117) (45-117) (45-117) Total Protein 5.9 GM/DL 5.7 GM/DL 5.4 GM/DL (6.4-8.2) (6.4-8.2) (6.4-8.2) Albumin 1.8 GM/DL 1.8 GM/DL 1.7 GM/DL (3.4-5.0) (3.4-5.0) (3.4-5.0) Magnesium Level 2.9 MG/DL (1.5-2.5) Random Vancomycin Level 20.7 COMMENT Ammonia 98 MCMOL/L (11-32) Result Diagram: 09/13/16 0340 09/13/16 0340 Microbiology Microbiology Date/Time Procedure Status Source Growth 09/12/16 06:45 Gram Stain - Final Resulted Sputum Endotracheal 09/12/16 06:45 Sputum Culture - Preliminary Resulted Sputum Endotracheal NO GROWTH IN 24 HOURS. 09/12/16 06:45 Urine Culture - Preliminary Resulted Urine Catheterized Urine RESULTS PENDING 09/12/16 15:05 Aerobic Blood Culture - Preliminary Resulted Blood Peripheral NO GROWTH IN 1 DAY 09/12/16 15:05 Anaerobic Blood Culture - Preliminary Resulted Blood Peripheral NO GROWTH IN 1 DAY 09/12/16 15:07 Aerobic Blood Culture - Preliminary Resulted Blood Peripheral NO GROWTH IN 1 DAY 09/12/16 15:07 Anaerobic Blood Culture - Preliminary Resulted Blood Peripheral NO GROWTH IN 1 DAY Imaging Last Impressions Chest X-Ray 09/13/16 0600 Signed Impressions: Service Date/Time: August 03:14 - CONCLUSION: Persistent left lower lung infiltrates. Eyad Zhang MD Head CT 09/09/16 0000 Signed Impressions: Service Date/Time: Friday, September 09, 2016 16:04 - CONCLUSION: 1. Focal area of increased density within the left high parietal region which is unchanged compared to the previous examination. This remains nonspecific and may either represent a hyperdense mass or possibly an area of focal hemorrhage. MRI of the brain with contrast would be helpful for further evaluation of this finding. 2. Stable encephalomalacia involving the right parietal region. Kirit Barreto MD Brain MRI 09/09/16 0000 Signed Impressions: Service Date/Time: Friday, September 09, 2016 16:25 - CONCLUSION: 1. 2.6 x 1.5 cm extraaxial mass within the left high parietal region with some hemorrhagic components raising the possibility of metastatic disease. 2. Tiny focal signal abnormality within the left posteroparietal subcortical white matter consistent with probable acute lacunar infarct. 3. Stable area of encephalomalacia involving the right frontoparietal region. Kirit Barreto MD Abdomen Ultrasound 09/05/16 0000 Signed Impressions: Service Date/Time: Monday, September 05, 2016 09:21 - CONCLUSION: Enlarged heterogeneous liver. The heterogeneity is thought to be secondary to somewhat ill-defined echogenic masses throughout the liver. Metastatic disease needs to be suspected. Casey Cisneros MD Aorta CTA 09/04/16 0000 Signed Impressions: Service Date/Time: Sunday, September 04, 2016 13:44 - CONCLUSION: 1. Abnormal examination demonstrating large left hilar mass with bulky mediastinal adenopathy and associated post obstructive airspace disease in the superior segment of the left lower lobe. There is also evidence for bulky metastatic disease to the liver and solitary mesenteric metastasis. 1.5 cm left adrenal mass also suspicious for metastasis. 2. Bilateral lower lobe airspace consolidation may reflect aspiration in this intubated patient. 3. Patchy groundglass opacities in the upper lobes bilaterally consistent light reflex edema and volume loss. 4. No evidence for aortic dissection, significant aneurysm, or injury. Pepe Miramontes MD Procedures * 09/05/16 - self extubated and reintubated. * 09/04/16 - Intubated. . Assessment and Plan Disease Oriented Problem List: (1) Septic shock (2) Leukocytosis (3) Lactic acidosis (4) Acute respiratory failure with hypoxia (5) Seizure (6) Metastatic cancer (7) Bipolar disorder (8) Chronic back pain (9) Pneumonia (10) Tobacco abuse Symptom Scale: (1) Seizure 0-10 Scale: Unable to quantify (2) Shortness of breath 0-10 Scale: Unable to quantify Comment: on mech vent. (3) Pain 0-10 Scale: Unable to quantify (4) Chronic back pain 0-10 Scale: Unable to quantify Pertinent Non-Medical Issues Psychosocial: legally , was still living intermittently with his alternating with his mother. Spiritual: restorationist is not an important part of the patient's life. Legal:Patient is currently incapacitated, will not likely regained capacity. According to [place] statutes, health care proxy decision-making would fall to the patient's spouse (even if they are legally ). Ethical issues impacting care: no known concerns at this time. . Important Contacts * Stephanie Juares, spouse: [phone] * Joselito Branham, mother: [phone] or [phone] . Prognosis Mr. Juares is an unfortunate 50-year-old male admitted with seizure, respiratory failure requiring mechanical ventilation and multiorgan failure, found to have what appears to be widespread metastatic disease to liver, lymph nodes and brain. Overall prognosis appears poor for meaningful recovery. Hospice appropriate if goals are comfort oriented. . Code Status: Alternative Code (Intubation Only) Plan * Patient is currently incapacitated, will not likely regained capacity. According to [place] statutes, health care proxy decision-making would fall to the patient's spouse (even if they are legally ). * CODE status: Intubation only * Discussed with nurse and Dr. Peña who feels we should monitor patient over the weekend to assess for continued neurologic improvement, would not recommend trach and PEG. * 09/13/16 Family left prior to meeting today, waited for 45 minutes, they did not show. Palliative care will continue to follow to support family and assist with symptom management. Number previously provided. * SYMPTOMS: Pain: secondary to likely malignancy with metastatic disease, intubation, seizure. Off sedation. Unresponsive. Dyspnea: on mechanical ventilation, off sedation. No new medication recommendations at this time. * Palliative care will continue to follow throughout hospital course to assist with symptom management and clarification of goals as needed. . Attestation To help prompt me to consider important information that might be impacting today's encounter and assessment, information from prior notes written by myself or my colleagues may have been "brought forward" into today's note. My signature on this note, however, is an attestation that I personally performed the exam, history, and/or decision-making noted today, and, unless otherwise indicated, the interactions with patient, family, and staff as well as the review of records all occurred today. I also attest that the listed assessment and stated plan reflect my best clinical judgment today based on the combination of historical information, prior notes, and today's exam/ interactions. When time spent is documented, it refers only to time spent today by the signer, or if indicated, combined time spent today by collaborating physician/nurse practitioner. Alvina Ambrocio Sep 13, 2016 13:59
[2016-09-13] MEDS: MICAFUNGIN INJ 100 MG in SODIUM CHLORIDE 0.9% INJ 100 ML IV SCH (14:03)
[2016-09-13] MEDS: LEVOFLOXACIN 750 MG PREMIX INJ 150 ML IV SCH (16:00)
--- NOTE | 2016-09-13 17:42 | HHI.NPPN ---
Subjective History of Present Illness This patient is a 50-year-old male with a history of hypertension, diabetes mellitus, seizure disorder, bipolar disorder and apparently tobacco use now presenting with septic shock and an apparent postobstructive pneumonia with radiological evidence of probable metastatic disease involving liver, brain with evidence of a left hilar mass. Presentation creatinine level is elevated to 2.17 with a bicarbonate of 15.8 and an anion gap of 20. Patient also had a CTA of the aorta performed on September 04, 2016 utilizing iodine contrast. Patient currently maintaining good urine output at time of consultation. Serum creatinine level was 0.9 back in March 2016. Interval History Patient remains unresponsive on ventilatory support. Review of Systems General General Remarks Unable to obtain because of patient's condition. Objective Data Data 09/12/16 09/13/16 19:00 07:00 Intake Total 2331 ml 3378 ml Output Total 2600 ml 1150 ml Balance -269 ml 2228 ml Intake IV Total 1528 ml 1886 ml Tube Feeding 203 ml 592 ml Other 600 ml 900 ml Output Urine Total 200 ml 475 ml Stool Total 2400 ml 675 ml Vital Signs Date Time Temp Pulse Resp B/P Pulse Ox O2 Delivery O2 Flow Rate FiO2 09/13/16 16:00 98.5 93 21 114/58 96 09/13/16 16:00 35 09/13/16 15:48 96 35 09/13/16 15:30 96 21 115/60 95 09/13/16 15:00 97 20 108/58 94 09/13/16 14:30 98 22 108/59 94 09/13/16 14:00 99 22 110/57 93 09/13/16 13:30 103 24 112/59 93 09/13/16 13:00 109 26 107/57 93 09/13/16 12:30 113 24 105/56 92 09/13/16 12:00 99.9 112 26 105/59 92 09/13/16 12:00 35 09/13/16 11:30 109 24 105/56 93 09/13/16 11:06 35 09/13/16 11:06 93 35 09/13/16 11:00 97 27 100/55 95 09/13/16 10:30 100 21 104/56 95 09/13/16 10:00 101 19 104/57 94 09/13/16 09:54 35 09/13/16 09:30 102 22 118/60 93 09/13/16 09:00 101 21 119/60 93 09/13/16 08:30 100 21 119/60 95 09/13/16 08:20 52 35 09/13/16 08:00 35 09/13/16 08:00 99.5 97 22 118/60 96 09/13/16 06:00 96 09/13/16 04:43 94 35 09/13/16 04:00 99.3 92 23 114/58 99 09/13/16 04:00 35 09/13/16 04:00 92 09/13/16 02:00 90 09/13/16 01:00 99 35 09/13/16 00:00 84 09/13/16 00:00 98.9 84 20 123/67 100 09/13/16 00:00 35 09/12/16 23:41 35 09/12/16 22:00 88 09/12/16 20:00 91 09/12/16 20:00 45 09/12/16 20:00 99.7 91 19 114/58 99 09/12/16 18:16 99.8 09/12/16 18:00 113 -: 09/13/16 0340 09/13/16 0340 Physical Exam General Appearance: No Acute Distress, Comfortable Eyes Eye Exam: Sclera White Pulmonary Resp Exam: Clear Bilaterally, Breath Sounds Equal, No Distress Cardiology CV Exam: Regular, Tachycardia Gastrointestinal/Abdomen GI Exam: Soft, Non-Tender Integumentary Skin Exam: Clear, Warm, Dry Extremeties Extremities Exam: Trace Edema (feet and hips) Neurologic Neuro Exam: Unresponsive Assessment/Plan Problem List: (1) Acute kidney insufficiency Plan: Renal function continues to worsen secondary to ATN related to sepsis syndrome. Modify IV fluids in view of persisting metabolic acidosis and hyponatremia. Sterile water with 150 mEq of bicarbonate per liter. Continue to monitor renal function however the patient is a very poor dialysis candidate and should renal function continued to worsen do not believe dialysis would improve his overall prognosis..From reviewing records patient's prognosis appears to be very poor for any meaningful recovery. Palliative care discussing situation with family. Medications should be adjusted for the patient's estimated GFR if clinically indicated. Avoid agents with significant potential for nephrotoxicity possible including NSAIDs for analgesia, iodine contrast agents. Gadolinium is contraindicated if the GFR is below 30. (2) Hypokalemia Plan: Multifactorial in origin. Contributory factors include probable pre-existing potassium deficit on presentation which was masked by his metabolic acidosis. Correction of acidosis subsequently resulted in intracellular shift of potassium. Also suspect increased potassium losses secondary to his polyuria. These potassium losses should improve as polyuria subsequently subsides. Recommend continued potassium repletion. (3) Metabolic acidosis Plan: Resolved (4) Septic shock Plan: Management per infectious disease and critical care Sang Barrow MD Sep 13, 2016 17:42
[2016-09-13] MEDS: SODIUM BICARBONATE 8.4% INJ 150 MEQ in WATER STERILE FOR INJ 850 ML IV SCH (21:32)
[2016-09-14] VITALS (21 sets, daily range): BP systolic 88–109; BP diastolic 51–55; PULSE 87–110; RESP 17–26; TEMP 98.4–100.4; O2SAT 92–97
[2016-09-14] MEDS: CEFEPIME INJ 2,000 MG in SODIUM CHLORIDE 0.9% INJ 100 ML IV SCH ×2 (00:55→14:20)
[2016-09-14] MEDS: NOREPINEPHRINE-DEXTROSE DRIP 250 ML IV SCH ×4 (02:35→20:53)
[2016-09-14] MEDS: INSULIN NovoLIN REGULAR SUPPLEMENTAL SCALE SQ SCH ×5 (04:00→19:51)
[2016-09-14] MEDS: CHLORHEXIDINE GLUCONATE 2 % 1 PACK (2 CLOTHS) TOP SCH (04:00)
--- NOTE | 2016-09-14 04:32 | RADRPT ---
EXAM DATE/TIME: 09/14/2016 02:57 [facility] COMPARISON: CHEST SINGLE AP, September 13, 2016, 10:53. INDICATIONS : Re-evaluate lungs after intubation. MEDICAL HISTORY : Cardiovascular disease. Hypertension SURGICAL HISTORY : None. ENCOUNTER: Subsequent ACUITY: 1 week PAIN SCORE: Non-responsive. LOCATION: Bilateral chest FINDINGS: ET tube, and NG tube have not changed. Left subclavian line is present with tip not changed.There is slight worsening bilateral perivascular parenchymal process may represent pulmonary edema. There is p rominence of the mediastinum in the region of the AP window possibly technical. CONCLUSION: Probable worsening pulmonary edema. Margarette Griffith MD on September 14, 2016 at 4:29 Board Certified Radiologist. This report was verified electronically.
[2016-09-14 04:44] LABS: AUTOMATED NEUTROPHIL # 19.6 TH/MM3 (1.8-7.7); BASOPHIL % 0.2 % (0.0-2.0); EOSINOPHIL # 0.1 TH/MM3 (0-0.4); EOSINOPHIL % 0.2 % (0.0-4.0); HEMATOCRIT 33.3 % (39.0-51.0); LYMPH % 6.2 % (9.0-44.0); LYMPHOCYTE # 1.4 TH/MM3 (1.0-4.8); MEAN CORPUSCULAR HEMOGLOBIN 26.6 PG (27.0-34.0); MEAN CORPUSCULAR HGB CONC 31.3 % (32.0-36.0); MONO % 4.1 % (0.0-8.0); NEUT % 89.3 % (16.0-70.0); PLATELET COUNT 168 TH/MM3 (150-450); RED BLOOD COUNT 3.91 MIL/MM3 (4.50-5.90); RED CELL DISTRIBUTION WIDTH 16.4 % (11.6-17.2)
[2016-09-14 04:46] LABS: HEMO FLAGS AUTO DIFF
[2016-09-14] MEDS: HYDROCORTISONE SOD SUCCINATE 100 MG VIAL IV PUSH SCH ×2 (04:50→18:20)
[2016-09-14] MEDS: ACETAMINOPHEN 325 MG TAB PO PRN ×2 (04:51→14:19)
[2016-09-14] MEDS: RESP: ALBUTEROL 2.5 MG/IPRATROPIUM 0.5 MG NEB (SCH) NEB ×4 (05:05→21:39)
[2016-09-14 05:07] LABS: ANION GAP 22 MEQ/L (5-15); AST (GOT) 553 U/L (15-37); BICARBONATE 12.4 MEQ/L (21.0-32.0); BLOOD UREA NITROGEN 122 MG/DL (7-18); CHLORIDE 112 MEQ/L (98-107); GLOMERULAR FILTRATION RATE 16 ML/MIN (>89); SODIUM (NA) 146 MEQ/L (136-145)
[2016-09-14 05:16] LABS: ALKALINE PHOSPHATASE 340 U/L (45-117); TOTAL BILIRUBIN ADULT 2.5 MG/DL (0.2-1.0)
[2016-09-14 05:22] LABS: POTASSIUM 3.1 MEQ/L (3.5-5.1)
[2016-09-14 05:24] LABS: ALT (GPT) 255 U/L (12-78)
[2016-09-14] MEDS: FREE WATER G-TUBE SCH ×3 (05:38→18:20)
[2016-09-14 08:05] LABS: SCAN/DIFF AUTO DIFF CONFIRMED
[2016-09-14] MEDS: PANTOPRAZOLE SODIUM 40 MG VIAL IV SCH (08:33)
[2016-09-14] MEDS: LACTULOSE SYRUP 20 GM/30 ML CUP PO SCH ×2 (08:33→19:50)
[2016-09-14] MEDS: levETIRAcetam INJ 500 MG in SODIUM CHLORIDE 0.9% INJ 100 ML IV SCH ×2 (08:34→19:50)
[2016-09-14] MEDS: SENNOSIDES SYRUP 8.8 MG/5 ML CUP PO SCH (08:34)
[2016-09-14] MEDS: DOCUSATE SODIUM 100 MG/10 ML UDC PO SCH ×2 (08:35→19:50)
[2016-09-14] MEDS: CHLORHEXIDINE 0.12% (ORAL KIT) 15 ML CUP MT SCH ×2 (08:35→19:50)
[2016-09-14] MEDS: Central Line Short Term Adult 7Fr or larger Daily NS Lock Flush IV FLUSH SCH (08:53)
--- NOTE | 2016-09-14 10:32 | PD.WCN.NOT ---
Wound Consult Description: Consult for wound management of sacral/coccyx DTI per Dr Peña. Communicated with: Cristopher,RN Guerline,charge entry Dr Valentino Recommendation: Calazime BID and PRN to Deep Tissue Injury on sacral/coccyx with partial thickness skinloss noted within area of DTI Additional Information: Patient seen on [facility] for evaluation of sacrum/coccyx DTI. Patient was positioned to his left side for assessment with 3 RN's and display card writer. Patient presents with non blanchable purple discoloration indicating a DTI noted to sacrum and coccyx measuring 10cm x 9cm x <0.1cm with partial thickness skinloss noted within the DTI. RN's at bedside were placing a new fecal containment system and communicated the need for Calazime BID and PRN for DTI and 2 openings measuring ~0.5cm x 0.5cm x <0.1cm. Sandy Pedroza [facility] Sep 14, 2016 10:32
[2016-09-14] MEDS: SODIUM BICARBONATE 8.4% INJ 150 MEQ in WATER STERILE FOR INJ 850 ML IV SCH (12:04)
--- NOTE | 2016-09-14 12:24 | HHI.HCPN ---
Reason for visit a. To assist with evaluation and management of symptoms including: pain, encephalopathy, dyspnea. b. To assist medical decision maker(s) with: better understanding of current medical conditions; weighing benefits/burdens of medical treatment options; making medical treatment decisions. . Subjective/Interval History Patient seen and examined in ICU. No family at bedside. Patient remains remains in ICU on mechanical ventilation, now on CPAP settings, FiO2 at 35%. Remains off sedation since 09/08/16, does not withdraw to pain today. He does not open eyes or follow commands today. he does not blink to threat consistently. Increased generalized edema. Febrile, TMax 100.4. Warm and dry. Tachycardic. BP 100's systolic. Now in Levophed at 10mcg/min. WBC 22. Creatinine worsening now 3.91. Total bilirubin 2.5. Albumin 1.7. Cultures negative to date. Chest xray with worsening pulmonary edema. Discussed with nurse Gayatri, who reports no neurologic improvement, patient unresponsive today. Discussed with Dr. Valentino. Requested nurse call when family arrives to provide medical update. . Family/friend interactions Met with and mother at bedside. Also present Norma Anderson, CRISTIAN student. Medical update provided. Lengthy conversation regarding neurologic status, organ failure, underlying likely malignancy, lab and xray results. and mother are verbalizing patient would not want to live like this and that they hope he will before they have to make a decision to withdrawal of life support. They were feeling "very hopeful" after their conversation with Dr. Peña yesterday. They have not seen any sign of neurologic recovery stating they "can get him to open his eyes but he is not connecting with them." In clarification of goals they verbalize they may elect to proceed with compassionate withdrawal of life support in the coming days. They DO NOT want further escalation of care, NO dialysis, NO labs or imaging, NO increase in vent or pressor support, NO further invasive procedures. Anticipatory guidance provided regarding withdrawal of life support. Reviewed option for hospice services at the time of transition to comfort measures only, they will notify staff if they desire hospice. They verbalize likely only allowing , mother and sister to be present a the time of withdrawal. Thankful for time spent and the care patient has received by all staff. . Advance Directives Living Will: Never completed Health Care Surrogate: Never completed Durable Power of Artificial Intelligence Specialist: Never completed Advance Directive Specifics Health Care Surrogate(s): Patient is currently incapacitated, will not likely regained capacity. According to [place] statutes, health care proxy decision-making would fall to the patient's spouse (even if they are legally ). . Documented care wishes: None. Significant change in goals: NO CODE, no further escalation of care. Possible withdrawal of life support in the coming days, not ready to proceed today. . Objective Vital Signs Date Time Temp Pulse Resp B/P Pulse Ox O2 Delivery O2 Flow Rate FiO2 09/14/16 11:00 98 09/14/16 10:00 99 09/14/16 09:09 94 45 09/14/16 08:00 45 09/14/16 08:00 103 09/14/16 08:00 99.9 103 100/51 93 09/14/16 06:00 106 09/14/16 05:05 92 45 09/14/16 04:00 110 09/14/16 04:00 100.4 110 26 103/54 92 09/14/16 04:00 45 09/14/16 02:00 105 09/14/16 00:41 92 40 09/14/16 00:00 98.4 109 26 88/52 93 09/14/16 00:00 35 09/14/16 00:00 109 09/13/16 23:45 93 40 09/13/16 22:00 106 09/13/16 21:23 97 35 09/13/16 20:18 92 35 09/13/16 20:00 101 09/13/16 20:00 98.5 101 24 101/55 92 09/13/16 20:00 35 09/13/16 16:00 98.5 93 21 114/58 96 09/13/16 16:00 35 09/13/16 15:48 96 35 09/13/16 15:30 96 21 115/60 95 09/13/16 15:00 97 20 108/58 94 09/13/16 14:30 98 22 108/59 94 09/13/16 14:00 99 22 110/57 93 09/13/16 13:30 103 24 112/59 93 09/13/16 13:00 109 26 107/57 93 09/13/16 12:30 113 24 105/56 92 Intake & Output 09/14/16 09/14/16 07:00 19:00 Intake Total 3309 ml Output Total 1500 ml Balance 1809 ml Intake IV Total 1844 ml Tube Feeding 865 ml Other 600 ml Output Urine Total 300 ml Stool Total 1200 ml Physical Exam CONSTITUTIONAL/GENERAL: This is an adequately nourished patient, on mech vent. off sedation. TUBES/LINES/DRAINS: ETT, OG, PIV x 2, bilateral soft wrist restraints, Roland, podus boots, SCDs. SKIN: Color dusky. Ecchymoses on upper extremities. Mottling bilateral feet, right knee, left hand. EYES: Right eye blind. Left slightly reactive. ENT: Unable to assess hearing. Nose without bleeding or purulent drainage. Difficult to visualize throat due to tubes. CARDIOVASCULAR: Tachycardic. RESPIRATORY/CHEST: Labored respirations on vent. Course breath sounds. Diminished breath sounds. GASTROINTESTINAL: Abdomen protuberant. Bowel sounds active. GENITOURINARY: Without palpable bladder distension. Roland catheter in place. MUSCULOSKELETAL: Extremities warm. NEUROLOGICAL: Does not respond to voice or noxious stimuli. No withdrawal to pain. Does not follow commands. No tracking when eyes open. . Diagnostic Tests Laboratory Laboratory Tests Test 09/12/16 09/13/16 09/13/16 09/14/16 05:01 03:40 10:45 03:45 White Blood Count 21.8 TH/MM3 20.7 TH/MM3 22.0 TH/MM3 (4.0-11.0) (4.0-11.0) (4.0-11.0) Red Blood Count 4.38 MIL/MM3 3.93 MIL/MM3 3.91 MIL/MM3 (4.50-5.90) (4.50-5.90) (4.50-5.90) Hemoglobin 12.0 GM/DL 10.7 GM/DL 10.4 GM/DL (13.0-17.0) (13.0-17.0) (13.0-17.0) Hematocrit 36.5 % 32.7 % 33.3 % (39.0-51.0) (39.0-51.0) (39.0-51.0) Mean Corpuscular Volume 83.4 FL 83.3 FL 85.0 FL (80.0-100.0) (80.0-100.0) (80.0-100.0) Mean Corpuscular Hemoglobin 27.5 PG 27.2 PG 26.6 PG (27.0-34.0) (27.0-34.0) (27.0-34.0) Mean Corpuscular Hemoglobin 32.9 % 32.6 % 31.3 % Concent (32.0-36.0) (32.0-36.0) (32.0-36.0) Red Cell Distribution Width 15.9 % 16.1 % 16.4 % (11.6-17.2) (11.6-17.2) (11.6-17.2) Platelet Count 179 TH/MM3 134 TH/MM3 168 TH/MM3 (150-450) (150-450) (150-450) Mean Platelet Volume 10.4 FL 9.6 FL 10.4 FL (7.0-11.0) (7.0-11.0) (7.0-11.0) Neutrophils (%) (Auto) 85.0 % 88.4 % 89.3 % (16.0-70.0) (16.0-70.0) (16.0-70.0) Lymphocytes (%) (Auto) 9.0 % 6.7 % 6.2 % (9.0-44.0) (9.0-44.0) (9.0-44.0) Monocytes (%) (Auto) 5.2 % (0.0-8.0) 4.3 % (0.0-8.0) 4.1 % (0.0-8.0) Eosinophils (%) (Auto) 0.3 % (0.0-4.0) 0.2 % (0.0-4.0) 0.2 % (0.0-4.0) Basophils (%) (Auto) 0.5 % (0.0-2.0) 0.4 % (0.0-2.0) 0.2 % (0.0-2.0) Neutrophils # (Auto) 18.5 TH/MM3 18.3 TH/MM3 19.6 TH/MM3 (1.8-7.7) (1.8-7.7) (1.8-7.7) Lymphocytes # (Auto) 2.0 TH/MM3 1.4 TH/MM3 1.4 TH/MM3 (1.0-4.8) (1.0-4.8) (1.0-4.8) Monocytes # (Auto) 1.1 TH/MM3 0.9 TH/MM3 0.9 TH/MM3 (0-0.9) (0-0.9) (0-0.9) Eosinophils # (Auto) 0.1 TH/MM3 0.0 TH/MM3 0.1 TH/MM3 (0-0.4) (0-0.4) (0-0.4) Basophils # (Auto) 0.1 TH/MM3 0.1 TH/MM3 0.0 TH/MM3 (0-0.2) (0-0.2) (0-0.2) CBC Comment DIFF FINAL DIFF FINAL AUTO DIFF Differential Comment AUTO DIFF CONFIRMED Sodium Level 148 MEQ/L 151 MEQ/L 146 MEQ/L (136-145) (136-145) (136-145) Potassium Level 4.0 MEQ/L 3.1 MEQ/L 3.1 MEQ/L (3.5-5.1) (3.5-5.1) (3.5-5.1) Chloride Level 115 MEQ/L 117 MEQ/L 112 MEQ/L (98-107) (98-107) (98-107) Carbon Dioxide Level 18.0 MEQ/L 16.1 MEQ/L 12.4 MEQ/L (21.0-32.0) (21.0-32.0) (21.0-32.0) Anion Gap 15 MEQ/L (5-15) 18 MEQ/L (5-15) 22 MEQ/L (5-15) Blood Urea Nitrogen 76 MG/DL (7-18) 96 MG/DL (7-18) 122 MG/DL (7-18) Creatinine 2.15 MG/DL 2.83 MG/DL 3.91 MG/DL (0.60-1.30) (0.60-1.30) (0.60-1.30) Estimat Glomerular Filtration 33 ML/MIN (>89) 24 ML/MIN (>89) 16 ML/MIN (>89) Rate Random Glucose 144 MG/DL 135 MG/DL 125 MG/DL (74-106) (74-106) (74-106) Calcium Level 8.0 MG/DL 8.0 MG/DL 7.8 MG/DL (8.5-10.1) (8.5-10.1) (8.5-10.1) Total Bilirubin 2.3 MG/DL 2.1 MG/DL 2.5 MG/DL (0.2-1.0) (0.2-1.0) (0.2-1.0) Aspartate Amino Transf 415 U/L (15-37) 494 U/L (15-37) 553 U/L (15-37) (AST/SGOT) Alanine Aminotransferase 259 U/L (12-78) 256 U/L (12-78) 255 U/L (12-78) (ALT/SGPT) Alkaline Phosphatase 303 U/L 294 U/L 340 U/L (45-117) (45-117) (45-117) Total Protein 5.7 GM/DL 5.4 GM/DL 5.3 GM/DL (6.4-8.2) (6.4-8.2) (6.4-8.2) Albumin 1.8 GM/DL 1.7 GM/DL 1.7 GM/DL (3.4-5.0) (3.4-5.0) (3.4-5.0) Magnesium Level 2.9 MG/DL (1.5-2.5) Random Vancomycin Level 20.7 COMMENT Ammonia 98 MCMOL/L (11-32) Result Diagram: 09/14/16 0345 09/14/16 0345 Microbiology Microbiology Date/Time Procedure Status Source Growth 09/12/16 06:45 Gram Stain - Final Complete Sputum Endotracheal 09/12/16 06:45 Sputum Culture - Final Complete Sputum Endotracheal MODERATE GROWTH NORMAL RESPIRATORY TWAN 09/12/16 06:45 Urine Culture - Final Complete Urine Catheterized Urine NO GROWTH IN 48 HOURS. 09/12/16 15:05 Aerobic Blood Culture - Preliminary Resulted Blood Peripheral NO GROWTH IN 2 DAYS 09/12/16 15:05 Anaerobic Blood Culture - Preliminary Resulted Blood Peripheral NO GROWTH IN 2 DAYS 09/12/16 15:07 Aerobic Blood Culture - Preliminary Resulted Blood Peripheral NO GROWTH IN 2 DAYS 09/12/16 15:07 Anaerobic Blood Culture - Preliminary Resulted Blood Peripheral NO GROWTH IN 2 DAYS . Imaging Last Impressions Chest X-Ray 09/14/16 0600 Signed Impressions: Service Date/Time: Wednesday, September 14, 2016 02:57 - CONCLUSION: Probable worsening pulmonary edema. Margarette Griffith MD Head CT 09/09/16 0000 Signed Impressions: Service Date/Time: Friday, September 09, 2016 16:04 - CONCLUSION: 1. Focal area of increased density within the left high parietal region which is unchanged compared to the previous examination. This remains nonspecific and may either represent a hyperdense mass or possibly an area of focal hemorrhage. MRI of the brain with contrast would be helpful for further evaluation of this finding. 2. Stable encephalomalacia involving the right parietal region. Kirit Barreto MD Brain MRI 09/09/16 0000 Signed Impressions: Service Date/Time: Friday, September 09, 2016 16:25 - CONCLUSION: 1. 2.6 x 1.5 cm extraaxial mass within the left high parietal region with some hemorrhagic components raising the possibility of metastatic disease. 2. Tiny focal signal abnormality within the left posteroparietal subcortical white matter consistent with probable acute lacunar infarct. 3. Stable area of encephalomalacia involving the right frontoparietal region. Kirit Barreto MD Abdomen Ultrasound 09/05/16 0000 Signed Impressions: Service Date/Time: Monday, September 05, 2016 09:21 - CONCLUSION: Enlarged heterogeneous liver. The heterogeneity is thought to be secondary to somewhat ill-defined echogenic masses throughout the liver. Metastatic disease needs to be suspected. Casey Cisneros MD Aorta CTA 09/04/16 0000 Signed Impressions: Service Date/Time: Sunday, September 04, 2016 13:44 - CONCLUSION: 1. Abnormal examination demonstrating large left hilar mass with bulky mediastinal adenopathy and associated post obstructive airspace disease in the superior segment of the left lower lobe. There is also evidence for bulky metastatic disease to the liver and solitary mesenteric metastasis. 1.5 cm left adrenal mass also suspicious for metastasis. 2. Bilateral lower lobe airspace consolidation may reflect aspiration in this intubated patient. 3. Patchy groundglass opacities in the upper lobes bilaterally consistent light reflex edema and volume loss. 4. No evidence for aortic dissection, significant aneurysm, or injury. Pepe Miramontes MD . Procedures * 09/05/16 - self extubated and reintubated. * 09/04/16 - Intubated. . Assessment and Plan Disease Oriented Problem List: (1) Septic shock (2) Leukocytosis (3) Lactic acidosis (4) Acute respiratory failure with hypoxia (5) Seizure (6) Metastatic cancer (7) Bipolar disorder (8) Chronic back pain (9) Pneumonia (10) Tobacco abuse Symptom Scale: (1) Seizure 0-10 Scale: Unable to quantify (2) Shortness of breath 0-10 Scale: Unable to quantify Comment: on mech vent. (3) Pain 0-10 Scale: Unable to quantify (4) Chronic back pain 0-10 Scale: Unable to quantify Pertinent Non-Medical Issues Psychosocial: legally , was still living intermittently with his alternating with his mother. Spiritual: samaritan is not an important part of the patient's life. Legal:Patient is currently incapacitated, will not likely regained capacity. According to [place] statutes, health care proxy decision-making would fall to the patient's spouse (even if they are legally ). Ethical issues impacting care: no known concerns at this time. . Important Contacts * Stephanie Juares, spouse: [phone] * Joselito Branham, mother: [phone] or [phone] . Prognosis Mr. Juares is an unfortunate 50-year-old male admitted with seizure, respiratory failure requiring mechanical ventilation and multiorgan failure, found to have what appears to be widespread metastatic disease to liver, lymph nodes and brain. Overall prognosis appears poor for meaningful recovery. Hospice appropriate if goals are comfort oriented. . Code Status: No Code Plan * Patient is currently incapacitated, will not likely regained capacity. According to [place] statutes, health care proxy decision-making would fall to the patient's spouse (even if they are legally ). * NO CODE * Discussed with nurse and Dr. Valentino, * 09/14/16 - Met with and mother at bedside. Also present Norma Anderson NP student. Medical update provided. Lengthy conversation regarding neurologic status, organ failure, underlying likely malignancy, lab and xray results. and mother are verbalizing patient would not want to live like this and that they hope he will before they have to make a decision to withdrawal of life support. They were feeling "very hopeful" after their conversation with Dr. Peña yesterday. They have not seen any sign of neurologic recovery stating they "can get him to open his eyes but he is not connecting with them." In clarification of goals they verbalize they may elect to proceed with compassionate withdrawal of life support in the coming days. They DO NOT want further escalation of care, NO dialysis, NO labs or imaging, NO increase in vent or pressor support, NO further invasive procedures. Anticipatory guidance provided regarding withdrawal of life support. Reviewed option for hospice services at the time of transition to comfort measures only, they will notify staff if they desire hospice. They verbalize likely only allowing , mother and sister to be present a the time of withdrawal. Thankful for time spent and the care patient has received by all staff. * Exhibits B & C on chart, signed by Dr. Michaud as solution consultant should family elect to proceed with transition to comfort over the weekend. Dr. Valentino agrees finishing machine operator automatic will write orders if family decides to withdrawal of life support over the weekend. * SYMPTOMS: Pain: secondary to likely malignancy with metastatic disease, intubation, seizure. Off sedation. Unresponsive. Dyspnea: on mechanical ventilation, off sedation. No new medication recommendations at this time. Encephalopathy: unresponsive today. * Palliative care will continue to follow throughout hospital course to assist with symptom management and clarification of goals as needed. . Time Spent Total Floor Time (mins): 75 Face to Face Time (mins): 60 >50% Counseling/Coord of Care: Yes Attestation To help prompt me to consider important information that might be impacting today's encounter and assessment, information from prior notes written by myself or my colleagues may have been "brought forward" into today's note. My signature on this note, however, is an attestation that I personally performed the exam, history, and/or decision-making noted today, and, unless otherwise indicated, the interactions with patient, family, and staff as well as the review of records all occurred today. I also attest that the listed assessment and stated plan reflect my best clinical judgment today based on the combination of historical information, prior notes, and today's exam/ interactions. When time spent is documented, it refers only to time spent today by the signer, or if indicated, combined time spent today by collaborating physician/nurse practitioner. Alvina Ambrocio 30, 2017 12:24
--- NOTE | 2016-09-14 12:34 | HHI.PR ---
Subjective Remarks Vent dependant and does not follow commands.On CPAP today,. On 45% FIo2. Objective Vital Signs Date Time Temp Pulse Resp B/P Pulse Ox O2 Delivery O2 Flow Rate FiO2 09/14/16 12:19 97 40 09/14/16 11:00 98 09/14/16 10:00 99 09/14/16 09:09 94 45 09/14/16 08:00 45 09/14/16 08:00 103 09/14/16 08:00 99.9 103 100/51 93 09/14/16 06:00 106 09/14/16 05:05 92 45 09/14/16 04:00 110 09/14/16 04:00 100.4 110 26 103/54 92 09/14/16 04:00 45 09/14/16 02:00 105 09/14/16 00:41 92 40 09/14/16 00:00 98.4 109 26 88/52 93 09/14/16 00:00 35 09/14/16 00:00 109 09/13/16 23:45 93 40 09/13/16 22:00 106 09/13/16 21:23 97 35 09/13/16 20:18 92 35 09/13/16 20:00 101 09/13/16 20:00 98.5 101 24 101/55 92 09/13/16 20:00 35 09/13/16 16:00 98.5 93 21 114/58 96 09/13/16 16:00 35 09/13/16 15:48 96 35 09/13/16 15:30 96 21 115/60 95 09/13/16 15:00 97 20 108/58 94 09/13/16 14:30 98 22 108/59 94 09/13/16 14:00 99 22 110/57 93 09/13/16 13:30 103 24 112/59 93 09/13/16 13:00 109 26 107/57 93 09/13/16 12:30 113 24 105/56 92 I/O 09/13/16 09/13/16 09/13/16 09/14/16 09/14/16 09/14/16 07:00 15:00 23:00 07:00 15:00 23:00 Intake Total 1557 ml 1140 ml 1471 ml 1838 ml Output Total 550 ml 450 ml 850 ml 650 ml Balance 1007 ml 690 ml 621 ml 1188 ml Intake IV Total 665 ml 775 ml 921 ml 923 ml Tube Feeding 292 ml 365 ml 550 ml 315 ml Other 600 ml 600 ml Output Urine Total 275 ml 250 ml 250 ml 50 ml Stool Total 275 ml 200 ml 600 ml 600 ml Result Diagram: 09/14/1634409/14/16344 Objective Remarks GENERAL: This obese, middle-aged man who is sedated, intubated. HEENT: Head normocephalic. Pupils are reactive. NECK: Supple with no venous distension. No thyromegaly. CHEST: Equal movements with occ crackles at bases HEART: The heart sounds are regular S1-S2. No murmur. ABDOMEN: Obese, protuberant without masses. No organomegaly. EXTREMITIES: No edema.warm extremities with diminished pulses. Reflexes are 1 +. He is sedated. SKIN: Dry and warm. Assessment and Plan Assessment and Plan IMPRESSION 1. Septic shock. 2. Acute hypoxemic respiratory failure. 3. COPD. 4. 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 5. Possible brain mets with seizures. 6. History of bipolar disorder. 7. Diabetes mellitus. 8. Hypertension. 9. Hyponatremia. Plan : 1. Wean FIO2 to keep sat >92. 2. CPAP trial today, 07/25 ,FIo2 40% 3. Cont antibiotics.Per Dr Peña 4. Continue nebs qid. 5.Stop sedation 6. Tube feeds at 50 CC 7. Bronchoscopy when clinically stable Jamey Botello MD Sep 14, 2016 12:33
--- NOTE | 2016-09-14 15:32 | HHI.CCPN ---
Subjective Remarks/Hospital Course The patient is a 50-year-old male with past medical history of hypertension, diabetes mellitus, seizure disorder, chronic back pain, bipolar disorder who presented to the ED with a witnessed generalized seizure. In addition the patient was altered and hypoxic with O2 saturation in the 70s. He initially somewhat improved on a non-rebreather but due to labored breathing or diaphoresis he was subsequently intubated in the ED and placed on full mechanical ventilation. According to the patient's family the patient has been having progressive worsening shortness of breath and he has not been feeling well lately. In addition he reported feeling nauseous and heartburn. On arrival to the ER he was tachycardiac, hypotensive and was subsequently placed on Levophed which is currently at 20 mics. The patient was given 3 liters of crystalloids in the ED. ABG post intubation showed pH of 7.23, CO2 33, pAO2 180 , bicarb 13, saturation 97% on PRVC mode with a rate of 18, tidal volume 500, PEEP of 5, IT: 1.0, FIO2 100%. His laboratory data significant for lactic acidemia with a lactic acid level of 11.3, acute kidney injury with a creatinine 2.17 and leukocytosis with bandemia. His WBC is 34.8 with bands of 16. A CT scan of the brain in the ER was obtained which showed a 2.3 cm hyperdense mass at the left parietal lobe and a questionable second small area of hyperdensity seen in the frontal lobe region. He also had a CTA of the aorta which showed significant hilar and mediastinal adenopathy and liver mets. In the ER he was given Zosyn, azithromycin and placed on Diprivan infusion for sedation. A right femoral central line and left radial A-line was placed by the ED physician. 09/05 Patient was self extubated and was reintubated last night . Sedated with Diprivan , Fentanyl and intubated. On Levophed and now Neosyn. Renal function is worsening with Cr: 2.34 from 2.14 09/06 Patient remains sedated with Diprivan and Fentanyl and intubated. On Levophed 13 mics and Neosyn 160 mics. Spiked fever with T:102.1.Renal function is improving with Cr:1.81 from 2.34. 09/07 No events overnight. Remains sedated with Diprivan and intubated. Off all pressors renal function is improving with Cr: 1.11 from 1.81. T:99.8 09/08 Patient is sedate with Diprivan and intubated. T:103.0 at 4 am. Given Metoprolol 5mg Iv early this morning for sinus tachycardia. 09/09 Patient is sedated with Fentanyl and intubated, T: 102.0 09/10 Patient is off sedation doesn't follow commands. T:100.4 at 4 am. MRI brain yesterday showed 2.6 x 1.5 cm extraaxial mass within the left high parietal region with some hemorrhagic components ? metastatic disease. probable acute lacunar infarct. 09/11 Patient remains off sedation does not follow commands. Tolerating tube feeds. T:99.7 09/12: Developing septic shock, MAXIMUM TEMPERATURE 102.6, map down to 48. Map didn't sufficiently improved with 2 L normal saline bolus and Abhijeet-Synephrine GTT was added. Remains encephalopathic. ID has start of vancomycin to the existing antibiotics, I have added cefepime. Panculture. Discussed with family - They are not certain about bronch and biopsy for tissue diagnosis at this time 09/13: Remains critically ill. Worsening renal function creatinine has increased to 2.83, BUN to 96. Abhijeet-Synephrine to start back. Appears to be tracking. Fever seems to be trending down white count 20.7 today Subjective 09/14: Minimally unresponsive on the ventilator. Decreased urine output. Increasing LFTs and worsening multisystem organ failure. Not following commands. Objective Vital Signs Date Time Temp Pulse Resp B/P Pulse Ox O2 Delivery O2 Flow Rate FiO2 09/14/16 15:04 95 40 09/14/16 11:00 98 09/14/16 08:00 99.9 100/51 09/14/16 04:00 26 Intake and Output 09/13/16 09/13/16 09/14/16 08:00 16:00 00:00 Intake Total 1557 ml 1140 ml 1471 ml Output Total 550 ml 450 ml 850 ml Balance 1007 ml 690 ml 621 ml Result Diagram: 09/14/16 0345 09/14/16 0345 Other Results Microbiology Date/Time Procedure Status Source Growth 09/12/16 15:07 Aerobic Blood Culture - Preliminary Resulted Blood Peripheral NO GROWTH IN 2 DAYS 09/12/16 15:07 Anaerobic Blood Culture - Preliminary Resulted Blood Peripheral NO GROWTH IN 2 DAYS 09/12/16 06:45 Urine Culture - Final Complete Urine Catheterized Urine NO GROWTH IN 48 HOURS. 09/12/16 06:45 Gram Stain - Final Complete Sputum Endotracheal 09/12/16 06:45 Sputum Culture - Final Complete Sputum Endotracheal MODERATE GROWTH NORMAL RESPIRATORY [facility] Imaging Last Impressions Chest X-Ray 09/14/16 0600 Signed Impressions: Service Date/Time: Wednesday, September 14, 2016 02:57 - CONCLUSION: Probable worsening pulmonary edema. Margarette Griffith MD Head CT 09/09/16 0000 Signed Impressions: Service Date/Time: Friday, September 09, 2016 16:04 - CONCLUSION: 1. Focal area of increased density within the left high parietal region which is unchanged compared to the previous examination. This remains nonspecific and may either represent a hyperdense mass or possibly an area of focal hemorrhage. MRI of the brain with contrast would be helpful for further evaluation of this finding. 2. Stable encephalomalacia involving the right parietal region. Kirit Barreto MD Brain MRI 09/09/16 0000 Signed Impressions: Service Date/Time: Friday, September 09, 2016 16:25 - CONCLUSION: 1. 2.6 x 1.5 cm extraaxial mass within the left high parietal region with some hemorrhagic components raising the possibility of metastatic disease. 2. Tiny focal signal abnormality within the left posteroparietal subcortical white matter consistent with probable acute lacunar infarct. 3. Stable area of encephalomalacia involving the right frontoparietal region. Kirit Barreto MD Abdomen Ultrasound 09/05/16 0000 Signed Impressions: Service Date/Time: Monday, September 05, 2016 09:21 - CONCLUSION: Enlarged heterogeneous liver. The heterogeneity is thought to be secondary to somewhat ill-defined echogenic masses throughout the liver. Metastatic disease needs to be suspected. Casey Cisneros MD Aorta CTA 09/04/16 0000 Signed Impressions: Service Date/Time: Sunday, September 04, 2016 13:44 - CONCLUSION: 1. Abnormal examination demonstrating large left hilar mass with bulky mediastinal adenopathy and associated post obstructive airspace disease in the superior segment of the left lower lobe. There is also evidence for bulky metastatic disease to the liver and solitary mesenteric metastasis. 1.5 cm left adrenal mass also suspicious for metastasis. 2. Bilateral lower lobe airspace consolidation may reflect aspiration in this intubated patient. 3. Patchy groundglass opacities in the upper lobes bilaterally consistent light reflex edema and volume loss. 4. No evidence for aortic dissection, significant aneurysm, or injury. Pepe Miramontes MD Objective Remarks GENERAL: Patient is 50 yo remains intubated, now critically ill in septic shock SKIN: Warm and dry. HEAD: Normocephalic. EYES: No scleral icterus. No injection or drainage. Right eye has corneal opacity, left pupil briskly reactive ENT/NECK: Supple, trachea midline. No JVD or lymphadenopathy. Orally intubated CARDIOVASCULAR: Tachycardic without murmurs, gallops, or rubs. RESPIRATORY: Breath sounds equal bilaterally. Bilateral wheezes and scattered crackles GASTROINTESTINAL: Abdomen soft, non-tender, nondistended. MUSCULOSKELETAL: No cyanosis, or edema. Neuro: intubated, Opens eyes appears to track. Withdraws extremities to pain 4, weekly on lower extremities. Patient appears to intermittently follows commands per RN, by squeezing hands A/P Assessment and Plan ASSESSMENT Acute respiratory failure Acute metabolic encephalopathy Septic shock. Post obstructive pneumonia. Leukocytosis with bandemia. Status post seizure. Lactic acidemia likely secondary to seizure and septic shock. Acute kidney injury and hypernatremia. Anion gap metabolic acidosis. Elevated liver enzymes. Brain masses rule out mets. Mediastinal / hilar adenopathy need to rule out bronchogenic carcinoma. Liver mets. History of hypertension. Hyperglycemia with underlying history of diabetes mellitus. Obesity. Chronic back pain. History of bipolar disorder. Plan Neuro: Off all sedation. Today showed regressed status with his metabolic encephalopathy. Patient not tracking today. Lactulose 30 ml BID, Ammonia level 70 09/10 , repeat today 98 On Keppra 500 mg IV q. 12 , Neuro is following- Dr. Swift EEG showed mild- mod encephalopathy. Repeat EEG 09/12 bihemispheric slowing-no seizure activity MRI brain 09/09: 2.6 x 1.5 cm extraaxial mass within the left high parietal region with some hemorrhagic components ? metastatic disease. probable acute lacunar infarct. At this time patient is not a candidate for neurosurgical evaluation Pulm: Continue vent support and maintain sats above 92%. Bronchodilators, ICU vent bundle. SBT daily as cecily. Pulm is following Dr. Rosmery jamison recommended to hold off bronchoscopy and biopsy for tissue diagnosis at this time. If there is significant clinical improvement, will consider this CV: Hold Lopressor due to septic shock Abhijeet-Synephrine to keep map above 65. s/p 2L NS bolus Hydrocortisone 25 mg IV q.12. Echo showed EF 70-75% : Monitor renal function Is and Os and avoid nephrotoxins. Worsening creatinine/ BUN today 122/3.5 Urine output remains adequate US kidneys: No hydronephrosis, non-obstructing stone on left. Renal is following- Dr. Barrow. Free water 300ml Q6, monitor sodium level. IV fluids changed to 1/2 normal saline with 50 bicarb. Keep Na 145-150 due to brain mets GI: On Protonix 40 mg IV daily. On Glucerna 1.5 @45ml/hr Monitor LFTs Hepatitis profile. Hep C ab reactive US liver: Enlarged heterogeneous liver. Somewhat ill-defined echogenic masses throughout the liver. Metastatic disease is suspected. ID: Continue with ABX Levaquin, Micafungin. Added Vanc and cefepime 09/12 due to new fever and worsening septic shock F/U blood sputum and urine culture 09/12/16 Sputum cx: 09/05: nl fredrick, follow up on sputum cx 09/08- normal fredrick strep pneumonia and Legionella urinary AG negative on Previous cultures NGTD Heme: Monitor CBC. Oncology is following re probable metastatic lung cancer stage IV Endo: On medium scale SSI with Accu-Chek for glycemic control. TSH: 0.74 GI prophylaxis with Protonix 40 mg daily and DVT prophylaxis with SCDs. Not on chemical anticoagulation prophylaxis given likely brain mets Lines. Peripheral IV's. L subclavian central line placed 09/12/16 Palliative care is following. Code status: DNR CCT 30 mins Patient remains acutely critically ill now with septic shock . Remains in multiorgan failure. No further escalation of care. No further lab draws. Articles B and C signed. Narciso Valentino MD Sep 14, 2016 15:32 clinical improvement Narciso Valentino MD Sep 14, 2016 15:32
--- NOTE | 2016-09-14 15:42 | HHI.NPPN ---
Subjective History of Present Illness This patient is a 50-year-old male with a history of hypertension, diabetes mellitus, seizure disorder, bipolar disorder and apparently tobacco use now presenting with septic shock and an apparent postobstructive pneumonia with radiological evidence of probable metastatic disease involving liver, brain with evidence of a left hilar mass. Presentation creatinine level is elevated to 2.17 with a bicarbonate of 15.8 and an anion gap of 20. Patient also had a CTA of the aorta performed on September 04, 2016 utilizing iodine contrast. Patient currently maintaining good urine output at time of consultation. Serum creatinine level was 0.9 back in March 2016. Interval History Family present in room. (Suellen Landry) Review of Systems General General Remarks Unable to obtain because of patient's condition. (Suellen Landry) Objective Data Data 09/13/16 09/14/16 19:00 07:00 Intake Total 1140 ml 3309 ml Output Total 450 ml 1500 ml Balance 690 ml 1809 ml Intake IV Total 775 ml 1844 ml Tube Feeding 365 ml 865 ml Other 600 ml Output Urine Total 250 ml 300 ml Stool Total 200 ml 1200 ml Vital Signs Date Time Temp Pulse Resp B/P Pulse Ox O2 Delivery O2 Flow Rate FiO2 09/14/16 15:04 95 40 09/14/16 12:19 97 40 09/14/16 11:00 98 09/14/16 10:00 99 09/14/16 09:09 94 45 09/14/16 08:00 45 09/14/16 08:00 103 09/14/16 08:00 99.9 103 100/51 93 09/14/16 06:00 106 09/14/16 05:05 92 45 09/14/16 04:00 110 09/14/16 04:00 100.4 110 26 103/54 92 09/14/16 04:00 45 09/14/16 02:00 105 09/14/16 00:41 92 40 09/14/16 00:00 98.4 109 26 88/52 93 09/14/16 00:00 35 09/14/16 00:00 109 09/13/16 23:45 93 40 09/13/16 22:00 106 09/13/16 21:23 97 35 09/13/16 20:18 92 35 09/13/16 20:00 101 09/13/16 20:00 98.5 101 24 101/55 92 09/13/16 20:00 35 09/13/16 16:00 98.5 93 21 114/58 96 09/13/16 16:00 35 09/13/16 15:48 96 35 (Suellen Landry) -: 09/14/16 0345 09/14/16 0345 Medication Review Current Medications Medications (Trade) Dose Ordered Sig/Mayo Route Start Time Stop Time Status Last Admin IV Flush 2 ml 2 ml UNSCH PRN IV FLUSH 09/04/16 13:15 (Levophed-Dextrose Drip) 250 ml @ 0 mls/hr TITRATE IV 09/04/16 13:30 09/14/16 14:19 (Protonix Inj) 40 mg DAILY IV 09/04/16 15:00 09/14/16 08:33 Miscellaneous Information 1 [id number] XX 09/04/16 15:00 (Chlorhexidine 2% Cloth) Taper DAILY@04 TOP 09/05/16 04:00 09/01/17 03:59 09/14/16 04:00 Chlorhexidine Gluconate 3 pack 3 pack UNSCH PRN TOP 09/04/16 15:00 Levetriacetam 500 mg/Sodium Chloride 105 ml @ 420 mls/hr Q12HR IV 09/04/16 15:00 09/14/16 08:34 (Neosynephrine Inj/D5W 500 ml Inj) 500 ml @ 0 mls/hr TITRATE IV 09/04/16 16:00 09/12/16 18:31 (Brethine Inj) 1 mg UNSCH PRN SQ 09/04/16 15:00 (D50w (Vial) Inj) 50 ml UNSCH PRN IV 09/04/16 15:00 (Glucagon Inj) 1 mg UNSCH PRN OTHER 09/04/16 15:00 (NovoLIN R SUPPLEMENTAL SCALE) 1 Q4H SQ 09/04/16 16:00 09/11/16 23:20 (Peridex 0.12% Liq) 15 ml BID@08,20 MT 09/05/16 08:00 09/14/16 08:35 (Tylenol) 650 mg Q6H PRN PO 09/06/16 04:30 09/14/16 14:19 (Lopressor Inj) 5 mg Q6H PRN IV PUSH 09/08/16 01:15 09/08/16 04:13 Water 300 ml 300 ml Q6HR G-TUBE 09/08/16 12:00 09/14/16 12:05 (Mycamine Inj/NS Inj) 100 ml @ 100 mls/hr Q24H IV 09/08/16 15:00 09/13/16 14:03 (Senna Liq) 8.8 mg DAILY PO 09/08/16 17:45 09/11/16 08:01 (Colace Liq) 100 mg Q12HR PO 09/08/16 21:00 09/14/16 08:35 (SoluCORTEF INJ) 25 mg Q12H IV PUSH 09/09/16 18:00 09/14/16 04:50 (Lactulose Liq) 30 ml BID PO 09/11/16 09:00 09/14/16 08:33 (Lopressor) 25 mg Q12HR PO 09/11/16 09:00 Hold 09/11/16 21:01 (NS Flush) DAILY IV FLUSH 09/13/16 09:00 09/14/16 08:53 Sodium Chloride UNSCH PRN IV FLUSH 09/12/16 15:15 Cefepime HCl 2000 mg/Sodium Chloride 100 ml @ 200 mls/hr Q12H IV 09/14/16 02:00 09/14/16 14:20 Sodium Bicarbonate 150 meq/Sterile Water 1,000 ml @ 60 mls/hr [id number] IV 09/13/16 18:00 09/14/16 12:04 (Levaquin 750 Mg Premix Inj) 150 ml @ 100 mls/hr Q48H IV 09/15/16 16:00 (Suellen Landry) Physical Exam General Appearance: No Acute Distress, Comfortable (Suellen Landry) Eyes Eye Exam: Sclera White (Suellen Landry) Pulmonary Resp Exam: Clear Bilaterally, Breath Sounds Equal, No Distress (Suellen Landry) Cardiology CV Exam: Regular, Tachycardia (Suellen Landry) Gastrointestinal/Abdomen GI Exam: Soft, Non-Tender (Suellen Landry) Integumentary Skin Exam: Clear, Warm, Dry (Suellen Landry) Extremeties Extremities Exam: Moderate Edema (Suellen Landry) Neurologic Neuro Exam: Unresponsive (Suellen Landry) Assessment/Plan Problem List: (1) Acute kidney insufficiency Plan: Renal function continues to worsen secondary to ATN related to sepsis syndrome. Palliative care note appreciated. We will continue to follow PRN. Medications should be adjusted for the patient's estimated GFR if clinically indicated. Avoid agents with significant potential for nephrotoxicity possible including NSAIDs for analgesia, iodine contrast agents. Gadolinium is contraindicated if the GFR is below 30. (2) Hypokalemia Plan: Recommend continued potassium repletion. (3) Metabolic acidosis Plan: Resolved (4) Septic shock Plan: Management per infectious disease and critical care (Suellen Landry) Plan The exam, history, and the medical decision-making described in the above note were completed with the assistance of the PAStephanie. I reviewed and agree with the findings presented. I attest that I had a [id number] encounter with the patient on the same day, and personally performed and documented my assessment and findings in the medical record. (Sang Barrow MD) Suellen Landry Sep 14, 2016 15:42 Sang Barrow MD Sep 14, 2016 17:48
--- NOTE | 2016-09-14 16:18 | HHI.IDPN ---
Note Infectious Disease Note Patient on the vent. 35% FIO2. No distress. Low grade fever. Renal function worse and lft's higher. Central line changed 09/12. Patient was brought to emergency department after having seizures. PAST MEDICAL HISTORY: 1. Seizure disorder. 2. Hypertension. 3. Diabetes mellitus. 4. Bipolar disorder. 5. Chronic back pain. ALLERGIES NO KNOWN DRUG ALLERGIES. ANTIBIOTICS: Levaquin. Micafungin. Cefepime. OBJECTIVE: Vital Signs Date Time Temp Pulse Resp B/P Pulse Ox O2 Delivery O2 Flow Rate FiO2 09/14/16 15:04 95 40 09/14/16 12:19 97 40 09/14/16 11:00 98 09/14/16 10:00 99 09/14/16 09:09 94 45 09/14/16 08:00 45 09/14/16 08:00 103 09/14/16 08:00 99.9 103 100/51 93 09/14/16 06:00 106 09/14/16 05:05 92 45 09/14/16 04:00 110 09/14/16 04:00 100.4 110 26 103/54 92 09/14/16 04:00 45 09/14/16 02:00 105 09/14/16 00:41 92 40 09/14/16 00:00 98.4 109 26 88/52 93 09/14/16 00:00 35 09/14/16 00:00 109 09/13/16 23:45 93 40 09/13/16 22:00 106 09/13/16 21:23 97 35 09/13/16 20:18 92 35 09/13/16 20:00 101 09/13/16 20:00 98.5 101 24 101/55 92 09/13/16 20:00 35 09/13/16 09/13/16 09/14/16 15:00 23:00 07:00 Intake Total 1140 ml 1471 ml 1838 ml Output Total 450 ml 850 ml 650 ml Balance 690 ml 621 ml 1188 ml Intake IV Total 775 ml 921 ml 923 ml Tube Feeding 365 ml 550 ml 315 ml Other 600 ml Output Urine Total 250 ml 250 ml 50 ml Stool Total 200 ml 600 ml 600 ml Laboratory Tests Test 09/13/16 09/14/16 03:40 03:45 White Blood Count 20.7 TH/MM3 22.0 TH/MM3 Red Blood Count 3.93 MIL/MM3 3.91 MIL/MM3 Hemoglobin 10.7 GM/DL 10.4 GM/DL Hematocrit 32.7 % 33.3 % Mean Corpuscular Volume 83.3 FL 85.0 FL Mean Corpuscular Hemoglobin 27.2 PG 26.6 PG Mean Corpuscular Hemoglobin 32.6 % 31.3 % Concent Red Cell Distribution Width 16.1 % 16.4 % Platelet Count 134 TH/MM3 168 TH/MM3 Mean Platelet Volume 9.6 FL 10.4 FL Neutrophils (%) (Auto) 88.4 % 89.3 % Lymphocytes (%) (Auto) 6.7 % 6.2 % Monocytes (%) (Auto) 4.3 % 4.1 % Eosinophils (%) (Auto) 0.2 % 0.2 % Basophils (%) (Auto) 0.4 % 0.2 % Neutrophils # (Auto) 18.3 TH/MM3 19.6 TH/MM3 Lymphocytes # (Auto) 1.4 TH/MM3 1.4 TH/MM3 Monocytes # (Auto) 0.9 TH/MM3 0.9 TH/MM3 Eosinophils # (Auto) 0.0 TH/MM3 0.1 TH/MM3 Basophils # (Auto) 0.1 TH/MM3 0.0 TH/MM3 CBC Comment DIFF FINAL AUTO DIFF Differential Comment AUTO DIFF CONFIRMED Laboratory Tests Test 09/13/16 09/13/16 09/14/16 03:40 10:45 03:45 Sodium Level 151 MEQ/L 146 MEQ/L Potassium Level 3.1 MEQ/L 3.1 MEQ/L Chloride Level 117 MEQ/L 112 MEQ/L Carbon Dioxide Level 16.1 MEQ/L 12.4 MEQ/L Anion Gap 18 MEQ/L 22 MEQ/L Blood Urea Nitrogen 96 MG/DL 122 MG/DL Creatinine 2.83 MG/DL 3.91 MG/DL Estimat Glomerular Filtration 24 ML/MIN 16 ML/MIN Rate Random Glucose 135 MG/DL 125 MG/DL Calcium Level 8.0 MG/DL 7.8 MG/DL Magnesium Level 2.9 MG/DL Total Bilirubin 2.1 MG/DL 2.5 MG/DL Aspartate Amino Transf 494 U/L 553 U/L (AST/SGOT) Alanine Aminotransferase 256 U/L 255 U/L (ALT/SGPT) Alkaline Phosphatase 294 U/L 340 U/L Total Protein 5.4 GM/DL 5.3 GM/DL Albumin 1.7 GM/DL 1.7 GM/DL Ammonia 98 MCMOL/L Microbiology Date/Time Procedure Status Source Growth 09/12/16 06:45 Gram Stain - Final Complete Sputum Endotracheal 09/12/16 06:45 Sputum Culture - Final Complete Sputum Endotracheal MODERATE GROWTH NORMAL RESPIRATORY TWAN 09/12/16 06:45 Urine Culture - Final Complete Urine Catheterized Urine NO GROWTH IN 48 HOURS. 09/12/16 15:05 Aerobic Blood Culture - Preliminary Resulted Blood Peripheral NO GROWTH IN 2 DAYS 09/12/16 15:05 Anaerobic Blood Culture - Preliminary Resulted Blood Peripheral NO GROWTH IN 2 DAYS 09/12/16 15:07 Aerobic Blood Culture - Preliminary Resulted Blood Peripheral NO GROWTH IN 2 DAYS 09/12/16 15:07 Anaerobic Blood Culture - Preliminary Resulted Blood Peripheral NO GROWTH IN 2 DAYS IMAGING: Chest X-Ray 09/14/16 0600 Signed Impressions: Service Date/Time: Wednesday, September 14, 2016 02:57 - CONCLUSION: Probable worsening pulmonary edema. Margarette Griffith MD Chest X-Ray 09/13/16 0600 Signed Impressions: Service Date/Time: August 03:14 - CONCLUSION: Persistent left lower lung infiltrates. Eyad Zhang MD Chest X-Ray 09/13/16 0000 Signed Impressions: Service Date/Time: August 10:53 - CONCLUSION: 1. Bibasilar atelectasis. 2. Endotracheal tube and nasogastric tube are in good positions. 3. Left subclavian central line has its tip in the brachiocephalic vein. No pneumothorax is noted. Kirit Barreto MD Chest X-Ray 09/12/16 0600 Signed Impressions: Service Date/Time: Monday, September 12, 2016 04:30 - CONCLUSION: Stable prominence of left hilum and bibasilar infiltrates. Eyad Zhang MD Head CT 09/09/16 0000 Signed Impressions: Service Date/Time: Friday, September 09, 2016 16:04 - CONCLUSION: 1. Focal area of increased density within the left high parietal region which is unchanged compared to the previous examination. This remains nonspecific and may either represent a hyperdense mass or possibly an area of focal hemorrhage. MRI of the brain with contrast would be helpful for further evaluation of this finding. 2. Stable encephalomalacia involving the right parietal region. Kirit Barreto MD Brain MRI 09/09/16 Signed Impressions: Service Date/Time: Friday, September 09, 2016 16:25 - CONCLUSION: 1. 2.6 x 1.5 cm extraaxial mass within the left high parietal region with some hemorrhagic components raising the possibility of metastatic disease. 2. Tiny focal signal abnormality within the left posteroparietal subcortical white matter consistent with probable acute lacunar infarct. 3. Stable area of encephalomalacia involving the right frontoparietal region. Kirit Barreto MD Chest X-Ray 09/06/16 Signed Impressions: Service Date/Time: August 08:28 - CONCLUSION: Mild airspace consolidation in the lower lung zones bilaterally but overall significantly improved compared to the study from 2 days ago. Casey Phelps MD Abdomen Ultrasound 09/05/16 Signed Impressions: Service Date/Time: Monday, September 05, 2016 09:21 - CONCLUSION: Enlarged heterogeneous liver. The heterogeneity is thought to be secondary to somewhat ill-defined echogenic masses throughout the liver. Metastatic disease needs to be suspected. Casey Cisneros MD Head CT 09/04/161311 Signed Impressions: Service Date/Time: Sunday, September 04, 2016 13:39 - CONCLUSION: 2.3 cm hyperdense mass seen at the left parietal lobe. This is thought to likely represent a mass. Some degree of hemorrhage can not be excluded given the density. There is also a questionable second smaller area of hyperdensity seen in the anterior inferior midline frontal lobe region. It is recommended both these areas be further evaluated with a MRI examination with contrast if there are no contraindications. Casey Cisneros MD Chest X-Ray 09/04/161311 Signed Impressions: Service Date/Time: Sunday, September 04, 2016 13:15 - CONCLUSION: 1. Multilobar consolidation likely pneumonia. 2. Adequate placement of endotracheal tube. Armen Power MD Head CT 09/04/161311 Signed Impressions: Service Date/Time: Sunday, September 04, 2016 13:39 - CONCLUSION: 2.3 cm hyperdense mass seen at the left parietal lobe. This is thought to likely represent a mass. Some degree of hemorrhage can not be excluded given the density. There is also a questionable second smaller area of hyperdensity seen in the anterior inferior midline frontal lobe region. It is recommended both these areas be further evaluated with a MRI examination with contrast if there are no contraindications. Casey Cisneros MD Chest X-Ray 09/04/16 1312 Signed Impressions: Service Date/Time: Sunday, September 04, 2016 13:15 - CONCLUSION: 1. Multilobar consolidation likely pneumonia. 2. Adequate placement of endotracheal tube. Armen Power MD Aorta CTA 09/04/16 0000 Signed Impressions: Service Date/Time: Sunday, September 04, 2016 13:44 - CONCLUSION: 1. Abnormal examination demonstrating large left hilar mass with bulky mediastinal adenopathy and associated post obstructive airspace disease in the superior segment of the left lower lobe. There is also evidence for bulky metastatic disease to the liver and solitary mesenteric metastasis. 1.5 cm left adrenal mass also suspicious for metastasis. 2. Bilateral lower lobe airspace consolidation may reflect aspiration in this intubated patient. 3. Patchy groundglass opacities in the upper lobes bilaterally consistent light reflex edema and volume loss. 4. No evidence for aortic dissection, significant aneurysm, or injury. Pepe Miramontes MD PHYSICAL EXAMINATION: GENERAL: On the vent. HEENT: Intubated. No icterus. NECK: Supple. No adenopathy. LUNGS: Bilateral rhonchi. HEART: Regular S1-S2. No murmur. No rubs, No gallops. ABDOMEN: Obese, soft. No tenderness appreciated. Marked decreased bowel sounds. EXTREMITIES: No clubbing, cyanosis or edema. SKIN: No rash. NEUROLOGIC: Unable to assess. PSYCH: Unable to assess. IMPRESSION 1. Septic shock, unclear etiology. Now with recurring fever. Negative cultures. 2. Multilobar pneumonia, possibly secondary to aspiration. Probable source. 3. 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 4. Acute Respiratory failure. 5. Altered mental status secondary to sepsis. 6. Acute renal failure. 7. Seizure. 8. Leukocytosis - WBC still elevated. 9. Elevated LFT's. Still high. 10. FEVER. ? etiology. ? Infection. Negative cultures. Changes at left lung base could be atelectasis. RECOMMENDATIONS: 1. Stop Micafungin. 2. Stop Levaquin. 3. Continue Cefepime. 4. Monitor temp and WBC. 5. Monitor urine culture. . Zeke Ochoa MD Sep 14, 2016 16:18
[2016-09-15] VITALS (19 sets, daily range): BP systolic 84–102; BP diastolic 47–55; PULSE 0–108; RESP 17–26; TEMP 98.7–99.4; O2SAT 90–97
[2016-09-15] MEDS: CEFEPIME INJ 2,000 MG in SODIUM CHLORIDE 0.9% INJ 100 ML IV SCH (00:53)
[2016-09-15] MEDS: INSULIN NovoLIN REGULAR SUPPLEMENTAL SCALE SQ SCH ×5 (00:54→20:00)
[2016-09-15] MEDS: NOREPINEPHRINE-DEXTROSE DRIP 250 ML IV SCH ×3 (02:44→18:09)
[2016-09-15] MEDS: SODIUM BICARBONATE 8.4% INJ 150 MEQ in WATER STERILE FOR INJ 850 ML IV SCH ×2 (03:38→20:00)
[2016-09-15] MEDS: CHLORHEXIDINE GLUCONATE 2 % 1 PACK (2 CLOTHS) TOP SCH (04:00)
[2016-09-15] MEDS: RESP: ALBUTEROL 2.5 MG/IPRATROPIUM 0.5 MG NEB (SCH) NEB ×4 (04:42→20:00)
[2016-09-15] MEDS: FREE WATER G-TUBE SCH ×4 (05:42→18:00)
[2016-09-15] MEDS: HYDROCORTISONE SOD SUCCINATE 100 MG VIAL IV PUSH SCH ×2 (05:42→18:07)
[2016-09-15] MEDS ORDERED: CEFEPIME INJ 2,000 MG in SODIUM CHLORIDE 0.9% INJ 100 ML IV SCH ×2 (08:09→09:00)
[2016-09-15] MEDS: Central Line Short Term Adult 7Fr or larger Daily NS Lock Flush IV FLUSH SCH (09:00)
--- NOTE | 2016-09-15 09:02 | HHI.CCPN ---
Subjective Remarks/Hospital Course The patient is a 50-year-old male with past medical history of hypertension, diabetes mellitus, seizure disorder, chronic back pain, bipolar disorder who presented to the ED with a witnessed generalized seizure. In addition the patient was altered and hypoxic with O2 saturation in the 70s. He initially somewhat improved on a non-rebreather but due to labored breathing or diaphoresis he was subsequently intubated in the ED and placed on full mechanical ventilation. According to the patient's family the patient has been having progressive worsening shortness of breath and he has not been feeling well lately. In addition he reported feeling nauseous and heartburn. On arrival to the ER he was tachycardiac, hypotensive and was subsequently placed on Levophed which is currently at 20 mics. The patient was given 3 liters of crystalloids in the ED. ABG post intubation showed pH of 7.23, CO2 33, pAO2 180 , bicarb 13, saturation 97% on PRVC mode with a rate of 18, tidal volume 500, PEEP of 5, IT: 1.0, FIO2 100%. His laboratory data significant for lactic acidemia with a lactic acid level of 11.3, acute kidney injury with a creatinine 2.17 and leukocytosis with bandemia. His WBC is 34.8 with bands of 16. A CT scan of the brain in the ER was obtained which showed a 2.3 cm hyperdense mass at the left parietal lobe and a questionable second small area of hyperdensity seen in the frontal lobe region. He also had a CTA of the aorta which showed significant hilar and mediastinal adenopathy and liver mets. In the ER he was given Zosyn, azithromycin and placed on Diprivan infusion for sedation. A right femoral central line and left radial A-line was placed by the ED physician. 09/05 Patient was self extubated and was reintubated last night . Sedated with Diprivan , Fentanyl and intubated. On Levophed and now Neosyn. Renal function is worsening with Cr: 2.34 from 2.14 09/06 Patient remains sedated with Diprivan and Fentanyl and intubated. On Levophed 13 mics and Neosyn 160 mics. Spiked fever with T:102.1.Renal function is improving with Cr:1.81 from 2.34. 09/07 No events overnight. Remains sedated with Diprivan and intubated. Off all pressors renal function is improving with Cr: 1.11 from 1.81. T:99.8 09/08 Patient is sedate with Diprivan and intubated. T:103.0 at 4 am. Given Metoprolol 5mg Iv early this morning for sinus tachycardia. 09/09 Patient is sedated with Fentanyl and intubated, T: 102.0 09/10 Patient is off sedation doesn't follow commands. T:100.4 at 4 am. MRI brain yesterday showed 2.6 x 1.5 cm extraaxial mass within the left high parietal region with some hemorrhagic components ? metastatic disease. probable acute lacunar infarct. 09/11 Patient remains off sedation does not follow commands. Tolerating tube feeds. T:99.7 09/12: Developing septic shock, MAXIMUM TEMPERATURE 102.6, map down to 48. Map didn't sufficiently improved with 2 L normal saline bolus and Abhijeet-Synephrine GTT was added. Remains encephalopathic. ID has start of vancomycin to the existing antibiotics, I have added cefepime. Panculture. Discussed with family - They are not certain about bronch and biopsy for tissue diagnosis at this time 09/13: Remains critically ill. Worsening renal function creatinine has increased to 2.83, BUN to 96. Abhijeet-Synephrine to start back. Appears to be tracking. Fever seems to be trending down white count 20.7 today 09/14: Minimally unresponsive on the ventilator. Decreased urine output. Increasing LFTs and worsening multisystem organ failure. Not following commands. Subjective 09/15: Overnight, decreased blood pressure noted. In discussion with palliative care, no escalation of care. No lab draws. Objective Vital Signs Date Time Temp Pulse Resp B/P Pulse Ox O2 Delivery O2 Flow Rate FiO2 09/15/16 08:12 94 40 09/15/16 06:00 98 09/15/16 04:00 98.7 26 100/55 Intake and Output 09/14/16 09/14/16 09/14/16 07:59 15:59 23:59 Intake Total 1838 ml 1499 ml 1226 ml Output Total 650 ml 2320 ml 875 ml Balance 1188 ml -821 ml 351 ml Result Diagram: 09/14/16 0345 09/14/16 0345 Other Results Microbiology Date/Time Procedure Status Source Growth 09/12/16 15:07 Aerobic Blood Culture - Preliminary Resulted Blood Peripheral NO GROWTH IN 2 DAYS 09/12/16 15:07 Anaerobic Blood Culture - Preliminary Resulted Blood Peripheral NO GROWTH IN 2 DAYS 09/12/16 06:45 Urine Culture - Final Complete Urine Catheterized Urine NO GROWTH IN 48 HOURS. 09/12/16 06:45 Gram Stain - Final Complete Sputum Endotracheal 09/12/16 06:45 Sputum Culture - Final Complete Sputum Endotracheal MODERATE GROWTH NORMAL RESPIRATORY FREDRICK Imaging Last Impressions Chest X-Ray 09/14/16 0600 Signed Impressions: Service Date/Time: Wednesday, September 14, 2016 02:57 - CONCLUSION: Probable worsening pulmonary edema. Margarette Griffith MD Head CT 09/09/16 0000 Signed Impressions: Service Date/Time: Friday, September 09, 2016 16:04 - CONCLUSION: 1. Focal area of increased density within the left high parietal region which is unchanged compared to the previous examination. This remains nonspecific and may either represent a hyperdense mass or possibly an area of focal hemorrhage. MRI of the brain with contrast would be helpful for further evaluation of this finding. 2. Stable encephalomalacia involving the right parietal region. Kirit Barreto MD Brain MRI 09/09/16 0000 Signed Impressions: Service Date/Time: Friday, September 09, 2016 16:25 - CONCLUSION: 1. 2.6 x 1.5 cm extraaxial mass within the left high parietal region with some hemorrhagic components raising the possibility of metastatic disease. 2. Tiny focal signal abnormality within the left posteroparietal subcortical white matter consistent with probable acute lacunar infarct. 3. Stable area of encephalomalacia involving the right frontoparietal region. Kirit Barreto MD Abdomen Ultrasound 09/05/16 0000 Signed Impressions: Service Date/Time: Monday, September 05, 2016 09:21 - CONCLUSION: Enlarged heterogeneous liver. The heterogeneity is thought to be secondary to somewhat ill-defined echogenic masses throughout the liver. Metastatic disease needs to be suspected. Casey Cisneros MD Aorta CTA 09/04/16 0000 Signed Impressions: Service Date/Time: Sunday, September 04, 2016 13:44 - CONCLUSION: 1. Abnormal examination demonstrating large left hilar mass with bulky mediastinal adenopathy and associated post obstructive airspace disease in the superior segment of the left lower lobe. There is also evidence for bulky metastatic disease to the liver and solitary mesenteric metastasis. 1.5 cm left adrenal mass also suspicious for metastasis. 2. Bilateral lower lobe airspace consolidation may reflect aspiration in this intubated patient. 3. Patchy groundglass opacities in the upper lobes bilaterally consistent light reflex edema and volume loss. 4. No evidence for aortic dissection, significant aneurysm, or injury. Pepe Miramontes MD Objective Remarks GENERAL: Patient is 50 yo remains intubated, now critically ill in septic shock SKIN: Warm and dry. HEAD: Normocephalic. EYES: No scleral icterus. No injection or drainage. Right eye has corneal whitish opacity, left pupil briskly reactive from 5 mm to 3 mm ENT/NECK: Supple, trachea midline. No JVD or lymphadenopathy. Orally intubated CARDIOVASCULAR: Tachycardic, RR. S1, S2. No S4. Without murmurs, gallops, or rubs. RESPIRATORY: Breath sounds equal bilaterally. Bilateral wheezes and scattered crackles throughout all lung parker GASTROINTESTINAL: Abdomen soft, non-tender, nondistended. MUSCULOSKELETAL trace bilateral lower extremity edema Neuro: intubated, eyes are closed.. Currently withdrawal to pain bilateral lower extremities only. Not following commands. A/P Assessment and Plan ASSESSMENT Acute respiratory failure Acute metabolic encephalopathy Septic shock. Post obstructive pneumonia. Leukocytosis with bandemia. Status post seizure. Lactic acidemia likely secondary to seizure and septic shock. Acute kidney injury and hypernatremia. Elevated transaminases Brain masses rule out mets. Mediastinal / hilar adenopathy rule out bronchogenic carcinoma. Liver metastases History of hypertension. Hyperglycemia with underlying history of diabetes mellitus. Obesity. Chronic back pain. History of bipolar disorder. Plan Neuro: Off all sedation. Not tracking. Lactulose 30 ml BID, Ammonia level 70 09/10 , repeat 98 On Keppra 500 mg IV q. 12 for seizures, Neuro is following- Dr. Swift EEG showed mild- mod encephalopathy. Repeat EEG 09/12 bihemispheric slowing-no seizure activity MRI brain 09/09: 2.6 x 1.5 cm extraaxial mass within the left high parietal region with some hemorrhagic components ? metastatic disease. probable acute lacunar infarct. At this time patient is not a candidate for neurosurgical evaluation nor intervention Pulm: Continue vent support and maintain sats above 92%. Bronchodilators, ICU vent bundle. SBT daily as cecily. Pulm is following Dr. Rosmery Peña recommended to hold off bronchoscopy and biopsy for tissue diagnosis at this time. CV: Hold Lopressor due to septic shock Abhijeet-Synephrine to keep map above 65. s/p 2L NS bolus Hydrocortisone 25 mg IV q.12. Echo showed EF 70-75% : Monitor renal function Is and Os and avoid nephrotoxins. Worsening creatinine/ BUN today 122/3.5 Urine output remains adequate US kidneys: No hydronephrosis, non-obstructing stone on left. Renal is following- Dr. Barrow. Free water 300ml Q6, monitor sodium level. GI: On Protonix 40 mg IV daily. On Glucerna 1.5 @45ml/hr Monitor LFTs Hepatitis profile. Hep C ab reactive US liver: Enlarged heterogeneous liver. Somewhat ill-defined echogenic masses throughout the liver. Metastatic disease is suspected. ID: Continue with ABX cefepime 09/12 due to new fever and worsening septic shock F/U blood sputum and urine culture 09/12/16 Sputum cx: 09/05: nl fredrick, follow up on sputum cx 09/08- normal fredrick strep pneumonia and Legionella urinary AG negative on Previous cultures NGTD Heme: Monitor CBC. Oncology has followed re probable metastatic lung cancer stage IV Endo: On medium scale SSI with Accu-Chek for glycemic control. TSH: 0.74 GI prophylaxis with Protonix 40 mg daily and DVT prophylaxis with SCDs. Not on chemical anticoagulation prophylaxis given likely brain mets Lines. Peripheral IV's. L subclavian central line placed 09/12/16 Palliative care is following. Code status: DNR [facility] Level II Patient remains acutely critically ill now with septic shock with multisystem organ failure . No further escalation of care per family request documented.. No further lab draws. Articles B and C signed by palliative care. I will sign if family decides to withdrawal. From my understanding, patient's family likely will prefer patient to pass on the ventilator.. Narciso Valentino MD Sep 15, 2016 09:02
--- NOTE | 2016-09-15 09:57 | HHI.PR ---
Subjective Remarks 09/15 Patient is on CPAP with PA 10, PEEP: 5 and FIO2 40%, on no sedation unresponsive. On Levophed 12 mics and bicarb drip. For possible withdrawal care in next 24-48 hrs. Objective Vital Signs Vital Signs Date Time Temp Pulse Resp B/P Pulse Ox O2 Delivery O2 Flow Rate FiO2 09/15/16 08:12 94 40 09/15/16 08:12 40 09/15/16 06:00 98 09/15/16 04:43 93 40 09/15/16 04:00 98.7 106 26 100/55 90 09/15/16 04:00 106 09/15/16 04:00 40 09/15/16 02:00 107 09/15/16 01:15 93 40 09/15/16 00:00 108 09/15/16 00:00 99.4 108 26 102/53 93 09/15/16 00:00 40 09/14/16 22:00 93 09/14/16 21:48 94 40 09/14/16 21:48 40 09/14/16 20:00 99.0 87 22 109/55 97 09/14/16 20:00 40 09/14/16 20:00 87 09/14/16 18:00 89 09/14/16 16:00 91 09/14/16 16:00 45 09/14/16 16:00 98.8 91 17 100/51 96 09/14/16 15:04 95 40 09/14/16 15:00 97 09/14/16 14:00 93 09/14/16 13:00 94 09/14/16 12:19 97 40 09/14/16 12:00 45 09/14/16 12:00 98 09/14/16 12:00 99.0 98 18 104/52 97 09/14/16 11:00 98 09/14/16 10:00 99 I/O 09/14/16 09/14/16 09/14/16 09/15/16 09/15/16 09/15/16 07:00 15:00 23:00 07:00 15:00 23:00 Intake Total 1838 ml 1499 ml 1226 ml 1657 ml Output Total 650 ml 2320 ml 875 ml 575 ml Balance 1188 ml -821 ml 351 ml 1082 ml Intake IV Total 923 ml 922 ml 907 ml 737 ml Tube Feeding 315 ml 277 ml 319 ml 320 ml Other 600 ml 300 ml 600 ml Output Urine Total 50 ml 20 ml 75 ml 75 ml Stool Total 600 ml 2300 ml 800 ml 500 ml Result Diagram: 09/14/1634409/14/16344 Objective Remarks GENERAL: Patient is 50 yo critically ill intubated and on pressor. SKIN: Warm and dry. HEAD: Normocephalic. EYES: No scleral icterus. No injection or drainage. NECK: Supple, trachea midline. No JVD or lymphadenopathy. CARDIOVASCULAR: Regular rate and rhythm without murmurs, gallops, or rubs. RESPIRATORY: Breath sounds equal bilaterally. No accessory muscle use. GASTROINTESTINAL: Abdomen soft, non-tender, nondistended. MUSCULOSKELETAL: No cyanosis, or edema. Neuro: Intubated, unresponsive. A/P Assessment and Plan Acute respiratory failure Acute metabolic encephalopathy Septic shock. Post obstructive pneumonia. Leukocytosis with bandemia. Status post seizure. Lactic acidemia likely secondary to seizure and septic shock. Acute kidney injury and hypernatremia. Elevated transaminases Brain masses rule out mets. Mediastinal / hilar adenopathy rule out bronchogenic carcinoma. Liver metastases History of hypertension. Hyperglycemia with underlying history of diabetes mellitus. Obesity. Chronic back pain. History of bipolar disorder Plan Continue with vent support keep sat >92% Bronchodilators, ICU vent bundle. CXR 09/14 worsening pulm edema Continue with Levophed monitor HR and BP keep MAP>65mmHg On Stress dose steroids. Continue with abx per ID ( Cefepime) monitor for signs of infections (Fever, WBC ) Monitor renal function,, avoid nephrotoxins. Continue with bicarb drip per renal -Danial Lee For possible withdrawal care in next 24-48hrs Continue supportive care. Poor prognosis given multiorgan injury. Level 2 Elisha Vanegas MD Sep 15, 2016 09:57
[2016-09-15] MEDS: PANTOPRAZOLE SODIUM 40 MG VIAL IV SCH (10:34)
[2016-09-15] MEDS: SENNOSIDES SYRUP 8.8 MG/5 ML CUP PO SCH (10:34)
[2016-09-15] MEDS: DOCUSATE SODIUM 100 MG/10 ML UDC PO SCH ×2 (10:34→21:00)
[2016-09-15] MEDS: LACTULOSE SYRUP 20 GM/30 ML CUP PO SCH ×2 (10:34→21:00)
[2016-09-15] MEDS: CHLORHEXIDINE 0.12% (ORAL KIT) 15 ML CUP MT SCH ×2 (10:35→20:00)
[2016-09-15] MEDS: levETIRAcetam INJ 500 MG in SODIUM CHLORIDE 0.9% INJ 100 ML IV SCH ×2 (10:42→21:00)
[2016-09-15] MEDS ORDERED: LEVOFLOXACIN 750 MG PREMIX INJ 150 ML IV SCH (16:00)
[2016-09-15] MEDS ORDERED: HYOSCYAMINE 0.125 MG TAB PO/SL ONE (16:30)
[2016-09-15] MEDS ORDERED: HYDROmorphone HCL PF 2 MG/ML VIAL IV ONE ×2 (16:30→16:45)
[2016-09-15] MEDS ORDERED: LORazepam 2 MG/ML VIAL IV ONE ×2 (16:30→16:45)
[2016-09-15] MEDS ORDERED: HYDROmorphone HCL PF 2 MG/ML VIAL IV PRN ×2 (17:00)
[2016-09-15] MEDS ORDERED: BISACODYL 10 MG SUPP RECTAL PRN (17:00)
[2016-09-15] MEDS ORDERED: LORazepam 2 MG/ML VIAL IV PRN ×2 (17:00)
[2016-09-15] MEDS ORDERED: ACETAMINOPHEN 650 MG SUPP RECTAL PRN (17:00)
[2016-09-15] MEDS ORDERED: FUROSEMIDE 20 MG/2 ML VIAL IV PRN (17:00)
[2016-09-15] MEDS ORDERED: LORazepam 2 MG/ML VIAL IVS PRN (17:00)
[2016-09-15] MEDS ORDERED: fentaNYL 2,500 MCG/NS 250 ML IV SCH (17:45)
[2016-09-15] MEDS ORDERED: HYDROmorphone HCL PF 2 MG/ML VIAL IV SCH (20:00)
--- NOTE | 2016-09-15 22:02 | DEATH SUM ---
Summary Demographics Date Pronounced : Sep 15, 2016 Time Of : 21:55 Pronounced By: Narciso Valentino MD Preliminary Cause of : Other Narciso Valentino MD Sep 15, 2016 22:02
--- NOTE | 2016-09-15 22:07 | HHI.DS ---
Summary Note Date of : Sep 15, 2016 Time Of : 21:55 Admission Date Sep 04, 2016 at 14:30 Admitting Diagnosis septic shock, hypoxic respiratory failure, metastatic malignancy Diagnosis at Time of : (1) Septic shock ICD Code: A41.9 Diagnosis: Principal (2) Lactic acidosis ICD Code: E87.2 Diagnosis: Secondary (3) Metastatic cancer ICD Code: C79.9 Diagnosis: Principal (4) Pneumonia ICD Code: J18.9 Diagnosis: Principal (5) Acute respiratory failure with hypoxia ICD Code: J96.01 Diagnosis: Principal (6) Obesity ICD Code: E66.9 Diagnosis: Secondary (7) Sleep apnea ICD Code: G47.30 Diagnosis: Secondary (8) Mass of lung ICD Code: R91.8 Diagnosis: Principal (9) Metastasis to liver of unknown origin ICD Code: C78.7 Diagnosis: Principal (10) Brain metastasis ICD Code: C79.31 Diagnosis: Principal (11) Type II diabetes mellitus ICD Code: E11.9 Diagnosis: Principal (12) Acute kidney insufficiency ICD Code: N28.9 Diagnosis: Principal Procedures 09/04 - intubation by Dr. Diamond 09/04 - echocardiogram - EF 70-75% 09/12- left subclavian CVL Brief History This patient is a 50-year-old male with a history of hypertension, diabetes mellitus, seizure disorder, bipolar disorder and apparently tobacco use now presenting with septic shock and an apparent postobstructive pneumonia with radiological evidence of probable metastatic disease involving liver, brain with evidence of a left hilar mass. Presentation creatinine level is elevated to 2.17 with a bicarbonate of 15.8 and an anion gap of 20. Patient also had a CTA of the aorta performed on September 04, 2016 utilizing iodine contrast. CBC/BMP: 09/14/16 0345 09/14/16 0345 Significant Findings Laboratory Tests Test 09/13/16 09/13/16 09/14/16 03:40 10:45 03:45 White Blood Count 20.7 TH/MM3 22.0 TH/MM3 (4.0-11.0) (4.0-11.0) Red Blood Count 3.93 MIL/MM3 3.91 MIL/MM3 (4.50-5.90) (4.50-5.90) Hemoglobin 10.7 GM/DL 10.4 GM/DL (13.0-17.0) (13.0-17.0) Hematocrit 32.7 % 33.3 % (39.0-51.0) (39.0-51.0) Platelet Count 134 TH/MM3 (150-450) Neutrophils (%) (Auto) 88.4 % 89.3 % (16.0-70.0) (16.0-70.0) Lymphocytes (%) (Auto) 6.7 % 6.2 % (9.0-44.0) (9.0-44.0) Neutrophils # (Auto) 18.3 TH/MM3 19.6 TH/MM3 (1.8-7.7) (1.8-7.7) Sodium Level 151 MEQ/L 146 MEQ/L (136-145) (136-145) Potassium Level 3.1 MEQ/L 3.1 MEQ/L (3.5-5.1) (3.5-5.1) Chloride Level 117 MEQ/L 112 MEQ/L (98-107) (98-107) Carbon Dioxide Level 16.1 MEQ/L 12.4 MEQ/L (21.0-32.0) (21.0-32.0) Anion Gap 18 MEQ/L (5-15) 22 MEQ/L (5-15) Blood Urea Nitrogen 96 MG/DL (7-18) 122 MG/DL (7-18) Creatinine 2.83 MG/DL 3.91 MG/DL (0.60-1.30) (0.60-1.30) Estimat Glomerular Filtration 24 ML/MIN (>89) 16 ML/MIN (>89) Rate Random Glucose 135 MG/DL 125 MG/DL (74-106) (74-106) Calcium Level 8.0 MG/DL 7.8 MG/DL (8.5-10.1) (8.5-10.1) Magnesium Level 2.9 MG/DL (1.5-2.5) Total Bilirubin 2.1 MG/DL 2.5 MG/DL (0.2-1.0) (0.2-1.0) Aspartate Amino Transf 494 U/L (15-37) 553 U/L (15-37) (AST/SGOT) Alanine Aminotransferase 256 U/L (12-78) 255 U/L (12-78) (ALT/SGPT) Alkaline Phosphatase 294 U/L 340 U/L (45-117) (45-117) Total Protein 5.4 GM/DL 5.3 GM/DL (6.4-8.2) (6.4-8.2) Albumin 1.7 GM/DL 1.7 GM/DL (3.4-5.0) (3.4-5.0) Ammonia 98 MCMOL/L (11-32) Mean Corpuscular Hemoglobin 26.6 PG (27.0-34.0) Mean Corpuscular Hemoglobin 31.3 % Concent (32.0-36.0) Imaging Last Impressions Chest X-Ray 09/14/16 0600 Signed Impressions: Service Date/Time: Wednesday, September 14, 2016 02:57 - CONCLUSION: Probable worsening pulmonary edema. Margarette Griffith MD Head CT 09/09/16 0000 Signed Impressions: Service Date/Time: Friday, September 09, 2016 16:04 - CONCLUSION: 1. Focal area of increased density within the left high parietal region which is unchanged compared to the previous examination. This remains nonspecific and may either represent a hyperdense mass or possibly an area of focal hemorrhage. MRI of the brain with contrast would be helpful for further evaluation of this finding. 2. Stable encephalomalacia involving the right parietal region. Kirti Barreto MD Brain MRI 09/09/16 0000 Signed Impressions: Service Date/Time: Friday, September 09, 2016 16:25 - CONCLUSION: 1. 2.6 x 1.5 cm extraaxial mass within the left high parietal region with some hemorrhagic components raising the possibility of metastatic disease. 2. Tiny focal signal abnormality within the left posteroparietal subcortical white matter consistent with probable acute lacunar infarct. 3. Stable area of encephalomalacia involving the right frontoparietal region. Kirit Barreto MD Abdomen Ultrasound 09/05/16 0000 Signed Impressions: Service Date/Time: Monday, September 05, 2016 09:21 - CONCLUSION: Enlarged heterogeneous liver. The heterogeneity is thought to be secondary to somewhat ill-defined echogenic masses throughout the liver. Metastatic disease needs to be suspected. Casey Cisneros MD Aorta CTA 09/04/16 0000 Signed Impressions: Service Date/Time: Sunday, September 04, 2016 13:44 - CONCLUSION: 1. Abnormal examination demonstrating large left hilar mass with bulky mediastinal adenopathy and associated post obstructive airspace disease in the superior segment of the left lower lobe. There is also evidence for bulky metastatic disease to the liver and solitary mesenteric metastasis. 1.5 cm left adrenal mass also suspicious for metastasis. 2. Bilateral lower lobe airspace consolidation may reflect aspiration in this intubated patient. 3. Patchy groundglass opacities in the upper lobes bilaterally consistent light reflex edema and volume loss. 4. No evidence for aortic dissection, significant aneurysm, or injury. Pepe Miramontes MD Hospital Course Acute respiratory failure Acute metabolic encephalopathy Septic shock. Post obstructive pneumonia. Leukocytosis with bandemia. Status post seizure. Lactic acidemia likely secondary to seizure and septic shock. Acute kidney injury and hypernatremia. Elevated transaminases Brain masses rule out mets. Mediastinal / hilar adenopathy rule out bronchogenic carcinoma. Liver metastases History of hypertension. Hyperglycemia with underlying history of diabetes mellitus. Obesity. Chronic back pain. History of bipolar disorder. Plan Neuro: Off all sedation. Not tracking. Lactulose 30 ml BID, Ammonia level 70 09/10 , repeat 98 On Keppra 500 mg IV q. 12 for seizures, Neuro is following- Dr. Swift EEG showed mild- mod encephalopathy. Repeat EEG 09/12 bihemispheric slowing-no seizure activity MRI brain 09/09: 2.6 x 1.5 cm extraaxial mass within the left high parietal region with some hemorrhagic components ? metastatic disease. probable acute lacunar infarct. At this time patient is not a candidate for neurosurgical evaluation nor intervention Pulm: Continue vent support and maintain sats above 92%. Bronchodilators, ICU vent bundle. SBT daily as cecily. Pulm is following Dr. Rosmery Peña recommended to hold off bronchoscopy and biopsy for tissue diagnosis at this time. CV: Hold Lopressor due to septic shock Abhijeet-Synephrine to keep map above 65. s/p 2L NS bolus Hydrocortisone 25 mg IV q.12. Echo showed EF 70-75% : Monitor renal function Is and Os and avoid nephrotoxins. Worsening creatinine/ BUN today 122/3.5 Urine output remains adequate US kidneys: No hydronephrosis, non-obstructing stone on left. Renal is following- Dr. Barrow. Free water 300ml Q6, monitor sodium level. GI: On Protonix 40 mg IV daily. On Glucerna 1.5 @45ml/hr Monitor LFTs Hepatitis profile. Hep C ab reactive US liver: Enlarged heterogeneous liver. Somewhat ill-defined echogenic masses throughout the liver. Metastatic disease is suspected. ID: Continue with ABX cefepime 09/12 due to new fever and worsening septic shock F/U blood sputum and urine culture 09/12/16 Sputum cx: 09/05: nl fredrick, follow up on sputum cx 09/08- normal fredrick strep pneumonia and Legionella urinary AG negative on Previous cultures NGTD Heme: Monitor CBC. Oncology has followed re probable metastatic lung cancer stage IV Endo: On medium scale SSI with Accu-Chek for glycemic control. TSH: 0.74 GI prophylaxis with Protonix 40 mg daily and DVT prophylaxis with SCDs. Not on chemical anticoagulation prophylaxis given likely brain mets Lines. Peripheral IV's. L subclavian central line placed 09/12/16 Palliative care is following. Code status: DNR [facility] Level II Patient remains acutely critically ill now with septic shock with multisystem organ failure . No further escalation of care per family request documented.. No further lab draws. Articles B and C signed by palliative care. I will sign if family decides to withdrawal. Narciso Valentino MD Sep 15, 2016 22:07
== END 2016-09-15 21:55 | disposition expired | DRG 870 ==
LOC: NEPC 12:16 → NEDA 14:30 → HIMN 16:20
PROVIDERS: ADMIT Internal Medicine Critical Care Medicine; ATTEND Internal Medicine Critical Care Medicine
PROC: 5A1955Z Respiratory Ventilation, Greater than 96 Consecutive Hours (ICD-10-PCS; principal; 2016-09-04)
PROC: 03HY32Z Insertion of Monitoring Device into Upper Artery, Percutaneous Approach (ICD-10-PCS; 2016-09-04)
PROC: 0BH17EZ Insertion of Endotracheal Airway into Trachea, Via Natural or Artificial Opening (ICD-10-PCS; 2016-09-04)
PROC: 0BH17EZ Insertion of Endotracheal Airway into Trachea, Via Natural or Artificial Opening (ICD-10-PCS; 2016-09-04)
PROC: 06HM33Z Insertion of Infusion Device into Right Femoral Vein, Percutaneous Approach (ICD-10-PCS; 2016-09-04)
PROC: B54BZZA Ultrasonography of Right Lower Extremity Veins, Guidance (ICD-10-PCS; 2016-09-04)
PROC: 05H633Z Insertion of Infusion Device into Left Subclavian Vein, Percutaneous Approach (ICD-10-PCS; 2016-09-12)
DX: A41.9 Sepsis, unspecified organism (principal); J96.01 Acute respiratory failure with hypoxia; N17.0 Acute kidney failure with tubular necrosis; R65.21 Severe sepsis with septic shock; I63.9 Cerebral infarction, unspecified; G93.41 Metabolic encephalopathy; Z51.5 Encounter for palliative care; J69.0 Pneumonitis due to inhalation of food and vomit; C78.1 Secondary malignant neoplasm of mediastinum; N25.1 Nephrogenic diabetes insipidus; Z68.41 Body mass index [BMI] 40.0-44.9, adult; C78.6 Secondary malignant neoplasm of retroperitoneum and peritoneum; C78.7 Secondary malignant neoplasm of liver and intrahepatic bile duct; F31.81 Bipolar II disorder; J44.0 Chronic obstructive pulmonary disease with (acute) lower respiratory infection; C79.31 Secondary malignant neoplasm of brain; C79.72 Secondary malignant neoplasm of left adrenal gland; C34.02 Malignant neoplasm of left main bronchus; I10 Essential (primary) hypertension; E11.9 Type 2 diabetes mellitus without complications; G40.909 Epilepsy, unspecified, not intractable, without status epilepticus; G89.29 Other chronic pain; M54.9 Dorsalgia, unspecified; E66.9 Obesity, unspecified; E78.5 Hyperlipidemia, unspecified; G93.89 Other specified disorders of brain; H54.41 Blindness, right eye, normal vision left eye; E87.6 Hypokalemia; R35.8 Other polyuria; R50.2 Drug induced fever; G47.30 Sleep apnea, unspecified; F17.200 Nicotine dependence, unspecified, uncomplicated; Z66 Do not resuscitate; Z79.84 Long term (current) use of oral hypoglycemic drugs
CPT/HCPCS: 31500; 36556; 36620; 51702; 70450; 70551; 71010; 71275; 74174; 76700; 76937; 80048; 80053; 80074; 80164; 80202; 80307; 81001; 82140; 82550; 82552; 82805; 82948; 83605; 83735; 84100; 84132; 84443; 84484; 85007; 85025; 85027; 85610; 85730; 87040; 87070; 87086; 87205; 87449; 87641; 93306; 94002; 94003; 94640; 94664; 95819; 96374; 96375; C9113; J0171; J0330; J0456; J0610; J0692; J1170; J1650; J1720; J1953; J1956; J2060; J2248; J2370; J2543; J2997; J3010; J3370; J3480; J7030; J7040; J7050; J7060; J7070; P9045; Q9967